=== PATIENT | female | born 1965 | race Caucasian/White ===

== ENCOUNTER 2016-09-19 12:33 | Inpatient (IN) | payer MEDICARE, MEDICAID ==
[~2016-09-19] VITALS: Ht 162.6 cm; Wt 86.6 kg
[~2016-09-19 12:33] MED LIST: BENZ1TAB10 PO; CYCL10 PO; DIVA500T2 PO; GABA400C PO; HALO10 PO; INSU100V12 SQ; LANS30 PO; LEVO125 PO; LITH300C3 PO; METO-323 PO; OLAN10TA6 PO; PREG50 PO; PROP10 PO; RIVA20TA PO; ROPI2 PO; TRAM50TA4 PO; TRIH5TAB2 PO
[2016-09-19] MEDS ORDERED: MAG HYDROX/AL HYDROX/SIMETH ES 30 ML SUSPENSION UDCUP PO PRN (13:45)
[2016-09-19] MEDS ORDERED: HydrOXYzine PAMOATE 50 MG CAPSULE PO PRN (13:45)
[2016-09-19] MEDS ORDERED: GuaiFENesin/D-METHORPHAN [SUGAR-FREE] 200-20MG/10 ML SYRUP UDCUP PO PRN (13:45)
[2016-09-19] MEDS ORDERED: PROMETHAZINE HCL 25 MG TABLET PO PRN (13:45)
[2016-09-19] MEDS ORDERED: LOPERAMIDE HCL 2 MG CAPSULE PO PRN (13:45)
[2016-09-19] MEDS ORDERED: MAGNESIUM HYDROXIDE SUSPENSION 30 ML UDCUP PO PRN (13:45)
[2016-09-19] MEDS: ACAMPROSATE CALCIUM 333 MG DR TABLET PO SCH ×2 (16:48→17:00)
[2016-09-19] MEDS: BusPIRone HCL 10 MG TABLET PO SCH ×2 (16:49→17:00)
[2016-09-19] MEDS: THIAMINE HCL 100 MG TABLET PO SCH (16:49)
[2016-09-19] MEDS: VALPROIC ACID 250 MG CAPSULE PO SCH ×2 (16:49→17:00)
[2016-09-19 16:50] VITALS: BP 147/92
[2016-09-19] MEDS ORDERED: INFLUENZA VIRUS VACCINE QVS 2016-17 (3YR+)/PF 60 MCG/0.5 ML SYRINGE IM ONE (17:30)
[2016-09-19] MEDS: LORazepam 1 MG TABLET PO PRN (19:42)
[2016-09-19] MEDS ORDERED: IPRATROPIUM BROMIDE 0.5 MG/2.5 ML NEB SOLUTION NEB PRN (20:00)
[2016-09-19] MEDS ORDERED: ALBUTEROL SULFATE 2.5 MG/0.5 ML NEB SOLUTION NEB PRN (20:00)
[2016-09-19] MEDS ORDERED: ZOLPIDEM TARTRATE 10 MG TABLET PO SCH (21:00)
[2016-09-19] MEDS: PHENYTOIN SODIUM 100 MG ER CAPSULE PO SCH (21:12)
[2016-09-19] MEDS: OLANZapine 10 MG TABLET PO SCH (21:13)
[2016-09-19] MEDS: FAMOTIDINE 20 MG TABLET PO SCH (21:13)
[2016-09-19 21:39] LABS: APPEARANCE,URINE CLOUDY (CLEAR); GLUCOSE, URINE (UA) NEGATIVE (NEGATIVE); KETONES,URINE 15 mg/dL (NEGATIVE); LEUKOCYTE ESTERASE ,URINE MODERATE (NEGATIVE); OCCULT BLOOD,URINE NEGATIVE (NEGATIVE); PROTEIN,URINE POS 1+ (NEGATIVE)
[2016-09-19 21:42] LABS: ADD UA MICROSCOPIC YES
[2016-09-19 22:05] LABS: SQUAMOUS EPITHELIAL CELL,UR Moderate /LPF (None Seen)
[2016-09-19 22:06] LABS: RBC,URINE 0-2 /HPF (0-2); WBC,URINE 26-50 /HPF (0-5)
[2016-09-19] MEDS: ZOLPIDEM TARTRATE 10 MG TABLET PO PRN (22:34)
[2016-09-20] MEDS: LORazepam 1 MG TABLET PO PRN ×5 (04:43→17:47)
[2016-09-20 04:53] VITALS: BP 159/95
[2016-09-20] MEDS: ACETAMINOPHEN 325 MG TABLET PO PRN ×2 (04:54→09:08)
[2016-09-20] MEDS ORDERED: LEVOTHYROXINE SODIUM 125 MCG TABLET PO SCH (07:00)
[2016-09-20] MEDS: VALPROIC ACID 250 MG CAPSULE PO SCH ×3 (09:08→16:28)
[2016-09-20] MEDS: HALOPERIDOL 5 MG TABLET PO PRN ×2 (09:09→14:18)
[2016-09-20] MEDS: BusPIRone HCL 10 MG TABLET PO SCH ×3 (09:09→16:28)
[2016-09-20] MEDS: SERTRALINE HCL 100 MG TABLET PO SCH (09:09)
[2016-09-20] MEDS: ACAMPROSATE CALCIUM 333 MG DR TABLET PO SCH ×3 (09:09→16:28)
[2016-09-20] MEDS: MULTIVITAMINS WITH MINERALS, THERAPEUTIC TABLET PO SCH (09:09)
[2016-09-20] MEDS: DULoxetine HCL 30 MG CAPSULE PO SCH (09:09)
[2016-09-20] MEDS: THIAMINE HCL 100 MG TABLET PO SCH ×2 (09:10→16:28)
[2016-09-20] MEDS: FOLIC ACID 1 MG TABLET PO SCH (09:10)
[2016-09-20] MEDS: METOPROLOL TARTRATE 25 MG TABLET PO SCH (09:11)
[2016-09-20] MEDS: SULFAMETHOX/TRIMETH DS 800-160 MG/TABLET PO SCH ×2 (10:32→16:28)
[2016-09-20] MEDS: ESTROGENS,CONJUGATED 0.3 MG TABLET PO SCH (11:47)
[2016-09-20] MEDS: NICOTINE 21 MG/24 HOUR PATCH TD SCH (11:47)
[2016-09-20] MEDS: IBUPROFEN 600 MG TABLET PO PRN (14:19)
[2016-09-20 16:57] VITALS: BP 153/87
[2016-09-20] MEDS: OLANZapine 10 MG TABLET PO SCH (21:17)
[2016-09-20] MEDS: FAMOTIDINE 20 MG TABLET PO SCH (21:17)
[2016-09-20] MEDS: PHENYTOIN SODIUM 100 MG ER CAPSULE PO SCH (21:17)
[2016-09-20] MEDS: ZOLPIDEM TARTRATE 10 MG TABLET PO PRN (21:18)
[2016-09-21 01:30] VITALS: BP 148/90
[2016-09-21] MEDS: LORazepam 1 MG TABLET PO PRN ×6 (01:31→17:51)
[2016-09-21] MEDS: IBUPROFEN 600 MG TABLET PO PRN ×2 (01:32→12:26)
[2016-09-21] MEDS: LEVOTHYROXINE SODIUM 50 MCG TABLET PO SCH (06:26)
[2016-09-21 08:21] VITALS: BP 153/80
[2016-09-21] MEDS: SULFAMETHOX/TRIMETH DS 800-160 MG/TABLET PO SCH ×2 (08:25→16:26)
[2016-09-21] MEDS: BusPIRone HCL 10 MG TABLET PO SCH ×3 (08:25→16:26)
[2016-09-21] MEDS: VALPROIC ACID 250 MG CAPSULE PO SCH ×3 (08:26→16:26)
[2016-09-21] MEDS: FOLIC ACID 1 MG TABLET PO SCH (08:26)
[2016-09-21] MEDS: MULTIVITAMINS WITH MINERALS, THERAPEUTIC TABLET PO SCH (08:26)
[2016-09-21] MEDS: METOPROLOL TARTRATE 25 MG TABLET PO SCH (08:26)
[2016-09-21] MEDS: DULoxetine HCL 30 MG CAPSULE PO SCH (08:26)
[2016-09-21] MEDS: ESTROGENS,CONJUGATED 0.3 MG TABLET PO SCH (08:27)
[2016-09-21] MEDS: ACAMPROSATE CALCIUM 333 MG DR TABLET PO SCH ×3 (08:27→16:26)
[2016-09-21] MEDS: SERTRALINE HCL 100 MG TABLET PO SCH (08:28)
[2016-09-21] MEDS: THIAMINE HCL 100 MG TABLET PO SCH ×2 (08:28→16:26)
[2016-09-21] MEDS: NICOTINE 21 MG/24 HOUR PATCH TD SCH (11:23)
[2016-09-21 17:07] VITALS: BP 130/74
[2016-09-21] MEDS: OLANZapine 10 MG TABLET PO SCH (20:16)
[2016-09-21] MEDS: PHENYTOIN SODIUM 100 MG ER CAPSULE PO SCH (20:16)
[2016-09-21] MEDS: FAMOTIDINE 20 MG TABLET PO SCH (20:16)
[2016-09-21] MEDS: ZOLPIDEM TARTRATE 10 MG TABLET PO PRN (21:56)
[2016-09-22 05:30] VITALS: BP 135/86
[2016-09-22] MEDS: LORazepam 1 MG TABLET PO PRN ×6 (05:30→23:52)
[2016-09-22] MEDS: IBUPROFEN 600 MG TABLET PO PRN ×3 (05:31→17:45)
[2016-09-22 06:16] VITALS: BP 135/86
[2016-09-22] MEDS: LEVOTHYROXINE SODIUM 50 MCG TABLET PO SCH (06:20)
[2016-09-22 08:15] VITALS: BP 133/89
[2016-09-22] MEDS: BusPIRone HCL 10 MG TABLET PO SCH ×3 (08:15→16:10)
[2016-09-22] MEDS: SULFAMETHOX/TRIMETH DS 800-160 MG/TABLET PO SCH ×2 (08:15→16:10)
[2016-09-22] MEDS: DULoxetine HCL 30 MG CAPSULE PO SCH (08:16)
[2016-09-22] MEDS: VALPROIC ACID 250 MG CAPSULE PO SCH ×3 (08:16→16:09)
[2016-09-22] MEDS: ACAMPROSATE CALCIUM 333 MG DR TABLET PO SCH ×3 (08:16→16:09)
[2016-09-22] MEDS: THIAMINE HCL 100 MG TABLET PO SCH ×2 (08:17→16:10)
[2016-09-22] MEDS: ESTROGENS,CONJUGATED 0.3 MG TABLET PO SCH (08:17)
[2016-09-22] MEDS: METOPROLOL TARTRATE 25 MG TABLET PO SCH (08:17)
[2016-09-22] MEDS: SERTRALINE HCL 100 MG TABLET PO SCH (08:17)
[2016-09-22] MEDS: FOLIC ACID 1 MG TABLET PO SCH (08:17)
[2016-09-22] MEDS: MULTIVITAMINS WITH MINERALS, THERAPEUTIC TABLET PO SCH (08:18)
[2016-09-22] MEDS: NICOTINE 21 MG/24 HOUR PATCH TD SCH (08:22)
[2016-09-22 10:29] VITALS: BP 146/94
[2016-09-22 17:40] VITALS: BP 155/98
[2016-09-22] MEDS: FAMOTIDINE 20 MG TABLET PO SCH (21:52)
[2016-09-22] MEDS: OLANZapine 10 MG TABLET PO SCH (21:52)
[2016-09-22] MEDS: ZOLPIDEM TARTRATE 10 MG TABLET PO PRN (21:52)
[2016-09-22] MEDS: PHENYTOIN SODIUM 100 MG ER CAPSULE PO SCH (21:52)
[2016-09-23 00:30] VITALS: BP 137/89
[2016-09-23] MEDS: LORazepam 1 MG TABLET PO PRN ×4 (05:47→16:05)
[2016-09-23] MEDS: IBUPROFEN 600 MG TABLET PO PRN ×2 (05:47→10:15)
[2016-09-23] MEDS: LEVOTHYROXINE SODIUM 50 MCG TABLET PO SCH (06:19)
[2016-09-23] MEDS: DULoxetine HCL 30 MG CAPSULE PO SCH (08:10)
[2016-09-23] MEDS: MULTIVITAMINS WITH MINERALS, THERAPEUTIC TABLET PO SCH (08:10)
[2016-09-23] MEDS: THIAMINE HCL 100 MG TABLET PO SCH ×2 (08:11→16:05)
[2016-09-23] MEDS: METOPROLOL TARTRATE 25 MG TABLET PO SCH (08:11)
[2016-09-23] MEDS: FOLIC ACID 1 MG TABLET PO SCH (08:11)
[2016-09-23] MEDS: BusPIRone HCL 10 MG TABLET PO SCH ×3 (08:11→16:06)
[2016-09-23] MEDS: ESTROGENS,CONJUGATED 0.3 MG TABLET PO SCH (08:11)
[2016-09-23] MEDS: SULFAMETHOX/TRIMETH DS 800-160 MG/TABLET PO SCH ×2 (08:12→16:05)
[2016-09-23] MEDS: VALPROIC ACID 250 MG CAPSULE PO SCH ×3 (08:12→16:06)
[2016-09-23] MEDS: SERTRALINE HCL 100 MG TABLET PO SCH (08:12)
[2016-09-23] MEDS: ACAMPROSATE CALCIUM 333 MG DR TABLET PO SCH ×3 (08:12→16:05)
[2016-09-23] MEDS: NICOTINE 21 MG/24 HOUR PATCH TD SCH (08:16)
[2016-09-23 09:48] VITALS: BP 156/88
[2016-09-23 10:14] VITALS: BP 155/84
[2016-09-23 21:04] VITALS: BP 124/69
[2016-09-23] MEDS: FAMOTIDINE 20 MG TABLET PO SCH (21:13)
[2016-09-23] MEDS: OLANZapine 10 MG TABLET PO SCH (21:14)
[2016-09-23] MEDS: PHENYTOIN SODIUM 100 MG ER CAPSULE PO SCH (21:14)
[2016-09-23] MEDS: ZOLPIDEM TARTRATE 10 MG TABLET PO PRN (21:41)
[2016-09-24] MEDS: IBUPROFEN 600 MG TABLET PO PRN ×2 (04:54→08:56)
[2016-09-24] MEDS: LORazepam 1 MG TABLET PO PRN ×4 (04:54→16:20)
[2016-09-24 04:55] VITALS: BP 147/98
[2016-09-24] MEDS: LEVOTHYROXINE SODIUM 50 MCG TABLET PO SCH (06:28)
[2016-09-24 08:50] VITALS: BP 146/69
[2016-09-24] MEDS: VALPROIC ACID 250 MG CAPSULE PO SCH ×3 (08:50→16:16)
[2016-09-24] MEDS: ESTROGENS,CONJUGATED 0.3 MG TABLET PO SCH (08:50)
[2016-09-24] MEDS: FOLIC ACID 1 MG TABLET PO SCH (08:50)
[2016-09-24] MEDS: SULFAMETHOX/TRIMETH DS 800-160 MG/TABLET PO SCH ×2 (08:50→16:16)
[2016-09-24] MEDS: DULoxetine HCL 30 MG CAPSULE PO SCH (08:50)
[2016-09-24] MEDS: METOPROLOL TARTRATE 25 MG TABLET PO SCH (08:50)
[2016-09-24] MEDS: THIAMINE HCL 100 MG TABLET PO SCH ×2 (08:51→16:17)
[2016-09-24] MEDS: MULTIVITAMINS WITH MINERALS, THERAPEUTIC TABLET PO SCH (08:51)
[2016-09-24] MEDS: TRIHEXYPHENIDYL HCL 5 MG TABLET PO SCH ×2 (08:51→16:17)
[2016-09-24] MEDS: BusPIRone HCL 10 MG TABLET PO SCH ×3 (08:51→16:16)
[2016-09-24] MEDS: SERTRALINE HCL 100 MG TABLET PO SCH (08:51)
[2016-09-24] MEDS: ACAMPROSATE CALCIUM 333 MG DR TABLET PO SCH ×3 (08:51→16:16)
[2016-09-24] MEDS: NICOTINE 21 MG/24 HOUR PATCH TD SCH (08:56)
[2016-09-24 09:35] LABS: BASOPHILS % (AUTO) 0.4 % (0.0-2.0); EOSINOPHILS % (AUTO) 3.1 % (1.0-6.0); HEMATOCRIT 38.8 % (36-46); LYMPHOCYTES # (AUTO) 1.8 K/uL (1.0-4.8); LYMPHOCYTES % (AUTO) 21.4 % (22.0-44.0); MEAN CORPUSCULAR HEMOGLOBIN 30.6 pg (26.0-34.0); MEAN CORPUSCULAR HGB CONC 33.5 G/dL (31.0-37.0); MEAN CORPUSCULAR VOLUME 91 fL (80-100); MONOCYTES # (AUTO) 0.5 K/uL (0.1-1.0); MONOCYTES % (AUTO) 5.8 % (2.0-9.0); NEUTROPHILS # (AUTO) 5.7 K/uL (1.8-7.7); NEUTROPHILS % (AUTO) 69.3 % (40.0-70.0); PLATELET COUNT (AUTO) 300 K/uL (150-450); RED BLOOD CELL COUNT(AUTO) 4.25 MIL/uL (4.00-5.20); RED CELL DISTRIBUTION WIDTH 13.4 % (11.5-14.5); WHITE BLOOD COUNT (AUTO) 8.2 K/uL (4.5-11.0)
[2016-09-24 09:40] LABS: AMYLASE 65 U/L (25-115); VALPROIC ACID 17 mcg/mL (50-100)
[2016-09-24 10:53] VITALS: BP 146/93
[2016-09-24] MEDS: OxyCODONE HCL/ACETAMINOPHEN 5-325 MG TABLET PO PRN ×2 (10:57→16:58)
[2016-09-24 16:32] VITALS: BP 148/98
[2016-09-24 16:55] VITALS: BP 141/90
[2016-09-24] MEDS: PHENYTOIN SODIUM 100 MG ER CAPSULE PO SCH (20:23)
[2016-09-24] MEDS: FAMOTIDINE 20 MG TABLET PO SCH (20:23)
[2016-09-24] MEDS: OLANZapine 10 MG TABLET PO SCH (20:23)
[2016-09-24] MEDS: ZOLPIDEM TARTRATE 10 MG TABLET PO PRN (22:08)
[2016-09-25 03:35] VITALS: BP 140/92
[2016-09-25] MEDS: LORazepam 1 MG TABLET PO PRN ×3 (03:37→10:56)
[2016-09-25] MEDS: OxyCODONE HCL/ACETAMINOPHEN 5-325 MG TABLET PO PRN ×2 (03:37→10:03)
[2016-09-25] MEDS: LEVOTHYROXINE SODIUM 50 MCG TABLET PO SCH (06:16)
[2016-09-25] MEDS: NICOTINE 21 MG/24 HOUR PATCH TD SCH (08:51)
[2016-09-25] MEDS: DULoxetine HCL 30 MG CAPSULE PO SCH (08:52)
[2016-09-25] MEDS: ACAMPROSATE CALCIUM 333 MG DR TABLET PO SCH ×2 (08:52→13:33)
[2016-09-25] MEDS: VALPROIC ACID 250 MG CAPSULE PO SCH ×2 (08:52→13:32)
[2016-09-25] MEDS: THIAMINE HCL 100 MG TABLET PO SCH (08:52)
[2016-09-25] MEDS: TRIHEXYPHENIDYL HCL 5 MG TABLET PO SCH (08:52)
[2016-09-25] MEDS: MULTIVITAMINS WITH MINERALS, THERAPEUTIC TABLET PO SCH (08:52)
[2016-09-25] MEDS: FOLIC ACID 1 MG TABLET PO SCH (08:53)
[2016-09-25] MEDS: ESTROGENS,CONJUGATED 0.3 MG TABLET PO SCH (08:53)
[2016-09-25] MEDS: SERTRALINE HCL 100 MG TABLET PO SCH (08:53)
[2016-09-25] MEDS: METOPROLOL TARTRATE 25 MG TABLET PO SCH (08:53)
[2016-09-25] MEDS: BusPIRone HCL 10 MG TABLET PO SCH ×2 (08:53→13:32)
[2016-09-25 09:00] VITALS: BP 142/77
[2016-09-25] MEDS: IBUPROFEN 600 MG TABLET PO PRN (09:00)
[2016-09-25] MEDS: HALOPERIDOL 5 MG TABLET PO PRN (10:56)
[2016-09-25] MEDS ORDERED: VALP250 PO (12:57)
[2016-09-25] MEDS ORDERED: ACAM333T7 PO (12:57)
[2016-09-25] MEDS ORDERED: PHENY100 PO (12:57)
[2016-09-25] MEDS ORDERED: SERT100T12 PO (12:57)
[2016-09-25] MEDS ORDERED: TRIH5TAB2 PO (12:57)
[2016-09-25] MEDS ORDERED: DULO30CA2 PO (12:57)
[2016-09-25] MEDS ORDERED: BUSP10TA23 PO (12:57)
[2016-09-25] MEDS ORDERED: OLAN10TA20 PO (12:57)
[2016-09-25] MEDS ORDERED: PREM3 PO (13:10)
[2016-09-25] MEDS ORDERED: FAMO20 PO (13:11)
[2016-09-25] MEDS ORDERED: LEVO50 PO (13:11)
== END 2016-09-25 15:00 | disposition home or self-care (01) | DRG 885 ==
LOC: 3EI 15:48 → MERGE 15:48 → 3EI 09-20 17:51 → 3EX 09-20 17:51 → 3EI 09-23 18:16
PROVIDERS: ADMIT Psychiatry & Neurology Psychiatry; ATTEND Psychiatry & Neurology Psychiatry
DX: F25.0 Schizoaffective disorder, bipolar type (principal); R45.851 Suicidal ideations; J44.9 Chronic obstructive pulmonary disease, unspecified; E03.9 Hypothyroidism, unspecified; G89.4 Chronic pain syndrome; E78.00 Pure hypercholesterolemia, unspecified; E66.9 Obesity, unspecified; M54.9 Dorsalgia, unspecified; E11.9 Type 2 diabetes mellitus without complications; I10 Essential (primary) hypertension; K21.9 Gastro-esophageal reflux disease without esophagitis; M19.90 Unspecified osteoarthritis, unspecified site; G40.909 Epilepsy, unspecified, not intractable, without status epilepticus; N95.9 Unspecified menopausal and perimenopausal disorder; Z93.3 Colostomy status; F17.200 Nicotine dependence, unspecified, uncomplicated; Z71.6 Tobacco abuse counseling; Z28.21 Immunization not carried out because of patient refusal; Z76.5 Malingerer [conscious simulation]; Z88.8 Allergy status to other drugs, medicaments and biological substances; Z79.899 Other long term (current) drug therapy; Z91.19 Patient's noncompliance with other medical treatment and regimen; Z98.890 Other specified postprocedural states; Z86.718 Personal history of other venous thrombosis and embolism; Z85.038 Personal history of other malignant neoplasm of large intestine
CPT/HCPCS: 80307; 87086; 87147; 93005

== ENCOUNTER 2016-10-14 10:12 | Inpatient (IN) | payer MEDICARE, MEDICAID ==
[~2016-10-14] VITALS: Ht 162.6 cm; Wt 83.3 kg
[~2016-10-14 10:12] MED LIST changes: +ACAM333T7 PO; -BENZ1TAB10 PO; +BUSP10TA23 PO; -CYCL10 PO; -DIVA500T2 PO; +DULO30CA2 PO; +FAMO20 PO; -GABA400C PO; -HALO10 PO; -INSU100V12 SQ; -LANS30 PO; -LEVO125 PO; +LEVO50 PO; -LITH300C3 PO; +OLAN10TA20 PO; +PHENY100 PO; -PREG50 PO; +PREM3 PO; -PROP10 PO; -RIVA20TA PO; -ROPI2 PO; +SERT100T12 PO; -TRAM50TA4 PO; +VALP250 PO
[2016-10-14 12:07] VITALS: BP 133/97
[2016-10-14] MEDS: BusPIRone HCL 10 MG TABLET PO SCH (17:00)
[2016-10-14] MEDS: TRIHEXYPHENIDYL HCL 5 MG TABLET PO SCH (17:00)
[2016-10-14] MEDS ORDERED: INFLUENZA VIRUS VACCINE QVS 2016-17 (3YR+)/PF 60 MCG/0.5 ML SYRINGE IM ONE (17:00)
[2016-10-14] MEDS: ACAMPROSATE CALCIUM 333 MG DR TABLET PO SCH (17:00)
[2016-10-14 18:15] VITALS: BP 135/84
[2016-10-14] MEDS: DIVALPROEX SODIUM 500 MG DR TABLET PO SCH (18:28)
[2016-10-14] MEDS: LORazepam 2 MG TABLET PO PRN (19:09)
[2016-10-14] MEDS: HALOPERIDOL 5 MG TABLET PO PRN (19:09)
[2016-10-14] MEDS ORDERED: DEXTROSE 50%-WATER 25 GM/50 ML SYRINGE IVP PRN (20:45)
[2016-10-14] MEDS ORDERED: OLANZapine 10 MG TABLET PO SCH (21:00)
[2016-10-14] MEDS: FAMOTIDINE 20 MG TABLET PO SCH (22:11)
[2016-10-14] MEDS: PHENYTOIN SODIUM 100 MG ER CAPSULE PO SCH (22:11)
[2016-10-14] MEDS: CEPHALEXIN MONOHYDRATE 500 MG CAPSULE PO SCH (22:11)
[2016-10-15 05:55] VITALS: BP 135/90
[2016-10-15] MEDS: HALOPERIDOL 5 MG TABLET PO PRN (06:02)
[2016-10-15] MEDS: LORazepam 2 MG TABLET PO PRN (06:02)
[2016-10-15] MEDS: LEVOTHYROXINE SODIUM 50 MCG TABLET PO SCH (07:00)
[2016-10-15 08:00] VITALS: BP 123/78
[2016-10-15] MEDS: BusPIRone HCL 10 MG TABLET PO SCH ×2 (08:16→12:05)
[2016-10-15] MEDS: ESTROGENS,CONJUGATED 0.3 MG TABLET PO SCH (08:16)
[2016-10-15] MEDS: METOPROLOL SUCCINATE 25 MG ER TABLET PO SCH (08:16)
[2016-10-15] MEDS: ACAMPROSATE CALCIUM 333 MG DR TABLET PO SCH ×3 (08:16→16:43)
[2016-10-15] MEDS: CEPHALEXIN MONOHYDRATE 500 MG CAPSULE PO SCH ×4 (08:16→22:00)
[2016-10-15] MEDS: DULoxetine HCL 60 MG CAPSULE PO SCH (08:16)
[2016-10-15] MEDS: TRIHEXYPHENIDYL HCL 5 MG TABLET PO SCH (08:17)
[2016-10-15] MEDS: DIVALPROEX SODIUM 500 MG DR TABLET PO SCH ×3 (08:17→16:43)
[2016-10-15] MEDS: NICOTINE 21 MG/24 HOUR PATCH TD SCH (08:17)
[2016-10-15] MEDS ORDERED: OxyCODONE HCL/ACETAMINOPHEN 5-325 MG TABLET PO PRN (08:45)
[2016-10-15] MEDS ORDERED: MAGNESIUM HYDROXIDE SUSPENSION 30 ML UDCUP PO PRN (10:30)
[2016-10-15] MEDS ORDERED: LOPERAMIDE HCL 2 MG CAPSULE PO PRN (10:30)
[2016-10-15] MEDS ORDERED: PROMETHAZINE HCL 25 MG TABLET PO PRN (10:30)
[2016-10-15] MEDS ORDERED: MAG HYDROX/AL HYDROX/SIMETH ES 30 ML SUSPENSION UDCUP PO PRN (10:30)
[2016-10-15] MEDS: INSULIN ASPART 100 UNITS/ML SQ PRN ×3 (11:00→21:51)
[2016-10-15 11:01] LABS: GLUCOSE COMMENT 1 Received Meds; GLUCOSE,POINT OF CARE 249 MG/DL (70-110)
[2016-10-15] MEDS ORDERED: HALOPERIDOL LACTATE 5 MG/ML VIAL IM ONE (16:00)
[2016-10-15] MEDS ORDERED: GABAPENTIN 400 MG CAPSULE PO PRN (16:00)
[2016-10-15] MEDS ORDERED: DiphenhydrAMINE HCL 50 MG/ML VIAL IM ONE (16:00)
[2016-10-15] MEDS: THIAMINE HCL 100 MG TABLET PO SCH (16:43)
[2016-10-15] MEDS: HALOPERIDOL 5 MG TABLET PO SCH (17:00)
[2016-10-15 17:11] VITALS: BP 134/96
[2016-10-15] MEDS: AMANTADINE HCL 100 MG CAPSULE PO SCH ×2 (17:13→21:57)
[2016-10-15 20:27] LABS: GLUCOSE,POINT OF CARE 184 MG/DL (70-110)
[2016-10-15 20:32] LABS: GLUCOSE,POINT OF CARE 235 MG/DL (70-110)
[2016-10-15] MEDS ORDERED: HALOPERIDOL 10 MG TABLET PO SCH (21:00)
[2016-10-15] MEDS: ZOLPIDEM TARTRATE 10 MG TABLET PO PRN (21:56)
[2016-10-15] MEDS: PHENYTOIN SODIUM 100 MG ER CAPSULE PO SCH (21:56)
[2016-10-15] MEDS: FAMOTIDINE 20 MG TABLET PO SCH (22:00)
[2016-10-16] MEDS: HALOPERIDOL 5 MG TABLET PO PRN ×2 (02:49→06:49)
[2016-10-16] MEDS: HydrOXYzine PAMOATE 50 MG CAPSULE PO PRN ×2 (02:49→09:40)
[2016-10-16 04:40] VITALS: BP 129/83
[2016-10-16] MEDS: ACETAMINOPHEN 325 MG TABLET PO PRN (04:58)
[2016-10-16 05:02] LABS: GLUCOSE,POINT OF CARE 206 MG/DL (70-110)
[2016-10-16] MEDS: LEVOTHYROXINE SODIUM 50 MCG TABLET PO SCH (06:33)
[2016-10-16] MEDS: INSULIN ASPART 100 UNITS/ML SQ PRN ×4 (06:33→21:38)
[2016-10-16 06:52] LABS: BASOPHILS % (AUTO) 0.3 % (0.0-2.0); EOSINOPHILS % (AUTO) 1.8 % (1.0-6.0); HEMATOCRIT 40.7 % (36-46); HEMOGLOBIN 13.4 g/dL (12.0-16.0); LYMPHOCYTES # (AUTO) 1.9 K/uL (1.0-4.8); LYMPHOCYTES % (AUTO) 22.5 % (22.0-44.0); MEAN CORPUSCULAR HEMOGLOBIN 30.6 pg (26.0-34.0); MEAN CORPUSCULAR HGB CONC 32.9 G/dL (31.0-37.0); MEAN CORPUSCULAR VOLUME 93 fL (80-100); MONOCYTES # (AUTO) 0.5 K/uL (0.1-1.0); MONOCYTES % (AUTO) 6.1 % (2.0-9.0); NEUTROPHILS # (AUTO) 5.8 K/uL (1.8-7.7); NEUTROPHILS % (AUTO) 69.3 % (40.0-70.0); PLATELET COUNT (AUTO) 279 K/uL (150-450); RED BLOOD CELL COUNT(AUTO) 4.38 MIL/uL (4.00-5.20); RED CELL DISTRIBUTION WIDTH 14.5 % (11.5-14.5); WHITE BLOOD COUNT (AUTO) 8.4 K/uL (4.5-11.0)
[2016-10-16 07:13] LABS: ALANINE AMINOTRANSFERASE 36 U/L (12-78); ALBUMIN 3.6 g/dL (3.4-5.0); ANION GAP 13 mmol/L (8-16); ASPARTATE AMINOTRANSFERASE 18 U/L (15-37); BILIRUBIN,TOTAL 0.3 mg/dL (0.1-1.0); CALCIUM, TOTAL 9.3 mg/dL (8.8-10.5); CARBON DIOXIDE 24 mmol/L (22-29); CHLORIDE 97 mmol/L (98-107); GLOMERULAR FILTR. RATE CALC > 60 mL/min (>60); POTASSIUM 3.8 mmol/L (3.5-5.1); SODIUM SERUM 134 mmol/L (136-145); TOTAL PROTEIN, SERUM 7.7 g/dL (6.4-8.2); UREA NITROGEN, BLOOD 17 mg/dL (7-18); VALPROIC ACID 25 mcg/mL (50-100)
[2016-10-16 08:00] VITALS: BP 147/92
[2016-10-16] MEDS: THIAMINE HCL 100 MG TABLET PO SCH ×2 (08:11→16:14)
[2016-10-16] MEDS: DIVALPROEX SODIUM 500 MG DR TABLET PO SCH ×3 (08:11→16:13)
[2016-10-16] MEDS: MULTIVITAMINS WITH MINERALS, THERAPEUTIC TABLET PO SCH (08:11)
[2016-10-16] MEDS: DULoxetine HCL 60 MG CAPSULE PO SCH (08:12)
[2016-10-16] MEDS: METOPROLOL SUCCINATE 25 MG ER TABLET PO SCH (08:12)
[2016-10-16] MEDS: CEPHALEXIN MONOHYDRATE 500 MG CAPSULE PO SCH ×4 (08:12→21:28)
[2016-10-16] MEDS: ACAMPROSATE CALCIUM 333 MG DR TABLET PO SCH ×3 (08:12→16:13)
[2016-10-16] MEDS: ESTROGENS,CONJUGATED 0.3 MG TABLET PO SCH (08:12)
[2016-10-16] MEDS: FOLIC ACID 1 MG TABLET PO SCH (08:12)
[2016-10-16] MEDS: NICOTINE 21 MG/24 HOUR PATCH TD SCH (08:13)
[2016-10-16] MEDS: HALOPERIDOL 5 MG TABLET PO SCH (09:00)
[2016-10-16 10:10] VITALS: BP 150/97
[2016-10-16 11:21] LABS: GLUCOSE,POINT OF CARE 210 MG/DL (70-110)
[2016-10-16] MEDS: AMANTADINE HCL 100 MG CAPSULE PO SCH ×2 (12:25→16:13)
[2016-10-16] MEDS ORDERED: LORazepam 2 MG/ML VIAL IM ONE (12:30)
[2016-10-16] MEDS ORDERED: DiphenhydrAMINE HCL 50 MG/ML VIAL IM ONE (12:30)
[2016-10-16] MEDS ORDERED: FluPHENAZine HCL 2.5 MG/ML INJ IM ONE (12:30)
[2016-10-16 16:21] LABS: GLUCOSE COMMENT 1 Received Meds; GLUCOSE,POINT OF CARE 227 MG/DL (70-110)
[2016-10-16 17:00] VITALS: BP 143/85
[2016-10-16] MEDS: LORazepam 2 MG TABLET PO PRN (17:17)
[2016-10-16] MEDS ORDERED: OLANZapine 5 MG RAPDIS TABLET PO SCH (21:00)
[2016-10-16] MEDS: PHENYTOIN SODIUM 100 MG ER CAPSULE PO SCH (21:28)
[2016-10-16] MEDS: FAMOTIDINE 20 MG TABLET PO SCH (21:28)
[2016-10-16 21:42] LABS: GLUCOSE COMMENT 1 Received Meds; GLUCOSE,POINT OF CARE 171 MG/DL (70-110)
[2016-10-17] MEDS: LORazepam 2 MG TABLET PO PRN ×3 (02:41→18:26)
[2016-10-17] MEDS: ZOLPIDEM TARTRATE 10 MG TABLET PO PRN ×2 (02:42→21:44)
[2016-10-17 05:31] LABS: GLUCOSE,POINT OF CARE 151 MG/DL (70-110)
[2016-10-17 06:02] VITALS: BP 130/86
[2016-10-17] MEDS: LEVOTHYROXINE SODIUM 50 MCG TABLET PO SCH (06:36)
[2016-10-17] MEDS: CEPHALEXIN MONOHYDRATE 500 MG CAPSULE PO SCH ×4 (08:00→21:32)
[2016-10-17] MEDS: MULTIVITAMINS WITH MINERALS, THERAPEUTIC TABLET PO SCH (08:00)
[2016-10-17] MEDS: AMANTADINE HCL 100 MG CAPSULE PO SCH ×3 (08:00→16:16)
[2016-10-17] MEDS: ACAMPROSATE CALCIUM 333 MG DR TABLET PO SCH ×3 (08:00→16:15)
[2016-10-17] MEDS: NICOTINE 21 MG/24 HOUR PATCH TD SCH (08:00)
[2016-10-17] MEDS: ESTROGENS,CONJUGATED 0.3 MG TABLET PO SCH (08:00)
[2016-10-17] MEDS: DIVALPROEX SODIUM 500 MG DR TABLET PO SCH ×3 (08:00→16:16)
[2016-10-17] MEDS: METOPROLOL SUCCINATE 25 MG ER TABLET PO SCH (08:00)
[2016-10-17] MEDS: DULoxetine HCL 60 MG CAPSULE PO SCH (08:01)
[2016-10-17] MEDS: THIAMINE HCL 100 MG TABLET PO SCH ×2 (08:01→16:16)
[2016-10-17] MEDS: FOLIC ACID 1 MG TABLET PO SCH (08:02)
[2016-10-17] MEDS: IBUPROFEN 600 MG TABLET PO PRN (10:49)
[2016-10-17 10:50] VITALS: BP 150/79
[2016-10-17 11:12] LABS: GLUCOSE,POINT OF CARE 200 MG/DL (70-110)
[2016-10-17] MEDS: INSULIN ASPART 100 UNITS/ML SQ PRN ×3 (11:12→21:36)
[2016-10-17] MEDS: GuaiFENesin/D-METHORPHAN [SUGAR-FREE] 200-20MG/10 ML SYRUP UDCUP PO PRN (11:27)
[2016-10-17] MEDS: GABAPENTIN 300 MG CAPSULE PO SCH (16:16)
[2016-10-17] MEDS: OLANZapine 5 MG RAPDIS TABLET PO SCH ×2 (16:16→21:32)
[2016-10-17] MEDS: GuaiFENesin/D-METHORPHAN/PHENYLEPH 5 ML LIQUID ORAL.SYG PO PRN ×2 (16:17→21:44)
[2016-10-17 17:11] LABS: GLUCOSE,POINT OF CARE 243 MG/DL (70-110)
[2016-10-17 18:26] VITALS: BP 144/74
[2016-10-17 21:31] LABS: GLUCOSE COMMENT 1 Received Meds; GLUCOSE,POINT OF CARE 176 MG/DL (70-110)
[2016-10-17] MEDS: FAMOTIDINE 20 MG TABLET PO SCH (21:32)
[2016-10-17] MEDS: PHENYTOIN SODIUM 100 MG ER CAPSULE PO SCH (21:32)
[2016-10-18 03:30] VITALS: BP 137/86
[2016-10-18] MEDS: ACETAMINOPHEN 325 MG TABLET PO PRN (03:38)
[2016-10-18] MEDS: LORazepam 2 MG TABLET PO PRN ×3 (03:38→17:01)
[2016-10-18] MEDS: GuaiFENesin/D-METHORPHAN/PHENYLEPH 5 ML LIQUID ORAL.SYG PO PRN ×3 (03:41→12:56)
[2016-10-18] MEDS: OLANZapine 5 MG RAPDIS TABLET PO PRN ×2 (04:24→22:19)
[2016-10-18 05:27] LABS: GLUCOSE,POINT OF CARE 179 MG/DL (70-110)
[2016-10-18] MEDS: LEVOTHYROXINE SODIUM 50 MCG TABLET PO SCH (06:20)
[2016-10-18] MEDS: INSULIN ASPART 100 UNITS/ML SQ PRN ×3 (06:41→16:52)
[2016-10-18] MEDS: CEPHALEXIN MONOHYDRATE 500 MG CAPSULE PO SCH ×4 (08:47→21:27)
[2016-10-18 08:48] VITALS: BP 140/90
[2016-10-18] MEDS: ESTROGENS,CONJUGATED 0.3 MG TABLET PO SCH (08:48)
[2016-10-18] MEDS: DULoxetine HCL 60 MG CAPSULE PO SCH (08:48)
[2016-10-18] MEDS: IBUPROFEN 600 MG TABLET PO PRN (08:48)
[2016-10-18] MEDS: OLANZapine 5 MG RAPDIS TABLET PO SCH ×3 (08:48→16:10)
[2016-10-18] MEDS: ACAMPROSATE CALCIUM 333 MG DR TABLET PO SCH ×3 (08:49→16:10)
[2016-10-18] MEDS: THIAMINE HCL 100 MG TABLET PO SCH ×2 (08:49→16:10)
[2016-10-18] MEDS: METOPROLOL SUCCINATE 25 MG ER TABLET PO SCH (08:49)
[2016-10-18] MEDS: MULTIVITAMINS WITH MINERALS, THERAPEUTIC TABLET PO SCH (08:49)
[2016-10-18] MEDS: DIVALPROEX SODIUM 500 MG DR TABLET PO SCH ×3 (08:49→16:10)
[2016-10-18] MEDS: GABAPENTIN 300 MG CAPSULE PO SCH ×3 (08:49→16:10)
[2016-10-18] MEDS: AMANTADINE HCL 100 MG CAPSULE PO SCH ×3 (08:49→16:10)
[2016-10-18] MEDS: FOLIC ACID 1 MG TABLET PO SCH (08:50)
[2016-10-18] MEDS: NICOTINE 21 MG/24 HOUR PATCH TD SCH (08:51)
[2016-10-18 11:02] LABS: GLUCOSE,POINT OF CARE 143 MG/DL (70-110)
[2016-10-18] MEDS: BENZOCAINE/MENTHOL LOZENGE [8 LOZENGES/PACKET] MM PRN ×2 (12:56→22:21)
[2016-10-18] MEDS: GuaiFENesin/D-METHORPHAN [SUGAR-FREE] 200-20MG/10 ML SYRUP UDCUP PO PRN ×2 (13:02→22:01)
[2016-10-18 16:37] LABS: GLUCOSE COMMENT 1 Received Meds; GLUCOSE,POINT OF CARE 184 MG/DL (70-110)
[2016-10-18 17:00] VITALS: BP 136/85
[2016-10-18] MEDS: FAMOTIDINE 20 MG TABLET PO SCH (21:27)
[2016-10-18] MEDS: PHENYTOIN SODIUM 100 MG ER CAPSULE PO SCH (21:27)
[2016-10-18] MEDS: ZOLPIDEM TARTRATE 10 MG TABLET PO PRN (21:43)
[2016-10-19] MEDS: LORazepam 2 MG TABLET PO PRN ×4 (01:24→22:26)
[2016-10-19] MEDS: BENZOCAINE/MENTHOL LOZENGE [8 LOZENGES/PACKET] MM PRN ×5 (01:24→23:08)
[2016-10-19] MEDS: GuaiFENesin/D-METHORPHAN/PHENYLEPH 5 ML LIQUID ORAL.SYG PO PRN ×4 (01:30→23:08)
[2016-10-19 01:41] VITALS: BP 128/89
[2016-10-19] MEDS: OLANZapine 5 MG RAPDIS TABLET PO PRN ×3 (02:43→23:08)
[2016-10-19 05:11] LABS: GLUCOSE,POINT OF CARE 252 MG/DL (70-110)
[2016-10-19] MEDS: LEVOTHYROXINE SODIUM 50 MCG TABLET PO SCH (06:24)
[2016-10-19] MEDS: INSULIN ASPART 100 UNITS/ML SQ PRN ×3 (06:39→21:20)
[2016-10-19] MEDS: IBUPROFEN 600 MG TABLET PO PRN (07:25)
[2016-10-19 08:00] VITALS: BP 148/90
[2016-10-19] MEDS: NICOTINE 21 MG/24 HOUR PATCH TD SCH (08:31)
[2016-10-19] MEDS: ESTROGENS,CONJUGATED 0.3 MG TABLET PO SCH (08:31)
[2016-10-19] MEDS: AMANTADINE HCL 100 MG CAPSULE PO SCH ×3 (08:32→18:59)
[2016-10-19] MEDS: GABAPENTIN 300 MG CAPSULE PO SCH ×3 (08:32→18:59)
[2016-10-19] MEDS: METOPROLOL SUCCINATE 25 MG ER TABLET PO SCH (08:32)
[2016-10-19] MEDS: FOLIC ACID 1 MG TABLET PO SCH (08:32)
[2016-10-19] MEDS: THIAMINE HCL 100 MG TABLET PO SCH ×2 (08:32→18:59)
[2016-10-19] MEDS: CEPHALEXIN MONOHYDRATE 500 MG CAPSULE PO SCH ×4 (08:32→21:07)
[2016-10-19] MEDS: ACAMPROSATE CALCIUM 333 MG DR TABLET PO SCH ×3 (08:32→19:00)
[2016-10-19] MEDS: MULTIVITAMINS WITH MINERALS, THERAPEUTIC TABLET PO SCH (08:32)
[2016-10-19] MEDS: DULoxetine HCL 60 MG CAPSULE PO SCH (08:32)
[2016-10-19] MEDS: DIVALPROEX SODIUM 500 MG DR TABLET PO SCH ×3 (08:33→17:50)
[2016-10-19] MEDS: OLANZapine 5 MG RAPDIS TABLET PO SCH ×3 (09:03→17:49)
[2016-10-19] MEDS: IPRATROPIUM BROMIDE 0.5 MG/2.5 ML NEB SOLUTION NEB PRN (09:14)
[2016-10-19] MEDS: ALBUTEROL SULFATE 2.5 MG/0.5 ML NEB SOLUTION NEB PRN (09:14)
[2016-10-19 11:01] LABS: GLUCOSE COMMENT 1 Received Meds; GLUCOSE,POINT OF CARE 172 MG/DL (70-110)
[2016-10-19 17:30] VITALS: BP 133/84
[2016-10-19] MEDS: GuaiFENesin/D-METHORPHAN [SUGAR-FREE] 200-20MG/10 ML SYRUP UDCUP PO PRN (19:01)
[2016-10-19] MEDS: PHENYTOIN SODIUM 100 MG ER CAPSULE PO SCH (21:07)
[2016-10-19] MEDS: FAMOTIDINE 20 MG TABLET PO SCH (21:10)
[2016-10-19] MEDS: ZOLPIDEM TARTRATE 10 MG TABLET PO PRN (21:10)
[2016-10-19 21:12] LABS: GLUCOSE,POINT OF CARE 205 MG/DL (70-110)
[2016-10-20] MEDS: IPRATROPIUM BROMIDE 0.5 MG/2.5 ML NEB SOLUTION NEB PRN (00:09)
[2016-10-20] MEDS: ALBUTEROL SULFATE 2.5 MG/0.5 ML NEB SOLUTION NEB PRN (00:10)
[2016-10-20 05:12] LABS: GLUCOSE,POINT OF CARE 159 MG/DL (70-110)
[2016-10-20] MEDS: LORazepam 2 MG TABLET PO PRN ×2 (05:22→17:55)
[2016-10-20] MEDS: GuaiFENesin/D-METHORPHAN [SUGAR-FREE] 200-20MG/10 ML SYRUP UDCUP PO PRN (05:22)
[2016-10-20] MEDS: OLANZapine 5 MG RAPDIS TABLET PO PRN (05:22)
[2016-10-20] MEDS: LEVOTHYROXINE SODIUM 50 MCG TABLET PO SCH (06:27)
[2016-10-20] MEDS: INSULIN ASPART 100 UNITS/ML SQ PRN ×4 (06:41→21:09)
[2016-10-20 08:00] VITALS: BP 136/82
[2016-10-20] MEDS: OLANZapine 5 MG RAPDIS TABLET PO SCH ×3 (08:22→16:06)
[2016-10-20] MEDS: DIVALPROEX SODIUM 500 MG DR TABLET PO SCH ×3 (08:22→16:05)
[2016-10-20] MEDS: MULTIVITAMINS WITH MINERALS, THERAPEUTIC TABLET PO SCH (08:23)
[2016-10-20] MEDS: DULoxetine HCL 60 MG CAPSULE PO SCH (08:23)
[2016-10-20] MEDS: CEPHALEXIN MONOHYDRATE 500 MG CAPSULE PO SCH ×4 (08:23→21:01)
[2016-10-20] MEDS: METOPROLOL SUCCINATE 25 MG ER TABLET PO SCH (08:23)
[2016-10-20] MEDS: FOLIC ACID 1 MG TABLET PO SCH (08:23)
[2016-10-20] MEDS: THIAMINE HCL 100 MG TABLET PO SCH ×2 (08:23→16:05)
[2016-10-20] MEDS: GABAPENTIN 300 MG CAPSULE PO SCH ×3 (08:23→16:05)
[2016-10-20] MEDS: NICOTINE 21 MG/24 HOUR PATCH TD SCH (08:24)
[2016-10-20] MEDS: ESTROGENS,CONJUGATED 0.3 MG TABLET PO SCH (08:24)
[2016-10-20] MEDS: AMANTADINE HCL 100 MG CAPSULE PO SCH ×3 (08:24→16:05)
[2016-10-20] MEDS: ACAMPROSATE CALCIUM 333 MG DR TABLET PO SCH ×3 (08:25→16:05)
[2016-10-20] MEDS: BENZOCAINE/MENTHOL LOZENGE [8 LOZENGES/PACKET] MM PRN ×2 (08:27→17:54)
[2016-10-20 11:01] LABS: GLUCOSE COMMENT 1 Received Meds; GLUCOSE,POINT OF CARE 212 MG/DL (70-110)
[2016-10-20] MEDS: GuaiFENesin/D-METHORPHAN/PHENYLEPH 5 ML LIQUID ORAL.SYG PO PRN (12:20)
[2016-10-20 16:01] LABS: GLUCOSE,POINT OF CARE 237 MG/DL (70-110)
[2016-10-20 20:46] VITALS: BP 137/76
[2016-10-20] MEDS: FAMOTIDINE 20 MG TABLET PO SCH (21:01)
[2016-10-20] MEDS: PHENYTOIN SODIUM 100 MG ER CAPSULE PO SCH (21:01)
[2016-10-20 21:12] LABS: GLUCOSE,POINT OF CARE 200 MG/DL (70-110)
[2016-10-21] MEDS: BENZOCAINE/MENTHOL LOZENGE [8 LOZENGES/PACKET] MM PRN ×2 (02:32→08:19)
[2016-10-21] MEDS: GuaiFENesin/D-METHORPHAN/PHENYLEPH 5 ML LIQUID ORAL.SYG PO PRN (02:33)
[2016-10-21] MEDS: LORazepam 2 MG TABLET PO PRN ×4 (02:34→17:58)
[2016-10-21 02:35] VITALS: BP 142/99
[2016-10-21] MEDS: OLANZapine 5 MG RAPDIS TABLET PO PRN (02:35)
[2016-10-21 05:06] LABS: GLUCOSE,POINT OF CARE 154 MG/DL (70-110)
[2016-10-21] MEDS: LEVOTHYROXINE SODIUM 50 MCG TABLET PO SCH (06:25)
[2016-10-21] MEDS: INSULIN ASPART 100 UNITS/ML SQ PRN ×3 (06:43→22:32)
[2016-10-21] MEDS: DIVALPROEX SODIUM 500 MG DR TABLET PO SCH ×3 (08:09→17:16)
[2016-10-21] MEDS: MULTIVITAMINS WITH MINERALS, THERAPEUTIC TABLET PO SCH (08:09)
[2016-10-21] MEDS: NICOTINE 21 MG/24 HOUR PATCH TD SCH (08:09)
[2016-10-21] MEDS: OLANZapine 5 MG RAPDIS TABLET PO SCH ×3 (08:09→17:16)
[2016-10-21] MEDS: GABAPENTIN 300 MG CAPSULE PO SCH ×3 (08:09→17:16)
[2016-10-21] MEDS: ACAMPROSATE CALCIUM 333 MG DR TABLET PO SCH ×3 (08:10→17:16)
[2016-10-21] MEDS: THIAMINE HCL 100 MG TABLET PO SCH ×2 (08:10→17:17)
[2016-10-21] MEDS: ESTROGENS,CONJUGATED 0.3 MG TABLET PO SCH (08:11)
[2016-10-21] MEDS: FOLIC ACID 1 MG TABLET PO SCH (08:11)
[2016-10-21] MEDS: DULoxetine HCL 60 MG CAPSULE PO SCH (08:11)
[2016-10-21] MEDS: METOPROLOL SUCCINATE 25 MG ER TABLET PO SCH (08:12)
[2016-10-21] MEDS: AMANTADINE HCL 100 MG CAPSULE PO SCH ×3 (08:13→17:15)
[2016-10-21] MEDS: IBUPROFEN 600 MG TABLET PO PRN (08:19)
[2016-10-21 08:25] VITALS: BP 118/77
[2016-10-21] MEDS: CEPHALEXIN MONOHYDRATE 500 MG CAPSULE PO SCH ×3 (08:31→17:23)
[2016-10-21] MEDS: IPRATROPIUM BROMIDE 0.5 MG/2.5 ML NEB SOLUTION NEB PRN (09:37)
[2016-10-21] MEDS: ALBUTEROL SULFATE 2.5 MG/0.5 ML NEB SOLUTION NEB PRN (09:37)
[2016-10-21 11:41] LABS: GLUCOSE,POINT OF CARE 131 MG/DL (70-110)
[2016-10-21 16:23] VITALS: BP 136/90
[2016-10-21] MEDS ORDERED: DULO60CA44 PO (16:44)
[2016-10-21] MEDS ORDERED: GABA-531 PO (16:44)
[2016-10-21] MEDS ORDERED: DIVA500T2 PO (16:44)
[2016-10-21] MEDS ORDERED: AMAN100C12 PO (16:44)
[2016-10-21] MEDS ORDERED: OLAN5Z PO (16:44)
[2016-10-21] MEDS ORDERED: ACAM333T7 PO (16:44)
[2016-10-21] MEDS ORDERED: PHEN100C23 PO (16:47)
[2016-10-21 17:37] LABS: GLUCOSE,POINT OF CARE 197 MG/DL (70-110)
[2016-10-21] MEDS ORDERED: PHENYTOIN SODIUM 100 MG ER CAPSULE PO SCH (21:00)
[2016-10-21] MEDS: FAMOTIDINE 20 MG TABLET PO SCH (22:27)
[2016-10-21 22:32] LABS: GLUCOSE,POINT OF CARE 190 MG/DL (70-110)
[2016-10-21] MEDS: ZOLPIDEM TARTRATE 10 MG TABLET PO PRN (22:59)
[2016-10-22 03:34] VITALS: BP 144/95
[2016-10-22] MEDS: BENZOCAINE/MENTHOL LOZENGE [8 LOZENGES/PACKET] MM PRN ×2 (03:35→09:41)
[2016-10-22] MEDS: IBUPROFEN 600 MG TABLET PO PRN (03:36)
[2016-10-22] MEDS: LORazepam 2 MG TABLET PO PRN ×2 (03:36→09:39)
[2016-10-22] MEDS: OLANZapine 5 MG RAPDIS TABLET PO PRN (03:36)
[2016-10-22 05:17] LABS: GLUCOSE,POINT OF CARE 142 MG/DL (70-110)
[2016-10-22] MEDS: LEVOTHYROXINE SODIUM 50 MCG TABLET PO SCH (06:18)
[2016-10-22] MEDS: INSULIN ASPART 100 UNITS/ML SQ PRN ×2 (06:46→11:39)
[2016-10-22] MEDS ORDERED: DULO60CA44 PO (08:19)
[2016-10-22] MEDS: METOPROLOL SUCCINATE 25 MG ER TABLET PO SCH (08:20)
[2016-10-22] MEDS: THIAMINE HCL 100 MG TABLET PO SCH (08:20)
[2016-10-22] MEDS: OLANZapine 5 MG RAPDIS TABLET PO SCH ×2 (08:20→11:57)
[2016-10-22] MEDS: GABAPENTIN 300 MG CAPSULE PO SCH ×2 (08:21→11:56)
[2016-10-22] MEDS: DULoxetine HCL 60 MG CAPSULE PO SCH (08:21)
[2016-10-22] MEDS: AMANTADINE HCL 100 MG CAPSULE PO SCH ×2 (08:21→11:57)
[2016-10-22] MEDS: DIVALPROEX SODIUM 500 MG DR TABLET PO SCH ×2 (08:21→11:56)
[2016-10-22] MEDS: FOLIC ACID 1 MG TABLET PO SCH (08:21)
[2016-10-22] MEDS: MULTIVITAMINS WITH MINERALS, THERAPEUTIC TABLET PO SCH (08:21)
[2016-10-22] MEDS: ACAMPROSATE CALCIUM 333 MG DR TABLET PO SCH ×2 (08:21→11:56)
[2016-10-22] MEDS: ESTROGENS,CONJUGATED 0.3 MG TABLET PO SCH (08:21)
[2016-10-22] MEDS ORDERED: DIVA250T25 PO (08:26)
[2016-10-22] MEDS ORDERED: AMAN100C12 PO (08:26)
[2016-10-22] MEDS ORDERED: GABA-531 PO (08:26)
[2016-10-22] MEDS ORDERED: OLAN7.5T2 PO (08:26)
[2016-10-22] MEDS ORDERED: PHENY100 PO (08:26)
[2016-10-22] MEDS: NICOTINE 21 MG/24 HOUR PATCH TD SCH (08:28)
[2016-10-22] MEDS ORDERED: NYSTATIN 30 GM CREAM TP SCH (09:00)
[2016-10-22 11:27] LABS: GLUCOSE,POINT OF CARE 116 MG/DL (70-110)
== END 2016-10-22 12:00 | disposition home or self-care (01) | DRG 885 ==
LOC: B3A 12:53 → MERGE 12:53 → 3EX 12:54
PROVIDERS: ADMIT Psychiatry & Neurology Psychiatry; ATTEND Psychiatry & Neurology Psychiatry
DX: F25.0 Schizoaffective disorder, bipolar type (principal); R45.851 Suicidal ideations; B37.89 Other sites of candidiasis; G89.4 Chronic pain syndrome; I10 Essential (primary) hypertension; E03.9 Hypothyroidism, unspecified; J44.9 Chronic obstructive pulmonary disease, unspecified; M79.7 Fibromyalgia; D64.9 Anemia, unspecified; M25.50 Pain in unspecified joint; E66.9 Obesity, unspecified; E78.00 Pure hypercholesterolemia, unspecified; K21.9 Gastro-esophageal reflux disease without esophagitis; F11.10 Opioid abuse, uncomplicated; G25.71 Drug induced akathisia; T43.4X5A Adverse effect of butyrophenone and thiothixene neuroleptics, initial encounter; F41.9 Anxiety disorder, unspecified; G40.909 Epilepsy, unspecified, not intractable, without status epilepticus; Z96.653 Presence of artificial knee joint, bilateral; F17.200 Nicotine dependence, unspecified, uncomplicated; L08.9 Local infection of the skin and subcutaneous tissue, unspecified; E11.65 Type 2 diabetes mellitus with hyperglycemia; M19.90 Unspecified osteoarthritis, unspecified site; E78.5 Hyperlipidemia, unspecified; Z90.49 Acquired absence of other specified parts of digestive tract; Z98.890 Other specified postprocedural states; Z85.038 Personal history of other malignant neoplasm of large intestine; Z86.718 Personal history of other venous thrombosis and embolism; Z93.3 Colostomy status; Z88.6 Allergy status to analgesic agent; Z79.899 Other long term (current) drug therapy; Z56.0 Unemployment, unspecified; Z68.31 Body mass index [BMI] 31.0-31.9, adult; Z91.19 Patient's noncompliance with other medical treatment and regimen; Z91.14 Patient's other noncompliance with medication regimen; Y92.89 Other specified places as the place of occurrence of the external cause
CPT/HCPCS: 71020; 82962; 94640; J1200; J1630; J2060; J3490

== ENCOUNTER 2016-11-28 11:29 | Inpatient (IN) | payer MEDICARE, MEDICAID ==
[~2016-11-28] VITALS: Ht 160 cm; Wt 81.6 kg
[~2016-11-28 11:29] MED LIST changes: +AMAN100C12 PO; -BUSP10TA23 PO; +DIVA250T25 PO; +DIVA500T2 PO; -DULO30CA2 PO; +DULO60CA44 PO; +GABA-531 PO; -OLAN10TA20 PO; -OLAN10TA6 PO; +OLAN5Z PO; +OLAN7.5T2 PO; +PHEN100C23 PO; -SERT100T12 PO; -TRIH5TAB2 PO; -VALP250 PO
[2016-11-28 11:52] LABS: BASOPHILS % (AUTO) 0.5 % (0.0-2.0); EOSINOPHILS % (AUTO) 2.9 % (1.0-6.0); GLUCOSE,POINT OF CARE 230 MG/DL (70-110); HEMATOCRIT 33.1 % (36-46); HEMOGLOBIN 11.1 g/dL (12.0-16.0); LYMPHOCYTES # (AUTO) 2.4 K/uL (1.0-4.8); LYMPHOCYTES % (AUTO) 28.7 % (22.0-44.0); MEAN CORPUSCULAR HEMOGLOBIN 31.5 pg (26.0-34.0); MEAN CORPUSCULAR HGB CONC 33.4 G/dL (31.0-37.0); MEAN CORPUSCULAR VOLUME 94 fL (80-100); MONOCYTES # (AUTO) 0.7 K/uL (0.1-1.0); MONOCYTES % (AUTO) 7.9 % (2.0-9.0); NEUTROPHILS # (AUTO) 4.9 K/uL (1.8-7.7); PLATELET COUNT (AUTO) 246 K/uL (150-450); RED CELL DISTRIBUTION WIDTH 14.3 % (11.5-14.5); WHITE BLOOD COUNT (AUTO) 8.2 K/uL (4.5-11.0)
[2016-11-28 12:01] LABS: ANION GAP 11 mmol/L (8-16); CALCIUM, TOTAL 9.3 mg/dL (8.8-10.5); CARBON DIOXIDE 21 mmol/L (22-29); CHLORIDE 102 mmol/L (98-107); CREATININE 1.24 mg/dL (0.60-1.30); GLOMERULAR FILTR. RATE CALC 46 mL/min (>60); POTASSIUM 4.1 mmol/L (3.5-5.1); SODIUM SERUM 134 mmol/L (136-145); UREA NITROGEN, BLOOD 27 mg/dL (7-18)
[2016-11-28 12:06] LABS: ALANINE AMINOTRANSFERASE 34 U/L (12-78); ALBUMIN 3.7 g/dL (3.4-5.0); ASPARTATE AMINOTRANSFERASE 24 U/L (15-37); BILIRUBIN,TOTAL 0.2 mg/dL (0.1-1.0); TOTAL PROTEIN, SERUM 7.8 g/dL (6.4-8.2)
[2016-11-28] MEDS ORDERED: LORazepam 2 MG/ML VIAL IM ONE (13:15)
[2016-11-28] MEDS ORDERED: HALOPERIDOL LACTATE 5 MG/ML VIAL IM ONE (13:15)
[2016-11-28 13:39] LABS: VALPROIC ACID 29 mcg/mL (50-100)
[2016-11-28] MEDS ORDERED: HALOPERIDOL 5 MG TABLET PO PRN (13:45)
[2016-11-28] MEDS ORDERED: ZOLPIDEM TARTRATE 10 MG TABLET PO PRN (13:45)
[2016-11-28] MEDS ORDERED: LORazepam 2 MG TABLET PO PRN (13:45)
[2016-11-28 15:15] VITALS: BP 117/81
[2016-11-28 16:24] VITALS: BP 113/79
[2016-11-28] MEDS ORDERED: OLANZapine 5 MG RAPDIS TABLET PO PRN (16:30)
[2016-11-28] MEDS ORDERED: LOPERAMIDE HCL 2 MG CAPSULE PO PRN (16:30)
[2016-11-28] MEDS ORDERED: GuaiFENesin/D-METHORPHAN [SUGAR-FREE] 200-20MG/10 ML SYRUP UDCUP PO PRN (16:30)
[2016-11-28] MEDS ORDERED: HydrOXYzine PAMOATE 50 MG CAPSULE PO PRN (16:30)
[2016-11-28] MEDS ORDERED: PROMETHAZINE HCL 25 MG TABLET PO PRN (16:30)
[2016-11-28] MEDS ORDERED: MAGNESIUM HYDROXIDE SUSPENSION 30 ML UDCUP PO PRN (16:30)
[2016-11-28] MEDS ORDERED: GABAPENTIN 300 MG CAPSULE PO PRN (16:30)
[2016-11-28] MEDS ORDERED: MAG HYDROX/AL HYDROX/SIMETH ES 30 ML SUSPENSION UDCUP PO PRN (16:30)
[2016-11-28] MEDS ORDERED: DEXTROSE 50%-WATER 25 GM/50 ML SYRINGE IVP PRN (18:15)
[2016-11-28] MEDS: GABAPENTIN 300 MG CAPSULE PO SCH (18:46)
[2016-11-28] MEDS: DIVALPROEX SODIUM 500 MG ER TABLET PO SCH (18:46)
[2016-11-28] MEDS: THIAMINE HCL 100 MG TABLET PO SCH (18:46)
[2016-11-28] MEDS: ACAMPROSATE CALCIUM 333 MG DR TABLET PO SCH (18:46)
[2016-11-28] MEDS: AMANTADINE HCL 100 MG CAPSULE PO SCH (18:46)
[2016-11-28] MEDS: OLANZapine 10 MG RAPDIS TABLET PO SCH (18:46)
[2016-11-28] MEDS: PHENYTOIN SODIUM 100 MG ER CAPSULE PO SCH (21:20)
[2016-11-28] MEDS: INSULIN ASPART 100 UNITS/ML SQ PRN (21:20)
[2016-11-28] MEDS: FAMOTIDINE 20 MG TABLET PO SCH (21:20)
[2016-11-28] MEDS: ZOLPIDEM TARTRATE 10 MG TABLET PO PRN (21:26)
[2016-11-29 05:42] LABS: GLUCOSE,POINT OF CARE 324 MG/DL (70-110)
[2016-11-29 06:33] LABS: BASOPHILS % (AUTO) 0.5 % (0.0-2.0); EOSINOPHILS % (AUTO) 6.2 % (1.0-6.0); HEMATOCRIT 35.9 % (36-46); HEMOGLOBIN 11.8 g/dL (12.0-16.0); LYMPHOCYTES # (AUTO) 1.8 K/uL (1.0-4.8); LYMPHOCYTES % (AUTO) 27.4 % (22.0-44.0); MEAN CORPUSCULAR HEMOGLOBIN 31.3 pg (26.0-34.0); MEAN CORPUSCULAR HGB CONC 32.8 G/dL (31.0-37.0); MEAN CORPUSCULAR VOLUME 95 fL (80-100); MONOCYTES # (AUTO) 0.5 K/uL (0.1-1.0); MONOCYTES % (AUTO) 8.3 % (2.0-9.0); NEUTROPHILS # (AUTO) 3.7 K/uL (1.8-7.7); NEUTROPHILS % (AUTO) 57.6 % (40.0-70.0); PLATELET COUNT (AUTO) 236 K/uL (150-450); RED BLOOD CELL COUNT(AUTO) 3.76 MIL/uL (4.00-5.20); RED CELL DISTRIBUTION WIDTH 14.1 % (11.5-14.5); WHITE BLOOD COUNT (AUTO) 6.4 K/uL (4.5-11.0)
[2016-11-29 06:40] VITALS: BP 132/93
[2016-11-29] MEDS: LEVOTHYROXINE SODIUM 50 MCG TABLET PO SCH (07:01)
[2016-11-29] MEDS: INSULIN ASPART 100 UNITS/ML SQ PRN ×4 (07:03→20:42)
[2016-11-29 07:13] LABS: ALBUMIN 3.9 g/dL (3.4-5.0); BILIRUBIN,TOTAL 0.2 mg/dL (0.1-1.0); CALCIUM, TOTAL 9.6 mg/dL (8.8-10.5); CREATININE 1.23 mg/dL (0.60-1.30); POTASSIUM 4.2 mmol/L (3.5-5.1); TOTAL PROTEIN, SERUM 7.7 g/dL (6.4-8.2)
[2016-11-29 07:38] LABS: HEMOGLOBIN A1C 8.8 % (4.5-6.2)
[2016-11-29] MEDS: OLANZapine 10 MG RAPDIS TABLET PO SCH ×3 (08:55→16:29)
[2016-11-29] MEDS: MULTIVITAMINS WITH MINERALS, THERAPEUTIC TABLET PO SCH (08:55)
[2016-11-29] MEDS: DIVALPROEX SODIUM 500 MG ER TABLET PO SCH ×3 (08:56→16:29)
[2016-11-29] MEDS: ACAMPROSATE CALCIUM 333 MG DR TABLET PO SCH ×3 (08:56→16:29)
[2016-11-29] MEDS: GABAPENTIN 300 MG CAPSULE PO SCH ×3 (08:56→16:29)
[2016-11-29] MEDS: AMANTADINE HCL 100 MG CAPSULE PO SCH ×3 (08:57→16:29)
[2016-11-29] MEDS: FOLIC ACID 1 MG TABLET PO SCH (08:57)
[2016-11-29] MEDS: PHENYTOIN SODIUM 100 MG ER CAPSULE PO SCH ×2 (08:58→20:19)
[2016-11-29] MEDS: THIAMINE HCL 100 MG TABLET PO SCH ×2 (08:59→16:29)
[2016-11-29] MEDS: FAMOTIDINE 20 MG TABLET PO SCH ×2 (08:59→20:20)
[2016-11-29] MEDS: ESTROGENS,CONJUGATED 0.3 MG TABLET PO SCH (09:00)
[2016-11-29] MEDS: METOPROLOL SUCCINATE 25 MG ER TABLET PO SCH (09:01)
[2016-11-29] MEDS: HYDROCODONE/ACETAMINOPHEN 10-325 MG TABLET PO PRN ×2 (09:54→16:40)
[2016-11-29 09:59] VITALS: BP 151/95
[2016-11-29 11:01] VITALS: BP 128/72
[2016-11-29 12:30] LABS: APPEARANCE,URINE CLEAR (CLEAR); GLUCOSE, URINE (UA) NEGATIVE (NEGATIVE); KETONES,URINE NEGATIVE (NEGATIVE); LEUKOCYTE ESTERASE ,URINE TRACE (NEGATIVE); OCCULT BLOOD,URINE NEGATIVE (NEGATIVE); PH,URINE 6.5 (5.0-8.0); PROTEIN,URINE NEGATIVE (NEGATIVE)
[2016-11-29 12:42] LABS: ADD UA MICROSCOPIC YES
[2016-11-29 12:43] LABS: RBC,URINE None Seen /HPF (0-2); SQUAMOUS EPITHELIAL CELL,UR Few /LPF (None Seen)
[2016-11-29 16:37] VITALS: BP 131/94
[2016-11-29] MEDS: ZOLPIDEM TARTRATE 10 MG TABLET PO PRN (20:20)
[2016-11-30 00:15] VITALS: BP 125/60
[2016-11-30] MEDS: HYDROCODONE/ACETAMINOPHEN 10-325 MG TABLET PO PRN ×3 (00:20→16:18)
[2016-11-30] MEDS: ACETAMINOPHEN 325 MG TABLET PO PRN (03:51)
[2016-11-30 05:37] LABS: GLUCOSE,POINT OF CARE 294 MG/DL (70-110)
[2016-11-30] MEDS: LEVOTHYROXINE SODIUM 50 MCG TABLET PO SCH (06:03)
[2016-11-30] MEDS: INSULIN ASPART 100 UNITS/ML SQ PRN ×4 (06:41→20:34)
[2016-11-30] MEDS: OLANZapine 10 MG RAPDIS TABLET PO SCH ×3 (08:00→16:14)
[2016-11-30] MEDS: ACAMPROSATE CALCIUM 333 MG DR TABLET PO SCH ×3 (08:00→16:14)
[2016-11-30] MEDS: DIVALPROEX SODIUM 500 MG ER TABLET PO SCH ×3 (08:00→16:14)
[2016-11-30] MEDS: THIAMINE HCL 100 MG TABLET PO SCH ×2 (08:00→16:14)
[2016-11-30] MEDS: AMANTADINE HCL 100 MG CAPSULE PO SCH ×3 (08:00→16:14)
[2016-11-30] MEDS: ESTROGENS,CONJUGATED 0.3 MG TABLET PO SCH (08:01)
[2016-11-30] MEDS: FOLIC ACID 1 MG TABLET PO SCH (08:01)
[2016-11-30] MEDS: GABAPENTIN 300 MG CAPSULE PO SCH ×3 (08:01→16:14)
[2016-11-30] MEDS: MULTIVITAMINS WITH MINERALS, THERAPEUTIC TABLET PO SCH (08:01)
[2016-11-30] MEDS: METOPROLOL SUCCINATE 25 MG ER TABLET PO SCH (08:01)
[2016-11-30 08:03] VITALS: BP 135/89
[2016-11-30 16:15] VITALS: BP 117/73
[2016-11-30] MEDS: FAMOTIDINE 20 MG TABLET PO SCH (20:03)
[2016-11-30] MEDS: PHENYTOIN SODIUM 100 MG ER CAPSULE PO SCH (20:03)
[2016-11-30] MEDS: ZOLPIDEM TARTRATE 10 MG TABLET PO PRN (20:33)
[2016-12-01 03:57] VITALS: BP 123/79
[2016-12-01] MEDS: ACETAMINOPHEN 325 MG TABLET PO PRN (03:59)
[2016-12-01 05:37] LABS: GLUCOSE,POINT OF CARE 202 MG/DL (70-110)
[2016-12-01] MEDS: HYDROCODONE/ACETAMINOPHEN 10-325 MG TABLET PO PRN ×2 (06:01→12:21)
[2016-12-01] MEDS: LEVOTHYROXINE SODIUM 50 MCG TABLET PO SCH (06:01)
[2016-12-01 08:00] VITALS: BP 152/89
[2016-12-01] MEDS: OLANZapine 10 MG RAPDIS TABLET PO SCH ×2 (08:26→12:15)
[2016-12-01] MEDS: MULTIVITAMINS WITH MINERALS, THERAPEUTIC TABLET PO SCH (08:26)
[2016-12-01] MEDS: ESTROGENS,CONJUGATED 0.3 MG TABLET PO SCH (08:27)
[2016-12-01] MEDS: DIVALPROEX SODIUM 500 MG ER TABLET PO SCH ×2 (08:27→12:15)
[2016-12-01] MEDS: GABAPENTIN 300 MG CAPSULE PO SCH ×2 (08:27→12:16)
[2016-12-01] MEDS: FOLIC ACID 1 MG TABLET PO SCH (08:27)
[2016-12-01] MEDS: THIAMINE HCL 100 MG TABLET PO SCH (08:27)
[2016-12-01] MEDS: AMANTADINE HCL 100 MG CAPSULE PO SCH ×2 (08:27→12:14)
[2016-12-01] MEDS: ACAMPROSATE CALCIUM 333 MG DR TABLET PO SCH ×2 (08:27→12:13)
[2016-12-01] MEDS: METOPROLOL SUCCINATE 25 MG ER TABLET PO SCH (08:27)
[2016-12-01] MEDS: INSULIN ASPART 100 UNITS/ML SQ PRN (11:17)
[2016-12-01 12:21] VITALS: BP 133/70
[2016-12-01] MEDS ORDERED: ACAM333T7 PO (13:48)
[2016-12-01] MEDS ORDERED: AMANL PO (13:48)
[2016-12-01] MEDS ORDERED: DIVA500T52 PO (13:49)
[2016-12-01] MEDS ORDERED: GABA-531 PO (13:50)
[2016-12-01] MEDS ORDERED: FAMO20 PO (13:50)
[2016-12-01] MEDS ORDERED: PREM3 PO (13:50)
[2016-12-01] MEDS ORDERED: LEVO50 PO (13:51)
[2016-12-01] MEDS ORDERED: METO-323 PO (13:51)
[2016-12-01] MEDS ORDERED: OLAN10TA6 PO (13:52)
[2016-12-01] MEDS ORDERED: PHEN100C23 PO (13:53)
== END 2016-12-01 15:20 | disposition home or self-care (01) | DRG 885 ==
LOC: EDBD 11:34 → EMS 11:34 → 3EX 13:57
PROVIDERS: ADMIT Psychiatry & Neurology Psychiatry; ATTEND Psychiatry & Neurology Psychiatry
DX: F25.0 Schizoaffective disorder, bipolar type (principal); R45.851 Suicidal ideations; J44.9 Chronic obstructive pulmonary disease, unspecified; K21.9 Gastro-esophageal reflux disease without esophagitis; I10 Essential (primary) hypertension; E78.5 Hyperlipidemia, unspecified; E11.65 Type 2 diabetes mellitus with hyperglycemia; E66.9 Obesity, unspecified; G40.909 Epilepsy, unspecified, not intractable, without status epilepticus; M19.90 Unspecified osteoarthritis, unspecified site; S42.001A Fracture of unspecified part of right clavicle, initial encounter for closed fracture; G89.4 Chronic pain syndrome; Z96.653 Presence of artificial knee joint, bilateral; E78.00 Pure hypercholesterolemia, unspecified; F30.9 Manic episode, unspecified; M79.7 Fibromyalgia; F10.20 Alcohol dependence, uncomplicated; Y90.0 Blood alcohol level of less than 20 mg/100 ml; F17.200 Nicotine dependence, unspecified, uncomplicated; K31.9 Disease of stomach and duodenum, unspecified; E03.9 Hypothyroidism, unspecified; Z68.31 Body mass index [BMI] 31.0-31.9, adult; X58.XXXA Exposure to other specified factors, initial encounter; Y93.89 Activity, other specified; Y92.89 Other specified places as the place of occurrence of the external cause; Y99.8 Other external cause status; Z91.5 Personal history of self-harm; Z85.038 Personal history of other malignant neoplasm of large intestine; Z86.718 Personal history of other venous thrombosis and embolism; Z71.6 Tobacco abuse counseling; Z93.3 Colostomy status; Z88.6 Allergy status to analgesic agent; Z90.49 Acquired absence of other specified parts of digestive tract; Z95.9 Presence of cardiac and vascular implant and graft, unspecified
CPT/HCPCS: 80307; 82962; 83036; 87081; 96372; 99285; G0480; J1630; J2060

== ENCOUNTER 2016-12-14 20:45 | Inpatient (IN) | payer OTHER ==
[~2016-12-14] VITALS: Ht 162.6 cm; Wt 82.7 kg
[~2016-12-14 20:45] MED LIST changes: +AMANL PO; +DIVA500T52 PO; +OLAN10TA6 PO
[2016-12-14 21:43] LABS: BASOPHILS % (AUTO) 0.5 % (0.0-2.0); HEMATOCRIT 26.8 % (36-46); HEMOGLOBIN 8.8 g/dL (12.0-16.0); LYMPHOCYTES # (AUTO) 2.1 K/uL (1.0-4.8); MEAN CORPUSCULAR HEMOGLOBIN 31.5 pg (26.0-34.0); MEAN CORPUSCULAR HGB CONC 32.8 G/dL (31.0-37.0); MEAN CORPUSCULAR VOLUME 96 fL (80-100); MONOCYTES # (AUTO) 0.5 K/uL (0.1-1.0); MONOCYTES % (AUTO) 8.9 % (2.0-9.0); NEUTROPHILS # (AUTO) 2.7 K/uL (1.8-7.7); NEUTROPHILS % (AUTO) 49.6 % (40.0-70.0); PLATELET COUNT (AUTO) 277 K/uL (150-450); RED BLOOD CELL COUNT(AUTO) 2.79 MIL/uL (4.00-5.20); RED CELL DISTRIBUTION WIDTH 13.4 % (11.5-14.5); WHITE BLOOD COUNT (AUTO) 5.4 K/uL (4.5-11.0)
[2016-12-14 21:48] LABS: CALCIUM, TOTAL 9.6 mg/dL (8.8-10.5); CREATININE 1.16 mg/dL (0.60-1.30); POTASSIUM 3.5 mmol/L (3.5-5.1)
[2016-12-14 21:54] LABS: ALBUMIN 2.8 g/dL (3.4-5.0); BILIRUBIN,TOTAL 0.1 mg/dL (0.1-1.0); TOTAL PROTEIN, SERUM 6.6 g/dL (6.4-8.2)
[2016-12-14] MEDS ORDERED: PHENYTOIN SODIUM 1,000 MG in SODIUM CHLORIDE 0.9% 150 ML IV ONE (22:15)
[2016-12-14] MEDS ORDERED: ZOLPIDEM TARTRATE 5 MG TABLET PO PRN (23:30)
[2016-12-14] MEDS ORDERED: BISACODYL 10 MG RECTAL RECTAL SUPPOSITORY PR PRN (23:30)
[2016-12-14] MEDS ORDERED: SODIUM CHLORIDE 0.45% 1,000 ML IV ONE (23:30)
[2016-12-15 01:36] VITALS: BP 128/71
[2016-12-15] MEDS: OxyCODONE HCL 10 MG ER TABLET PO SCH ×2 (01:39→10:05)
[2016-12-15] MEDS ORDERED: LANSOPRAZOLE 30 MG CAPSULE PO SCH (06:30)
[2016-12-15 07:27] VITALS: BP 105/67
[2016-12-15 08:04] LABS: ALANINE AMINOTRANSFERASE 41 U/L (12-78); ALBUMIN 2.7 g/dL (3.4-5.0); ANION GAP 10 mmol/L (8-16); ASPARTATE AMINOTRANSFERASE 16 U/L (15-37); BILIRUBIN,TOTAL 0.1 mg/dL (0.1-1.0); CALCIUM, TOTAL 9.2 mg/dL (8.8-10.5); CARBON DIOXIDE 26 mmol/L (22-29); CHLORIDE 103 mmol/L (98-107); CREATININE 0.93 mg/dL (0.60-1.30); GLOMERULAR FILTR. RATE CALC > 60 mL/min (>60); POTASSIUM 3.7 mmol/L (3.5-5.1); SODIUM SERUM 139 mmol/L (136-145); TOTAL PROTEIN, SERUM 6.5 g/dL (6.4-8.2); UREA NITROGEN, BLOOD 20 mg/dL (7-18)
[2016-12-15] MEDS: ALPRAZolam 1 MG TABLET PO PRN ×2 (08:36→13:49)
[2016-12-15 11:08] VITALS: BP 113/68
[2016-12-15 15:04] VITALS: BP 131/76
[2016-12-15] MEDS ORDERED: LevETIRAcetam 500 MG TABLET PO ONE (15:15)
[2016-12-15] MEDS ORDERED: PHENYTOIN SODIUM 100 MG ER CAPSULE PO ONE (15:15)
[2016-12-15] MEDS ORDERED: PERCT10 PO (15:20)
[2016-12-15] MEDS ORDERED: ALPR1TAB7 PO (15:20)
[2016-12-15] MEDS ORDERED: LEVE500T53 PO (15:20)
== END 2016-12-15 15:50 | disposition home or self-care (01) | DRG 100 ==
LOC: EMS 20:49 → 5S 23:49
PROVIDERS: ADMIT Internal Medicine; ATTEND Internal Medicine
DX: G40.909 Epilepsy, unspecified, not intractable, without status epilepticus (principal); G93.40 Encephalopathy, unspecified; E44.0 Moderate protein-calorie malnutrition; E03.9 Hypothyroidism, unspecified; K21.9 Gastro-esophageal reflux disease without esophagitis; E11.65 Type 2 diabetes mellitus with hyperglycemia; F25.9 Schizoaffective disorder, unspecified; G89.4 Chronic pain syndrome; F32.9 Major depressive disorder, single episode, unspecified; I10 Essential (primary) hypertension; Z91.19 Patient's noncompliance with other medical treatment and regimen; D64.9 Anemia, unspecified; Z79.890 Hormone replacement therapy; Z88.5 Allergy status to narcotic agent; Z79.899 Other long term (current) drug therapy
CPT/HCPCS: 70450; 93005; 96361; 96365; 99291; J1165; J7050

== ENCOUNTER 2016-12-30 18:26 | Emergency (ER) | payer OTHER ==
[~2016-12-30] VITALS: Ht 162.6 cm; Wt 65.9 kg
[~2016-12-30 18:26] MED LIST changes: +ALPR1TAB7 PO; -AMANL PO; -DIVA500T2 PO; -DIVA500T52 PO; +LEVE500T53 PO; -OLAN10TA6 PO; -OLAN7.5T2 PO; +PERCT10 PO; -PHENY100 PO
[2016-12-30 18:56] VITALS: BP 119/76
[2016-12-30 19:02] LABS: GLUCOSE,POINT OF CARE 195 MG/DL (70-110)
[2016-12-30 19:21] LABS: BASOPHILS % (AUTO) 0.4 % (0.0-2.0); EOSINOPHILS % (AUTO) 0 % (1.0-6.0); HEMATOCRIT 33.3 % (36-46); HEMOGLOBIN 10.7 g/dL (12.0-16.0); LYMPHOCYTES # (AUTO) 1.5 K/uL (1.0-4.8); LYMPHOCYTES % (AUTO) 21.4 % (22.0-44.0); MEAN CORPUSCULAR HEMOGLOBIN 30.8 pg (26.0-34.0); MEAN CORPUSCULAR HGB CONC 32.2 G/dL (31.0-37.0); MEAN CORPUSCULAR VOLUME 96 fL (80-100); MONOCYTES # (AUTO) 0.7 K/uL (0.1-1.0); MONOCYTES % (AUTO) 10.1 % (2.0-9.0); NEUTROPHILS # (AUTO) 4.8 K/uL (1.8-7.7); NEUTROPHILS % (AUTO) 68.1 % (40.0-70.0); PLATELET COUNT (AUTO) 292 K/uL (150-450); RED BLOOD CELL COUNT(AUTO) 3.48 MIL/uL (4.00-5.20); RED CELL DISTRIBUTION WIDTH 13.4 % (11.5-14.5); WHITE BLOOD COUNT (AUTO) 7.1 K/uL (4.5-11.0)
[2016-12-30 19:32] LABS: ANION GAP 13 mmol/L (8-16); CALCIUM, TOTAL 10.2 mg/dL (8.8-10.5); CARBON DIOXIDE 23 mmol/L (22-29); CHLORIDE 99 mmol/L (98-107); CREATININE 1.46 mg/dL (0.60-1.30); GLOMERULAR FILTR. RATE CALC 38 mL/min (>60); POTASSIUM 4.2 mmol/L (3.5-5.1); SODIUM SERUM 135 mmol/L (136-145); UREA NITROGEN, BLOOD 31 mg/dL (7-18)
[2016-12-30 19:38] LABS: ALANINE AMINOTRANSFERASE 46 U/L (12-78); ALBUMIN 3.8 g/dL (3.4-5.0); ASPARTATE AMINOTRANSFERASE 44 U/L (15-37); BILIRUBIN,TOTAL 0.4 mg/dL (0.1-1.0); TOTAL PROTEIN, SERUM 8.4 g/dL (6.4-8.2)
[2016-12-30] MEDS ORDERED: LORazepam 1 MG TABLET PO ONE (21:00)
[2016-12-30 21:14] LABS: VALPROIC ACID < 3 mcg/mL (50-100)
[2016-12-30] MEDS ORDERED: BENZTROPINE MESYLATE 1 MG/ML 2 ML AMP IM ONE (22:15)
[2016-12-30] MEDS ORDERED: PHENYTOIN 50 MG CHEWABLE TABLET PO ONE (22:15)
[2016-12-30] MEDS ORDERED: PHENYTOIN 100 MG/4 ML SUSPENSION UDCUP PO ONE (22:30)
== END 2016-12-30 22:53 | disposition home or self-care (01) ==
LOC: EMS 18:35
DX: F25.9 Schizoaffective disorder, unspecified (principal); G24.9 Dystonia, unspecified; F31.9 Bipolar disorder, unspecified; E11.9 Type 2 diabetes mellitus without complications; Z88.6 Allergy status to analgesic agent
CPT/HCPCS: 36415; 80053; 80164; 80185; 82962; 85025; 96372; 99285; G0480; J0515

== ENCOUNTER 2017-01-02 18:52 | Inpatient (IN) | payer MEDICARE, MEDICAID ==
[~2017-01-02] VITALS: Ht 162.6 cm; Wt 84.4 kg
[2017-01-02] MEDS ORDERED: OLAN10TA3 PO (19:00)
[2017-01-02] MEDS ORDERED: VALP250C3 PO (19:00)
[2017-01-02 20:15] LABS: BASOPHILS # (AUTO) 0.05 K/uL (0.00-0.20); BASOPHILS % (AUTO) 0.6 % (0.0-2.0); EOSINOPHILS % (AUTO) 0.04 % (1.0-6.0); HEMATOCRIT 35.5 % (36-46); LYMPHOCYTES % (AUTO) 26.8 % (22.0-44.0); MEAN CORPUSCULAR HEMOGLOBIN 31.8 pg (26.0-34.0); MEAN CORPUSCULAR HGB CONC 33.8 G/dL (31.0-37.0); MEAN CORPUSCULAR VOLUME 94 fL (80-100); MONOCYTES # (AUTO) 0.9 K/uL (0.1-1.0); MONOCYTES % (AUTO) 11.8 % (2.0-9.0); NEUTROPHILS # (AUTO) 4.6 K/uL (1.8-7.7); NEUTROPHILS % (AUTO) 60.8 % (40.0-70.0); PLATELET COUNT (AUTO) 344 K/uL (150-450); RED BLOOD CELL COUNT(AUTO) 3.77 MIL/uL (4.00-5.20); RED CELL DISTRIBUTION WIDTH 13.8 % (11.5-14.5); WHITE BLOOD COUNT (AUTO) 7.5 K/uL (4.5-11.0)
[2017-01-02 20:29] LABS: INR 1.1 (0.9-1.1); PROTHROMBIN TIME 11.1 SEC (9.4-11.6)
[2017-01-02] MEDS ORDERED: OxyCODONE HCL/ACETAMINOPHEN 5-325 MG TABLET PO ONE (21:15)
[2017-01-02] MEDS ORDERED: LORazepam 1 MG TABLET PO ONE (21:15)
[2017-01-02 21:40] LABS: ANION GAP 15 mmol/L (8-16); CARBON DIOXIDE 22 mmol/L (22-29); CHLORIDE 95 mmol/L (98-107); GLOMERULAR FILTR. RATE CALC 59 mL/min (>60); POTASSIUM 3.3 mmol/L (3.5-5.1); SODIUM SERUM 132 mmol/L (136-145); UREA NITROGEN, BLOOD 22 mg/dL (7-18)
[2017-01-02 22:04] LABS: ALANINE AMINOTRANSFERASE 29 U/L (12-78); ALBUMIN 3.4 g/dL (3.4-5.0); ASPARTATE AMINOTRANSFERASE 18 U/L (15-37); BILIRUBIN,TOTAL 0.3 mg/dL (0.1-1.0); CREATINE KINASE MB 2.6 ng/mL (0-5); CREATINE KINASE, TOTAL 118 U/L (26-192); TOTAL PROTEIN, SERUM 7.8 g/dL (6.4-8.2); VALPROIC ACID 19 mcg/mL (50-100)
[2017-01-03 02:11] VITALS: BP 124/55
[2017-01-03 06:12] LABS: GLUCOSE,POINT OF CARE 231 MG/DL (70-110)
[2017-01-03 07:42] LABS: CHOL/HDL RATIO 3.1 (3.9-5.7)
[2017-01-03 09:25] VITALS: BP 115/56
[2017-01-03] MEDS ORDERED: MAGNESIUM HYDROXIDE SUSPENSION 30 ML UDCUP PO PRN (11:45)
[2017-01-03] MEDS ORDERED: PROMETHAZINE HCL 25 MG TABLET PO PRN (11:45)
[2017-01-03] MEDS ORDERED: GuaiFENesin/D-METHORPHAN [SUGAR-FREE] 200-20MG/10 ML SYRUP UDCUP PO PRN (11:45)
[2017-01-03] MEDS ORDERED: LOPERAMIDE HCL 2 MG CAPSULE PO PRN (11:45)
[2017-01-03] MEDS ORDERED: MAG HYDROX/AL HYDROX/SIMETH ES 30 ML SUSPENSION UDCUP PO PRN (11:45)
[2017-01-03] MEDS ORDERED: HydrOXYzine PAMOATE 50 MG CAPSULE PO PRN (11:45)
[2017-01-03] MEDS: ACAMPROSATE CALCIUM 333 MG DR TABLET PO SCH ×2 (12:38→16:15)
[2017-01-03] MEDS: DIVALPROEX SODIUM 500 MG DR TABLET PO SCH ×2 (12:40→16:15)
[2017-01-03] MEDS: GABAPENTIN 300 MG CAPSULE PO SCH ×2 (12:40→16:15)
[2017-01-03] MEDS: OLANZapine 5 MG RAPDIS TABLET PO SCH ×2 (12:41→16:15)
[2017-01-03] MEDS: AMANTADINE HCL 100 MG CAPSULE PO SCH ×2 (12:41→16:16)
[2017-01-03] MEDS: THIAMINE HCL 100 MG TABLET PO SCH (16:16)
[2017-01-03] MEDS ORDERED: DIVA500T35 PO (17:00)
[2017-01-03] MEDS ORDERED: OxyCODONE HCL 10 MG ER TABLET PO PRN (17:00)
[2017-01-03] MEDS: OxyCODONE HCL 5 MG IR TABLET PO PRN (17:50)
[2017-01-03 17:51] VITALS: BP 118/69
[2017-01-03] MEDS ORDERED: DEXTROSE 50%-WATER 25 GM/50 ML SYRINGE IVP PRN (18:00)
[2017-01-03] MEDS ORDERED: PHENYTOIN SODIUM 100 MG ER CAPSULE PO SCH (21:00)
[2017-01-03] MEDS: PHENYTOIN SODIUM 100 MG ER CAPSULE PO SCH (21:21)
[2017-01-03] MEDS: INSULIN ASPART 100 UNITS/ML SQ PRN (21:29)
[2017-01-03 21:33] LABS: GLUCOSE COMMENT 1 Received Meds; GLUCOSE,POINT OF CARE 285 MG/DL (70-110)
[2017-01-04 05:42] LABS: GLUCOSE,POINT OF CARE 192 MG/DL (70-110)
[2017-01-04] MEDS: MetFORMIN HCL 500 MG TABLET PO SCH ×2 (06:36→17:39)
[2017-01-04] MEDS: LEVOTHYROXINE SODIUM 50 MCG TABLET PO SCH (06:36)
[2017-01-04] MEDS: INSULIN ASPART 100 UNITS/ML SQ PRN ×2 (07:01→11:19)
[2017-01-04] MEDS: ACAMPROSATE CALCIUM 333 MG DR TABLET PO SCH ×3 (08:27→15:58)
[2017-01-04] MEDS: LevETIRAcetam 500 MG TABLET PO SCH ×2 (08:28→15:57)
[2017-01-04] MEDS: MULTIVITAMINS WITH MINERALS, THERAPEUTIC TABLET PO SCH (08:28)
[2017-01-04] MEDS: DIVALPROEX SODIUM 500 MG DR TABLET PO SCH ×3 (08:28→15:58)
[2017-01-04] MEDS: GABAPENTIN 300 MG CAPSULE PO SCH ×3 (08:29→15:57)
[2017-01-04] MEDS: OLANZapine 5 MG RAPDIS TABLET PO SCH ×3 (08:29→16:00)
[2017-01-04] MEDS: AMANTADINE HCL 100 MG CAPSULE PO SCH ×3 (08:29→15:57)
[2017-01-04] MEDS: FOLIC ACID 1 MG TABLET PO SCH (08:30)
[2017-01-04] MEDS: DULoxetine HCL 20 MG CAPSULE PO SCH (08:30)
[2017-01-04] MEDS: THIAMINE HCL 100 MG TABLET PO SCH ×2 (08:31→15:57)
[2017-01-04] MEDS: LORazepam 2 MG TABLET PO PRN ×2 (08:33→16:00)
[2017-01-04] MEDS: OxyCODONE HCL 5 MG IR TABLET PO PRN (08:57)
[2017-01-04 11:07] LABS: GLUCOSE,POINT OF CARE 238 MG/DL (70-110)
[2017-01-04 17:00] VITALS: BP 111/74
[2017-01-04] MEDS: PHENYTOIN SODIUM 100 MG ER CAPSULE PO SCH (21:00)
[2017-01-05] MEDS: MetFORMIN HCL 500 MG TABLET PO SCH ×2 (07:05→16:48)
[2017-01-05] MEDS: LEVOTHYROXINE SODIUM 50 MCG TABLET PO SCH (07:05)
[2017-01-05] MEDS: OxyCODONE HCL 5 MG IR TABLET PO PRN ×2 (07:20→17:16)
[2017-01-05] MEDS: DIVALPROEX SODIUM 500 MG DR TABLET PO SCH ×3 (07:57→16:38)
[2017-01-05] MEDS: AMANTADINE HCL 100 MG CAPSULE PO SCH ×3 (07:57→16:38)
[2017-01-05] MEDS: OLANZapine 5 MG RAPDIS TABLET PO SCH ×3 (07:57→16:38)
[2017-01-05] MEDS: LevETIRAcetam 500 MG TABLET PO SCH ×2 (07:57→16:38)
[2017-01-05] MEDS: GABAPENTIN 300 MG CAPSULE PO SCH ×3 (07:57→16:38)
[2017-01-05] MEDS: THIAMINE HCL 100 MG TABLET PO SCH ×2 (07:57→16:38)
[2017-01-05] MEDS: ACAMPROSATE CALCIUM 333 MG DR TABLET PO SCH ×3 (07:58→16:38)
[2017-01-05] MEDS: DULoxetine HCL 20 MG CAPSULE PO SCH (07:58)
[2017-01-05] MEDS: FOLIC ACID 1 MG TABLET PO SCH (07:58)
[2017-01-05] MEDS: MULTIVITAMINS WITH MINERALS, THERAPEUTIC TABLET PO SCH (07:58)
[2017-01-05] MEDS: LORazepam 2 MG TABLET PO PRN ×2 (08:03→12:20)
[2017-01-05 08:20] VITALS: BP 168/73
[2017-01-05 17:08] LABS: GLUCOSE COMMENT 1 Received Meds; GLUCOSE,POINT OF CARE 199 MG/DL (70-110)
[2017-01-05] MEDS: INSULIN ASPART 100 UNITS/ML SQ PRN (17:11)
[2017-01-05 17:16] VITALS: BP 108/64
[2017-01-05] MEDS: PHENYTOIN SODIUM 100 MG ER CAPSULE PO SCH (21:44)
[2017-01-05 22:57] LABS: GLUCOSE,POINT OF CARE 173 MG/DL (70-110)
[2017-01-06] MEDS: OxyCODONE HCL 5 MG IR TABLET PO PRN ×2 (04:05→13:18)
[2017-01-06 04:07] VITALS: BP 108/75
[2017-01-06] MEDS: LEVOTHYROXINE SODIUM 50 MCG TABLET PO SCH (06:45)
[2017-01-06] MEDS: MetFORMIN HCL 500 MG TABLET PO SCH ×2 (06:45→18:37)
[2017-01-06] MEDS: LORazepam 2 MG TABLET PO PRN ×2 (07:55→16:12)
[2017-01-06 08:10] VITALS: BP 114/71
[2017-01-06] MEDS: AMANTADINE HCL 100 MG CAPSULE PO SCH ×3 (10:04→16:12)
[2017-01-06] MEDS: ACAMPROSATE CALCIUM 333 MG DR TABLET PO SCH ×3 (10:04→16:12)
[2017-01-06] MEDS: DIVALPROEX SODIUM 500 MG DR TABLET PO SCH ×3 (10:04→16:13)
[2017-01-06] MEDS: DULoxetine HCL 20 MG CAPSULE PO SCH (10:04)
[2017-01-06] MEDS: MULTIVITAMINS WITH MINERALS, THERAPEUTIC TABLET PO SCH (10:04)
[2017-01-06] MEDS: THIAMINE HCL 100 MG TABLET PO SCH ×2 (10:05→16:12)
[2017-01-06] MEDS: OLANZapine 5 MG RAPDIS TABLET PO SCH ×3 (10:05→16:12)
[2017-01-06] MEDS: FOLIC ACID 1 MG TABLET PO SCH (10:05)
[2017-01-06] MEDS: GABAPENTIN 300 MG CAPSULE PO SCH ×3 (10:05→16:12)
[2017-01-06] MEDS: LevETIRAcetam 500 MG TABLET PO SCH ×2 (10:06→16:12)
[2017-01-06] MEDS: INSULIN ASPART 100 UNITS/ML SQ PRN ×2 (11:16→17:18)
[2017-01-06 11:22] LABS: GLUCOSE,POINT OF CARE 181 MG/DL (70-110)
[2017-01-06 13:18] VITALS: BP 129/74
[2017-01-06 16:22] LABS: GLUCOSE COMMENT 1 Received Meds; GLUCOSE,POINT OF CARE 227 MG/DL (70-110)
[2017-01-06 16:40] VITALS: BP 111/80
[2017-01-06] MEDS: PHENYTOIN SODIUM 100 MG ER CAPSULE PO SCH (22:02)
[2017-01-06] MEDS: ZOLPIDEM TARTRATE 10 MG TABLET PO PRN (22:34)
[2017-01-07] MEDS: LORazepam 2 MG TABLET PO PRN ×3 (02:27→14:15)
[2017-01-07 06:58] VITALS: BP 127/81
[2017-01-07] MEDS: OxyCODONE HCL 5 MG IR TABLET PO PRN ×2 (07:00→16:20)
[2017-01-07] MEDS: LEVOTHYROXINE SODIUM 50 MCG TABLET PO SCH (07:00)
[2017-01-07] MEDS: MetFORMIN HCL 500 MG TABLET PO SCH ×2 (07:00→16:43)
[2017-01-07 08:00] VITALS: BP 131/81
[2017-01-07 10:07] VITALS: BP 122/77
[2017-01-07] MEDS: ACAMPROSATE CALCIUM 333 MG DR TABLET PO SCH ×3 (10:09→16:43)
[2017-01-07] MEDS: DULoxetine HCL 20 MG CAPSULE PO SCH (10:09)
[2017-01-07] MEDS: AMANTADINE HCL 100 MG CAPSULE PO SCH ×3 (10:09→16:43)
[2017-01-07] MEDS: GABAPENTIN 300 MG CAPSULE PO SCH ×3 (10:09→16:43)
[2017-01-07] MEDS: MULTIVITAMINS WITH MINERALS, THERAPEUTIC TABLET PO SCH (10:09)
[2017-01-07] MEDS: THIAMINE HCL 100 MG TABLET PO SCH ×2 (10:09→16:43)
[2017-01-07] MEDS: FOLIC ACID 1 MG TABLET PO SCH (10:10)
[2017-01-07] MEDS: DIVALPROEX SODIUM 500 MG DR TABLET PO SCH ×3 (10:10→16:43)
[2017-01-07] MEDS: LevETIRAcetam 500 MG TABLET PO SCH ×2 (10:10→16:43)
[2017-01-07] MEDS: OLANZapine 5 MG RAPDIS TABLET PO SCH ×3 (10:10→16:43)
[2017-01-07] MEDS: ACETAMINOPHEN 325 MG TABLET PO PRN (10:52)
[2017-01-07 11:23] LABS: GLUCOSE,POINT OF CARE 170 MG/DL (70-110)
[2017-01-07] MEDS: INSULIN ASPART 100 UNITS/ML SQ PRN ×2 (11:44→17:16)
[2017-01-07 16:20] VITALS: BP 109/65
[2017-01-07 17:02] LABS: GLUCOSE COMMENT 1 Received Meds; GLUCOSE,POINT OF CARE 157 MG/DL (70-110)
[2017-01-07] MEDS: PHENYTOIN SODIUM 100 MG ER CAPSULE PO SCH (20:37)
[2017-01-08 06:45] VITALS: BP 112/68
[2017-01-08] MEDS: OxyCODONE HCL 5 MG IR TABLET PO PRN ×3 (06:49→23:41)
[2017-01-08] MEDS: LEVOTHYROXINE SODIUM 50 MCG TABLET PO SCH (06:49)
[2017-01-08] MEDS: MetFORMIN HCL 500 MG TABLET PO SCH ×2 (06:50→16:32)
[2017-01-08 08:00] VITALS: BP 131/81
[2017-01-08] MEDS: GABAPENTIN 300 MG CAPSULE PO SCH ×3 (08:16→16:27)
[2017-01-08] MEDS: DIVALPROEX SODIUM 500 MG DR TABLET PO SCH ×3 (08:16→16:27)
[2017-01-08] MEDS: LevETIRAcetam 500 MG TABLET PO SCH ×2 (08:16→16:28)
[2017-01-08] MEDS: MULTIVITAMINS WITH MINERALS, THERAPEUTIC TABLET PO SCH (08:16)
[2017-01-08] MEDS: AMANTADINE HCL 100 MG CAPSULE PO SCH ×3 (08:17→16:33)
[2017-01-08] MEDS: THIAMINE HCL 100 MG TABLET PO SCH ×2 (08:17→16:28)
[2017-01-08] MEDS: DULoxetine HCL 20 MG CAPSULE PO SCH (08:17)
[2017-01-08] MEDS: OLANZapine 5 MG RAPDIS TABLET PO SCH ×3 (08:17→16:27)
[2017-01-08] MEDS: FOLIC ACID 1 MG TABLET PO SCH (08:17)
[2017-01-08] MEDS: ACAMPROSATE CALCIUM 333 MG DR TABLET PO SCH ×3 (08:17→16:29)
[2017-01-08] MEDS: ACETAMINOPHEN 325 MG TABLET PO PRN (08:26)
[2017-01-08 11:17] LABS: GLUCOSE,POINT OF CARE 147 MG/DL (70-110)
[2017-01-08] MEDS: INSULIN ASPART 100 UNITS/ML SQ PRN ×3 (11:38→20:32)
[2017-01-08] MEDS ORDERED: HALOPERIDOL LACTATE 5 MG/ML VIAL IM ONE (13:00)
[2017-01-08] MEDS ORDERED: LORazepam 2 MG/ML VIAL IM ONE (13:00)
[2017-01-08] MEDS ORDERED: DiphenhydrAMINE HCL 50 MG/ML VIAL IM ONE (13:00)
[2017-01-08] MEDS ORDERED: DiphenhydrAMINE HCL 50 MG/ML VIAL ONE (13:03)
[2017-01-08] MEDS ORDERED: LORazepam 2 MG/ML VIAL ONE (13:03)
[2017-01-08] MEDS ORDERED: HALOPERIDOL LACTATE 5 MG/ML VIAL ONE (13:03)
[2017-01-08 14:45] VITALS: BP 120/81
[2017-01-08 16:52] LABS: GLUCOSE COMMENT 1 Received Meds; GLUCOSE,POINT OF CARE 169 MG/DL (70-110)
[2017-01-08] MEDS: LORazepam 2 MG TABLET PO PRN (17:00)
[2017-01-08 17:25] VITALS: BP 103/67
[2017-01-08] MEDS: PHENYTOIN SODIUM 100 MG ER CAPSULE PO SCH (20:07)
[2017-01-08 20:32] LABS: GLUCOSE,POINT OF CARE 156 MG/DL (70-110)
[2017-01-08] MEDS: ZOLPIDEM TARTRATE 10 MG TABLET PO PRN (20:34)
[2017-01-08 23:42] VITALS: BP 113/62
[2017-01-09 05:32] LABS: GLUCOSE,POINT OF CARE 115 MG/DL (70-110)
[2017-01-09] MEDS: MetFORMIN HCL 500 MG TABLET PO SCH ×2 (07:03→17:00)
[2017-01-09] MEDS: LEVOTHYROXINE SODIUM 50 MCG TABLET PO SCH (07:03)
[2017-01-09 08:02] VITALS: BP 120/73
[2017-01-09] MEDS: OxyCODONE HCL 5 MG IR TABLET PO PRN ×2 (08:02→16:58)
[2017-01-09] MEDS: FOLIC ACID 1 MG TABLET PO SCH (10:32)
[2017-01-09] MEDS: DULoxetine HCL 20 MG CAPSULE PO SCH (10:32)
[2017-01-09] MEDS: DIVALPROEX SODIUM 500 MG DR TABLET PO SCH ×3 (10:32→16:56)
[2017-01-09] MEDS: ACAMPROSATE CALCIUM 333 MG DR TABLET PO SCH ×3 (10:33→16:56)
[2017-01-09] MEDS: AMANTADINE HCL 100 MG CAPSULE PO SCH ×3 (10:33→17:36)
[2017-01-09] MEDS: THIAMINE HCL 100 MG TABLET PO SCH ×2 (10:33→16:56)
[2017-01-09] MEDS: MULTIVITAMINS WITH MINERALS, THERAPEUTIC TABLET PO SCH (10:33)
[2017-01-09] MEDS: OLANZapine 5 MG RAPDIS TABLET PO SCH ×3 (10:34→16:56)
[2017-01-09] MEDS: LevETIRAcetam 500 MG TABLET PO SCH ×2 (10:35→16:56)
[2017-01-09] MEDS: GABAPENTIN 300 MG CAPSULE PO SCH ×3 (10:35→16:56)
[2017-01-09 17:12] VITALS: BP 105/63
[2017-01-09 17:17] LABS: GLUCOSE,POINT OF CARE 123 MG/DL (70-110)
[2017-01-09] MEDS ORDERED: LORazepam 2 MG/ML VIAL IM ONE (19:45)
[2017-01-09] MEDS ORDERED: HALOPERIDOL LACTATE 5 MG/ML VIAL IM ONE (19:45)
[2017-01-09] MEDS ORDERED: DiphenhydrAMINE HCL 50 MG/ML VIAL IM ONE (19:45)
[2017-01-09] MEDS: PHENYTOIN SODIUM 100 MG ER CAPSULE PO SCH (21:00)
[2017-01-09] MEDS: OLANZapine 10 MG RAPDIS TABLET PO SCH (21:16)
[2017-01-09 21:52] LABS: GLUCOSE COMMENT 1 Received Meds; GLUCOSE,POINT OF CARE 213 MG/DL (70-110)
[2017-01-09] MEDS: INSULIN ASPART 100 UNITS/ML SQ PRN (22:09)
[2017-01-10] MEDS: LEVOTHYROXINE SODIUM 50 MCG TABLET PO SCH (06:47)
[2017-01-10] MEDS: MetFORMIN HCL 500 MG TABLET PO SCH ×2 (06:48→16:04)
[2017-01-10] MEDS: LevETIRAcetam 500 MG TABLET PO SCH ×2 (08:57→16:03)
[2017-01-10] MEDS: DIVALPROEX SODIUM 500 MG DR TABLET PO SCH ×3 (08:57→16:04)
[2017-01-10] MEDS: FOLIC ACID 1 MG TABLET PO SCH (08:57)
[2017-01-10] MEDS: OLANZapine 10 MG RAPDIS TABLET PO SCH ×2 (08:57→21:00)
[2017-01-10] MEDS: THIAMINE HCL 100 MG TABLET PO SCH ×2 (08:57→16:03)
[2017-01-10] MEDS: MULTIVITAMINS WITH MINERALS, THERAPEUTIC TABLET PO SCH (08:57)
[2017-01-10] MEDS: AMANTADINE HCL 100 MG CAPSULE PO SCH ×3 (08:57→16:03)
[2017-01-10] MEDS: GABAPENTIN 300 MG CAPSULE PO SCH ×3 (08:57→16:03)
[2017-01-10] MEDS: TRIHEXYPHENIDYL HCL 5 MG TABLET PO SCH ×3 (08:57→16:04)
[2017-01-10 08:59] VITALS: BP 123/68
[2017-01-10] MEDS ORDERED: DULoxetine HCL 60 MG CAPSULE PO SCH (09:00)
[2017-01-10] MEDS: OxyCODONE HCL 5 MG IR TABLET PO PRN ×2 (09:03→17:44)
[2017-01-10] MEDS: INSULIN ASPART 100 UNITS/ML SQ PRN ×2 (11:44→17:18)
[2017-01-10 11:46] LABS: GLUCOSE,POINT OF CARE 158 MG/DL (70-110)
[2017-01-10] MEDS: ACETAMINOPHEN 325 MG TABLET PO PRN (16:04)
[2017-01-10 16:37] VITALS: BP 106/52
[2017-01-10 16:56] LABS: GLUCOSE COMMENT 1 Received Meds; GLUCOSE,POINT OF CARE 218 MG/DL (70-110)
[2017-01-10 17:42] VITALS: BP 127/73
[2017-01-10] MEDS ORDERED: HALOPERIDOL LACTATE 5 MG/ML VIAL ONE (18:26)
[2017-01-10] MEDS ORDERED: HALOPERIDOL LACTATE 5 MG/ML VIAL IM ONE ×3 (18:30→18:45)
[2017-01-10] MEDS: PHENYTOIN SODIUM 100 MG ER CAPSULE PO SCH (21:00)
[2017-01-11] VITALS (9 sets, daily range): BP systolic 110–143; BP diastolic 67–81
[2017-01-11] MEDS: OLANZapine 5 MG RAPDIS TABLET PO PRN ×3 (00:07→14:30)
[2017-01-11] MEDS: ACETAMINOPHEN 325 MG TABLET PO PRN ×2 (00:08→09:25)
[2017-01-11] MEDS: OxyCODONE HCL 5 MG IR TABLET PO PRN ×3 (03:09→19:47)
[2017-01-11 05:52] LABS: GLUCOSE,POINT OF CARE 130 MG/DL (70-110)
[2017-01-11] MEDS: MetFORMIN HCL 500 MG TABLET PO SCH ×2 (07:00→16:33)
[2017-01-11] MEDS: LEVOTHYROXINE SODIUM 50 MCG TABLET PO SCH (07:00)
[2017-01-11] MEDS: INSULIN ASPART 100 UNITS/ML SQ PRN ×2 (07:00→20:10)
[2017-01-11] MEDS ORDERED: DULoxetine HCL 60 MG CAPSULE PO SCH (09:00)
[2017-01-11] MEDS ORDERED: GABAPENTIN 400 MG CAPSULE PO SCH (09:00)
[2017-01-11] MEDS: MULTIVITAMINS WITH MINERALS, THERAPEUTIC TABLET PO SCH (09:07)
[2017-01-11] MEDS: DIVALPROEX SODIUM 500 MG DR TABLET PO SCH ×3 (09:07→16:33)
[2017-01-11] MEDS: DULoxetine HCL 60 MG CAPSULE PO SCH ×2 (09:08→16:34)
[2017-01-11] MEDS: FOLIC ACID 1 MG TABLET PO SCH (09:08)
[2017-01-11] MEDS: OLANZapine 10 MG RAPDIS TABLET PO SCH ×2 (09:08→20:11)
[2017-01-11] MEDS: LevETIRAcetam 500 MG TABLET PO SCH ×2 (09:08→16:34)
[2017-01-11] MEDS: GABAPENTIN 400 MG CAPSULE PO SCH ×3 (09:08→16:34)
[2017-01-11] MEDS: THIAMINE HCL 100 MG TABLET PO SCH ×2 (09:08→16:35)
[2017-01-11] MEDS: TRIHEXYPHENIDYL HCL 5 MG TABLET PO SCH ×3 (09:09→16:33)
[2017-01-11 11:37] LABS: GLUCOSE,POINT OF CARE 129 MG/DL (70-110)
[2017-01-11 16:37] LABS: GLUCOSE,POINT OF CARE 138 MG/DL (70-110)
[2017-01-11] MEDS: PHENYTOIN SODIUM 100 MG ER CAPSULE PO SCH (20:11)
[2017-01-11 20:17] LABS: GLUCOSE COMMENT 1 Received Meds; GLUCOSE,POINT OF CARE 244 MG/DL (70-110)
[2017-01-12] VITALS (7 sets, daily range): BP systolic 110–129; BP diastolic 70–82
[2017-01-12] MEDS: OxyCODONE HCL 5 MG IR TABLET PO PRN ×3 (04:29→22:34)
[2017-01-12 06:47] LABS: GLUCOSE,POINT OF CARE 135 MG/DL (70-110)
[2017-01-12] MEDS: LEVOTHYROXINE SODIUM 50 MCG TABLET PO SCH (07:03)
[2017-01-12] MEDS: MetFORMIN HCL 500 MG TABLET PO SCH ×2 (07:03→17:38)
[2017-01-12] MEDS: LevETIRAcetam 500 MG TABLET PO SCH ×2 (08:36→16:09)
[2017-01-12] MEDS: DULoxetine HCL 60 MG CAPSULE PO SCH ×2 (08:36→16:09)
[2017-01-12] MEDS: OLANZapine 10 MG RAPDIS TABLET PO SCH ×2 (08:36→21:15)
[2017-01-12] MEDS: MULTIVITAMINS WITH MINERALS, THERAPEUTIC TABLET PO SCH (08:36)
[2017-01-12] MEDS: FOLIC ACID 1 MG TABLET PO SCH (08:36)
[2017-01-12] MEDS: THIAMINE HCL 100 MG TABLET PO SCH ×2 (08:37→16:09)
[2017-01-12] MEDS: GABAPENTIN 400 MG CAPSULE PO SCH ×3 (08:37→16:09)
[2017-01-12] MEDS: TRIHEXYPHENIDYL HCL 5 MG TABLET PO SCH ×3 (08:37→17:00)
[2017-01-12] MEDS: DIVALPROEX SODIUM 500 MG DR TABLET PO SCH ×3 (08:37→16:09)
[2017-01-12] MEDS: ACETAMINOPHEN 325 MG TABLET PO PRN (10:05)
[2017-01-12 11:37] LABS: GLUCOSE COMMENT 1 Received Meds; GLUCOSE,POINT OF CARE 151 MG/DL (70-110)
[2017-01-12] MEDS: INSULIN ASPART 100 UNITS/ML SQ PRN ×3 (11:43→21:18)
[2017-01-12] MEDS: OLANZapine 5 MG RAPDIS TABLET PO PRN (13:55)
[2017-01-12 16:57] LABS: GLUCOSE,POINT OF CARE 217 MG/DL (70-110)
[2017-01-12 21:16] LABS: GLUCOSE COMMENT 1 Received Meds; GLUCOSE,POINT OF CARE 148 MG/DL (70-110)
[2017-01-12] MEDS: PHENYTOIN SODIUM 100 MG ER CAPSULE PO SCH (21:16)
[2017-01-13] VITALS (11 sets, daily range): BP systolic 101–139; BP diastolic 65–84
[2017-01-13 06:12] LABS: GLUCOSE,POINT OF CARE 124 MG/DL (70-110)
[2017-01-13] MEDS: OxyCODONE HCL 5 MG IR TABLET PO PRN ×2 (06:42→14:47)
[2017-01-13] MEDS: MetFORMIN HCL 500 MG TABLET PO SCH ×2 (06:42→16:35)
[2017-01-13] MEDS: LEVOTHYROXINE SODIUM 50 MCG TABLET PO SCH (06:43)
[2017-01-13] MEDS: MULTIVITAMINS WITH MINERALS, THERAPEUTIC TABLET PO SCH (08:10)
[2017-01-13] MEDS: LevETIRAcetam 500 MG TABLET PO SCH ×2 (08:11→16:12)
[2017-01-13] MEDS: FOLIC ACID 1 MG TABLET PO SCH (08:11)
[2017-01-13] MEDS: DULoxetine HCL 60 MG CAPSULE PO SCH ×2 (08:11→16:12)
[2017-01-13] MEDS: GABAPENTIN 400 MG CAPSULE PO SCH ×3 (08:11→16:11)
[2017-01-13] MEDS: THIAMINE HCL 100 MG TABLET PO SCH (08:12)
[2017-01-13] MEDS: OLANZapine 10 MG RAPDIS TABLET PO SCH ×2 (08:12→20:52)
[2017-01-13] MEDS: DIVALPROEX SODIUM 500 MG DR TABLET PO SCH ×3 (08:12→16:12)
[2017-01-13] MEDS: TRIHEXYPHENIDYL HCL 5 MG TABLET PO SCH ×3 (08:18→16:11)
[2017-01-13] MEDS: ACETAMINOPHEN 325 MG TABLET PO PRN ×2 (08:56→18:47)
[2017-01-13] MEDS: OLANZapine 5 MG RAPDIS TABLET PO PRN ×2 (09:32→16:16)
[2017-01-13 11:32] LABS: GLUCOSE,POINT OF CARE 128 MG/DL (70-110)
[2017-01-13 17:22] LABS: GLUCOSE COMMENT 1 Received Meds; GLUCOSE,POINT OF CARE 225 MG/DL (70-110)
[2017-01-13] MEDS: INSULIN ASPART 100 UNITS/ML SQ PRN ×2 (17:23→21:00)
[2017-01-13] MEDS: PHENYTOIN SODIUM 100 MG ER CAPSULE PO SCH (20:51)
[2017-01-13] MEDS: OxyCODONE HCL 10 MG IR TABLET PO PRN (20:56)
[2017-01-13 21:02] LABS: GLUCOSE COMMENT 1 Received Meds; GLUCOSE,POINT OF CARE 176 MG/DL (70-110)
[2017-01-14 06:52] LABS: GLUCOSE,POINT OF CARE 126 MG/DL (70-110)
[2017-01-14] MEDS: MetFORMIN HCL 500 MG TABLET PO SCH ×2 (07:01→16:53)
[2017-01-14] MEDS: LEVOTHYROXINE SODIUM 50 MCG TABLET PO SCH (07:01)
[2017-01-14] MEDS: INSULIN ASPART 100 UNITS/ML SQ PRN (07:01)
[2017-01-14] MEDS: LevETIRAcetam 500 MG TABLET PO SCH ×2 (07:57→16:53)
[2017-01-14] MEDS: GABAPENTIN 400 MG CAPSULE PO SCH ×3 (07:57→16:54)
[2017-01-14] MEDS: MULTIVITAMINS WITH MINERALS, THERAPEUTIC TABLET PO SCH (07:57)
[2017-01-14 07:58] VITALS: BP 136/74
[2017-01-14] MEDS: OxyCODONE HCL 10 MG IR TABLET PO PRN ×2 (07:58→14:03)
[2017-01-14] MEDS: DULoxetine HCL 60 MG CAPSULE PO SCH ×2 (07:58→16:53)
[2017-01-14] MEDS: DIVALPROEX SODIUM 500 MG DR TABLET PO SCH ×3 (07:58→16:53)
[2017-01-14] MEDS: TRIHEXYPHENIDYL HCL 5 MG TABLET PO SCH ×3 (07:58→16:53)
[2017-01-14] MEDS: OLANZapine 10 MG RAPDIS TABLET PO SCH ×2 (08:00→21:36)
[2017-01-14] MEDS: OLANZapine 5 MG RAPDIS TABLET PO PRN ×3 (08:46→18:10)
[2017-01-14 08:58] VITALS: BP 136/74
[2017-01-14] MEDS: ACETAMINOPHEN 325 MG TABLET PO PRN (12:46)
[2017-01-14 16:00] VITALS: BP 109/68
[2017-01-14] MEDS: PHENYTOIN SODIUM 100 MG ER CAPSULE PO SCH (21:36)
[2017-01-15 01:10] VITALS: BP 114/74
[2017-01-15] MEDS: OxyCODONE HCL 10 MG IR TABLET PO PRN ×3 (01:12→16:20)
[2017-01-15] MEDS: OLANZapine 5 MG RAPDIS TABLET PO PRN ×3 (01:13→13:27)
[2017-01-15 06:42] LABS: GLUCOSE COMMENT 1 Received Meds; GLUCOSE,POINT OF CARE 132 MG/DL (70-110)
[2017-01-15] MEDS: LEVOTHYROXINE SODIUM 50 MCG TABLET PO SCH (06:52)
[2017-01-15] MEDS: INSULIN ASPART 100 UNITS/ML SQ PRN ×4 (06:52→18:05)
[2017-01-15] MEDS: MetFORMIN HCL 500 MG TABLET PO SCH ×2 (06:52→16:21)
[2017-01-15] MEDS: TRIHEXYPHENIDYL HCL 5 MG TABLET PO SCH ×3 (08:58→16:20)
[2017-01-15] MEDS: DIVALPROEX SODIUM 500 MG DR TABLET PO SCH ×3 (08:59→16:21)
[2017-01-15] MEDS: GABAPENTIN 300 MG CAPSULE PO SCH ×3 (08:59→16:21)
[2017-01-15] MEDS: MULTIVITAMINS WITH MINERALS, THERAPEUTIC TABLET PO SCH (08:59)
[2017-01-15] MEDS: DULoxetine HCL 60 MG CAPSULE PO SCH ×2 (08:59→16:21)
[2017-01-15] MEDS: LevETIRAcetam 500 MG TABLET PO SCH ×2 (08:59→16:21)
[2017-01-15] MEDS: OLANZapine 10 MG RAPDIS TABLET PO SCH ×2 (08:59→20:59)
[2017-01-15] MEDS: ACETAMINOPHEN 325 MG TABLET PO PRN (13:26)
[2017-01-15] MEDS ORDERED: DiphenhydrAMINE HCL 50 MG/ML VIAL IM ONE (13:35)
[2017-01-15] MEDS ORDERED: HALOPERIDOL LACTATE 5 MG/ML VIAL IM ONE (13:35)
[2017-01-15] MEDS ORDERED: LORazepam 2 MG/ML VIAL IM ONE (13:35)
[2017-01-15] MEDS ORDERED: LORazepam 2 MG/ML VIAL ONE (13:39)
[2017-01-15] MEDS ORDERED: HALOPERIDOL LACTATE 5 MG/ML VIAL ONE (13:40)
[2017-01-15] MEDS ORDERED: DiphenhydrAMINE HCL 50 MG/ML VIAL ONE (13:40)
[2017-01-15 16:18] VITALS: BP 115/65
[2017-01-15 16:27] LABS: GLUCOSE,POINT OF CARE 230 MG/DL (70-110)
[2017-01-15 16:31] LABS: GLUCOSE COMMENT 1 FASTING; GLUCOSE,POINT OF CARE 237 MG/DL (70-110)
[2017-01-15] MEDS: PHENYTOIN SODIUM 100 MG ER CAPSULE PO SCH (20:59)
[2017-01-16 03:12] VITALS: BP 122/68
[2017-01-16] MEDS: OxyCODONE HCL 10 MG IR TABLET PO PRN ×4 (03:12→23:50)
[2017-01-16] MEDS: OLANZapine 5 MG RAPDIS TABLET PO PRN ×3 (03:12→14:55)
[2017-01-16] MEDS: ACETAMINOPHEN 325 MG TABLET PO PRN (04:18)
[2017-01-16 06:12] LABS: GLUCOSE,POINT OF CARE 180 MG/DL (70-110)
[2017-01-16] MEDS: MetFORMIN HCL 500 MG TABLET PO SCH ×2 (06:48→16:53)
[2017-01-16] MEDS: LEVOTHYROXINE SODIUM 50 MCG TABLET PO SCH (06:49)
[2017-01-16] MEDS: TRIHEXYPHENIDYL HCL 5 MG TABLET PO SCH ×3 (09:57→16:13)
[2017-01-16] MEDS: GABAPENTIN 300 MG CAPSULE PO SCH ×3 (09:57→16:13)
[2017-01-16] MEDS: DULoxetine HCL 60 MG CAPSULE PO SCH ×2 (09:57→16:13)
[2017-01-16 09:58] VITALS: BP 115/61
[2017-01-16] MEDS: LevETIRAcetam 500 MG TABLET PO SCH ×2 (09:58→16:13)
[2017-01-16] MEDS: OLANZapine 10 MG RAPDIS TABLET PO SCH ×2 (09:58→20:22)
[2017-01-16] MEDS: DIVALPROEX SODIUM 500 MG DR TABLET PO SCH ×3 (09:58→16:13)
[2017-01-16] MEDS: MULTIVITAMINS WITH MINERALS, THERAPEUTIC TABLET PO SCH (09:58)
[2017-01-16 11:52] LABS: GLUCOSE,POINT OF CARE 231 MG/DL (70-110)
[2017-01-16] MEDS: INSULIN ASPART 100 UNITS/ML SQ PRN ×3 (11:55→21:12)
[2017-01-16 16:02] VITALS: BP 125/73
[2017-01-16 16:08] VITALS: BP 123/84
[2017-01-16 17:06] LABS: GLUCOSE COMMENT 1 Received Meds; GLUCOSE,POINT OF CARE 162 MG/DL (70-110)
[2017-01-16 17:10] VITALS: BP 119/70
[2017-01-16] MEDS: HALOPERIDOL 5 MG TABLET PO PRN ×2 (19:26→23:50)
[2017-01-16] MEDS: PHENYTOIN SODIUM 100 MG ER CAPSULE PO SCH (20:23)
[2017-01-16 20:57] LABS: GLUCOSE COMMENT 1 Received Meds; GLUCOSE,POINT OF CARE 193 MG/DL (70-110)
[2017-01-16 23:50] VITALS: BP 125/71
[2017-01-17] VITALS (11 sets, daily range): BP systolic 110–135; BP diastolic 69–90
[2017-01-17 05:57] LABS: GLUCOSE,POINT OF CARE 113 MG/DL (70-110)
[2017-01-17] MEDS: LEVOTHYROXINE SODIUM 50 MCG TABLET PO SCH (06:45)
[2017-01-17] MEDS: MetFORMIN HCL 500 MG TABLET PO SCH ×2 (06:45→17:06)
[2017-01-17] MEDS: LevETIRAcetam 500 MG TABLET PO SCH ×2 (08:26→16:09)
[2017-01-17] MEDS: DULoxetine HCL 60 MG CAPSULE PO SCH ×2 (08:26→16:09)
[2017-01-17] MEDS: OLANZapine 10 MG RAPDIS TABLET PO SCH ×2 (08:27→20:36)
[2017-01-17] MEDS: TRIHEXYPHENIDYL HCL 5 MG TABLET PO SCH ×3 (08:27→16:09)
[2017-01-17] MEDS: GABAPENTIN 300 MG CAPSULE PO SCH ×3 (08:27→16:09)
[2017-01-17] MEDS: MULTIVITAMINS WITH MINERALS, THERAPEUTIC TABLET PO SCH (08:27)
[2017-01-17] MEDS: DIVALPROEX SODIUM 500 MG ER TABLET PO SCH ×2 (08:27→16:09)
[2017-01-17] MEDS: OxyCODONE HCL 10 MG IR TABLET PO PRN ×3 (08:27→20:36)
[2017-01-17] MEDS: HALOPERIDOL 5 MG TABLET PO PRN ×3 (08:28→17:08)
[2017-01-17 09:04] LABS: BASOPHILS % (AUTO) 0.3 % (0.0-2.0); EOSINOPHILS % (AUTO) 0.4 % (1.0-6.0); HEMATOCRIT 39.1 % (36-46); HEMOGLOBIN 12.4 g/dL (12.0-16.0); LYMPHOCYTES # (AUTO) 1.7 K/uL (1.0-4.8); LYMPHOCYTES % (AUTO) 26.1 % (22.0-44.0); MEAN CORPUSCULAR HGB CONC 31.8 G/dL (31.0-37.0); MEAN CORPUSCULAR VOLUME 94 fL (80-100); MONOCYTES # (AUTO) 0.4 K/uL (0.1-1.0); MONOCYTES % (AUTO) 6.5 % (2.0-9.0); NEUTROPHILS # (AUTO) 4.4 K/uL (1.8-7.7); NEUTROPHILS % (AUTO) 66.7 % (40.0-70.0); PLATELET COUNT (AUTO) 226 K/uL (150-450); RED BLOOD CELL COUNT(AUTO) 4.14 MIL/uL (4.00-5.20); RED CELL DISTRIBUTION WIDTH 13.3 % (11.5-14.5); WHITE BLOOD COUNT (AUTO) 6.6 K/uL (4.5-11.0)
[2017-01-17 09:28] LABS: ALBUMIN 3.2 g/dL (3.4-5.0); BILIRUBIN,TOTAL 0.1 mg/dL (0.1-1.0); CALCIUM, TOTAL 9.2 mg/dL (8.8-10.5); CREATININE 1.01 mg/dL (0.60-1.30); POTASSIUM 4.6 mmol/L (3.5-5.1)
[2017-01-17 11:37] LABS: GLUCOSE,POINT OF CARE 246 MG/DL (70-110)
[2017-01-17] MEDS: INSULIN ASPART 100 UNITS/ML SQ PRN ×3 (11:52→21:21)
[2017-01-17] MEDS: ACETAMINOPHEN 325 MG TABLET PO PRN (12:41)
[2017-01-17 16:12] LABS: GLUCOSE COMMENT 1 Received Meds; GLUCOSE,POINT OF CARE 235 MG/DL (70-110)
[2017-01-17] MEDS ORDERED: PHENYTOIN SODIUM 100 MG ER CAPSULE PO ONE (17:45)
[2017-01-17] MEDS: PHENYTOIN SODIUM 100 MG ER CAPSULE PO SCH (20:36)
[2017-01-17 20:37] LABS: GLUCOSE COMMENT 1 Received Meds; GLUCOSE,POINT OF CARE 210 MG/DL (70-110)
[2017-01-18] VITALS (7 sets, daily range): BP systolic 110–121; BP diastolic 53–77
[2017-01-18] MEDS: OxyCODONE HCL 10 MG IR TABLET PO PRN ×3 (04:49→20:08)
[2017-01-18] MEDS: HALOPERIDOL 5 MG TABLET PO PRN ×3 (04:50→16:08)
[2017-01-18 06:22] LABS: GLUCOSE,POINT OF CARE 104 MG/DL (70-110)
[2017-01-18] MEDS: MetFORMIN HCL 500 MG TABLET PO SCH ×2 (06:40→16:09)
[2017-01-18] MEDS: LEVOTHYROXINE SODIUM 50 MCG TABLET PO SCH (06:40)
[2017-01-18] MEDS: GABAPENTIN 300 MG CAPSULE PO SCH ×3 (08:17→16:08)
[2017-01-18] MEDS: LevETIRAcetam 500 MG TABLET PO SCH ×2 (08:17→16:08)
[2017-01-18] MEDS: OLANZapine 10 MG RAPDIS TABLET PO SCH ×2 (08:17→20:31)
[2017-01-18] MEDS: DIVALPROEX SODIUM 500 MG ER TABLET PO SCH ×2 (08:17→16:08)
[2017-01-18] MEDS: MULTIVITAMINS WITH MINERALS, THERAPEUTIC TABLET PO SCH (08:17)
[2017-01-18] MEDS: DULoxetine HCL 60 MG CAPSULE PO SCH ×2 (08:18→16:09)
[2017-01-18] MEDS: TRIHEXYPHENIDYL HCL 5 MG TABLET PO SCH ×3 (08:18→16:08)
[2017-01-18] MEDS: ACETAMINOPHEN 325 MG TABLET PO PRN (09:23)
[2017-01-18 11:57] LABS: GLUCOSE COMMENT 1 Received Meds; GLUCOSE,POINT OF CARE 222 MG/DL (70-110)
[2017-01-18] MEDS: INSULIN ASPART 100 UNITS/ML SQ PRN ×3 (12:01→21:44)
[2017-01-18 16:32] LABS: GLUCOSE COMMENT 1 Received Meds; GLUCOSE,POINT OF CARE 216 MG/DL (70-110)
[2017-01-18] MEDS ORDERED: HALOPERIDOL LACTATE 5 MG/ML VIAL IM ONE (18:15)
[2017-01-18] MEDS ORDERED: DiphenhydrAMINE HCL 50 MG/ML VIAL IM ONE (18:15)
[2017-01-18 20:17] LABS: GLUCOSE COMMENT 1 Received Meds; GLUCOSE,POINT OF CARE 197 MG/DL (70-110)
[2017-01-18] MEDS: PHENYTOIN SODIUM 100 MG ER CAPSULE PO SCH (20:31)
[2017-01-19 04:49] VITALS: BP 123/93
[2017-01-19] MEDS: HALOPERIDOL 5 MG TABLET PO PRN ×4 (04:49→17:31)
[2017-01-19] MEDS: OxyCODONE HCL 10 MG IR TABLET PO PRN ×3 (04:49→17:30)
[2017-01-19 05:52] LABS: GLUCOSE,POINT OF CARE 139 MG/DL (70-110)
[2017-01-19] MEDS: MetFORMIN HCL 500 MG TABLET PO SCH ×2 (06:43→16:19)
[2017-01-19] MEDS: LEVOTHYROXINE SODIUM 50 MCG TABLET PO SCH (06:43)
[2017-01-19] MEDS: MULTIVITAMINS WITH MINERALS, THERAPEUTIC TABLET PO SCH (08:16)
[2017-01-19] MEDS: DIVALPROEX SODIUM 500 MG ER TABLET PO SCH ×2 (08:16→16:14)
[2017-01-19] MEDS: OLANZapine 10 MG RAPDIS TABLET PO SCH ×2 (08:16→20:52)
[2017-01-19] MEDS: LevETIRAcetam 500 MG TABLET PO SCH ×2 (08:16→16:19)
[2017-01-19] MEDS: GABAPENTIN 300 MG CAPSULE PO SCH ×3 (08:16→16:19)
[2017-01-19] MEDS: DULoxetine HCL 60 MG CAPSULE PO SCH ×2 (08:17→16:19)
[2017-01-19] MEDS: TRIHEXYPHENIDYL HCL 5 MG TABLET PO SCH ×3 (08:17→16:19)
[2017-01-19 11:07] VITALS: BP 110/77
[2017-01-19 11:07] LABS: GLUCOSE,POINT OF CARE 190 MG/DL (70-110)
[2017-01-19] MEDS: INSULIN ASPART 100 UNITS/ML SQ PRN ×2 (11:56→21:09)
[2017-01-19 17:24] VITALS: BP 114/66
[2017-01-19] MEDS: PHENYTOIN SODIUM 100 MG ER CAPSULE PO SCH (20:53)
[2017-01-19 21:12] LABS: GLUCOSE,POINT OF CARE 189 MG/DL (70-110)
[2017-01-20 05:33] VITALS: BP 123/78
[2017-01-20] MEDS: HALOPERIDOL 5 MG TABLET PO PRN ×3 (05:37→18:24)
[2017-01-20] MEDS: OxyCODONE HCL 10 MG IR TABLET PO PRN ×3 (05:37→17:56)
[2017-01-20 05:47] LABS: GLUCOSE,POINT OF CARE 136 MG/DL (70-110)
[2017-01-20] MEDS: MetFORMIN HCL 500 MG TABLET PO SCH ×2 (07:01→16:05)
[2017-01-20] MEDS: LEVOTHYROXINE SODIUM 50 MCG TABLET PO SCH (07:01)
[2017-01-20] MEDS: INSULIN ASPART 100 UNITS/ML SQ PRN ×4 (07:02→21:05)
[2017-01-20] MEDS: OLANZapine 10 MG RAPDIS TABLET PO SCH ×2 (07:55→20:05)
[2017-01-20] MEDS: DIVALPROEX SODIUM 500 MG ER TABLET PO SCH ×2 (07:56→16:04)
[2017-01-20] MEDS: LevETIRAcetam 500 MG TABLET PO SCH ×2 (07:57→16:05)
[2017-01-20] MEDS: MULTIVITAMINS WITH MINERALS, THERAPEUTIC TABLET PO SCH (07:57)
[2017-01-20] MEDS: TRIHEXYPHENIDYL HCL 5 MG TABLET PO SCH ×3 (07:57→16:04)
[2017-01-20] MEDS: GABAPENTIN 300 MG CAPSULE PO SCH ×3 (07:57→16:04)
[2017-01-20] MEDS: DULoxetine HCL 60 MG CAPSULE PO SCH ×2 (07:58→16:04)
[2017-01-20] MEDS: ACETAMINOPHEN 325 MG TABLET PO PRN ×2 (07:59→20:07)
[2017-01-20 09:00] VITALS: BP 115/64
[2017-01-20] MEDS ORDERED: DiphenhydrAMINE HCL 50 MG/ML VIAL IM ONE (10:30)
[2017-01-20] MEDS ORDERED: HALOPERIDOL LACTATE 5 MG/ML VIAL IM ONE (10:30)
[2017-01-20 11:49] VITALS: BP 109/67
[2017-01-20 11:52] LABS: GLUCOSE COMMENT 1 Received Meds; GLUCOSE,POINT OF CARE 211 MG/DL (70-110)
[2017-01-20 12:49] VITALS: BP 105/62
[2017-01-20 16:12] LABS: GLUCOSE,POINT OF CARE 186 MG/DL (70-110)
[2017-01-20 16:17] VITALS: BP 112/62
[2017-01-20 17:53] VITALS: BP 115/78
[2017-01-20] MEDS: PHENYTOIN SODIUM 100 MG ER CAPSULE PO SCH (20:05)
[2017-01-20 20:22] LABS: GLUCOSE COMMENT 1 Received Meds; GLUCOSE,POINT OF CARE 165 MG/DL (70-110)
[2017-01-21 03:30] VITALS: BP 116/59
[2017-01-21] MEDS: OxyCODONE HCL 10 MG IR TABLET PO PRN ×3 (03:33→16:24)
[2017-01-21 05:53] LABS: GLUCOSE,POINT OF CARE 145 MG/DL (70-110)
[2017-01-21] MEDS: MetFORMIN HCL 500 MG TABLET PO SCH ×2 (06:41→16:23)
[2017-01-21] MEDS: LEVOTHYROXINE SODIUM 50 MCG TABLET PO SCH (06:41)
[2017-01-21] MEDS: INSULIN ASPART 100 UNITS/ML SQ PRN ×2 (07:06→12:10)
[2017-01-21] MEDS: DULoxetine HCL 60 MG CAPSULE PO SCH ×2 (08:02→16:23)
[2017-01-21] MEDS: TRIHEXYPHENIDYL HCL 5 MG TABLET PO SCH ×3 (08:03→16:22)
[2017-01-21] MEDS: HALOPERIDOL 5 MG TABLET PO PRN ×2 (08:07→12:15)
[2017-01-21] MEDS: GABAPENTIN 300 MG CAPSULE PO SCH ×3 (08:07→16:23)
[2017-01-21] MEDS: DIVALPROEX SODIUM 500 MG ER TABLET PO SCH ×2 (08:07→16:23)
[2017-01-21] MEDS: OLANZapine 10 MG RAPDIS TABLET PO SCH (08:07)
[2017-01-21] MEDS: LevETIRAcetam 500 MG TABLET PO SCH ×2 (08:07→16:22)
[2017-01-21] MEDS: MULTIVITAMINS WITH MINERALS, THERAPEUTIC TABLET PO SCH (08:07)
[2017-01-21 08:09] VITALS: BP 133/90
[2017-01-21] MEDS: ACETAMINOPHEN 325 MG TABLET PO PRN (08:09)
[2017-01-21 11:53] LABS: GLUCOSE,POINT OF CARE 196 MG/DL (70-110)
[2017-01-21 16:25] VITALS: BP 114/78
[2017-01-21 17:28] LABS: GLUCOSE COMMENT 1 FASTING; GLUCOSE,POINT OF CARE 124 MG/DL (70-110)
[2017-01-21] MEDS: OLANZapine 5 MG RAPDIS TABLET PO SCH (20:21)
[2017-01-21] MEDS: PHENYTOIN SODIUM 100 MG ER CAPSULE PO SCH (20:22)
[2017-01-21 22:07] LABS: GLUCOSE COMMENT 1 FASTING; GLUCOSE,POINT OF CARE 174 MG/DL (70-110)
[2017-01-22] VITALS (7 sets, daily range): BP systolic 117–135; BP diastolic 74–81
[2017-01-22] MEDS: OxyCODONE HCL 10 MG IR TABLET PO PRN ×4 (02:56→21:21)
[2017-01-22 05:53] LABS: GLUCOSE,POINT OF CARE 133 MG/DL (70-110)
[2017-01-22] MEDS: LEVOTHYROXINE SODIUM 50 MCG TABLET PO SCH (06:59)
[2017-01-22] MEDS: MetFORMIN HCL 500 MG TABLET PO SCH ×2 (06:59→17:16)
[2017-01-22] MEDS: INSULIN ASPART 100 UNITS/ML SQ PRN ×4 (07:00→21:25)
[2017-01-22] MEDS: DULoxetine HCL 60 MG CAPSULE PO SCH ×2 (08:02→16:20)
[2017-01-22] MEDS: TRIHEXYPHENIDYL HCL 5 MG TABLET PO SCH ×3 (08:02→16:21)
[2017-01-22] MEDS: GABAPENTIN 300 MG CAPSULE PO SCH ×3 (08:03→16:21)
[2017-01-22] MEDS: LevETIRAcetam 500 MG TABLET PO SCH ×2 (08:04→16:20)
[2017-01-22] MEDS: HALOPERIDOL 5 MG TABLET PO PRN ×3 (08:04→16:19)
[2017-01-22] MEDS: OLANZapine 5 MG RAPDIS TABLET PO SCH ×2 (08:04→20:25)
[2017-01-22] MEDS: MULTIVITAMINS WITH MINERALS, THERAPEUTIC TABLET PO SCH (08:05)
[2017-01-22] MEDS: DIVALPROEX SODIUM 500 MG ER TABLET PO SCH ×2 (08:05→16:20)
[2017-01-22 11:28] LABS: GLUCOSE,POINT OF CARE 144 MG/DL (70-110)
[2017-01-22 16:27] LABS: GLUCOSE,POINT OF CARE 186 MG/DL (70-110)
[2017-01-22 18:42] LABS: ALANINE AMINOTRANSFERASE 39 U/L (12-78); ALBUMIN 3.1 g/dL (3.4-5.0); ASPARTATE AMINOTRANSFERASE 21 U/L (15-37); BILIRUBIN,TOTAL 0.1 mg/dL (0.1-1.0); TOTAL PROTEIN, SERUM 6.9 g/dL (6.4-8.2)
[2017-01-22 18:43] LABS: BILIRUBIN,DIRECT < 0.05 mg/dL (0.00-0.20)
[2017-01-22] MEDS: PHENYTOIN SODIUM 100 MG ER CAPSULE PO SCH (20:25)
[2017-01-22 20:27] LABS: GLUCOSE COMMENT 1 Received Meds; GLUCOSE,POINT OF CARE 162 MG/DL (70-110)
[2017-01-23 05:18] LABS: GLUCOSE,POINT OF CARE 127 MG/DL (70-110)
[2017-01-23] MEDS: INSULIN ASPART 100 UNITS/ML SQ PRN ×4 (07:08→21:12)
[2017-01-23] MEDS: LEVOTHYROXINE SODIUM 50 MCG TABLET PO SCH (07:08)
[2017-01-23] MEDS: MetFORMIN HCL 500 MG TABLET PO SCH ×2 (07:08→16:31)
[2017-01-23 07:28] VITALS: BP 135/76
[2017-01-23] MEDS: OxyCODONE HCL 10 MG IR TABLET PO PRN ×2 (07:28→14:08)
[2017-01-23] MEDS: DULoxetine HCL 60 MG CAPSULE PO SCH ×2 (08:45→16:30)
[2017-01-23] MEDS: TRIHEXYPHENIDYL HCL 5 MG TABLET PO SCH ×3 (08:45→16:28)
[2017-01-23] MEDS: DIVALPROEX SODIUM 500 MG ER TABLET PO SCH ×2 (08:46→16:28)
[2017-01-23] MEDS: GABAPENTIN 300 MG CAPSULE PO SCH ×3 (08:46→16:32)
[2017-01-23] MEDS: MULTIVITAMINS WITH MINERALS, THERAPEUTIC TABLET PO SCH (08:46)
[2017-01-23] MEDS: LevETIRAcetam 500 MG TABLET PO SCH ×2 (08:46→16:31)
[2017-01-23] MEDS: OLANZapine 5 MG RAPDIS TABLET PO SCH ×2 (08:47→20:42)
[2017-01-23] MEDS: HALOPERIDOL 5 MG TABLET PO PRN ×2 (08:50→16:31)
[2017-01-23 14:08] VITALS: BP 115/68
[2017-01-23 16:52] LABS: GLUCOSE,POINT OF CARE 156 MG/DL (70-110)
[2017-01-23 17:18] VITALS: BP 102/62
[2017-01-23] MEDS: PHENYTOIN SODIUM 100 MG ER CAPSULE PO SCH (20:42)
[2017-01-23 21:15] VITALS: BP 112/80
[2017-01-23] MEDS: OxyCODONE HCL 5 MG IR TABLET PO PRN (21:17)
[2017-01-23 23:27] LABS: GLUCOSE,POINT OF CARE 152 MG/DL (70-110)
[2017-01-24 05:40] VITALS: BP 134/68
[2017-01-24 05:47] LABS: GLUCOSE,POINT OF CARE 120 MG/DL (70-110)
[2017-01-24] MEDS: OxyCODONE HCL 5 MG IR TABLET PO PRN ×3 (05:49→17:54)
[2017-01-24] MEDS: LEVOTHYROXINE SODIUM 50 MCG TABLET PO SCH (07:04)
[2017-01-24] MEDS: MetFORMIN HCL 500 MG TABLET PO SCH ×2 (07:04→17:27)
[2017-01-24] MEDS: INSULIN ASPART 100 UNITS/ML SQ PRN ×4 (07:05→20:22)
[2017-01-24 08:05] VITALS: BP 130/70
[2017-01-24] MEDS: TRIHEXYPHENIDYL HCL 5 MG TABLET PO SCH ×3 (08:10→15:55)
[2017-01-24] MEDS: OLANZapine 5 MG RAPDIS TABLET PO SCH ×2 (08:11→20:18)
[2017-01-24] MEDS: LevETIRAcetam 500 MG TABLET PO SCH ×2 (08:11→15:56)
[2017-01-24] MEDS: DULoxetine HCL 60 MG CAPSULE PO SCH ×2 (08:11→15:55)
[2017-01-24] MEDS: GABAPENTIN 300 MG CAPSULE PO SCH ×3 (08:11→15:57)
[2017-01-24] MEDS: DIVALPROEX SODIUM 500 MG ER TABLET PO SCH ×2 (08:16→15:56)
[2017-01-24] MEDS: HALOPERIDOL 5 MG TABLET PO PRN ×3 (08:16→20:18)
[2017-01-24] MEDS: MULTIVITAMINS WITH MINERALS, THERAPEUTIC TABLET PO SCH (08:16)
[2017-01-24 10:42] LABS: GLUCOSE,POINT OF CARE 206 MG/DL (70-110)
[2017-01-24 15:56] LABS: GLUCOSE COMMENT 1 Received Meds; GLUCOSE,POINT OF CARE 221 MG/DL (70-110)
[2017-01-24 17:49] VITALS: BP 125/79
[2017-01-24] MEDS: PHENYTOIN SODIUM 100 MG ER CAPSULE PO SCH (20:18)
[2017-01-24 20:22] LABS: GLUCOSE COMMENT 1 Received Meds; GLUCOSE,POINT OF CARE 155 MG/DL (70-110)
[2017-01-25 05:50] VITALS: BP 128/78
[2017-01-25 05:57] LABS: GLUCOSE,POINT OF CARE 118 MG/DL (70-110)
[2017-01-25] MEDS: OxyCODONE HCL 5 MG IR TABLET PO PRN ×3 (05:59→18:51)
[2017-01-25] MEDS: MetFORMIN HCL 500 MG TABLET PO SCH ×2 (07:05→17:23)
[2017-01-25] MEDS: LEVOTHYROXINE SODIUM 50 MCG TABLET PO SCH (07:05)
[2017-01-25] MEDS: INSULIN ASPART 100 UNITS/ML SQ PRN ×4 (07:06→21:13)
[2017-01-25] MEDS: TRIHEXYPHENIDYL HCL 5 MG TABLET PO SCH ×3 (08:30→16:19)
[2017-01-25] MEDS: DULoxetine HCL 60 MG CAPSULE PO SCH ×2 (08:30→16:24)
[2017-01-25] MEDS: MULTIVITAMINS WITH MINERALS, THERAPEUTIC TABLET PO SCH (08:31)
[2017-01-25] MEDS: LevETIRAcetam 500 MG TABLET PO SCH ×2 (08:31→16:18)
[2017-01-25] MEDS: DIVALPROEX SODIUM 500 MG ER TABLET PO SCH ×2 (08:31→16:20)
[2017-01-25] MEDS: GABAPENTIN 300 MG CAPSULE PO SCH ×3 (08:31→16:20)
[2017-01-25 08:32] VITALS: BP 110/62
[2017-01-25] MEDS: OLANZapine 5 MG RAPDIS TABLET PO SCH ×2 (08:32→20:15)
[2017-01-25] MEDS: HALOPERIDOL 5 MG TABLET PO PRN ×3 (08:36→20:36)
[2017-01-25 11:32] LABS: GLUCOSE,POINT OF CARE 149 MG/DL (70-110)
[2017-01-25 11:56] VITALS: BP 121/73
[2017-01-25 16:00] VITALS: BP 107/62
[2017-01-25 17:17] LABS: GLUCOSE,POINT OF CARE 166 MG/DL (70-110)
[2017-01-25 18:51] VITALS: BP 154/70
[2017-01-25] MEDS: PHENYTOIN SODIUM 100 MG ER CAPSULE PO SCH (20:17)
[2017-01-25 21:12] LABS: GLUCOSE COMMENT 1 Repeated; GLUCOSE,POINT OF CARE 186 MG/DL (70-110)
[2017-01-26 03:29] VITALS: BP 139/70
[2017-01-26] MEDS: OxyCODONE HCL 5 MG IR TABLET PO PRN ×3 (03:29→16:24)
[2017-01-26 06:06] LABS: GLUCOSE,POINT OF CARE 109 MG/DL (70-110)
[2017-01-26] MEDS: MetFORMIN HCL 500 MG TABLET PO SCH ×2 (06:44→17:16)
[2017-01-26] MEDS: LEVOTHYROXINE SODIUM 50 MCG TABLET PO SCH (06:44)
[2017-01-26 08:00] VITALS: BP 110/67
[2017-01-26] MEDS: TRIHEXYPHENIDYL HCL 5 MG TABLET PO SCH ×3 (08:37→16:21)
[2017-01-26] MEDS: DULoxetine HCL 60 MG CAPSULE PO SCH ×2 (08:37→16:21)
[2017-01-26] MEDS: LevETIRAcetam 500 MG TABLET PO SCH ×2 (08:37→16:23)
[2017-01-26] MEDS: DIVALPROEX SODIUM 500 MG ER TABLET PO SCH ×2 (08:37→16:22)
[2017-01-26] MEDS: MULTIVITAMINS WITH MINERALS, THERAPEUTIC TABLET PO SCH (08:38)
[2017-01-26] MEDS: GABAPENTIN 300 MG CAPSULE PO SCH ×3 (08:38→16:23)
[2017-01-26] MEDS: OLANZapine 5 MG RAPDIS TABLET PO SCH ×2 (08:38→20:26)
[2017-01-26] MEDS: HALOPERIDOL 5 MG TABLET PO PRN ×3 (08:39→21:11)
[2017-01-26 10:07] VITALS: BP 114/80
[2017-01-26] MEDS: INSULIN ASPART 100 UNITS/ML SQ PRN ×3 (11:41→20:27)
[2017-01-26 11:42] LABS: GLUCOSE,POINT OF CARE 162 MG/DL (70-110)
[2017-01-26 16:07] LABS: GLUCOSE COMMENT 1 Received Meds; GLUCOSE,POINT OF CARE 204 MG/DL (70-110)
[2017-01-26 16:17] VITALS: BP 120/71
[2017-01-26] MEDS: PHENYTOIN SODIUM 100 MG ER CAPSULE PO SCH (20:26)
[2017-01-26 20:27] LABS: GLUCOSE COMMENT 1 Received Meds; GLUCOSE,POINT OF CARE 155 MG/DL (70-110)
[2017-01-27] VITALS (8 sets, daily range): BP systolic 99–144; BP diastolic 60–92
[2017-01-27] MEDS: OxyCODONE HCL 5 MG IR TABLET PO PRN ×2 (05:19→11:44)
[2017-01-27 05:27] LABS: GLUCOSE COMMENT 1 Received Meds; GLUCOSE,POINT OF CARE 141 MG/DL (70-110)
[2017-01-27] MEDS: HALOPERIDOL 5 MG TABLET PO PRN ×4 (05:34→20:17)
[2017-01-27] MEDS: LEVOTHYROXINE SODIUM 50 MCG TABLET PO SCH (06:37)
[2017-01-27] MEDS: MetFORMIN HCL 500 MG TABLET PO SCH ×2 (07:00→17:07)
[2017-01-27] MEDS: INSULIN ASPART 100 UNITS/ML SQ PRN ×4 (07:02→21:11)
[2017-01-27] MEDS: DIVALPROEX SODIUM 500 MG ER TABLET PO SCH ×2 (08:57→16:08)
[2017-01-27] MEDS: LevETIRAcetam 500 MG TABLET PO SCH ×2 (08:57→16:09)
[2017-01-27] MEDS: MULTIVITAMINS WITH MINERALS, THERAPEUTIC TABLET PO SCH (08:57)
[2017-01-27] MEDS: GABAPENTIN 300 MG CAPSULE PO SCH ×3 (08:57→16:09)
[2017-01-27] MEDS: DULoxetine HCL 60 MG CAPSULE PO SCH ×2 (08:58→16:09)
[2017-01-27] MEDS: OLANZapine 5 MG RAPDIS TABLET PO SCH ×2 (08:58→21:13)
[2017-01-27] MEDS: TRIHEXYPHENIDYL HCL 5 MG TABLET PO SCH ×3 (09:00→16:10)
[2017-01-27 11:42] LABS: GLUCOSE COMMENT 1 Received Meds; GLUCOSE,POINT OF CARE 142 MG/DL (70-110)
[2017-01-27] MEDS ORDERED: DULO60CA44 PO (13:38)
[2017-01-27] MEDS ORDERED: GABA-531 PO (13:41)
[2017-01-27] MEDS ORDERED: DIVA500T52 PO (13:45)
[2017-01-27] MEDS ORDERED: OLAN7.5T2 PO (13:48)
[2017-01-27] MEDS ORDERED: METF500T4 PO (14:29)
[2017-01-27] MEDS ORDERED: PHENY100 PO (14:29)
[2017-01-27] MEDS ORDERED: MULT-248 PO (14:29)
[2017-01-27] MEDS ORDERED: TRIH5TAB2 PO (14:30)
[2017-01-27] MEDS ORDERED: [UNRECOGNIZED DRUG - CODE] (14:38)
[2017-01-27 16:12] LABS: GLUCOSE,POINT OF CARE 230 MG/DL (70-110)
[2017-01-27] MEDS: OxyCODONE HCL 10 MG IR TABLET PO PRN (18:14)
[2017-01-27 20:22] LABS: GLUCOSE COMMENT 1 Received Meds; GLUCOSE,POINT OF CARE 145 MG/DL (70-110)
[2017-01-27] MEDS: PHENYTOIN SODIUM 100 MG ER CAPSULE PO SCH (21:13)
[2017-01-28 02:30] VITALS: BP 100/69
[2017-01-28] MEDS: OxyCODONE HCL 10 MG IR TABLET PO PRN ×3 (02:35→16:54)
[2017-01-28 06:27] LABS: GLUCOSE,POINT OF CARE 140 MG/DL (70-110)
[2017-01-28] MEDS: LEVOTHYROXINE SODIUM 50 MCG TABLET PO SCH (06:36)
[2017-01-28] MEDS: INSULIN ASPART 100 UNITS/ML SQ PRN ×4 (06:36→21:38)
[2017-01-28] MEDS: MetFORMIN HCL 500 MG TABLET PO SCH ×2 (07:01→16:27)
[2017-01-28] MEDS: MULTIVITAMINS WITH MINERALS, THERAPEUTIC TABLET PO SCH (09:25)
[2017-01-28] MEDS: DULoxetine HCL 60 MG CAPSULE PO SCH ×2 (09:25→16:27)
[2017-01-28] MEDS: OLANZapine 5 MG RAPDIS TABLET PO SCH ×2 (09:25→20:14)
[2017-01-28] MEDS: GABAPENTIN 300 MG CAPSULE PO SCH ×3 (09:25→16:27)
[2017-01-28] MEDS: DIVALPROEX SODIUM 500 MG ER TABLET PO SCH ×2 (09:26→16:25)
[2017-01-28] MEDS: TRIHEXYPHENIDYL HCL 5 MG TABLET PO SCH ×3 (09:27→16:25)
[2017-01-28] MEDS: LevETIRAcetam 500 MG TABLET PO SCH ×2 (09:27→16:26)
[2017-01-28] MEDS: HALOPERIDOL 5 MG TABLET PO PRN ×3 (09:28→18:13)
[2017-01-28 09:30] VITALS: BP 126/79
[2017-01-28 10:30] VITALS: BP 125/82
[2017-01-28 11:33] LABS: GLUCOSE COMMENT 1 Received Meds; GLUCOSE,POINT OF CARE 167 MG/DL (70-110)
[2017-01-28 16:22] VITALS: BP 140/69
[2017-01-28 16:27] LABS: GLUCOSE,POINT OF CARE 197 MG/DL (70-110)
[2017-01-28] MEDS: DICLOFENAC SODIUM 1% 100 GM GEL [2GM] TP SCH (16:27)
[2017-01-28 16:55] VITALS: BP 112/62
[2017-01-28] MEDS: PHENYTOIN SODIUM 100 MG ER CAPSULE PO SCH (20:14)
[2017-01-28 20:22] LABS: GLUCOSE COMMENT 1 Received Meds; GLUCOSE,POINT OF CARE 207 MG/DL (70-110)
[2017-01-29 00:37] VITALS: BP 125/81
[2017-01-29] MEDS: HALOPERIDOL 5 MG TABLET PO PRN ×3 (00:38→12:47)
[2017-01-29] MEDS: OxyCODONE HCL 10 MG IR TABLET PO PRN ×3 (00:38→14:15)
[2017-01-29 06:32] LABS: GLUCOSE COMMENT 1 Received Meds; GLUCOSE,POINT OF CARE 121 MG/DL (70-110)
[2017-01-29] MEDS: MetFORMIN HCL 500 MG TABLET PO SCH (06:56)
[2017-01-29] MEDS: LEVOTHYROXINE SODIUM 50 MCG TABLET PO SCH (06:56)
[2017-01-29] MEDS: INSULIN ASPART 100 UNITS/ML SQ PRN ×2 (06:57→11:30)
[2017-01-29 08:09] VITALS: BP 114/68
[2017-01-29] MEDS: OLANZapine 5 MG RAPDIS TABLET PO SCH (08:09)
[2017-01-29] MEDS: LevETIRAcetam 500 MG TABLET PO SCH ×2 (08:09→16:01)
[2017-01-29] MEDS: MULTIVITAMINS WITH MINERALS, THERAPEUTIC TABLET PO SCH (08:09)
[2017-01-29] MEDS: DIVALPROEX SODIUM 500 MG ER TABLET PO SCH ×2 (08:09→16:01)
[2017-01-29] MEDS: GABAPENTIN 300 MG CAPSULE PO SCH ×3 (08:10→16:01)
[2017-01-29] MEDS: TRIHEXYPHENIDYL HCL 5 MG TABLET PO SCH ×3 (08:10→16:00)
[2017-01-29] MEDS: DULoxetine HCL 60 MG CAPSULE PO SCH ×2 (08:11→16:00)
[2017-01-29] MEDS: DICLOFENAC SODIUM 1% 100 GM GEL [2GM] TP SCH ×2 (08:11→16:02)
[2017-01-29 08:32] VITALS: BP 114/68
[2017-01-29 10:47] LABS: GLUCOSE,POINT OF CARE 168 MG/DL (70-110)
== END 2017-01-29 17:15 | disposition home or self-care (01) | DRG 885 ==
LOC: EMS 18:55 → 3EX 22:30 → 3EI 01-09 16:40 → 3EC 01-10 18:30
PROVIDERS: ADMIT Psychiatry & Neurology Psychiatry; ATTEND Psychiatry & Neurology Psychiatry
DX: F25.0 Schizoaffective disorder, bipolar type (principal); E87.1 Hypo-osmolality and hyponatremia; R45.851 Suicidal ideations; F17.210 Nicotine dependence, cigarettes, uncomplicated; J44.9 Chronic obstructive pulmonary disease, unspecified; E11.65 Type 2 diabetes mellitus with hyperglycemia; G40.909 Epilepsy, unspecified, not intractable, without status epilepticus; E87.6 Hypokalemia; M19.90 Unspecified osteoarthritis, unspecified site; G89.4 Chronic pain syndrome; E78.00 Pure hypercholesterolemia, unspecified; M25.511 Pain in right shoulder; M54.5 Low back pain; Z62.819 Personal history of unspecified abuse in childhood; G24.01 Drug induced subacute dyskinesia; Z96.653 Presence of artificial knee joint, bilateral; M79.7 Fibromyalgia; F31.9 Bipolar disorder, unspecified; F29 Unspecified psychosis not due to a substance or known physiological condition; E78.5 Hyperlipidemia, unspecified; G47.00 Insomnia, unspecified; E03.9 Hypothyroidism, unspecified; N95.9 Unspecified menopausal and perimenopausal disorder; T43.505A Adverse effect of unspecified antipsychotics and neuroleptics, initial encounter; Y92.89 Other specified places as the place of occurrence of the external cause; Y93.89 Activity, other specified; Y99.8 Other external cause status; Z85.038 Personal history of other malignant neoplasm of large intestine; Z93.3 Colostomy status; Z90.49 Acquired absence of other specified parts of digestive tract; Z86.718 Personal history of other venous thrombosis and embolism; Z88.5 Allergy status to narcotic agent; Z59.0 Homelessness; Z91.5 Personal history of self-harm; Z91.14 Patient's other noncompliance with medication regimen; Z79.899 Other long term (current) drug therapy; Z81.8 Family history of other mental and behavioral disorders
CPT/HCPCS: 82962; 87081; 93005; 99285; G0482; J1200; J1630; J2060

== ENCOUNTER 2017-03-08 12:21 | Inpatient (IN) | payer MEDICARE, MEDICAID ==
[~2017-03-08] VITALS: Ht 162.6 cm; Wt 84.4 kg
[~2017-03-08 12:21] MED LIST changes: -ACAM333T7 PO; -ALPR1TAB7 PO; -AMAN100C12 PO; -DIVA250T25 PO; +DIVA500T52 PO; -FAMO20 PO; +METF500T4 PO; -METO-323 PO; +MULT-248 PO; -OLAN5Z PO; +OLAN7.5T2 PO; -PERCT10 PO; -PHEN100C23 PO; +PHENY100 PO; -PREM3 PO; +TRIH5TAB2 PO; +[UNRECOGNIZED DRUG - CODE]
[2017-03-08 13:49] LABS: BASOPHILS # (AUTO) 0.03 K/uL (0.00-0.20); BASOPHILS % (AUTO) 0.4 % (0.0-2.0); EOSINOPHILS % (AUTO) 0 % (1.0-6.0); HEMATOCRIT 30.4 % (36-46); HEMOGLOBIN 10.3 g/dL (12.0-16.0); LYMPHOCYTES # (AUTO) 1.9 K/uL (1.0-4.8); LYMPHOCYTES % (AUTO) 27.7 % (22.0-44.0); MEAN CORPUSCULAR HEMOGLOBIN 31.1 pg (26.0-34.0); MEAN CORPUSCULAR HGB CONC 33.8 G/dL (31.0-37.0); MEAN CORPUSCULAR VOLUME 92 fL (80-100); MONOCYTES # (AUTO) 0.3 K/uL (0.1-1.0); MONOCYTES % (AUTO) 4.9 % (2.0-9.0); NEUTROPHILS # (AUTO) 4.6 K/uL (1.8-7.7); PLATELET COUNT (AUTO) 342 K/uL (150-450); RED CELL DISTRIBUTION WIDTH 17.3 % (11.5-14.5); WHITE BLOOD COUNT (AUTO) 6.9 K/uL (4.5-11.0)
[2017-03-08 13:55] LABS: ANION GAP 13 mmol/L (8-16); CALCIUM, TOTAL 9.4 mg/dL (8.8-10.5); CARBON DIOXIDE 23 mmol/L (22-29); CHLORIDE 96 mmol/L (98-107); CREATININE 1.27 mg/dL (0.60-1.30); GLOMERULAR FILTR. RATE CALC 45 mL/min (>60); POTASSIUM 3.7 mmol/L (3.5-5.1); SODIUM SERUM 132 mmol/L (136-145); UREA NITROGEN, BLOOD 29 mg/dL (7-18)
[2017-03-08 14:02] LABS: ALANINE AMINOTRANSFERASE 43 U/L (12-78); ALBUMIN 3.2 g/dL (3.4-5.0); ASPARTATE AMINOTRANSFERASE 33 U/L (15-37); BILIRUBIN,TOTAL 2.2 mg/dL (0.1-1.0); CREATINE KINASE, TOTAL 35 U/L (26-192); VALPROIC ACID 73 mcg/mL (50-100)
[2017-03-08 14:05] LABS: TROPONIN I < 0.02 ng/mL (0.00-0.05)
[2017-03-08 14:22] LABS: RBC MORPHOLOGY COMMENT ABNORMAL RBC MORPH
[2017-03-08 14:23] LABS: AMMONIA 16 umol/L (11-32)
[2017-03-08] MEDS ORDERED: SODIUM CHLORIDE 0.9% 1,000 ML IV ONE (15:00)
[2017-03-08] MEDS ORDERED: LORazepam 2 MG TABLET PO ONE (18:00)
[2017-03-08] MEDS: DIVALPROEX SODIUM 500 MG ER TABLET PO SCH (21:00)
[2017-03-08] MEDS: OLANZapine 7.5 MG TABLET PO SCH (21:00)
[2017-03-08] MEDS: LevETIRAcetam 500 MG TABLET PO SCH (21:00)
[2017-03-08] MEDS: GABAPENTIN 300 MG CAPSULE PO SCH (21:00)
[2017-03-08] MEDS: PHENYTOIN SODIUM 100 MG ER CAPSULE PO SCH (21:00)
[2017-03-08] MEDS: DULoxetine HCL 60 MG CAPSULE PO SCH (21:00)
[2017-03-08] MEDS: TRIHEXYPHENIDYL HCL 5 MG TABLET PO SCH (21:00)
[2017-03-08 22:24] VITALS: BP 107/60
[2017-03-08 22:50] LABS: APPEARANCE,URINE CLEAR (CLEAR); GLUCOSE, URINE (UA) NEGATIVE (NEGATIVE); KETONES,URINE TRACE mg/dL (NEGATIVE); LEUKOCYTE ESTERASE ,URINE NEGATIVE (NEGATIVE); OCCULT BLOOD,URINE NEGATIVE (NEGATIVE); PH,URINE 5.5 (5.0-8.0); PROTEIN,URINE POS 1+ (NEGATIVE)
[2017-03-08 22:51] LABS: ADD UA MICROSCOPIC NO
[2017-03-09] MEDS ORDERED: DEXTROSE 50%-WATER 25 GM/50 ML SYRINGE IVP PRN (06:45)
[2017-03-09] MEDS ORDERED: LEVOTHYROXINE SODIUM 50 MCG TABLET PO SCH (07:00)
[2017-03-09] MEDS: MetFORMIN HCL 500 MG TABLET PO SCH ×2 (07:18→17:19)
[2017-03-09] MEDS ORDERED: ALBUTEROL SULFATE HFA 90 MCG/PUFF 8 GM INHALER IH PRN (07:30)
[2017-03-09] MEDS ORDERED: BENZOCAINE/MENTHOL LOZENGE [8 LOZENGES/PACKET] MM PRN (07:30)
[2017-03-09] MEDS ORDERED: BACITRACIN 28.4 GM OINTMENT TP PRN (07:30)
[2017-03-09] MEDS ORDERED: MAG HYDROX/AL HYDROX/SIMETH ES 30 ML SUSPENSION UDCUP PO PRN (07:30)
[2017-03-09] MEDS ORDERED: LOPERAMIDE HCL 2 MG CAPSULE PO PRN (07:30)
[2017-03-09] MEDS ORDERED: IBUPROFEN 600 MG TABLET PO PRN (07:30)
[2017-03-09] MEDS ORDERED: ACETAMINOPHEN 325 MG TABLET PO PRN (07:30)
[2017-03-09] MEDS ORDERED: DICLOFENAC SODIUM 1% 100 GM GEL [2GM] TP PRN (07:30)
[2017-03-09] MEDS ORDERED: ONDANSETRON HCL 4 MG TABLET PO PRN (07:30)
[2017-03-09] MEDS ORDERED: MAGNESIUM HYDROXIDE SUSPENSION 30 ML UDCUP PO PRN (07:30)
[2017-03-09] MEDS ORDERED: CloNIDine HCL 0.1 MG TABLET PO PRN (07:30)
[2017-03-09] MEDS ORDERED: PETROLATUM,WHITE 71 GM JELLY TP PRN (07:30)
[2017-03-09] MEDS: GABAPENTIN 300 MG CAPSULE PO SCH ×3 (09:00→17:16)
[2017-03-09] MEDS: LevETIRAcetam 500 MG TABLET PO SCH ×2 (09:00→17:15)
[2017-03-09] MEDS: TRIHEXYPHENIDYL HCL 5 MG TABLET PO SCH ×3 (09:00→17:15)
[2017-03-09] MEDS ORDERED: MULTIVITAMINS WITH MINERALS, THERAPEUTIC TABLET PO SCH (09:00)
[2017-03-09] MEDS: DIVALPROEX SODIUM 500 MG ER TABLET PO SCH ×2 (09:00→17:16)
[2017-03-09] MEDS: OLANZapine 7.5 MG TABLET PO SCH ×2 (09:00→20:10)
[2017-03-09] MEDS: DULoxetine HCL 60 MG CAPSULE PO SCH ×2 (09:00→17:15)
[2017-03-09 11:10] VITALS: BP 138/94
[2017-03-09] MEDS: OxyCODONE HCL 5 MG IR TABLET PO PRN ×2 (11:20→17:18)
[2017-03-09 17:10] VITALS: BP 153/81
[2017-03-09] MEDS: INSULIN ASPART 100 UNITS/ML SQ PRN ×2 (17:23→17:41)
[2017-03-09 17:27] LABS: GLUCOSE,POINT OF CARE 192 MG/DL (70-110)
[2017-03-09 18:10] VITALS: BP 141/84
[2017-03-09 18:50] VITALS: BP 153/81
[2017-03-09 19:15] VITALS: BP 147/90
[2017-03-09] MEDS: PHENYTOIN SODIUM 100 MG ER CAPSULE PO SCH (20:11)
[2017-03-09 20:15] VITALS: BP 148/98
== END 2017-03-09 22:15 | disposition short-term general hospital (02) | DRG 885 ==
LOC: EMS 12:24 → 3EX 21:21
PROVIDERS: ADMIT Psychiatry & Neurology Psychiatry; ATTEND Psychiatry & Neurology Psychiatry
DX: F25.0 Schizoaffective disorder, bipolar type (principal); R45.851 Suicidal ideations; E87.1 Hypo-osmolality and hyponatremia; F17.210 Nicotine dependence, cigarettes, uncomplicated; G24.01 Drug induced subacute dyskinesia; G40.909 Epilepsy, unspecified, not intractable, without status epilepticus; E03.9 Hypothyroidism, unspecified; M19.90 Unspecified osteoarthritis, unspecified site; Z96.653 Presence of artificial knee joint, bilateral; N19 Unspecified kidney failure; J44.9 Chronic obstructive pulmonary disease, unspecified; E78.5 Hyperlipidemia, unspecified; E11.65 Type 2 diabetes mellitus with hyperglycemia; G47.00 Insomnia, unspecified; G89.29 Other chronic pain; M54.9 Dorsalgia, unspecified; M25.519 Pain in unspecified shoulder; Z90.49 Acquired absence of other specified parts of digestive tract; Z93.3 Colostomy status; Z88.5 Allergy status to narcotic agent; Z79.899 Other long term (current) drug therapy; Z91.5 Personal history of self-harm; Z85.038 Personal history of other malignant neoplasm of large intestine; Z59.0 Homelessness; Z81.8 Family history of other mental and behavioral disorders; Z78.0 Asymptomatic menopausal state
CPT/HCPCS: 70450; 82962; 93005; 99285; G0480; J7030

== ENCOUNTER 2017-05-19 13:55 | Inpatient (IN) | payer MEDICARE, MEDICAID ==
[~2017-05-19] VITALS: Ht 160 cm; Wt 79.7 kg
[~2017-05-19 13:55] MED LIST changes: +DIVA500T35 PO; -DIVA500T52 PO; -MULT-248 PO; +OLAN10TA22 PO; -OLAN7.5T2 PO; -PHENY100 PO; +VITAD1000 PO
[2017-05-19 14:47] LABS: GLUCOSE,POINT OF CARE 274 MG/DL (70-110)
[2017-05-19 16:00] LABS: BASOPHILS % (AUTO) 0.2 % (0.0-2.0); EOSINOPHILS % (AUTO) 0 % (1.0-6.0); HEMATOCRIT 36.3 % (36-46); HEMOGLOBIN 12.4 g/dL (12.0-16.0); LYMPHOCYTES # (AUTO) 2.3 K/uL (1.0-4.8); LYMPHOCYTES % (AUTO) 30.6 % (22.0-44.0); MEAN CORPUSCULAR HEMOGLOBIN 32.4 pg (26.0-34.0); MEAN CORPUSCULAR HGB CONC 34.2 G/dL (31.0-37.0); MEAN CORPUSCULAR VOLUME 95 fL (80-100); MONOCYTES # (AUTO) 0.5 K/uL (0.1-1.0); NEUTROPHILS # (AUTO) 4.7 K/uL (1.8-7.7); NEUTROPHILS % (AUTO) 62.2 % (40.0-70.0); PLATELET COUNT (AUTO) 232 K/uL (150-450); RED BLOOD CELL COUNT(AUTO) 3.83 MIL/uL (4.00-5.20); RED CELL DISTRIBUTION WIDTH 13.1 % (11.5-14.5); WHITE BLOOD COUNT (AUTO) 7.6 K/uL (4.5-11.0)
[2017-05-19 16:13] LABS: ANION GAP 15 mmol/L (8-16); CALCIUM, TOTAL 8.8 mg/dL (8.8-10.5); CARBON DIOXIDE 22 mmol/L (22-29); CHLORIDE 98 mmol/L (98-107); CREATININE 0.88 mg/dL (0.60-1.30); GLOMERULAR FILTR. RATE CALC > 60 mL/min (>60); POTASSIUM 3.3 mmol/L (3.5-5.1); SODIUM SERUM 135 mmol/L (136-145); UREA NITROGEN, BLOOD 7 mg/dL (7-18)
[2017-05-19 16:19] LABS: ALANINE AMINOTRANSFERASE 14 U/L (12-78); ALBUMIN 3.1 g/dL (3.4-5.0); ASPARTATE AMINOTRANSFERASE 11 U/L (15-37); BILIRUBIN,TOTAL 0.1 mg/dL (0.1-1.0); TOTAL PROTEIN, SERUM 7.3 g/dL (6.4-8.2)
[2017-05-19] MEDS ORDERED: GuaiFENesin/D-METHORPHAN [SUGAR-FREE] 200-20MG/10 ML SYRUP UDCUP PO PRN (17:45)
[2017-05-19] MEDS ORDERED: ACETAMINOPHEN 325 MG TABLET PO PRN (17:45)
[2017-05-19] MEDS ORDERED: MAG HYDROX/AL HYDROX/SIMETH ES 30 ML SUSPENSION UDCUP PO PRN (17:45)
[2017-05-19] MEDS ORDERED: LOPERAMIDE HCL 2 MG CAPSULE PO PRN (17:45)
[2017-05-19] MEDS ORDERED: HydrOXYzine PAMOATE 50 MG CAPSULE PO PRN (17:45)
[2017-05-19] MEDS ORDERED: PROMETHAZINE HCL 25 MG TABLET PO PRN (17:45)
[2017-05-19] MEDS ORDERED: MAGNESIUM HYDROXIDE SUSPENSION 30 ML UDCUP PO PRN (17:45)
[2017-05-19] MEDS: TRIHEXYPHENIDYL HCL 2 MG TABLET PO SCH (18:50)
[2017-05-19] MEDS: THIAMINE HCL 100 MG TABLET PO SCH (18:50)
[2017-05-19] MEDS: LevETIRAcetam 500 MG TABLET PO SCH (18:50)
[2017-05-19] MEDS: DIVALPROEX SODIUM 500 MG ER TABLET PO SCH (18:54)
[2017-05-19] MEDS: GABAPENTIN 300 MG CAPSULE PO SCH (18:54)
[2017-05-19 19:37] LABS: GLUCOSE,POINT OF CARE 163 MG/DL (70-110)
[2017-05-19] MEDS: LORazepam 2 MG TABLET PO PRN (19:48)
[2017-05-19] MEDS: OLANZapine 5 MG RAPDIS TABLET PO SCH (20:08)
[2017-05-19] MEDS ORDERED: SULFACETAMIDE SODIUM 10% 15 ML OPHTHALMIC SOLUTION OS ONE (20:30)
[2017-05-20 01:58] VITALS: BP 113/78
[2017-05-20] MEDS ORDERED: -PHARMACY VACCINE NOTE- MISC ONE ×2 (03:00)
[2017-05-20] MEDS: MULTIVITAMINS WITH MINERALS, THERAPEUTIC TABLET PO SCH (08:16)
[2017-05-20] MEDS: DIVALPROEX SODIUM 500 MG ER TABLET PO SCH ×2 (08:16→16:42)
[2017-05-20] MEDS: GABAPENTIN 300 MG CAPSULE PO SCH ×3 (08:16→16:42)
[2017-05-20] MEDS: DULoxetine HCL 20 MG CAPSULE PO SCH (08:17)
[2017-05-20] MEDS: LORazepam 2 MG TABLET PO PRN ×3 (08:17→17:50)
[2017-05-20] MEDS: NALTREXONE HCL 50 MG TABLET PO SCH (08:17)
[2017-05-20] MEDS: FOLIC ACID 1 MG TABLET PO SCH (08:17)
[2017-05-20] MEDS: THIAMINE HCL 100 MG TABLET PO SCH ×2 (08:17→16:42)
[2017-05-20] MEDS: TRIHEXYPHENIDYL HCL 2 MG TABLET PO SCH ×3 (08:18→16:42)
[2017-05-20] MEDS: LevETIRAcetam 500 MG TABLET PO SCH ×2 (08:18→16:42)
[2017-05-20] MEDS: OLANZapine 5 MG RAPDIS TABLET PO PRN ×3 (08:19→17:51)
[2017-05-20 08:56] VITALS: BP 148/99
[2017-05-20] MEDS ORDERED: POTASSIUM CHLORIDE 20 MEQ ER TABLET PO ONE (09:45)
[2017-05-20] MEDS ORDERED: DEXTROSE 50%-WATER 25 GM/50 ML SYRINGE IVP PRN (09:45)
[2017-05-20 12:18] LABS: GLUCOSE,POINT OF CARE 310 MG/DL (70-110)
[2017-05-20] MEDS: INSULIN ASPART 100 UNITS/ML SQ PRN ×3 (12:21→20:51)
[2017-05-20] MEDS: IBUPROFEN 600 MG TABLET PO PRN (13:30)
[2017-05-20] MEDS: MetFORMIN HCL 500 MG TABLET PO SCH (16:42)
[2017-05-20 17:02] LABS: GLUCOSE,POINT OF CARE 184 MG/DL (70-110)
[2017-05-20 17:19] VITALS: BP 112/66
[2017-05-20] MEDS ORDERED: LORazepam 2 MG TABLET PO PRN (19:30)
[2017-05-20] MEDS: OLANZapine 5 MG RAPDIS TABLET PO SCH (20:28)
[2017-05-20] MEDS: ZOLPIDEM TARTRATE 10 MG TABLET PO PRN (20:28)
[2017-05-20 20:41] LABS: GLUCOSE,POINT OF CARE 201 MG/DL (70-110)
[2017-05-21 06:17] LABS: GLUCOSE COMMENT 1 Received Meds; GLUCOSE,POINT OF CARE 163 MG/DL (70-110)
[2017-05-21] MEDS: LEVOTHYROXINE SODIUM 50 MCG TABLET PO SCH (06:49)
[2017-05-21] MEDS: INSULIN ASPART 100 UNITS/ML SQ PRN ×3 (07:16→21:01)
[2017-05-21] MEDS: MetFORMIN HCL 500 MG TABLET PO SCH ×2 (07:19→17:33)
[2017-05-21 08:30] VITALS: BP 146/94
[2017-05-21] MEDS: GABAPENTIN 300 MG CAPSULE PO SCH ×3 (08:51→17:02)
[2017-05-21] MEDS: TRIHEXYPHENIDYL HCL 2 MG TABLET PO SCH ×3 (08:52→16:02)
[2017-05-21] MEDS: NALTREXONE HCL 50 MG TABLET PO SCH (08:52)
[2017-05-21] MEDS: LevETIRAcetam 500 MG TABLET PO SCH ×2 (08:52→16:02)
[2017-05-21] MEDS: THIAMINE HCL 100 MG TABLET PO SCH ×2 (08:52→16:03)
[2017-05-21] MEDS: DIVALPROEX SODIUM 500 MG ER TABLET PO SCH ×2 (08:52→17:02)
[2017-05-21] MEDS: FOLIC ACID 1 MG TABLET PO SCH (08:52)
[2017-05-21] MEDS: DULoxetine HCL 20 MG CAPSULE PO SCH (08:52)
[2017-05-21] MEDS: MULTIVITAMINS WITH MINERALS, THERAPEUTIC TABLET PO SCH (08:52)
[2017-05-21] MEDS: CHOLECALCIFEROL (VIT D3) 1,000 UNITS TABLET PO SCH (08:52)
[2017-05-21] MEDS: OLANZapine 5 MG RAPDIS TABLET PO PRN ×2 (09:11→16:02)
[2017-05-21] MEDS ORDERED: DiphenhydrAMINE HCL 50 MG/ML VIAL IM ONE (12:00)
[2017-05-21] MEDS ORDERED: HALOPERIDOL LACTATE 5 MG/ML VIAL IM ONE (12:00)
[2017-05-21] MEDS ORDERED: LORazepam 2 MG/ML VIAL IM ONE (12:00)
[2017-05-21 12:41] VITALS: BP 130/89
[2017-05-21] MEDS: IBUPROFEN 600 MG TABLET PO PRN (12:41)
[2017-05-21] MEDS: LORazepam 1 MG TABLET PO PRN (16:01)
[2017-05-21 16:12] LABS: GLUCOSE COMMENT 1 Received Meds; GLUCOSE,POINT OF CARE 239 MG/DL (70-110)
[2017-05-21 20:57] LABS: GLUCOSE COMMENT 1 Received Meds; GLUCOSE,POINT OF CARE 188 MG/DL (70-110)
[2017-05-21] MEDS ORDERED: OLANZapine 5 MG RAPDIS TABLET PO SCH (21:00)
[2017-05-21 21:09] VITALS: BP 107/68
[2017-05-22 01:30] VITALS: BP 137/74
[2017-05-22] MEDS: LORazepam 1 MG TABLET PO PRN ×3 (01:35→15:41)
[2017-05-22] MEDS: OLANZapine 5 MG RAPDIS TABLET PO PRN ×4 (01:35→20:42)
[2017-05-22 06:08] LABS: GLUCOSE,POINT OF CARE 166 MG/DL (70-110)
[2017-05-22] MEDS: LEVOTHYROXINE SODIUM 50 MCG TABLET PO SCH (06:54)
[2017-05-22] MEDS: INSULIN ASPART 100 UNITS/ML SQ PRN ×3 (07:03→16:58)
[2017-05-22] MEDS: MetFORMIN HCL 500 MG TABLET PO SCH ×2 (07:11→17:21)
[2017-05-22] MEDS: DIVALPROEX SODIUM 500 MG ER TABLET PO SCH ×2 (08:42→16:07)
[2017-05-22] MEDS: THIAMINE HCL 100 MG TABLET PO SCH ×2 (08:42→16:08)
[2017-05-22] MEDS: GABAPENTIN 300 MG CAPSULE PO SCH ×3 (08:42→16:07)
[2017-05-22] MEDS: LevETIRAcetam 500 MG TABLET PO SCH ×2 (08:42→16:08)
[2017-05-22] MEDS: MULTIVITAMINS WITH MINERALS, THERAPEUTIC TABLET PO SCH (08:42)
[2017-05-22] MEDS: TRIHEXYPHENIDYL HCL 2 MG TABLET PO SCH ×3 (08:43→16:09)
[2017-05-22] MEDS: CHOLECALCIFEROL (VIT D3) 1,000 UNITS TABLET PO SCH (08:43)
[2017-05-22] MEDS: DULoxetine HCL 20 MG CAPSULE PO SCH (08:43)
[2017-05-22] MEDS: NALTREXONE HCL 50 MG TABLET PO SCH (08:43)
[2017-05-22] MEDS: FOLIC ACID 1 MG TABLET PO SCH (08:43)
[2017-05-22 09:08] VITALS: BP 149/96
[2017-05-22] MEDS: IBUPROFEN 800 MG TABLET PO PRN (09:08)
[2017-05-22 10:08] VITALS: BP 135/87
[2017-05-22 11:22] LABS: GLUCOSE,POINT OF CARE 172 MG/DL (70-110)
[2017-05-22 15:52] LABS: GLUCOSE COMMENT 1 Received Meds; GLUCOSE,POINT OF CARE 222 MG/DL (70-110)
[2017-05-22] MEDS ORDERED: LORazepam 1 MG TABLET PO ONE (16:45)
[2017-05-22] MEDS: OLANZapine 5 MG RAPDIS TABLET PO SCH (17:13)
[2017-05-22] MEDS: PROPRANOLOL HCL 10 MG TABLET PO SCH (17:20)
[2017-05-22 17:21] VITALS: BP 131/84
[2017-05-22] MEDS: ZOLPIDEM TARTRATE 10 MG TABLET PO PRN (22:05)
[2017-05-23 06:00] VITALS: BP 137/98
[2017-05-23] MEDS: OLANZapine 5 MG RAPDIS TABLET PO PRN ×2 (06:03→14:22)
[2017-05-23] MEDS: LEVOTHYROXINE SODIUM 50 MCG TABLET PO SCH (06:03)
[2017-05-23] MEDS: LORazepam 2 MG TABLET PO PRN ×2 (06:04→14:22)
[2017-05-23] MEDS: MetFORMIN HCL 500 MG TABLET PO SCH ×3 (06:59→16:50)
[2017-05-23 09:15] VITALS: BP 137/82
[2017-05-23] MEDS: GABAPENTIN 300 MG CAPSULE PO SCH ×3 (09:41→16:50)
[2017-05-23] MEDS: IBUPROFEN 800 MG TABLET PO PRN (09:41)
[2017-05-23] MEDS: CHOLECALCIFEROL (VIT D3) 1,000 UNITS TABLET PO SCH (09:41)
[2017-05-23] MEDS: MULTIVITAMINS WITH MINERALS, THERAPEUTIC TABLET PO SCH (09:41)
[2017-05-23] MEDS: OLANZapine 5 MG RAPDIS TABLET PO SCH ×3 (09:41→16:50)
[2017-05-23] MEDS: DIVALPROEX SODIUM 500 MG ER TABLET PO SCH ×2 (09:42→16:49)
[2017-05-23] MEDS: HYPROMELLOSE 0.5% 15 ML OPHTHALMIC SOLUTION OU PRN (09:42)
[2017-05-23] MEDS: LevETIRAcetam 500 MG TABLET PO SCH ×2 (09:42→16:50)
[2017-05-23] MEDS: PROPRANOLOL HCL 10 MG TABLET PO SCH ×3 (09:43→16:50)
[2017-05-23] MEDS: FOLIC ACID 1 MG TABLET PO SCH (09:43)
[2017-05-23] MEDS: THIAMINE HCL 100 MG TABLET PO SCH ×2 (09:43→16:49)
[2017-05-23] MEDS: NALTREXONE HCL 50 MG TABLET PO SCH (09:43)
[2017-05-23] MEDS: TRIHEXYPHENIDYL HCL 2 MG TABLET PO SCH ×3 (09:43→16:49)
[2017-05-23] MEDS: DULoxetine HCL 20 MG CAPSULE PO SCH (09:43)
[2017-05-23 09:56] LABS: GLUCOSE COMMENT 1 Received Meds; GLUCOSE,POINT OF CARE 240 MG/DL (70-110)
[2017-05-23] MEDS: INSULIN ASPART 100 UNITS/ML SQ PRN ×2 (12:30→18:13)
[2017-05-23 12:32] LABS: GLUCOSE,POINT OF CARE 216 MG/DL (70-110)
[2017-05-23 17:11] VITALS: BP 104/72
[2017-05-23 18:07] LABS: GLUCOSE,POINT OF CARE 277 MG/DL (70-110)
[2017-05-24 00:30] VITALS: BP 131/62
[2017-05-24] MEDS: ZOLPIDEM TARTRATE 10 MG TABLET PO PRN (00:47)
[2017-05-24] MEDS: LORazepam 2 MG TABLET PO PRN ×3 (00:47→17:51)
[2017-05-24 06:23] LABS: GLUCOSE COMMENT 1 Received Meds; GLUCOSE,POINT OF CARE 149 MG/DL (70-110)
[2017-05-24] MEDS: LEVOTHYROXINE SODIUM 50 MCG TABLET PO SCH (06:51)
[2017-05-24] MEDS: MetFORMIN HCL 500 MG TABLET PO SCH ×2 (06:51→16:12)
[2017-05-24] MEDS: INSULIN ASPART 100 UNITS/ML SQ PRN ×2 (06:52→11:52)
[2017-05-24] MEDS: LevETIRAcetam 500 MG TABLET PO SCH ×2 (08:00→16:12)
[2017-05-24] MEDS: THIAMINE HCL 100 MG TABLET PO SCH ×2 (08:00→16:19)
[2017-05-24] MEDS: CHOLECALCIFEROL (VIT D3) 1,000 UNITS TABLET PO SCH (08:00)
[2017-05-24] MEDS: DIVALPROEX SODIUM 500 MG ER TABLET PO SCH ×2 (08:00→16:12)
[2017-05-24] MEDS: GABAPENTIN 300 MG CAPSULE PO SCH ×3 (08:00→16:12)
[2017-05-24] MEDS: DULoxetine HCL 20 MG CAPSULE PO SCH (08:01)
[2017-05-24] MEDS: NALTREXONE HCL 50 MG TABLET PO SCH (08:01)
[2017-05-24] MEDS: PROPRANOLOL HCL 10 MG TABLET PO SCH ×3 (08:01→16:13)
[2017-05-24] MEDS: FOLIC ACID 1 MG TABLET PO SCH (08:01)
[2017-05-24] MEDS: TRIHEXYPHENIDYL HCL 2 MG TABLET PO SCH ×3 (08:01→16:13)
[2017-05-24] MEDS: MULTIVITAMINS WITH MINERALS, THERAPEUTIC TABLET PO SCH (08:01)
[2017-05-24] MEDS: OLANZapine 5 MG RAPDIS TABLET PO SCH ×2 (08:02→16:13)
[2017-05-24 08:12] VITALS: BP 136/74
[2017-05-24 11:22] LABS: GLUCOSE COMMENT 1 Received Meds; GLUCOSE,POINT OF CARE 241 MG/DL (70-110)
[2017-05-24] MEDS: OLANZapine 5 MG RAPDIS TABLET PO PRN (12:01)
[2017-05-24 12:25] VITALS: BP 132/76
[2017-05-24] MEDS: IBUPROFEN 800 MG TABLET PO PRN (12:25)
[2017-05-24 17:00] VITALS: BP 111/77
[2017-05-24] MEDS: OLANZapine 10 MG RAPDIS TABLET PO SCH (21:04)
[2017-05-25 05:47] LABS: GLUCOSE COMMENT 1 Received Meds; GLUCOSE,POINT OF CARE 157 MG/DL (70-110)
[2017-05-25 06:37] VITALS: BP 125/80
[2017-05-25] MEDS: IBUPROFEN 800 MG TABLET PO PRN (06:41)
[2017-05-25] MEDS: LORazepam 2 MG TABLET PO PRN ×2 (06:42→14:48)
[2017-05-25] MEDS: LEVOTHYROXINE SODIUM 50 MCG TABLET PO SCH (06:42)
[2017-05-25] MEDS: MetFORMIN HCL 500 MG TABLET PO SCH ×2 (06:42→16:41)
[2017-05-25] MEDS: INSULIN ASPART 100 UNITS/ML SQ PRN (06:58)
[2017-05-25 08:02] VITALS: BP 141/99
[2017-05-25] MEDS: DULoxetine HCL 20 MG CAPSULE PO SCH (09:13)
[2017-05-25] MEDS: TRIHEXYPHENIDYL HCL 2 MG TABLET PO SCH ×3 (09:13→16:42)
[2017-05-25] MEDS: LevETIRAcetam 500 MG TABLET PO SCH ×2 (09:14→16:42)
[2017-05-25] MEDS: GABAPENTIN 300 MG CAPSULE PO SCH ×3 (09:14→16:42)
[2017-05-25] MEDS: DIVALPROEX SODIUM 500 MG ER TABLET PO SCH ×2 (09:14→16:41)
[2017-05-25] MEDS: FOLIC ACID 1 MG TABLET PO SCH (09:14)
[2017-05-25] MEDS: PROPRANOLOL HCL 10 MG TABLET PO SCH ×3 (09:14→16:42)
[2017-05-25] MEDS: NALTREXONE HCL 50 MG TABLET PO SCH (09:15)
[2017-05-25] MEDS: CHOLECALCIFEROL (VIT D3) 1,000 UNITS TABLET PO SCH (09:15)
[2017-05-25] MEDS: OLANZapine 5 MG RAPDIS TABLET PO SCH ×2 (09:15→16:42)
[2017-05-25] MEDS: MULTIVITAMINS WITH MINERALS, THERAPEUTIC TABLET PO SCH (09:15)
[2017-05-25] MEDS: THIAMINE HCL 100 MG TABLET PO SCH ×2 (09:16→16:41)
[2017-05-25 11:22] LABS: GLUCOSE,POINT OF CARE 126 MG/DL (70-110)
[2017-05-25] MEDS: OLANZapine 5 MG RAPDIS TABLET PO PRN (13:05)
[2017-05-25] MEDS: HYPROMELLOSE 0.5% 15 ML OPHTHALMIC SOLUTION OU PRN (16:41)
[2017-05-25 16:48] VITALS: BP 122/76
[2017-05-25] MEDS: OLANZapine 10 MG RAPDIS TABLET PO SCH (20:09)
[2017-05-25] MEDS: ZOLPIDEM TARTRATE 10 MG TABLET PO PRN (20:30)
[2017-05-26 06:12] VITALS: BP 162/100
[2017-05-26] MEDS: IBUPROFEN 800 MG TABLET PO PRN (06:12)
[2017-05-26] MEDS: LORazepam 2 MG TABLET PO PRN ×2 (06:12→14:03)
[2017-05-26] MEDS: HYPROMELLOSE 0.5% 15 ML OPHTHALMIC SOLUTION OU PRN (06:17)
[2017-05-26 06:23] LABS: GLUCOSE COMMENT 1 Received Meds; GLUCOSE,POINT OF CARE 158 MG/DL (70-110)
[2017-05-26 06:50] LABS: BASOPHILS # (AUTO) 0.02 K/uL (0.00-0.20); BASOPHILS % (AUTO) 0.4 % (0.0-2.0); EOSINOPHILS # (AUTO) 0.01 K/uL (0.00-0.70); EOSINOPHILS % (AUTO) 0.17 % (1.0-6.0); HEMATOCRIT 35.2 % (36-46); HEMOGLOBIN 11.9 g/dL (12.0-16.0); LYMPHOCYTES % (AUTO) 40.7 % (22.0-44.0); MEAN CORPUSCULAR HEMOGLOBIN 31.7 pg (26.0-34.0); MEAN CORPUSCULAR HGB CONC 33.8 G/dL (31.0-37.0); MEAN CORPUSCULAR VOLUME 94 fL (80-100); MONOCYTES # (AUTO) 0.5 K/uL (0.1-1.0); MONOCYTES % (AUTO) 10.3 % (2.0-9.0); NEUTROPHILS # (AUTO) 2.4 K/uL (1.8-7.7); NEUTROPHILS % (AUTO) 48.4 % (40.0-70.0); PLATELET COUNT (AUTO) 222 K/uL (150-450); RED BLOOD CELL COUNT(AUTO) 3.76 MIL/uL (4.00-5.20)
[2017-05-26] MEDS: LEVOTHYROXINE SODIUM 50 MCG TABLET PO SCH (06:54)
[2017-05-26] MEDS: MetFORMIN HCL 500 MG TABLET PO SCH ×2 (06:54→17:33)
[2017-05-26 07:36] LABS: ALANINE AMINOTRANSFERASE 22 U/L (12-78); ALBUMIN 3.1 g/dL (3.4-5.0); ANION GAP 11 mmol/L (8-16); ASPARTATE AMINOTRANSFERASE 19 U/L (15-37); BILIRUBIN,TOTAL 0.2 mg/dL (0.1-1.0); CALCIUM, TOTAL 9.3 mg/dL (8.8-10.5); CARBON DIOXIDE 24 mmol/L (22-29); CHLORIDE 102 mmol/L (98-107); CHOL/HDL RATIO 3.6 (3.9-5.7); CREATININE 0.76 mg/dL (0.60-1.30); GLOMERULAR FILTR. RATE CALC > 60 mL/min (>60); POTASSIUM 4.4 mmol/L (3.5-5.1); SODIUM SERUM 137 mmol/L (136-145); THYROID STIMULATING HORMONE 4.53 uIU/mL (0.36-3.74); TOTAL PROTEIN, SERUM 7.5 g/dL (6.4-8.2); UREA NITROGEN, BLOOD 20 mg/dL (7-18); VALPROIC ACID 19 mcg/mL (50-100)
[2017-05-26 08:45] VITALS: BP 115/72
[2017-05-26] MEDS: LevETIRAcetam 500 MG TABLET PO SCH ×2 (09:12→17:01)
[2017-05-26] MEDS: DULoxetine HCL 20 MG CAPSULE PO SCH (09:12)
[2017-05-26] MEDS: GABAPENTIN 300 MG CAPSULE PO SCH ×3 (09:12→17:01)
[2017-05-26] MEDS: FOLIC ACID 1 MG TABLET PO SCH (09:12)
[2017-05-26] MEDS: TRIHEXYPHENIDYL HCL 2 MG TABLET PO SCH ×3 (09:12→12:26)
[2017-05-26] MEDS: NALTREXONE HCL 50 MG TABLET PO SCH (09:13)
[2017-05-26] MEDS: THIAMINE HCL 100 MG TABLET PO SCH ×2 (09:13→17:01)
[2017-05-26] MEDS: DIVALPROEX SODIUM 500 MG ER TABLET PO SCH (09:13)
[2017-05-26] MEDS: PROPRANOLOL HCL 10 MG TABLET PO SCH ×3 (09:13→17:01)
[2017-05-26] MEDS: MULTIVITAMINS WITH MINERALS, THERAPEUTIC TABLET PO SCH (09:15)
[2017-05-26] MEDS: CHOLECALCIFEROL (VIT D3) 1,000 UNITS TABLET PO SCH (09:15)
[2017-05-26] MEDS: OLANZapine 5 MG RAPDIS TABLET PO SCH (09:16)
[2017-05-26] MEDS: INSULIN ASPART 100 UNITS/ML SQ PRN ×2 (11:36→17:45)
[2017-05-26 11:42] LABS: GLUCOSE,POINT OF CARE 206 MG/DL (70-110)
[2017-05-26] MEDS: OLANZapine 5 MG RAPDIS TABLET PO PRN ×2 (12:29→17:01)
[2017-05-26] MEDS ORDERED: NALT50TA PO (16:41)
[2017-05-26] MEDS ORDERED: TRIH2TAB3 PO (16:41)
[2017-05-26] MEDS ORDERED: GABA-531 PO (16:41)
[2017-05-26] MEDS ORDERED: OLAN10TA22 PO (16:41)
[2017-05-26] MEDS ORDERED: DULO20CA30 PO (16:41)
[2017-05-26] MEDS ORDERED: LEVE500T53 PO (16:41)
[2017-05-26] MEDS ORDERED: DIVA500T52 PO (16:41)
[2017-05-26] MEDS ORDERED: PROP10TA72 PO (16:41)
[2017-05-26 17:00] VITALS: BP 114/79
[2017-05-26] MEDS: FERROUS SULFATE 325 MG EC TABLET PO SCH (17:33)
[2017-05-26 17:53] LABS: GLUCOSE,POINT OF CARE 175 MG/DL (70-110)
[2017-05-26] MEDS: ZOLPIDEM TARTRATE 10 MG TABLET PO PRN (20:32)
[2017-05-26] MEDS ORDERED: OLANZapine 10 MG RAPDIS TABLET PO SCH (21:00)
[2017-05-26] MEDS ORDERED: DIVALPROEX SODIUM 500 MG ER TABLET PO SCH (21:00)
[2017-05-27 05:32] LABS: GLUCOSE COMMENT 1 Received Meds; GLUCOSE,POINT OF CARE 129 MG/DL (70-110)
[2017-05-27 06:25] VITALS: BP 164/75
[2017-05-27] MEDS: IBUPROFEN 800 MG TABLET PO PRN (06:26)
[2017-05-27] MEDS: LORazepam 2 MG TABLET PO PRN (06:26)
[2017-05-27] MEDS: LEVOTHYROXINE SODIUM 50 MCG TABLET PO SCH (06:54)
[2017-05-27] MEDS: FERROUS SULFATE 325 MG EC TABLET PO SCH (06:54)
[2017-05-27] MEDS: LevETIRAcetam 500 MG TABLET PO SCH (07:36)
[2017-05-27] MEDS: GABAPENTIN 300 MG CAPSULE PO SCH (07:37)
[2017-05-27] MEDS: DULoxetine HCL 20 MG CAPSULE PO SCH (07:37)
[2017-05-27] MEDS: TRIHEXYPHENIDYL HCL 2 MG TABLET PO SCH (07:37)
[2017-05-27] MEDS: PROPRANOLOL HCL 10 MG TABLET PO SCH (07:37)
[2017-05-27] MEDS: THIAMINE HCL 100 MG TABLET PO SCH (07:37)
[2017-05-27] MEDS: CHOLECALCIFEROL (VIT D3) 1,000 UNITS TABLET PO SCH (07:38)
[2017-05-27] MEDS: NALTREXONE HCL 50 MG TABLET PO SCH (07:38)
[2017-05-27] MEDS: FOLIC ACID 1 MG TABLET PO SCH (07:38)
[2017-05-27] MEDS ORDERED: FERR-89 PO (07:39)
[2017-05-27] MEDS: OLANZapine 5 MG RAPDIS TABLET PO PRN (07:46)
[2017-05-27 08:30] VITALS: BP 128/88
== END 2017-05-27 14:05 | disposition home or self-care (01) | DRG 885 ==
LOC: EMS 13:56 → 3EX 17:51 → AHU 17:51
PROVIDERS: ADMIT Psychiatry & Neurology Psychiatry; ATTEND Psychiatry & Neurology Psychiatry
DX: F25.9 Schizoaffective disorder, unspecified (principal); E11.65 Type 2 diabetes mellitus with hyperglycemia; R45.851 Suicidal ideations; E87.1 Hypo-osmolality and hyponatremia; W19.XXXA Unspecified fall, initial encounter; E03.9 Hypothyroidism, unspecified; E87.6 Hypokalemia; F17.200 Nicotine dependence, unspecified, uncomplicated; Z71.6 Tobacco abuse counseling; F31.9 Bipolar disorder, unspecified; F41.9 Anxiety disorder, unspecified; G40.909 Epilepsy, unspecified, not intractable, without status epilepticus; G47.00 Insomnia, unspecified; J44.9 Chronic obstructive pulmonary disease, unspecified; K21.9 Gastro-esophageal reflux disease without esophagitis; M19.90 Unspecified osteoarthritis, unspecified site; Z85.038 Personal history of other malignant neoplasm of large intestine; Z90.49 Acquired absence of other specified parts of digestive tract; Z91.14 Patient's other noncompliance with medication regimen; Z93.3 Colostomy status; Z96.653 Presence of artificial knee joint, bilateral
CPT/HCPCS: 82962; 83036; 84132; 84295; 84439; 84443; 86592; 93005; 99285; 99406; G0480; J1200; J1630; J2060

== ENCOUNTER 2017-07-29 12:33 | Inpatient (IN) | payer MEDICARE, MEDICAID ==
[~2017-07-29] VITALS: Ht 162.6 cm; Wt 86.0 kg
[~2017-07-29 12:33] MED LIST changes: +DIVA500T52 PO; +DULO20CA30 PO; -DULO60CA44 PO; +FERR-89 PO; +NALT50TA PO; +PROP10TA72 PO; +TRIH2TAB3 PO; -TRIH5TAB2 PO; -[UNRECOGNIZED DRUG - CODE]
[2017-07-29 13:17] LABS: GLUCOSE,POINT OF CARE 189 MG/DL (70-110)
[2017-07-29 14:11] LABS: BASOPHILS % (AUTO) 0.3 % (0.0-2.0); EOSINOPHILS % (AUTO) 0.1 % (1.0-6.0); HEMATOCRIT 34.3 % (36-46); HEMOGLOBIN 11.8 g/dL (12.0-16.0); LYMPHOCYTES # (AUTO) 1.2 K/uL (1.0-4.8); LYMPHOCYTES % (AUTO) 18.5 % (22.0-44.0); MEAN CORPUSCULAR HEMOGLOBIN 32.2 pg (26.0-34.0); MEAN CORPUSCULAR HGB CONC 34.3 G/dL (31.0-37.0); MEAN CORPUSCULAR VOLUME 94 fL (80-100); MONOCYTES # (AUTO) 0.5 K/uL (0.1-1.0); MONOCYTES % (AUTO) 8.3 % (2.0-9.0); NEUTROPHILS # (AUTO) 4.7 K/uL (1.8-7.7); NEUTROPHILS % (AUTO) 72.8 % (40.0-70.0); PLATELET COUNT (AUTO) 305 K/uL (150-450); RED BLOOD CELL COUNT(AUTO) 3.66 MIL/uL (4.00-5.20); RED CELL DISTRIBUTION WIDTH 13.4 % (11.5-14.5); WHITE BLOOD COUNT (AUTO) 6.4 K/uL (4.5-11.0)
[2017-07-29 14:21] LABS: ANION GAP 9 mmol/L (8-16); CALCIUM, TOTAL 9.6 mg/dL (8.8-10.5); CARBON DIOXIDE 28 mmol/L (22-29); CHLORIDE 97 mmol/L (98-107); CREATININE 0.74 mg/dL (0.60-1.30); GLOMERULAR FILTR. RATE CALC > 60 mL/min (>60); POTASSIUM 3.7 mmol/L (3.5-5.1); SODIUM SERUM 134 mmol/L (136-145); UREA NITROGEN, BLOOD 7 mg/dL (7-18)
[2017-07-29 14:27] LABS: ALANINE AMINOTRANSFERASE 19 U/L (12-78); ALBUMIN 3.5 g/dL (3.4-5.0); ASPARTATE AMINOTRANSFERASE 19 U/L (15-37); BILIRUBIN,TOTAL 0.3 mg/dL (0.1-1.0)
[2017-07-29] MEDS ORDERED: GuaiFENesin/D-METHORPHAN [SUGAR-FREE] 200-20MG/10 ML SYRUP UDCUP PO PRN (15:15)
[2017-07-29] MEDS ORDERED: HydrOXYzine PAMOATE 50 MG CAPSULE PO PRN (15:15)
[2017-07-29] MEDS ORDERED: ACETAMINOPHEN 325 MG TABLET PO PRN (15:15)
[2017-07-29] MEDS ORDERED: MAG HYDROX/AL HYDROX/SIMETH ES 30 ML SUSPENSION UDCUP PO PRN (15:15)
[2017-07-29] MEDS ORDERED: CYANOCOBALAMIN 1,000 MCG/ML VIAL IM ONE (15:15)
[2017-07-29] MEDS ORDERED: LORazepam 1 MG TABLET PO ONE (15:15)
[2017-07-29] MEDS ORDERED: LOPERAMIDE HCL 2 MG CAPSULE PO PRN (15:15)
[2017-07-29] MEDS ORDERED: MAGNESIUM HYDROXIDE SUSPENSION 30 ML UDCUP PO PRN (15:15)
[2017-07-29] MEDS ORDERED: PROMETHAZINE HCL 25 MG TABLET PO PRN (15:15)
[2017-07-29 17:06] VITALS: BP 136/88
[2017-07-29] MEDS: GABAPENTIN 300 MG CAPSULE PO SCH (17:34)
[2017-07-29] MEDS: LevETIRAcetam 500 MG TABLET PO SCH (17:35)
[2017-07-29] MEDS: ACAMPROSATE CALCIUM 333 MG DR TABLET PO SCH (17:35)
[2017-07-29] MEDS: PROPRANOLOL HCL 10 MG TABLET PO SCH (17:35)
[2017-07-29] MEDS: THIAMINE HCL 100 MG TABLET PO SCH (17:36)
[2017-07-29] MEDS ORDERED: DEXTROSE 50%-WATER 25 GM/50 ML SYRINGE IVP PRN (18:00)
[2017-07-29] MEDS: INSULIN ASPART 100 UNITS/ML SQ PRN ×2 (18:10→21:00)
[2017-07-29 18:37] LABS: GLUCOSE COMMENT 1 Received Meds; GLUCOSE,POINT OF CARE 209 MG/DL (70-110)
[2017-07-29] MEDS: DIVALPROEX SODIUM 500 MG ER TABLET PO SCH (20:52)
[2017-07-29] MEDS: OLANZapine 5 MG RAPDIS TABLET PO SCH (20:53)
[2017-07-29 21:07] LABS: GLUCOSE COMMENT 1 Received Meds; GLUCOSE,POINT OF CARE 168 MG/DL (70-110)
[2017-07-30 05:37] LABS: GLUCOSE COMMENT 1 Received Meds; GLUCOSE,POINT OF CARE 154 MG/DL (70-110)
[2017-07-30 06:46] VITALS: BP 140/63
[2017-07-30] MEDS: INSULIN ASPART 100 UNITS/ML SQ PRN ×3 (07:00→21:02)
[2017-07-30] MEDS: MetFORMIN HCL 500 MG TABLET PO SCH ×2 (07:06→16:24)
[2017-07-30] MEDS: LEVOTHYROXINE SODIUM 50 MCG TABLET PO SCH (07:06)
[2017-07-30] MEDS: MULTIVITAMINS WITH MINERALS, THERAPEUTIC TABLET PO SCH (08:12)
[2017-07-30] MEDS: PROPRANOLOL HCL 10 MG TABLET PO SCH ×3 (08:12→16:13)
[2017-07-30] MEDS: ACAMPROSATE CALCIUM 333 MG DR TABLET PO SCH ×3 (08:13→16:13)
[2017-07-30] MEDS: THIAMINE HCL 100 MG TABLET PO SCH ×2 (08:13→16:13)
[2017-07-30] MEDS: FOLIC ACID 1 MG TABLET PO SCH (08:13)
[2017-07-30] MEDS: GABAPENTIN 300 MG CAPSULE PO SCH ×3 (08:13→16:16)
[2017-07-30] MEDS: NICOTINE 21 MG/24 HOUR PATCH TD SCH (08:14)
[2017-07-30] MEDS: LevETIRAcetam 500 MG TABLET PO SCH ×2 (08:14→16:13)
[2017-07-30 11:48] LABS: GLUCOSE,POINT OF CARE 138 MG/DL (70-110)
[2017-07-30] MEDS: LORazepam 2 MG TABLET PO PRN ×2 (12:20→16:42)
[2017-07-30] MEDS: GENTAMICIN SULFATE 0.3% OPHTHALMIC SOLUTION 5 ML OD SCH ×2 (16:14→20:52)
[2017-07-30 16:19] VITALS: BP 145/78
[2017-07-30] MEDS: IBUPROFEN 800 MG TABLET PO PRN (16:19)
[2017-07-30 17:42] LABS: GLUCOSE,POINT OF CARE 166 MG/DL (70-110)
[2017-07-30] MEDS: DIVALPROEX SODIUM 500 MG ER TABLET PO SCH (20:49)
[2017-07-30] MEDS: OLANZapine 5 MG RAPDIS TABLET PO SCH (20:49)
[2017-07-30 21:32] LABS: GLUCOSE COMMENT 1 Received Meds; GLUCOSE,POINT OF CARE 156 MG/DL (70-110)
[2017-07-30] MEDS: ZOLPIDEM TARTRATE 10 MG TABLET PO PRN (23:02)
[2017-07-31 05:57] LABS: GLUCOSE,POINT OF CARE 154 MG/DL (70-110)
[2017-07-31] MEDS: MetFORMIN HCL 500 MG TABLET PO SCH ×2 (07:11→17:22)
[2017-07-31] MEDS: LEVOTHYROXINE SODIUM 50 MCG TABLET PO SCH (07:11)
[2017-07-31] MEDS: INSULIN ASPART 100 UNITS/ML SQ PRN ×3 (07:17→17:10)
[2017-07-31 08:19] VITALS: BP 139/85
[2017-07-31] MEDS: GENTAMICIN SULFATE 0.3% OPHTHALMIC SOLUTION 5 ML OD SCH ×4 (08:46→20:25)
[2017-07-31] MEDS: THIAMINE HCL 100 MG TABLET PO SCH ×2 (08:46→16:38)
[2017-07-31] MEDS: OMEPRAZOLE 20 MG CAPSULE PO SCH (08:46)
[2017-07-31] MEDS: GABAPENTIN 300 MG CAPSULE PO SCH ×3 (08:47→16:38)
[2017-07-31] MEDS: LevETIRAcetam 500 MG TABLET PO SCH ×2 (08:47→16:38)
[2017-07-31] MEDS: FOLIC ACID 1 MG TABLET PO SCH (08:47)
[2017-07-31] MEDS: MULTIVITAMINS WITH MINERALS, THERAPEUTIC TABLET PO SCH (08:47)
[2017-07-31] MEDS: ACAMPROSATE CALCIUM 333 MG DR TABLET PO SCH ×3 (08:47→16:38)
[2017-07-31] MEDS: PROPRANOLOL HCL 10 MG TABLET PO SCH ×3 (08:48→16:38)
[2017-07-31] MEDS: LORazepam 2 MG TABLET PO PRN ×4 (09:00→22:18)
[2017-07-31] MEDS: NICOTINE 21 MG/24 HOUR PATCH TD SCH (09:01)
[2017-07-31 11:45] VITALS: BP 132/77
[2017-07-31] MEDS: IBUPROFEN 800 MG TABLET PO PRN (11:49)
[2017-07-31 13:00] VITALS: BP 125/63
[2017-07-31 14:32] LABS: GLUCOSE,POINT OF CARE 143 MG/DL (70-110)
[2017-07-31] MEDS: AZITHROMYCIN 250 MG TABLET PO SCH (14:35)
[2017-07-31 16:42] LABS: GLUCOSE COMMENT 1 Received Meds; GLUCOSE,POINT OF CARE 204 MG/DL (70-110)
[2017-07-31] MEDS: GuaiFENesin/D-METHORPHAN [SUGAR-FREE] 200-20MG/10 ML SYRUP UDCUP PO PRN (16:47)
[2017-07-31 19:35] VITALS: BP 135/73
[2017-07-31] MEDS: OLANZapine 10 MG RAPDIS TABLET PO SCH (20:24)
[2017-07-31] MEDS: DIVALPROEX SODIUM 500 MG ER TABLET PO SCH (20:24)
[2017-07-31 20:27] LABS: GLUCOSE,POINT OF CARE 136 MG/DL (70-110)
[2017-07-31] MEDS: ZOLPIDEM TARTRATE 10 MG TABLET PO PRN (21:07)
[2017-08-01 02:13] VITALS: BP 145/94
[2017-08-01] MEDS: IBUPROFEN 800 MG TABLET PO PRN ×3 (02:23→21:42)
[2017-08-01] MEDS: LEVOTHYROXINE SODIUM 50 MCG TABLET PO SCH (06:58)
[2017-08-01] MEDS: MetFORMIN HCL 500 MG TABLET PO SCH ×2 (06:58→17:27)
[2017-08-01 08:36] VITALS: BP 129/69
[2017-08-01] MEDS: OMEPRAZOLE 20 MG CAPSULE PO SCH (10:21)
[2017-08-01] MEDS: LevETIRAcetam 500 MG TABLET PO SCH ×2 (10:21→17:27)
[2017-08-01] MEDS: LORazepam 2 MG TABLET PO PRN ×2 (10:21→14:32)
[2017-08-01] MEDS: MULTIVITAMINS WITH MINERALS, THERAPEUTIC TABLET PO SCH (10:21)
[2017-08-01] MEDS: OLANZapine 5 MG RAPDIS TABLET PO PRN ×2 (10:21→14:32)
[2017-08-01] MEDS: NICOTINE 21 MG/24 HOUR PATCH TD SCH (10:21)
[2017-08-01] MEDS: ACAMPROSATE CALCIUM 333 MG DR TABLET PO SCH ×3 (10:22→17:27)
[2017-08-01] MEDS: AZITHROMYCIN 250 MG TABLET PO SCH (10:22)
[2017-08-01] MEDS: THIAMINE HCL 100 MG TABLET PO SCH ×2 (10:22→17:27)
[2017-08-01] MEDS: PROPRANOLOL HCL 10 MG TABLET PO SCH ×3 (10:22→17:27)
[2017-08-01] MEDS: FOLIC ACID 1 MG TABLET PO SCH (10:22)
[2017-08-01] MEDS: GENTAMICIN SULFATE 0.3% OPHTHALMIC SOLUTION 5 ML OD SCH ×4 (10:22→20:30)
[2017-08-01] MEDS: GuaiFENesin/D-METHORPHAN [SUGAR-FREE] 200-20MG/10 ML SYRUP UDCUP PO PRN ×2 (10:34→18:15)
[2017-08-01] MEDS: GABAPENTIN 400 MG CAPSULE PO SCH ×2 (14:03→17:27)
[2017-08-01 16:59] VITALS: BP 129/90
[2017-08-01] MEDS: INSULIN ASPART 100 UNITS/ML SQ PRN (17:13)
[2017-08-01] MEDS: DIVALPROEX SODIUM 500 MG ER TABLET PO SCH (20:29)
[2017-08-01] MEDS: OLANZapine 10 MG RAPDIS TABLET PO SCH (20:29)
[2017-08-01] MEDS: ZOLPIDEM TARTRATE 10 MG TABLET PO PRN (21:17)
[2017-08-01 22:22] LABS: GLUCOSE,POINT OF CARE 224 MG/DL (70-110)
[2017-08-02 02:45] VITALS: BP 118/70
[2017-08-02] MEDS: IBUPROFEN 800 MG TABLET PO PRN ×2 (02:51→08:16)
[2017-08-02] MEDS: LORazepam 2 MG TABLET PO PRN ×4 (02:51→18:49)
[2017-08-02] MEDS: GuaiFENesin/D-METHORPHAN [SUGAR-FREE] 200-20MG/10 ML SYRUP UDCUP PO PRN ×3 (03:47→18:34)
[2017-08-02 05:33] LABS: GLUCOSE,POINT OF CARE 231 MG/DL (70-110)
[2017-08-02] MEDS: MetFORMIN HCL 500 MG TABLET PO SCH ×2 (06:53→17:21)
[2017-08-02] MEDS: LEVOTHYROXINE SODIUM 50 MCG TABLET PO SCH (06:53)
[2017-08-02] MEDS: LevETIRAcetam 500 MG TABLET PO SCH ×2 (08:08→17:21)
[2017-08-02] MEDS: GABAPENTIN 400 MG CAPSULE PO SCH ×3 (08:09→17:21)
[2017-08-02] MEDS: THIAMINE HCL 100 MG TABLET PO SCH ×2 (08:09→17:21)
[2017-08-02] MEDS: FOLIC ACID 1 MG TABLET PO SCH (08:09)
[2017-08-02 08:10] VITALS: BP 145/89
[2017-08-02] MEDS: AZITHROMYCIN 250 MG TABLET PO SCH (08:10)
[2017-08-02] MEDS: FLUoxetine HCL 20 MG CAPSULE PO SCH (08:11)
[2017-08-02] MEDS: ACAMPROSATE CALCIUM 333 MG DR TABLET PO SCH ×3 (08:11→17:21)
[2017-08-02] MEDS: OMEPRAZOLE 20 MG CAPSULE PO SCH (08:11)
[2017-08-02] MEDS: PROPRANOLOL HCL 10 MG TABLET PO SCH ×3 (08:12→17:21)
[2017-08-02] MEDS: GENTAMICIN SULFATE 0.3% OPHTHALMIC SOLUTION 5 ML OD SCH ×4 (08:13→20:38)
[2017-08-02] MEDS: MULTIVITAMINS WITH MINERALS, THERAPEUTIC TABLET PO SCH (08:14)
[2017-08-02] MEDS: NICOTINE 21 MG/24 HOUR PATCH TD SCH (08:18)
[2017-08-02 09:10] VITALS: BP 138/78
[2017-08-02 11:58] LABS: GLUCOSE COMMENT 1 Received Meds; GLUCOSE,POINT OF CARE 205 MG/DL (70-110)
[2017-08-02] MEDS: INSULIN ASPART 100 UNITS/ML SQ PRN (12:15)
[2017-08-02 16:52] VITALS: BP 126/68
[2017-08-02] MEDS ORDERED: ALBUTEROL SULFATE 2.5 MG/0.5 ML NEB SOLUTION NEB PRN (19:15)
[2017-08-02] MEDS ORDERED: IPRATROPIUM BROMIDE 0.5 MG/2.5 ML NEB SOLUTION NEB PRN (19:15)
[2017-08-02] MEDS: OLANZapine 10 MG RAPDIS TABLET PO SCH (20:38)
[2017-08-02] MEDS: DIVALPROEX SODIUM 500 MG ER TABLET PO SCH (20:38)
[2017-08-03 03:58] VITALS: BP 116/68
[2017-08-03] MEDS: IBUPROFEN 800 MG TABLET PO PRN ×2 (04:04→11:19)
[2017-08-03] MEDS: LORazepam 2 MG TABLET PO PRN ×3 (04:05→18:23)
[2017-08-03] MEDS: LEVOTHYROXINE SODIUM 50 MCG TABLET PO SCH (07:07)
[2017-08-03] MEDS: MetFORMIN HCL 500 MG TABLET PO SCH ×2 (07:07→16:21)
[2017-08-03] MEDS: MULTIVITAMINS WITH MINERALS, THERAPEUTIC TABLET PO SCH (08:51)
[2017-08-03] MEDS: OMEPRAZOLE 20 MG CAPSULE PO SCH (08:51)
[2017-08-03] MEDS: LevETIRAcetam 500 MG TABLET PO SCH ×2 (08:51→16:21)
[2017-08-03] MEDS: GABAPENTIN 400 MG CAPSULE PO SCH ×3 (08:51→16:21)
[2017-08-03] MEDS: FOLIC ACID 1 MG TABLET PO SCH (08:52)
[2017-08-03] MEDS: ACAMPROSATE CALCIUM 333 MG DR TABLET PO SCH ×3 (08:52→16:21)
[2017-08-03] MEDS: PROPRANOLOL HCL 10 MG TABLET PO SCH ×3 (08:53→16:22)
[2017-08-03] MEDS: GENTAMICIN SULFATE 0.3% OPHTHALMIC SOLUTION 5 ML OD SCH ×4 (08:53→20:07)
[2017-08-03] MEDS: FLUoxetine HCL 20 MG CAPSULE PO SCH (08:54)
[2017-08-03] MEDS: NICOTINE 21 MG/24 HOUR PATCH TD SCH ×2 (08:55→09:00)
[2017-08-03] MEDS: THIAMINE HCL 100 MG TABLET PO SCH ×2 (08:55→16:21)
[2017-08-03] MEDS: AZITHROMYCIN 250 MG TABLET PO SCH (08:56)
[2017-08-03 09:23] VITALS: BP 137/76
[2017-08-03 11:19] VITALS: BP 132/74
[2017-08-03 11:22] LABS: GLUCOSE,POINT OF CARE 134 MG/DL (70-110)
[2017-08-03] MEDS: INSULIN ASPART 100 UNITS/ML SQ PRN (11:22)
[2017-08-03 12:20] VITALS: BP 128/69
[2017-08-03] MEDS: GuaiFENesin/D-METHORPHAN [SUGAR-FREE] 200-20MG/10 ML SYRUP UDCUP PO PRN (12:40)
[2017-08-03 16:23] VITALS: BP 144/82
[2017-08-03] MEDS: DIVALPROEX SODIUM 500 MG ER TABLET PO SCH (20:07)
[2017-08-03] MEDS: OLANZapine 10 MG RAPDIS TABLET PO SCH (20:07)
[2017-08-03] MEDS: ZOLPIDEM TARTRATE 10 MG TABLET PO PRN (20:30)
[2017-08-04] MEDS: LORazepam 2 MG TABLET PO PRN ×3 (06:52→19:44)
[2017-08-04] MEDS: LEVOTHYROXINE SODIUM 50 MCG TABLET PO SCH (06:52)
[2017-08-04] MEDS: MetFORMIN HCL 500 MG TABLET PO SCH ×2 (06:52→17:20)
[2017-08-04 07:02] LABS: GLUCOSE COMMENT 1 Received Meds; GLUCOSE,POINT OF CARE 123 MG/DL (70-110)
[2017-08-04] MEDS: OMEPRAZOLE 20 MG CAPSULE PO SCH (08:41)
[2017-08-04] MEDS: MULTIVITAMINS WITH MINERALS, THERAPEUTIC TABLET PO SCH (08:41)
[2017-08-04] MEDS: AZITHROMYCIN 250 MG TABLET PO SCH (08:41)
[2017-08-04] MEDS: FOLIC ACID 1 MG TABLET PO SCH (08:41)
[2017-08-04] MEDS: PROPRANOLOL HCL 10 MG TABLET PO SCH ×3 (08:42→16:50)
[2017-08-04] MEDS: ACAMPROSATE CALCIUM 333 MG DR TABLET PO SCH ×3 (08:42→16:50)
[2017-08-04] MEDS: GABAPENTIN 400 MG CAPSULE PO SCH ×3 (08:42→16:50)
[2017-08-04] MEDS: THIAMINE HCL 100 MG TABLET PO SCH ×2 (08:42→16:50)
[2017-08-04] MEDS: FLUoxetine HCL 20 MG CAPSULE PO SCH (08:43)
[2017-08-04] MEDS: LevETIRAcetam 500 MG TABLET PO SCH ×2 (08:44→16:51)
[2017-08-04] MEDS: NICOTINE 21 MG/24 HOUR PATCH TD SCH (08:44)
[2017-08-04] MEDS: GENTAMICIN SULFATE 0.3% OPHTHALMIC SOLUTION 5 ML OD SCH ×2 (08:45→12:32)
[2017-08-04 09:47] VITALS: BP 140/95
[2017-08-04 11:32] LABS: GLUCOSE,POINT OF CARE 138 MG/DL (70-110)
[2017-08-04] MEDS: GuaiFENesin/D-METHORPHAN [SUGAR-FREE] 200-20MG/10 ML SYRUP UDCUP PO PRN (12:41)
[2017-08-04 16:48] LABS: GLUCOSE COMMENT 1 Received Meds; GLUCOSE,POINT OF CARE 199 MG/DL (70-110)
[2017-08-04 17:14] VITALS: BP 130/66
[2017-08-04] MEDS ORDERED: ACAM333T7 PO (17:32)
[2017-08-04] MEDS ORDERED: DIVA500T52 PO (17:32)
[2017-08-04] MEDS ORDERED: OLAN10TA22 PO (17:32)
[2017-08-04] MEDS ORDERED: GABA-533 PO (17:32)
[2017-08-04] MEDS ORDERED: LEVE500T53 PO (17:32)
[2017-08-04] MEDS ORDERED: PROP10TA72 PO (17:32)
[2017-08-04] MEDS ORDERED: FLUO-191 PO (17:32)
[2017-08-04] MEDS: INSULIN ASPART 100 UNITS/ML SQ PRN ×3 (17:49→20:37)
[2017-08-04] MEDS: OLANZapine 10 MG RAPDIS TABLET PO SCH (20:23)
[2017-08-04 20:27] LABS: GLUCOSE COMMENT 1 Received Meds; GLUCOSE,POINT OF CARE 155 MG/DL (70-110)
[2017-08-04] MEDS: ZOLPIDEM TARTRATE 10 MG TABLET PO PRN (20:34)
[2017-08-04] MEDS ORDERED: DIVALPROEX SODIUM 500 MG ER TABLET PO SCH (21:00)
[2017-08-05 05:48] LABS: GLUCOSE,POINT OF CARE 138 MG/DL (70-110)
[2017-08-05] MEDS: LORazepam 2 MG TABLET PO PRN ×3 (05:53→13:53)
[2017-08-05 06:05] VITALS: BP 132/70
[2017-08-05] MEDS: MetFORMIN HCL 500 MG TABLET PO SCH ×2 (06:34→17:25)
[2017-08-05] MEDS: LEVOTHYROXINE SODIUM 50 MCG TABLET PO SCH (06:34)
[2017-08-05 08:30] VITALS: BP 150/100
[2017-08-05] MEDS ORDERED: OMEP20 PO (08:42)
[2017-08-05] MEDS ORDERED: DIVA500T52 PO (09:37)
[2017-08-05] MEDS: OMEPRAZOLE 20 MG CAPSULE PO SCH (09:40)
[2017-08-05] MEDS: MULTIVITAMINS WITH MINERALS, THERAPEUTIC TABLET PO SCH (09:40)
[2017-08-05] MEDS: ACAMPROSATE CALCIUM 333 MG DR TABLET PO SCH ×3 (09:40→17:26)
[2017-08-05] MEDS: GABAPENTIN 400 MG CAPSULE PO SCH ×3 (09:40→17:25)
[2017-08-05] MEDS: FOLIC ACID 1 MG TABLET PO SCH (09:40)
[2017-08-05] MEDS: PROPRANOLOL HCL 10 MG TABLET PO SCH ×3 (09:40→17:26)
[2017-08-05] MEDS: LevETIRAcetam 500 MG TABLET PO SCH ×2 (09:40→17:25)
[2017-08-05] MEDS: FLUoxetine HCL 20 MG CAPSULE PO SCH (09:41)
[2017-08-05] MEDS: THIAMINE HCL 100 MG TABLET PO SCH ×2 (09:41→17:26)
[2017-08-05] MEDS: AZITHROMYCIN 250 MG TABLET PO SCH (09:42)
[2017-08-05] MEDS: NICOTINE 21 MG/24 HOUR PATCH TD SCH (09:42)
[2017-08-05] MEDS: IBUPROFEN 800 MG TABLET PO PRN (09:45)
[2017-08-05 11:38] LABS: GLUCOSE,POINT OF CARE 209 MG/DL (70-110)
[2017-08-05] MEDS: OLANZapine 5 MG RAPDIS TABLET PO PRN (12:39)
[2017-08-05 17:27] VITALS: BP 136/63
[2017-08-05 17:28] LABS: GLUCOSE,POINT OF CARE 124 MG/DL (70-110)
== END 2017-08-05 17:30 | disposition home or self-care (01) | DRG 885 ==
LOC: EMS 12:35 → 3EX 16:13
PROVIDERS: ADMIT Psychiatry & Neurology Psychiatry; ATTEND Psychiatry & Neurology Psychiatry
DX: F25.9 Schizoaffective disorder, unspecified (principal); Z93.3 Colostomy status; E11.65 Type 2 diabetes mellitus with hyperglycemia; R45.851 Suicidal ideations; D64.9 Anemia, unspecified; E03.9 Hypothyroidism, unspecified; F17.200 Nicotine dependence, unspecified, uncomplicated; G40.909 Epilepsy, unspecified, not intractable, without status epilepticus; I10 Essential (primary) hypertension; J44.9 Chronic obstructive pulmonary disease, unspecified; K21.9 Gastro-esophageal reflux disease without esophagitis; M19.90 Unspecified osteoarthritis, unspecified site; M79.7 Fibromyalgia; R45.850 Homicidal ideations; H10.89 Other conjunctivitis; Z96.653 Presence of artificial knee joint, bilateral; G89.29 Other chronic pain; M54.9 Dorsalgia, unspecified; M25.519 Pain in unspecified shoulder; Z85.038 Personal history of other malignant neoplasm of large intestine; Z79.84 Long term (current) use of oral hypoglycemic drugs; Z88.5 Allergy status to narcotic agent; Z90.49 Acquired absence of other specified parts of digestive tract
CPT/HCPCS: 71020; 82962; 94640; 99285; G0480; J3420

== ENCOUNTER 2017-08-18 19:51 | Inpatient (IN) | payer MEDICARE, MEDICAID ==
[~2017-08-18] VITALS: Ht 162.6 cm; Wt 84.6 kg
[~2017-08-18 19:51] MED LIST changes: +ACAM333T7 PO; -DIVA500T35 PO; -DULO20CA30 PO; -FERR-89 PO; +FLUO-191 PO; -GABA-531 PO; +GABA-533 PO; -NALT50TA PO; +OMEP20 PO; -TRIH2TAB3 PO; -VITAD1000 PO
[2017-08-18 21:54] LABS: BASOPHILS % (AUTO) 0.5 % (0.0-2.0); EOSINOPHILS % (AUTO) 0 % (1.0-6.0); HEMATOCRIT 34.2 % (36-46); HEMOGLOBIN 11.6 g/dL (12.0-16.0); LYMPHOCYTES # (AUTO) 2.1 K/uL (1.0-4.8); LYMPHOCYTES % (AUTO) 35.5 % (22.0-44.0); MEAN CORPUSCULAR HEMOGLOBIN 31.6 pg (26.0-34.0); MEAN CORPUSCULAR HGB CONC 33.8 G/dL (31.0-37.0); MEAN CORPUSCULAR VOLUME 94 fL (80-100); MONOCYTES # (AUTO) 0.8 K/uL (0.1-1.0); MONOCYTES % (AUTO) 12.7 % (2.0-9.0); NEUTROPHILS # (AUTO) 3.1 K/uL (1.8-7.7); NEUTROPHILS % (AUTO) 51.3 % (40.0-70.0); PLATELET COUNT (AUTO) 273 K/uL (150-450); RED BLOOD CELL COUNT(AUTO) 3.66 MIL/uL (4.00-5.20); RED CELL DISTRIBUTION WIDTH 13.8 % (11.5-14.5)
[2017-08-18] MEDS ORDERED: LORazepam 2 MG TABLET PO ONE (22:00)
[2017-08-18] MEDS ORDERED: OLANZapine 5 MG TABLET PO PRN (22:00)
[2017-08-18] MEDS ORDERED: HALOPERIDOL 5 MG TABLET PO PRN (22:00)
[2017-08-18] MEDS ORDERED: DIVALPROEX SODIUM 500 MG ER TABLET PO ONE (22:00)
[2017-08-18] MEDS ORDERED: LevETIRAcetam 500 MG TABLET PO ONE (22:00)
[2017-08-18] MEDS ORDERED: IBUPROFEN 800 MG TABLET PO ONE (22:00)
[2017-08-18 22:07] LABS: GLUCOSE,POINT OF CARE 169 MG/DL (70-110)
[2017-08-18 22:09] LABS: ANION GAP 7 mmol/L (8-16); CALCIUM, TOTAL 9.6 mg/dL (8.8-10.5); CARBON DIOXIDE 29 mmol/L (22-29); CHLORIDE 101 mmol/L (98-107); CREATININE 0.98 mg/dL (0.60-1.30); GLOMERULAR FILTR. RATE CALC 60 mL/min (>60); GLUCOSE,RANDOM 175 mg/dL (70-110); POTASSIUM 3.7 mmol/L (3.5-5.1); SODIUM SERUM 137 mmol/L (136-145); UREA NITROGEN, BLOOD 20 mg/dL (7-18)
[2017-08-18 22:16] LABS: ALANINE AMINOTRANSFERASE 18 U/L (12-78); ALBUMIN 3.1 g/dL (3.4-5.0); ALKALINE PHOSPHATASE 66 U/L (46-116); ASPARTATE AMINOTRANSFERASE 10 U/L (15-37); BILIRUBIN,TOTAL 0.2 mg/dL (0.1-1.0); TOTAL PROTEIN, SERUM 7.7 g/dL (6.4-8.2); VALPROIC ACID 83 mcg/mL (50-100)
[2017-08-19 01:43] VITALS: BP 118/70
[2017-08-19 06:03] LABS: GLUCOMETER DEV NAME(LOC) 3EI B; GLUCOSE,POINT OF CARE 133 MG/DL (70-110)
[2017-08-19] MEDS ORDERED: DEXTROSE 50%-WATER 25 GM/50 ML SYRINGE IVP PRN (06:30)
[2017-08-19] MEDS: LEVOTHYROXINE SODIUM 50 MCG TABLET PO SCH (07:12)
[2017-08-19] MEDS: MetFORMIN HCL 500 MG TABLET PO SCH ×2 (07:12→17:16)
[2017-08-19 08:30] VITALS: BP 130/68
[2017-08-19] MEDS ORDERED: FOLIC ACID 1 MG TABLET PO SCH (09:00)
[2017-08-19] MEDS ORDERED: THIAMINE HCL 100 MG TABLET PO SCH (09:00)
[2017-08-19] MEDS: MULTIVITAMINS WITH MINERALS, THERAPEUTIC TABLET PO SCH (11:01)
[2017-08-19] MEDS: GABAPENTIN 400 MG CAPSULE PO SCH ×3 (11:01→16:16)
[2017-08-19] MEDS: LevETIRAcetam 500 MG TABLET PO SCH ×2 (11:02→16:16)
[2017-08-19] MEDS: PROPRANOLOL HCL 10 MG TABLET PO SCH ×3 (11:02→16:17)
[2017-08-19] MEDS: OMEPRAZOLE 20 MG CAPSULE PO SCH (11:04)
[2017-08-19] MEDS: LORazepam 2 MG TABLET PO PRN ×2 (11:04→16:16)
[2017-08-19 11:12] LABS: GLUCOMETER DEV NAME(LOC) 3EI B; GLUCOSE,POINT OF CARE 240 MG/DL (70-110)
[2017-08-19] MEDS ORDERED: GuaiFENesin/D-METHORPHAN [SUGAR-FREE] 200-20MG/10 ML SYRUP UDCUP PO PRN (11:15)
[2017-08-19] MEDS: IBUPROFEN 600 MG TABLET PO PRN (11:46)
[2017-08-19] MEDS: INSULIN ASPART 100 UNITS/ML SQ PRN (11:54)
[2017-08-19] MEDS ORDERED: HydrOXYzine PAMOATE 50 MG CAPSULE PO PRN (12:15)
[2017-08-19] MEDS ORDERED: MAGNESIUM HYDROXIDE SUSPENSION 30 ML UDCUP PO PRN ×2 (12:15→22:00)
[2017-08-19] MEDS ORDERED: MAG HYDROX/AL HYDROX/SIMETH ES 30 ML SUSPENSION UDCUP PO PRN ×2 (12:15→22:00)
[2017-08-19] MEDS ORDERED: PROMETHAZINE HCL 25 MG TABLET PO PRN (12:15)
[2017-08-19] MEDS ORDERED: GABAPENTIN 400 MG CAPSULE PO SCH (13:00)
[2017-08-19] MEDS: ACAMPROSATE CALCIUM 333 MG DR TABLET PO SCH ×2 (13:09→16:17)
[2017-08-19] MEDS: THIAMINE HCL 100 MG TABLET PO SCH (16:18)
[2017-08-19 16:28] LABS: GLUCOMETER DEV NAME(LOC) 3EI B; GLUCOSE,POINT OF CARE 114 MG/DL (70-110)
[2017-08-19] MEDS: FERROUS SULFATE 325 MG EC TABLET PO SCH (17:16)
[2017-08-19] MEDS: OLANZapine 10 MG RAPDIS TABLET PO SCH (21:57)
[2017-08-19] MEDS: DIVALPROEX SODIUM 500 MG ER TABLET PO SCH (21:58)
[2017-08-19] MEDS ORDERED: LOPERAMIDE HCL 2 MG CAPSULE PO PRN (22:00)
[2017-08-19] MEDS ORDERED: ACETAMINOPHEN 325 MG TABLET PO PRN (22:00)
[2017-08-19] MEDS ORDERED: CloNIDine HCL 0.1 MG TABLET PO PRN (22:00)
[2017-08-19] MEDS ORDERED: ALBUTEROL SULFATE HFA 90 MCG/PUFF 8 GM INHALER IH PRN (22:00)
[2017-08-19] MEDS ORDERED: PETROLATUM,WHITE 71 GM JELLY TP PRN (22:00)
[2017-08-19] MEDS ORDERED: ONDANSETRON HCL 4 MG TABLET PO PRN (22:00)
[2017-08-19] MEDS ORDERED: BENZOCAINE/MENTHOL LOZENGE [8 LOZENGES/PACKET] MM PRN (22:15)
[2017-08-20 02:12] VITALS: BP 127/70
[2017-08-20] MEDS: ZOLPIDEM TARTRATE 10 MG TABLET PO PRN ×2 (02:12→20:07)
[2017-08-20] MEDS: GuaiFENesin/D-METHORPHAN [SUGAR-FREE] 200-20MG/10 ML SYRUP UDCUP PO PRN ×2 (02:31→09:32)
[2017-08-20 06:03] LABS: GLUCOMETER DEV NAME(LOC) 3EI B; GLUCOSE,POINT OF CARE 224 MG/DL (70-110)
[2017-08-20] MEDS: LEVOTHYROXINE SODIUM 50 MCG TABLET PO SCH (07:07)
[2017-08-20] MEDS: FERROUS SULFATE 325 MG EC TABLET PO SCH ×3 (07:07→16:09)
[2017-08-20] MEDS: MetFORMIN HCL 500 MG TABLET PO SCH ×2 (07:07→16:09)
[2017-08-20] MEDS: INSULIN ASPART 100 UNITS/ML SQ PRN ×3 (07:17→22:13)
[2017-08-20] MEDS: DOCUSATE SODIUM 100 MG CAPSULE PO SCH (08:18)
[2017-08-20] MEDS: ACAMPROSATE CALCIUM 333 MG DR TABLET PO SCH ×3 (08:18→16:10)
[2017-08-20] MEDS: GABAPENTIN 400 MG CAPSULE PO SCH ×3 (08:19→16:10)
[2017-08-20] MEDS: LevETIRAcetam 500 MG TABLET PO SCH ×2 (08:19→16:10)
[2017-08-20] MEDS: PROPRANOLOL HCL 10 MG TABLET PO SCH ×3 (08:19→16:10)
[2017-08-20] MEDS: FOLIC ACID 1 MG TABLET PO SCH (08:19)
[2017-08-20] MEDS: LORazepam 2 MG TABLET PO PRN ×3 (08:20→17:25)
[2017-08-20] MEDS: OMEPRAZOLE 20 MG CAPSULE PO SCH (08:20)
[2017-08-20] MEDS: IBUPROFEN 600 MG TABLET PO PRN (08:20)
[2017-08-20] MEDS: THIAMINE HCL 100 MG TABLET PO SCH ×2 (08:20→16:09)
[2017-08-20] MEDS: MULTIVITAMINS WITH MINERALS, THERAPEUTIC TABLET PO SCH (08:20)
[2017-08-20 08:30] VITALS: BP 140/96
[2017-08-20] MEDS ORDERED: OMEPRAZOLE 20 MG CAPSULE PO SCH (09:00)
[2017-08-20] MEDS ORDERED: MULTIVITAMINS WITH MINERALS, THERAPEUTIC TABLET PO SCH (09:00)
[2017-08-20 11:12] LABS: GLUCOMETER DEV NAME(LOC) 3EI B; GLUCOSE,POINT OF CARE 130 MG/DL (70-110)
[2017-08-20 17:03] LABS: GLUCOMETER DEV NAME(LOC) 3EI B; GLUCOSE,POINT OF CARE 189 MG/DL (70-110)
[2017-08-20 17:24] VITALS: BP 139/86
[2017-08-20] MEDS: DIVALPROEX SODIUM 500 MG ER TABLET PO SCH (20:06)
[2017-08-20] MEDS: OLANZapine 10 MG RAPDIS TABLET PO SCH (20:07)
[2017-08-20 21:13] LABS: GLUCOMETER DEV NAME(LOC) 3EI B; GLUCOSE,POINT OF CARE 196 MG/DL (70-110)
[2017-08-21 04:04] VITALS: BP 134/83
[2017-08-21] MEDS: LEVOTHYROXINE SODIUM 50 MCG TABLET PO SCH (06:57)
[2017-08-21] MEDS: FERROUS SULFATE 325 MG EC TABLET PO SCH ×3 (06:57→16:33)
[2017-08-21] MEDS: MetFORMIN HCL 500 MG TABLET PO SCH ×2 (06:57→16:35)
[2017-08-21 09:00] VITALS: BP 121/96
[2017-08-21] MEDS: DOCUSATE SODIUM 100 MG CAPSULE PO SCH (09:00)
[2017-08-21] MEDS: IBUPROFEN 600 MG TABLET PO PRN (09:02)
[2017-08-21] MEDS: GuaiFENesin/D-METHORPHAN [SUGAR-FREE] 200-20MG/10 ML SYRUP UDCUP PO PRN (09:02)
[2017-08-21] MEDS: PROPRANOLOL HCL 10 MG TABLET PO SCH ×3 (09:02→16:36)
[2017-08-21] MEDS: LevETIRAcetam 500 MG TABLET PO SCH ×2 (09:02→16:35)
[2017-08-21] MEDS: LORazepam 2 MG TABLET PO PRN ×2 (09:02→13:20)
[2017-08-21] MEDS: THIAMINE HCL 100 MG TABLET PO SCH ×2 (09:03→16:36)
[2017-08-21] MEDS: FOLIC ACID 1 MG TABLET PO SCH (09:03)
[2017-08-21] MEDS: OMEPRAZOLE 20 MG CAPSULE PO SCH (09:03)
[2017-08-21] MEDS: MULTIVITAMINS WITH MINERALS, THERAPEUTIC TABLET PO SCH (09:03)
[2017-08-21] MEDS: ACAMPROSATE CALCIUM 333 MG DR TABLET PO SCH ×3 (09:03→16:36)
[2017-08-21] MEDS: GABAPENTIN 400 MG CAPSULE PO SCH ×3 (09:03→16:35)
[2017-08-21] MEDS: MUPIROCIN CALCIUM 2% 22 GM OINTMENT NASAL SCH ×2 (09:13→16:36)
[2017-08-21 09:49] LABS: RED BLOOD CELL COUNT(AUTO) 4.28 MIL/uL (4.00-5.20)
[2017-08-21 09:50] LABS: HEMATOCRIT 40.8 % (36-46); HEMOGLOBIN 13.2 g/dL (12.0-16.0); MEAN CORPUSCULAR HEMOGLOBIN 30.8 pg (26.0-34.0); MEAN CORPUSCULAR HGB CONC 32.4 G/dL (31.0-37.0); MEAN CORPUSCULAR VOLUME 95 fL (80-100); PLATELET COUNT (AUTO) 279 K/uL (150-450); RED CELL DISTRIBUTION WIDTH 13.4 % (11.5-14.5)
[2017-08-21 10:06] LABS: CALCIUM, TOTAL 9.7 mg/dL (8.8-10.5); CREATININE 1.09 mg/dL (0.60-1.30); MAGNESIUM 1.2 mg/dL (1.80-2.40); PHOSPHORUS 3.9 mg/dL (2.5-4.9); POTASSIUM 4.5 mmol/L (3.5-5.1)
[2017-08-21 11:38] LABS: GLUCOMETER DEV NAME(LOC) 3EI B; GLUCOSE,POINT OF CARE 209 MG/DL (70-110)
[2017-08-21] MEDS: INSULIN ASPART 100 UNITS/ML SQ PRN ×3 (12:04→21:08)
[2017-08-21 15:18] LABS: LYMPHOCYTES % (MANUAL) 27 % (22-44); MONOCYTES % (MANUAL) 10 % (2-9); SEGMENTED NEUTROPHILS % 63 % (40-70)
[2017-08-21 16:40] VITALS: BP 135/92
[2017-08-21 17:03] LABS: GLUCOMETER DEV NAME(LOC) 3EI B; GLUCOSE,POINT OF CARE 167 MG/DL (70-110)
[2017-08-21] MEDS ORDERED: DOCUSATE SODIUM 100 MG CAPSULE PO PRN (17:45)
[2017-08-21] MEDS: MAGNESIUM OXIDE 400 MG TABLET PO SCH (18:59)
[2017-08-21] MEDS: ZOLPIDEM TARTRATE 10 MG TABLET PO PRN (20:13)
[2017-08-21] MEDS: OLANZapine 10 MG RAPDIS TABLET PO SCH (20:13)
[2017-08-21] MEDS: DIVALPROEX SODIUM 500 MG ER TABLET PO SCH (20:13)
[2017-08-21 20:22] LABS: GLUCOMETER DEV NAME(LOC) 3EI B; GLUCOSE,POINT OF CARE 221 MG/DL (70-110)
[2017-08-22] MEDS: LEVOTHYROXINE SODIUM 50 MCG TABLET PO SCH (07:00)
[2017-08-22] MEDS: MetFORMIN HCL 500 MG TABLET PO SCH ×3 (07:00→21:22)
[2017-08-22] MEDS: FERROUS SULFATE 325 MG EC TABLET PO SCH ×3 (07:00→16:46)
[2017-08-22 08:00] VITALS: BP 130/83
[2017-08-22] MEDS: FOLIC ACID 1 MG TABLET PO SCH (08:03)
[2017-08-22] MEDS: OMEPRAZOLE 20 MG CAPSULE PO SCH (08:03)
[2017-08-22] MEDS: GABAPENTIN 400 MG CAPSULE PO SCH ×3 (08:03→16:47)
[2017-08-22] MEDS: LORazepam 2 MG TABLET PO PRN ×3 (08:03→16:41)
[2017-08-22] MEDS: IBUPROFEN 600 MG TABLET PO PRN ×2 (08:03→16:41)
[2017-08-22] MEDS: THIAMINE HCL 100 MG TABLET PO SCH ×2 (08:03→16:46)
[2017-08-22] MEDS: MAGNESIUM OXIDE 400 MG TABLET PO SCH ×2 (08:03→16:47)
[2017-08-22] MEDS: ACAMPROSATE CALCIUM 333 MG DR TABLET PO SCH ×3 (08:03→16:47)
[2017-08-22] MEDS: MULTIVITAMINS WITH MINERALS, THERAPEUTIC TABLET PO SCH (08:04)
[2017-08-22] MEDS: LevETIRAcetam 500 MG TABLET PO SCH (08:04)
[2017-08-22] MEDS: PROPRANOLOL HCL 10 MG TABLET PO SCH ×3 (08:04→16:48)
[2017-08-22] MEDS: MUPIROCIN CALCIUM 2% 22 GM OINTMENT NASAL SCH ×2 (08:05→16:58)
[2017-08-22] MEDS: GuaiFENesin/D-METHORPHAN [SUGAR-FREE] 200-20MG/10 ML SYRUP UDCUP PO PRN (08:07)
[2017-08-22 11:28] LABS: GLUCOMETER DEV NAME(LOC) 3EI B; GLUCOSE,POINT OF CARE 176 MG/DL (70-110)
[2017-08-22] MEDS: INSULIN ASPART 100 UNITS/ML SQ PRN ×2 (12:16→17:45)
[2017-08-22 16:40] VITALS: BP 130/77
[2017-08-22 17:28] LABS: GLUCOMETER DEV NAME(LOC) 3EI B; GLUCOSE,POINT OF CARE 195 MG/DL (70-110)
[2017-08-22] MEDS: LevETIRAcetam 250 MG TABLET PO SCH ×2 (18:11→21:22)
[2017-08-22] MEDS: DIVALPROEX SODIUM 500 MG ER TABLET PO SCH (21:21)
[2017-08-22] MEDS: OLANZapine 10 MG RAPDIS TABLET PO SCH (21:21)
[2017-08-23 06:03] LABS: GLUCOMETER DEV NAME(LOC) 3EI B; GLUCOSE,POINT OF CARE 122 MG/DL (70-110)
[2017-08-23] MEDS: LEVOTHYROXINE SODIUM 50 MCG TABLET PO SCH (06:58)
[2017-08-23] MEDS: FERROUS SULFATE 325 MG EC TABLET PO SCH ×3 (06:58→17:15)
[2017-08-23] MEDS: LORazepam 2 MG TABLET PO PRN ×2 (07:36→13:00)
[2017-08-23] MEDS: THIAMINE HCL 100 MG TABLET PO SCH ×2 (08:45→17:15)
[2017-08-23] MEDS: MetFORMIN HCL 500 MG TABLET PO SCH ×4 (08:45→20:19)
[2017-08-23] MEDS: OMEPRAZOLE 20 MG CAPSULE PO SCH (08:45)
[2017-08-23] MEDS: FOLIC ACID 1 MG TABLET PO SCH (08:45)
[2017-08-23] MEDS: GABAPENTIN 400 MG CAPSULE PO SCH ×3 (08:45→17:15)
[2017-08-23] MEDS: LevETIRAcetam 250 MG TABLET PO SCH ×4 (08:46→20:19)
[2017-08-23] MEDS: ACAMPROSATE CALCIUM 333 MG DR TABLET PO SCH ×3 (08:46→17:14)
[2017-08-23] MEDS: MULTIVITAMINS WITH MINERALS, THERAPEUTIC TABLET PO SCH (08:46)
[2017-08-23] MEDS: PROPRANOLOL HCL 10 MG TABLET PO SCH ×3 (08:46→17:14)
[2017-08-23] MEDS: MAGNESIUM OXIDE 400 MG TABLET PO SCH ×2 (08:46→17:15)
[2017-08-23] MEDS: MUPIROCIN CALCIUM 2% 22 GM OINTMENT NASAL SCH ×2 (08:47→17:14)
[2017-08-23 11:28] LABS: GLUCOMETER DEV NAME(LOC) 3EI B; GLUCOSE,POINT OF CARE 203 MG/DL (70-110)
[2017-08-23] MEDS: INSULIN ASPART 100 UNITS/ML SQ PRN ×3 (11:29→21:27)
[2017-08-23 13:02] VITALS: BP 130/73
[2017-08-23 16:32] LABS: GLUCOMETER DEV NAME(LOC) 3EI B; GLUCOSE,POINT OF CARE 162 MG/DL (70-110)
[2017-08-23 18:14] VITALS: BP 129/66
[2017-08-23] MEDS: DIVALPROEX SODIUM 500 MG ER TABLET PO SCH (20:19)
[2017-08-23] MEDS: OLANZapine 10 MG RAPDIS TABLET PO SCH (20:19)
[2017-08-23 20:23] LABS: GLUCOMETER DEV NAME(LOC) 3EI B; GLUCOSE,POINT OF CARE 222 MG/DL (70-110)
[2017-08-23] MEDS: ZOLPIDEM TARTRATE 10 MG TABLET PO PRN (21:18)
[2017-08-24] MEDS: FERROUS SULFATE 325 MG EC TABLET PO SCH ×3 (06:44→16:45)
[2017-08-24] MEDS: LEVOTHYROXINE SODIUM 50 MCG TABLET PO SCH (06:44)
[2017-08-24 07:50] VITALS: BP 112/85
[2017-08-24] MEDS: LORazepam 2 MG TABLET PO PRN ×4 (07:55→22:05)
[2017-08-24] MEDS: GABAPENTIN 400 MG CAPSULE PO SCH ×3 (07:55→16:39)
[2017-08-24] MEDS: PROPRANOLOL HCL 10 MG TABLET PO SCH ×3 (07:56→16:39)
[2017-08-24] MEDS: MULTIVITAMINS WITH MINERALS, THERAPEUTIC TABLET PO SCH (07:56)
[2017-08-24] MEDS: IBUPROFEN 600 MG TABLET PO PRN (07:56)
[2017-08-24] MEDS: MAGNESIUM OXIDE 400 MG TABLET PO SCH ×2 (07:57→16:39)
[2017-08-24] MEDS: LevETIRAcetam 250 MG TABLET PO SCH ×4 (07:57→20:06)
[2017-08-24] MEDS: THIAMINE HCL 100 MG TABLET PO SCH ×2 (07:57→16:39)
[2017-08-24] MEDS: OMEPRAZOLE 20 MG CAPSULE PO SCH (07:57)
[2017-08-24] MEDS: ACAMPROSATE CALCIUM 333 MG DR TABLET PO SCH ×3 (07:59→16:39)
[2017-08-24] MEDS: FOLIC ACID 1 MG TABLET PO SCH (08:00)
[2017-08-24] MEDS: MetFORMIN HCL 500 MG TABLET PO SCH ×4 (08:00→20:05)
[2017-08-24] MEDS: MUPIROCIN CALCIUM 2% 22 GM OINTMENT NASAL SCH ×2 (08:01→16:46)
[2017-08-24 08:50] VITALS: BP 118/81
[2017-08-24] MEDS: GuaiFENesin/D-METHORPHAN [SUGAR-FREE] 200-20MG/10 ML SYRUP UDCUP PO PRN ×2 (09:11→16:41)
[2017-08-24 11:27] LABS: GLUCOMETER DEV NAME(LOC) 3EI B; GLUCOSE,POINT OF CARE 252 MG/DL (70-110)
[2017-08-24] MEDS: INSULIN ASPART 100 UNITS/ML SQ PRN ×3 (11:29→21:32)
[2017-08-24 16:53] LABS: GLUCOMETER DEV NAME(LOC) 3EI B; GLUCOSE,POINT OF CARE 163 MG/DL (70-110)
[2017-08-24 18:59] VITALS: BP 130/96
[2017-08-24] MEDS: ZOLPIDEM TARTRATE 10 MG TABLET PO PRN (20:05)
[2017-08-24] MEDS: OLANZapine 10 MG RAPDIS TABLET PO SCH (20:06)
[2017-08-24] MEDS: DIVALPROEX SODIUM 500 MG ER TABLET PO SCH (20:07)
[2017-08-24 20:22] LABS: GLUCOMETER DEV NAME(LOC) 3EI B; GLUCOSE,POINT OF CARE 162 MG/DL (70-110)
[2017-08-25 06:43] LABS: GLUCOMETER DEV NAME(LOC) 3EI B; GLUCOSE,POINT OF CARE 154 MG/DL (70-110)
[2017-08-25] MEDS: FERROUS SULFATE 325 MG EC TABLET PO SCH ×3 (07:05→16:24)
[2017-08-25] MEDS: LORazepam 2 MG TABLET PO PRN ×2 (07:05→12:27)
[2017-08-25] MEDS: LEVOTHYROXINE SODIUM 50 MCG TABLET PO SCH (07:05)
[2017-08-25] MEDS: INSULIN ASPART 100 UNITS/ML SQ PRN ×2 (07:12→17:30)
[2017-08-25 08:02] VITALS: BP 163/66
[2017-08-25] MEDS: FOLIC ACID 1 MG TABLET PO SCH (08:29)
[2017-08-25] MEDS: GABAPENTIN 400 MG CAPSULE PO SCH ×3 (08:29→16:25)
[2017-08-25] MEDS: OMEPRAZOLE 20 MG CAPSULE PO SCH (08:29)
[2017-08-25] MEDS: MULTIVITAMINS WITH MINERALS, THERAPEUTIC TABLET PO SCH (08:29)
[2017-08-25] MEDS: MetFORMIN HCL 500 MG TABLET PO SCH ×4 (08:30→21:00)
[2017-08-25] MEDS: THIAMINE HCL 100 MG TABLET PO SCH ×2 (08:30→16:25)
[2017-08-25] MEDS: MAGNESIUM OXIDE 400 MG TABLET PO SCH ×2 (08:30→16:25)
[2017-08-25] MEDS: ACAMPROSATE CALCIUM 333 MG DR TABLET PO SCH ×3 (08:31→16:24)
[2017-08-25] MEDS: PROPRANOLOL HCL 10 MG TABLET PO SCH ×3 (08:31→16:24)
[2017-08-25] MEDS: MUPIROCIN CALCIUM 2% 22 GM OINTMENT NASAL SCH ×2 (08:31→16:25)
[2017-08-25] MEDS: LevETIRAcetam 250 MG TABLET PO SCH ×4 (08:31→21:00)
[2017-08-25 11:27] LABS: GLUCOMETER DEV NAME(LOC) 3EI B; GLUCOSE,POINT OF CARE 139 MG/DL (70-110)
[2017-08-25] MEDS: GuaiFENesin/D-METHORPHAN [SUGAR-FREE] 200-20MG/10 ML SYRUP UDCUP PO PRN (12:27)
[2017-08-25] MEDS: IBUPROFEN 600 MG TABLET PO PRN (16:31)
[2017-08-25 16:32] LABS: GLUCOMETER DEV NAME(LOC) 3EI B; GLUCOSE,POINT OF CARE 258 MG/DL (70-110)
[2017-08-25 16:36] VITALS: BP 125/96
[2017-08-25] MEDS: OLANZapine 10 MG RAPDIS TABLET PO SCH (21:00)
[2017-08-25] MEDS: DIVALPROEX SODIUM 500 MG ER TABLET PO SCH (21:00)
[2017-08-26 06:03] LABS: GLUCOMETER DEV NAME(LOC) 3EI B; GLUCOSE,POINT OF CARE 151 MG/DL (70-110)
[2017-08-26] MEDS: LORazepam 2 MG TABLET PO PRN ×3 (06:39→17:07)
[2017-08-26] MEDS: FERROUS SULFATE 325 MG EC TABLET PO SCH ×3 (07:02→16:13)
[2017-08-26] MEDS: LEVOTHYROXINE SODIUM 50 MCG TABLET PO SCH (07:02)
[2017-08-26] MEDS: INSULIN ASPART 100 UNITS/ML SQ PRN ×3 (07:15→18:45)
[2017-08-26 08:30] VITALS: BP 163/114
[2017-08-26] MEDS: GABAPENTIN 400 MG CAPSULE PO SCH ×3 (09:18→16:13)
[2017-08-26] MEDS: OMEPRAZOLE 20 MG CAPSULE PO SCH (09:18)
[2017-08-26] MEDS: FOLIC ACID 1 MG TABLET PO SCH (09:19)
[2017-08-26] MEDS: MULTIVITAMINS WITH MINERALS, THERAPEUTIC TABLET PO SCH (09:19)
[2017-08-26] MEDS: THIAMINE HCL 100 MG TABLET PO SCH ×2 (09:19→16:13)
[2017-08-26] MEDS: MAGNESIUM OXIDE 400 MG TABLET PO SCH ×2 (09:19→16:13)
[2017-08-26] MEDS: ACAMPROSATE CALCIUM 333 MG DR TABLET PO SCH ×3 (09:20→16:13)
[2017-08-26] MEDS: LevETIRAcetam 250 MG TABLET PO SCH ×4 (09:20→20:43)
[2017-08-26] MEDS: MUPIROCIN CALCIUM 2% 22 GM OINTMENT NASAL SCH ×2 (09:20→16:18)
[2017-08-26] MEDS: PROPRANOLOL HCL 10 MG TABLET PO SCH ×3 (09:21→16:17)
[2017-08-26] MEDS: MetFORMIN HCL 500 MG TABLET PO SCH ×4 (09:23→20:46)
[2017-08-26] MEDS: IBUPROFEN 600 MG TABLET PO PRN ×2 (09:24→20:50)
[2017-08-26] MEDS: GuaiFENesin/D-METHORPHAN [SUGAR-FREE] 200-20MG/10 ML SYRUP UDCUP PO PRN (09:26)
[2017-08-26 09:30] VITALS: BP 130/88
[2017-08-26 10:30] VITALS: BP 127/78
[2017-08-26 11:53] LABS: GLUCOMETER DEV NAME(LOC) 3EI B; GLUCOSE,POINT OF CARE 151 MG/DL (70-110)
[2017-08-26 16:21] VITALS: BP 111/83
[2017-08-26 16:32] LABS: GLUCOMETER DEV NAME(LOC) 3EI B; GLUCOSE,POINT OF CARE 254 MG/DL (70-110)
[2017-08-26 17:04] VITALS: BP 128/72
[2017-08-26] MEDS: DIVALPROEX SODIUM 500 MG ER TABLET PO SCH (20:43)
[2017-08-26] MEDS: OLANZapine 10 MG RAPDIS TABLET PO SCH (20:44)
[2017-08-26 20:51] LABS: GLUCOMETER DEV NAME(LOC) 3EI B; GLUCOSE,POINT OF CARE 119 MG/DL (70-110)
[2017-08-26] MEDS: BACITRACIN 28.4 GM OINTMENT TP PRN (21:01)
[2017-08-26] MEDS: ZOLPIDEM TARTRATE 10 MG TABLET PO PRN (21:33)
[2017-08-27 06:18] LABS: GLUCOMETER DEV NAME(LOC) 3EI B; GLUCOSE,POINT OF CARE 135 MG/DL (70-110)
[2017-08-27] MEDS: LEVOTHYROXINE SODIUM 50 MCG TABLET PO SCH (06:28)
[2017-08-27] MEDS: FERROUS SULFATE 325 MG EC TABLET PO SCH ×3 (06:28→16:42)
[2017-08-27] MEDS: GABAPENTIN 400 MG CAPSULE PO SCH ×3 (09:01→16:34)
[2017-08-27] MEDS: OMEPRAZOLE 20 MG CAPSULE PO SCH (09:01)
[2017-08-27] MEDS: FOLIC ACID 1 MG TABLET PO SCH (09:02)
[2017-08-27] MEDS: THIAMINE HCL 100 MG TABLET PO SCH ×2 (09:02→16:34)
[2017-08-27] MEDS: MAGNESIUM OXIDE 400 MG TABLET PO SCH ×2 (09:02→16:34)
[2017-08-27] MEDS: MetFORMIN HCL 500 MG TABLET PO SCH ×4 (09:03→20:08)
[2017-08-27] MEDS: MULTIVITAMINS WITH MINERALS, THERAPEUTIC TABLET PO SCH (09:03)
[2017-08-27] MEDS: LevETIRAcetam 250 MG TABLET PO SCH ×4 (09:04→20:08)
[2017-08-27] MEDS: MUPIROCIN CALCIUM 2% 22 GM OINTMENT NASAL SCH ×2 (09:04→16:41)
[2017-08-27] MEDS: ACAMPROSATE CALCIUM 333 MG DR TABLET PO SCH ×3 (09:04→16:33)
[2017-08-27] MEDS: PROPRANOLOL HCL 10 MG TABLET PO SCH ×3 (09:04→16:37)
[2017-08-27] MEDS: LORazepam 2 MG TABLET PO PRN ×2 (09:07→18:06)
[2017-08-27] MEDS: IBUPROFEN 600 MG TABLET PO PRN ×2 (09:07→17:21)
[2017-08-27 09:10] VITALS: BP 141/85
[2017-08-27 10:09] VITALS: BP 145/84
[2017-08-27] MEDS: INSULIN ASPART 100 UNITS/ML SQ PRN ×2 (12:54→17:23)
[2017-08-27 16:47] LABS: GLUCOMETER DEV NAME(LOC) 3EI B; GLUCOSE,POINT OF CARE 156 MG/DL (70-110)
[2017-08-27] MEDS: DIVALPROEX SODIUM 500 MG ER TABLET PO SCH (20:07)
[2017-08-27] MEDS: OLANZapine 10 MG RAPDIS TABLET PO SCH (20:08)
[2017-08-27 20:12] LABS: GLUCOMETER DEV NAME(LOC) 3EI B; GLUCOSE,POINT OF CARE 194 MG/DL (70-110)
[2017-08-27] MEDS: ZOLPIDEM TARTRATE 10 MG TABLET PO PRN (22:22)
[2017-08-28] MEDS: LEVOTHYROXINE SODIUM 50 MCG TABLET PO SCH (06:56)
[2017-08-28] MEDS: FERROUS SULFATE 325 MG EC TABLET PO SCH ×3 (07:00→17:20)
[2017-08-28] MEDS: MUPIROCIN CALCIUM 2% 22 GM OINTMENT NASAL SCH ×2 (08:56→16:16)
[2017-08-28] MEDS: THIAMINE HCL 100 MG TABLET PO SCH ×2 (08:57→16:17)
[2017-08-28] MEDS: OMEPRAZOLE 20 MG CAPSULE PO SCH (08:57)
[2017-08-28] MEDS: ACAMPROSATE CALCIUM 333 MG DR TABLET PO SCH ×3 (08:57→16:17)
[2017-08-28] MEDS: IBUPROFEN 600 MG TABLET PO PRN (08:57)
[2017-08-28] MEDS: MULTIVITAMINS WITH MINERALS, THERAPEUTIC TABLET PO SCH (08:58)
[2017-08-28] MEDS: GABAPENTIN 400 MG CAPSULE PO SCH ×3 (08:58→16:16)
[2017-08-28] MEDS: LevETIRAcetam 250 MG TABLET PO SCH ×4 (08:58→20:03)
[2017-08-28] MEDS: FOLIC ACID 1 MG TABLET PO SCH (08:58)
[2017-08-28] MEDS: MetFORMIN HCL 500 MG TABLET PO SCH ×4 (08:58→20:04)
[2017-08-28] MEDS: LORazepam 2 MG TABLET PO PRN ×2 (08:59→16:17)
[2017-08-28] MEDS: PROPRANOLOL HCL 10 MG TABLET PO SCH ×3 (08:59→16:17)
[2017-08-28] MEDS: MAGNESIUM OXIDE 400 MG TABLET PO SCH ×2 (08:59→16:17)
[2017-08-28 09:00] VITALS: BP 112/81
[2017-08-28 10:00] VITALS: BP 124/82
[2017-08-28 12:07] LABS: GLUCOMETER DEV NAME(LOC) 3EI B; GLUCOSE,POINT OF CARE 186 MG/DL (70-110)
[2017-08-28] MEDS: INSULIN ASPART 100 UNITS/ML SQ PRN ×3 (12:12→21:39)
[2017-08-28 16:38] LABS: GLUCOMETER DEV NAME(LOC) 3EI B; GLUCOSE,POINT OF CARE 222 MG/DL (70-110)
[2017-08-28 18:00] VITALS: BP 122/74
[2017-08-28] MEDS: OLANZapine 10 MG RAPDIS TABLET PO SCH (20:04)
[2017-08-28] MEDS: DIVALPROEX SODIUM 500 MG ER TABLET PO SCH (20:04)
[2017-08-28 20:17] LABS: GLUCOMETER DEV NAME(LOC) 3EI B; GLUCOSE,POINT OF CARE 147 MG/DL (70-110)
[2017-08-28] MEDS: ZOLPIDEM TARTRATE 10 MG TABLET PO PRN (21:38)
[2017-08-29] MEDS: LORazepam 2 MG TABLET PO PRN ×2 (05:49→16:32)
[2017-08-29] MEDS: IBUPROFEN 600 MG TABLET PO PRN ×2 (05:49→13:12)
[2017-08-29 05:52] LABS: GLUCOMETER DEV NAME(LOC) 3EI B; GLUCOSE,POINT OF CARE 166 MG/DL (70-110)
[2017-08-29 05:56] VITALS: BP 140/60
[2017-08-29] MEDS: INSULIN ASPART 100 UNITS/ML SQ PRN ×3 (06:49→17:37)
[2017-08-29] MEDS: LEVOTHYROXINE SODIUM 50 MCG TABLET PO SCH (06:49)
[2017-08-29] MEDS: FERROUS SULFATE 325 MG EC TABLET PO SCH ×3 (06:50→16:31)
[2017-08-29 08:00] VITALS: BP 126/70
[2017-08-29] MEDS: ACAMPROSATE CALCIUM 333 MG DR TABLET PO SCH ×3 (09:35→16:30)
[2017-08-29] MEDS: BACITRACIN 28.4 GM OINTMENT TP PRN (09:35)
[2017-08-29] MEDS: MUPIROCIN CALCIUM 2% 22 GM OINTMENT NASAL SCH ×2 (09:35→16:30)
[2017-08-29] MEDS: MULTIVITAMINS WITH MINERALS, THERAPEUTIC TABLET PO SCH (09:35)
[2017-08-29] MEDS: MAGNESIUM OXIDE 400 MG TABLET PO SCH ×2 (09:36→16:30)
[2017-08-29] MEDS: GABAPENTIN 400 MG CAPSULE PO SCH ×3 (09:36→16:30)
[2017-08-29] MEDS: OMEPRAZOLE 20 MG CAPSULE PO SCH (09:36)
[2017-08-29] MEDS: MetFORMIN HCL 500 MG TABLET PO SCH ×4 (09:36→21:00)
[2017-08-29] MEDS: LevETIRAcetam 250 MG TABLET PO SCH ×4 (09:36→21:35)
[2017-08-29] MEDS: FOLIC ACID 1 MG TABLET PO SCH (09:36)
[2017-08-29] MEDS: PROPRANOLOL HCL 10 MG TABLET PO SCH ×3 (09:36→16:30)
[2017-08-29] MEDS: THIAMINE HCL 100 MG TABLET PO SCH (09:36)
[2017-08-29] MEDS: GuaiFENesin/D-METHORPHAN [SUGAR-FREE] 200-20MG/10 ML SYRUP UDCUP PO PRN (09:40)
[2017-08-29 13:08] LABS: GLUCOMETER DEV NAME(LOC) 3EI B; GLUCOSE,POINT OF CARE 187 MG/DL (70-110)
[2017-08-29] MEDS: LOPERAMIDE HCL 2 MG CAPSULE PO PRN (13:12)
[2017-08-29 16:46] VITALS: BP 136/96
[2017-08-29] MEDS: DIVALPROEX SODIUM 500 MG ER TABLET PO SCH (21:00)
[2017-08-29] MEDS: OLANZapine 10 MG RAPDIS TABLET PO SCH (21:00)
[2017-08-29 22:43] LABS: GLUCOMETER DEV NAME(LOC) 3EI B; GLUCOSE,POINT OF CARE 177 MG/DL (70-110)
[2017-08-30 01:38] VITALS: BP 149/69
[2017-08-30 05:37] LABS: GLUCOMETER DEV NAME(LOC) 3EI B; GLUCOSE,POINT OF CARE 138 MG/DL (70-110)
[2017-08-30] MEDS: FERROUS SULFATE 325 MG EC TABLET PO SCH ×3 (06:42→17:02)
[2017-08-30] MEDS: LEVOTHYROXINE SODIUM 50 MCG TABLET PO SCH (06:42)
[2017-08-30] MEDS: MUPIROCIN CALCIUM 2% 22 GM OINTMENT NASAL SCH ×2 (08:01→16:56)
[2017-08-30] MEDS: OMEPRAZOLE 20 MG CAPSULE PO SCH (08:01)
[2017-08-30] MEDS: ACAMPROSATE CALCIUM 333 MG DR TABLET PO SCH ×3 (08:01→16:56)
[2017-08-30] MEDS: IBUPROFEN 600 MG TABLET PO PRN ×2 (08:02→16:54)
[2017-08-30] MEDS: LORazepam 2 MG TABLET PO PRN ×2 (08:02→16:54)
[2017-08-30] MEDS: MULTIVITAMINS WITH MINERALS, THERAPEUTIC TABLET PO SCH (08:02)
[2017-08-30] MEDS: GABAPENTIN 400 MG CAPSULE PO SCH ×3 (08:02→16:55)
[2017-08-30] MEDS: MetFORMIN HCL 500 MG TABLET PO SCH ×4 (08:02→20:17)
[2017-08-30] MEDS: MAGNESIUM OXIDE 400 MG TABLET PO SCH ×2 (08:03→16:54)
[2017-08-30] MEDS: PROPRANOLOL HCL 10 MG TABLET PO SCH ×3 (08:03→16:55)
[2017-08-30] MEDS: LevETIRAcetam 250 MG TABLET PO SCH ×4 (08:03→20:17)
[2017-08-30 08:07] VITALS: BP 131/99
[2017-08-30 08:46] VITALS: BP 131/82
[2017-08-30 09:07] VITALS: BP 166/87
[2017-08-30 11:27] LABS: GLUCOMETER DEV NAME(LOC) 3EI B; GLUCOSE,POINT OF CARE 211 MG/DL (70-110)
[2017-08-30] MEDS: INSULIN ASPART 100 UNITS/ML SQ PRN ×3 (11:33→22:01)
[2017-08-30] MEDS: LOPERAMIDE HCL 2 MG CAPSULE PO PRN (15:14)
[2017-08-30 16:51] VITALS: BP 135/99
[2017-08-30 17:08] LABS: GLUCOMETER DEV NAME(LOC) 3EI B; GLUCOSE,POINT OF CARE 142 MG/DL (70-110)
[2017-08-30] MEDS: OLANZapine 10 MG RAPDIS TABLET PO SCH (20:17)
[2017-08-30] MEDS: DIVALPROEX SODIUM 500 MG ER TABLET PO SCH (20:17)
[2017-08-30 20:28] LABS: GLUCOMETER DEV NAME(LOC) 3EI B; GLUCOSE,POINT OF CARE 186 MG/DL (70-110)
[2017-08-30] MEDS: ZOLPIDEM TARTRATE 10 MG TABLET PO PRN (21:01)
[2017-08-30] MEDS: NYSTATIN 30 GM CREAM TP SCH (21:24)
[2017-08-31 06:28] LABS: GLUCOMETER DEV NAME(LOC) 3EI B; GLUCOSE,POINT OF CARE 157 MG/DL (70-110)
[2017-08-31] MEDS: LEVOTHYROXINE SODIUM 50 MCG TABLET PO SCH (06:36)
[2017-08-31] MEDS: FERROUS SULFATE 325 MG EC TABLET PO SCH ×3 (06:36→17:17)
[2017-08-31] MEDS: INSULIN ASPART 100 UNITS/ML SQ PRN ×4 (06:52→21:11)
[2017-08-31] MEDS: LORazepam 2 MG TABLET PO PRN ×2 (07:10→14:08)
[2017-08-31] MEDS: OMEPRAZOLE 20 MG CAPSULE PO SCH (08:46)
[2017-08-31] MEDS: GABAPENTIN 400 MG CAPSULE PO SCH ×3 (08:46→17:20)
[2017-08-31] MEDS: MetFORMIN HCL 500 MG TABLET PO SCH ×4 (08:46→20:22)
[2017-08-31] MEDS: LevETIRAcetam 250 MG TABLET PO SCH ×4 (08:47→20:23)
[2017-08-31] MEDS: MAGNESIUM OXIDE 400 MG TABLET PO SCH ×2 (08:47→17:20)
[2017-08-31] MEDS: MULTIVITAMINS WITH MINERALS, THERAPEUTIC TABLET PO SCH (08:47)
[2017-08-31] MEDS: ACAMPROSATE CALCIUM 333 MG DR TABLET PO SCH ×3 (08:47→17:19)
[2017-08-31] MEDS: PROPRANOLOL HCL 10 MG TABLET PO SCH ×3 (08:48→17:20)
[2017-08-31] MEDS: IBUPROFEN 600 MG TABLET PO PRN (08:48)
[2017-08-31 08:49] VITALS: BP 132/99
[2017-08-31] MEDS: NYSTATIN 30 GM CREAM TP SCH ×2 (08:49→17:20)
[2017-08-31 09:30] VITALS: BP 132/99
[2017-08-31 09:49] VITALS: BP 121/79
[2017-08-31 10:49] VITALS: BP 121/79
[2017-08-31 11:28] LABS: GLUCOMETER DEV NAME(LOC) 3EI B; GLUCOSE,POINT OF CARE 185 MG/DL (70-110)
[2017-08-31] MEDS: LOPERAMIDE HCL 2 MG CAPSULE PO PRN (17:21)
[2017-08-31 17:29] LABS: GLUCOMETER DEV NAME(LOC) 3EI B; GLUCOSE,POINT OF CARE 169 MG/DL (70-110)
[2017-08-31] MEDS: DIVALPROEX SODIUM 500 MG ER TABLET PO SCH (20:22)
[2017-08-31] MEDS: ZOLPIDEM TARTRATE 10 MG TABLET PO PRN (20:23)
[2017-08-31] MEDS: OLANZapine 10 MG RAPDIS TABLET PO SCH (20:23)
[2017-08-31 20:33] LABS: GLUCOMETER DEV NAME(LOC) 3EI B; GLUCOSE,POINT OF CARE 162 MG/DL (70-110)
[2017-08-31 20:50] VITALS: BP 123/73
[2017-09-01] MEDS: LORazepam 2 MG TABLET PO PRN ×2 (06:17→13:04)
[2017-09-01 06:23] LABS: GLUCOMETER DEV NAME(LOC) 3EI B; GLUCOSE,POINT OF CARE 124 MG/DL (70-110)
[2017-09-01 06:26] VITALS: BP 123/70
[2017-09-01] MEDS: FERROUS SULFATE 325 MG EC TABLET PO SCH ×3 (06:46→16:57)
[2017-09-01] MEDS: LEVOTHYROXINE SODIUM 50 MCG TABLET PO SCH (06:51)
[2017-09-01] MEDS: ACAMPROSATE CALCIUM 333 MG DR TABLET PO SCH ×3 (09:45→16:54)
[2017-09-01 09:48] VITALS: BP 150/77
[2017-09-01] MEDS: IBUPROFEN 600 MG TABLET PO PRN (09:48)
[2017-09-01] MEDS: PROPRANOLOL HCL 10 MG TABLET PO SCH ×3 (09:49→16:54)
[2017-09-01] MEDS: MetFORMIN HCL 500 MG TABLET PO SCH ×4 (09:49→20:14)
[2017-09-01] MEDS: LevETIRAcetam 250 MG TABLET PO SCH ×4 (09:50→20:16)
[2017-09-01] MEDS: OMEPRAZOLE 20 MG CAPSULE PO SCH (09:50)
[2017-09-01] MEDS: MAGNESIUM OXIDE 400 MG TABLET PO SCH ×2 (09:50→16:56)
[2017-09-01] MEDS: GABAPENTIN 400 MG CAPSULE PO SCH ×3 (09:50→16:56)
[2017-09-01] MEDS: NYSTATIN 30 GM CREAM TP SCH ×2 (09:51→16:57)
[2017-09-01] MEDS: MULTIVITAMINS WITH MINERALS, THERAPEUTIC TABLET PO SCH (09:51)
[2017-09-01 11:33] LABS: GLUCOMETER DEV NAME(LOC) 3EI B; GLUCOSE,POINT OF CARE 151 MG/DL (70-110)
[2017-09-01] MEDS: INSULIN ASPART 100 UNITS/ML SQ PRN ×3 (11:51→20:22)
[2017-09-01 13:10] VITALS: BP 122/87
[2017-09-01 16:52] VITALS: BP 131/73
[2017-09-01 16:59] LABS: GLUCOMETER DEV NAME(LOC) 3EI B; GLUCOSE,POINT OF CARE 165 MG/DL (70-110)
[2017-09-01] MEDS: DIVALPROEX SODIUM 500 MG ER TABLET PO SCH (20:15)
[2017-09-01] MEDS: OLANZapine 10 MG RAPDIS TABLET PO SCH (20:15)
[2017-09-01] MEDS: LOPERAMIDE HCL 2 MG CAPSULE PO PRN (20:16)
[2017-09-01 20:28] LABS: GLUCOMETER DEV NAME(LOC) 3EI B; GLUCOSE,POINT OF CARE 193 MG/DL (70-110)
[2017-09-01] MEDS: ZOLPIDEM TARTRATE 10 MG TABLET PO PRN (20:53)
[2017-09-02] MEDS: LEVOTHYROXINE SODIUM 50 MCG TABLET PO SCH (07:00)
[2017-09-02] MEDS: FERROUS SULFATE 325 MG EC TABLET PO SCH ×3 (07:01→16:36)
[2017-09-02 09:00] VITALS: BP 128/104
[2017-09-02] MEDS: NYSTATIN 30 GM CREAM TP SCH ×2 (09:00→16:40)
[2017-09-02] MEDS: ACAMPROSATE CALCIUM 333 MG DR TABLET PO SCH ×3 (09:01→16:39)
[2017-09-02] MEDS: MetFORMIN HCL 500 MG TABLET PO SCH ×4 (09:03→20:08)
[2017-09-02] MEDS: MAGNESIUM OXIDE 400 MG TABLET PO SCH ×2 (09:03→16:39)
[2017-09-02] MEDS: LOPERAMIDE HCL 2 MG CAPSULE PO PRN (09:03)
[2017-09-02] MEDS: GABAPENTIN 400 MG CAPSULE PO SCH ×3 (09:03→16:39)
[2017-09-02] MEDS: LevETIRAcetam 250 MG TABLET PO SCH ×4 (09:03→20:09)
[2017-09-02] MEDS: OMEPRAZOLE 20 MG CAPSULE PO SCH (09:04)
[2017-09-02] MEDS: MULTIVITAMINS WITH MINERALS, THERAPEUTIC TABLET PO SCH (09:04)
[2017-09-02] MEDS: PROPRANOLOL HCL 10 MG TABLET PO SCH ×3 (09:48→16:40)
[2017-09-02 11:39] LABS: GLUCOMETER DEV NAME(LOC) 3EI B; GLUCOSE,POINT OF CARE 166 MG/DL (70-110)
[2017-09-02] MEDS: INSULIN ASPART 100 UNITS/ML SQ PRN ×3 (11:51→21:25)
[2017-09-02] MEDS: LORazepam 2 MG TABLET PO PRN ×2 (13:14→18:13)
[2017-09-02] MEDS: CYCLOBENZAPRINE HCL 10 MG TABLET PO SCH ×2 (13:29→16:39)
[2017-09-02 16:15] VITALS: BP 120/87
[2017-09-02 16:48] LABS: GLUCOMETER DEV NAME(LOC) 3EI B; GLUCOSE,POINT OF CARE 179 MG/DL (70-110)
[2017-09-02] MEDS: DIVALPROEX SODIUM 500 MG ER TABLET PO SCH (20:08)
[2017-09-02] MEDS: OLANZapine 10 MG RAPDIS TABLET PO SCH (20:09)
[2017-09-02] MEDS: ZOLPIDEM TARTRATE 10 MG TABLET PO PRN (20:09)
[2017-09-02 20:33] LABS: GLUCOMETER DEV NAME(LOC) 3EI B; GLUCOSE,POINT OF CARE 156 MG/DL (70-110)
[2017-09-03 05:39] LABS: GLUCOMETER DEV NAME(LOC) 3EI B; GLUCOSE,POINT OF CARE 157 MG/DL (70-110)
[2017-09-03] MEDS: LORazepam 2 MG TABLET PO PRN ×3 (06:29→18:10)
[2017-09-03] MEDS: FERROUS SULFATE 325 MG EC TABLET PO SCH ×3 (07:02→16:22)
[2017-09-03] MEDS: LEVOTHYROXINE SODIUM 50 MCG TABLET PO SCH (07:02)
[2017-09-03] MEDS: INSULIN ASPART 100 UNITS/ML SQ PRN ×4 (07:08→21:26)
[2017-09-03] MEDS: NYSTATIN 30 GM CREAM TP SCH ×2 (09:00→17:00)
[2017-09-03] MEDS: CYCLOBENZAPRINE HCL 10 MG TABLET PO SCH ×3 (09:02→16:23)
[2017-09-03] MEDS: ACAMPROSATE CALCIUM 333 MG DR TABLET PO SCH ×3 (09:02→16:22)
[2017-09-03] MEDS: LevETIRAcetam 250 MG TABLET PO SCH ×4 (09:03→20:40)
[2017-09-03] MEDS: MetFORMIN HCL 500 MG TABLET PO SCH ×4 (09:03→20:40)
[2017-09-03] MEDS: PROPRANOLOL HCL 10 MG TABLET PO SCH ×3 (09:03→17:00)
[2017-09-03] MEDS: OMEPRAZOLE 20 MG CAPSULE PO SCH (09:04)
[2017-09-03] MEDS: GABAPENTIN 400 MG CAPSULE PO SCH ×3 (09:04→16:22)
[2017-09-03] MEDS: MAGNESIUM OXIDE 400 MG TABLET PO SCH ×2 (09:04→16:22)
[2017-09-03] MEDS: MULTIVITAMINS WITH MINERALS, THERAPEUTIC TABLET PO SCH (09:04)
[2017-09-03 09:09] VITALS: BP 143/86
[2017-09-03] MEDS: IBUPROFEN 600 MG TABLET PO PRN (09:09)
[2017-09-03 11:28] LABS: GLUCOMETER DEV NAME(LOC) 3EI B; GLUCOSE,POINT OF CARE 173 MG/DL (70-110)
[2017-09-03 16:38] LABS: GLUCOMETER DEV NAME(LOC) 3EI B; GLUCOSE,POINT OF CARE 149 MG/DL (70-110)
[2017-09-03 17:39] VITALS: BP 107/73
[2017-09-03 20:07] LABS: GLUCOMETER DEV NAME(LOC) 3EI B; GLUCOSE,POINT OF CARE 170 MG/DL (70-110)
[2017-09-03] MEDS: DIVALPROEX SODIUM 500 MG ER TABLET PO SCH (20:40)
[2017-09-03] MEDS: OLANZapine 10 MG RAPDIS TABLET PO SCH (20:40)
[2017-09-03] MEDS: ZOLPIDEM TARTRATE 10 MG TABLET PO PRN (21:16)
[2017-09-04] MEDS ORDERED: DIVA500T52 PO ×2 (02:32→08:44)
[2017-09-04] MEDS ORDERED: LEVE250T55 PO ×2 (02:33→08:48)
[2017-09-04] MEDS ORDERED: METF500T4 PO ×2 (02:54→08:49)
[2017-09-04] MEDS: LORazepam 2 MG TABLET PO PRN (05:17)
[2017-09-04 05:53] LABS: GLUCOMETER DEV NAME(LOC) 3EI B; GLUCOSE,POINT OF CARE 146 MG/DL (70-110)
[2017-09-04] MEDS: LEVOTHYROXINE SODIUM 50 MCG TABLET PO SCH (06:50)
[2017-09-04] MEDS: FERROUS SULFATE 325 MG EC TABLET PO SCH (06:50)
[2017-09-04] MEDS: INSULIN ASPART 100 UNITS/ML SQ PRN (07:03)
[2017-09-04] MEDS: ACAMPROSATE CALCIUM 333 MG DR TABLET PO SCH (08:29)
[2017-09-04] MEDS: CYCLOBENZAPRINE HCL 10 MG TABLET PO SCH (08:29)
[2017-09-04 08:30] VITALS: BP 127/93
[2017-09-04] MEDS: MULTIVITAMINS WITH MINERALS, THERAPEUTIC TABLET PO SCH (08:30)
[2017-09-04] MEDS: LevETIRAcetam 250 MG TABLET PO SCH (08:30)
[2017-09-04] MEDS: MetFORMIN HCL 500 MG TABLET PO SCH (08:30)
[2017-09-04] MEDS: OMEPRAZOLE 20 MG CAPSULE PO SCH (08:30)
[2017-09-04] MEDS: PROPRANOLOL HCL 10 MG TABLET PO SCH (08:30)
[2017-09-04] MEDS: MAGNESIUM OXIDE 400 MG TABLET PO SCH (08:31)
[2017-09-04] MEDS: GABAPENTIN 400 MG CAPSULE PO SCH (08:31)
[2017-09-04] MEDS: NYSTATIN 30 GM CREAM TP SCH (08:31)
[2017-09-04] MEDS ORDERED: NYST30CR9 TP ×2 (08:33→08:49)
[2017-09-04] MEDS ORDERED: MAGOX PO ×2 (08:33→08:48)
[2017-09-04] MEDS ORDERED: FERR-89 PO ×2 (08:34→08:47)
[2017-09-04] MEDS ORDERED: CYCL10B PO (08:35)
[2017-09-04] MEDS ORDERED: ACAM333T7 PO (08:44)
[2017-09-04] MEDS ORDERED: OLAN10TA6 PO (08:45)
[2017-09-04] MEDS ORDERED: PROP10TA73 PO (08:45)
[2017-09-04] MEDS ORDERED: CYCL10 PO (08:47)
[2017-09-04] MEDS ORDERED: GABA-533 PO (08:47)
[2017-09-04] MEDS ORDERED: LEVO50TA11 PO (08:48)
[2017-09-04] MEDS ORDERED: MV-M1TAB2 PO (08:49)
[2017-09-04] MEDS ORDERED: OMEP20 PO (08:49)
[2017-09-04 11:49] LABS: GLUCOMETER DEV NAME(LOC) 3EI B; GLUCOSE,POINT OF CARE 112 MG/DL (70-110)
== END 2017-09-04 11:50 | disposition home or self-care (01) | DRG 885 ==
LOC: EMS 19:54 → 3EI 22:43
PROVIDERS: ADMIT Psychiatry & Neurology Psychiatry; ATTEND Psychiatry & Neurology Psychiatry
DX: F25.9 Schizoaffective disorder, unspecified (principal); Z93.3 Colostomy status; E11.65 Type 2 diabetes mellitus with hyperglycemia; R45.851 Suicidal ideations; E83.42 Hypomagnesemia; F22 Delusional disorders; D64.9 Anemia, unspecified; B37.9 Candidiasis, unspecified; S00.11XA Contusion of right eyelid and periocular area, initial encounter; G40.909 Epilepsy, unspecified, not intractable, without status epilepticus; J44.9 Chronic obstructive pulmonary disease, unspecified; M19.90 Unspecified osteoarthritis, unspecified site; K21.9 Gastro-esophageal reflux disease without esophagitis; I10 Essential (primary) hypertension; F17.200 Nicotine dependence, unspecified, uncomplicated; R21 Rash and other nonspecific skin eruption; F31.9 Bipolar disorder, unspecified; Z96.653 Presence of artificial knee joint, bilateral; E03.9 Hypothyroidism, unspecified; Z91.19 Patient's noncompliance with other medical treatment and regimen; E66.9 Obesity, unspecified; Z98.891 History of uterine scar from previous surgery; G89.29 Other chronic pain; G47.00 Insomnia, unspecified; Z71.6 Tobacco abuse counseling; S00.12XA Contusion of left eyelid and periocular area, initial encounter; X58.XXXA Exposure to other specified factors, initial encounter; Y93.89 Activity, other specified; Y92.89 Other specified places as the place of occurrence of the external cause; Y99.8 Other external cause status; Z22.322 Carrier or suspected carrier of Methicillin resistant Staphylococcus aureus; Z79.899 Other long term (current) drug therapy; Z95.9 Presence of cardiac and vascular implant and graft, unspecified; Z56.0 Unemployment, unspecified; Z59.0 Homelessness; Z88.5 Allergy status to narcotic agent; Z68.32 Body mass index [BMI] 32.0-32.9, adult
CPT/HCPCS: 71020; 82962; 83735; 84100; 85007; 87081; 99285; G0480; G0482

== ENCOUNTER 2017-09-11 10:21 | Inpatient (IN) | payer MEDICARE, MEDICAID ==
[~2017-09-11] VITALS: Ht 162.6 cm; Wt 86.1 kg
[~2017-09-11 10:21] MED LIST changes: +CYCL10 PO; +FERR-89 PO; -FLUO-191 PO; +LEVE250T55 PO; -LEVE500T53 PO; -LEVO50 PO; +LEVO50TA11 PO; +MAGOX PO; +MV-M1TAB2 PO; +NYST30CR9 TP; -OLAN10TA22 PO; +OLAN10TA6 PO; -PROP10TA72 PO; +PROP10TA73 PO
[2017-09-11] MEDS ORDERED: OLANZapine 5 MG RAPDIS TABLET PO PRN (10:30)
[2017-09-11] MEDS ORDERED: HydrOXYzine PAMOATE 50 MG CAPSULE PO PRN (11:45)
[2017-09-11] MEDS ORDERED: PROMETHAZINE HCL 25 MG TABLET PO PRN (11:45)
[2017-09-11] MEDS ORDERED: ACETAMINOPHEN 325 MG TABLET PO PRN (11:45)
[2017-09-11] MEDS ORDERED: MAGNESIUM HYDROXIDE SUSPENSION 30 ML UDCUP PO PRN (11:45)
[2017-09-11] MEDS ORDERED: MAG HYDROX/AL HYDROX/SIMETH ES 30 ML SUSPENSION UDCUP PO PRN (11:45)
[2017-09-11] MEDS: FERROUS SULFATE 325 MG EC TABLET PO SCH ×2 (12:00→16:22)
[2017-09-11 14:19] VITALS: BP 144/84
[2017-09-11 14:22] VITALS: BP 144/84
[2017-09-11] MEDS: ACAMPROSATE CALCIUM 333 MG DR TABLET PO SCH ×2 (14:25→16:19)
[2017-09-11] MEDS: CYCLOBENZAPRINE HCL 10 MG TABLET PO SCH ×2 (14:26→16:17)
[2017-09-11] MEDS: PROPRANOLOL HCL 10 MG TABLET PO SCH ×2 (14:27→16:18)
[2017-09-11] MEDS: LevETIRAcetam 250 MG TABLET PO SCH ×3 (14:27→20:26)
[2017-09-11] MEDS: GABAPENTIN 400 MG CAPSULE PO SCH ×2 (14:31→16:18)
[2017-09-11] MEDS: MetFORMIN HCL 500 MG TABLET PO SCH ×3 (14:31→20:25)
[2017-09-11] MEDS: LORazepam 2 MG TABLET PO PRN (14:32)
[2017-09-11] MEDS: LOPERAMIDE HCL 2 MG CAPSULE PO PRN (14:38)
[2017-09-11] MEDS: OMEPRAZOLE 10 MG CAPSULE PO SCH (16:19)
[2017-09-11] MEDS: MAGNESIUM OXIDE 400 MG TABLET PO SCH (16:19)
[2017-09-11] MEDS: THIAMINE HCL 100 MG TABLET PO SCH (16:22)
[2017-09-11 16:30] VITALS: BP 144/77
[2017-09-11] MEDS: DIVALPROEX SODIUM 500 MG ER TABLET PO SCH (20:25)
[2017-09-11] MEDS: OLANZapine 10 MG RAPDIS TABLET PO SCH (20:26)
[2017-09-11] MEDS: ZOLPIDEM TARTRATE 10 MG TABLET PO PRN (20:27)
[2017-09-12] MEDS: LORazepam 2 MG TABLET PO PRN ×4 (00:31→16:05)
[2017-09-12 01:33] VITALS: BP 145/98
[2017-09-12] MEDS: LEVOTHYROXINE SODIUM 50 MCG TABLET PO SCH (06:58)
[2017-09-12] MEDS: FERROUS SULFATE 325 MG EC TABLET PO SCH ×3 (06:58→16:55)
[2017-09-12] MEDS: MetFORMIN HCL 500 MG TABLET PO SCH ×5 (06:59→21:15)
[2017-09-12 08:00] VITALS: BP 140/92
[2017-09-12] MEDS: THIAMINE HCL 100 MG TABLET PO SCH ×2 (08:31→16:03)
[2017-09-12] MEDS: MULTIVITAMINS WITH MINERALS, THERAPEUTIC TABLET PO SCH ×2 (08:31→08:35)
[2017-09-12] MEDS: CYCLOBENZAPRINE HCL 10 MG TABLET PO SCH ×3 (08:31→16:55)
[2017-09-12] MEDS: OMEPRAZOLE 10 MG CAPSULE PO SCH ×2 (08:31→16:04)
[2017-09-12] MEDS: ACAMPROSATE CALCIUM 333 MG DR TABLET PO SCH ×3 (08:31→16:03)
[2017-09-12] MEDS: PROPRANOLOL HCL 10 MG TABLET PO SCH ×3 (08:32→16:04)
[2017-09-12] MEDS: FOLIC ACID 1 MG TABLET PO SCH (08:32)
[2017-09-12] MEDS: LevETIRAcetam 250 MG TABLET PO SCH ×5 (08:32→21:15)
[2017-09-12] MEDS: GABAPENTIN 400 MG CAPSULE PO SCH ×3 (08:32→16:05)
[2017-09-12] MEDS: MAGNESIUM OXIDE 400 MG TABLET PO SCH ×2 (08:32→16:03)
[2017-09-12 12:00] VITALS: BP 157/94
[2017-09-12 15:09] LABS: GLUCOMETER DEV NAME(LOC) 3EX 1; GLUCOSE,POINT OF CARE 236 MG/DL (70-110)
[2017-09-12] MEDS: OLANZapine 10 MG RAPDIS TABLET PO SCH ×2 (21:00→21:15)
[2017-09-12] MEDS: DIVALPROEX SODIUM 500 MG ER TABLET PO SCH ×2 (21:00→21:15)
[2017-09-12 22:09] VITALS: BP 135/85
[2017-09-13 02:05] VITALS: BP 146/95
[2017-09-13] MEDS: LEVOTHYROXINE SODIUM 50 MCG TABLET PO SCH (07:00)
[2017-09-13] MEDS: FERROUS SULFATE 325 MG EC TABLET PO SCH ×3 (07:29→17:07)
[2017-09-13] MEDS: MetFORMIN HCL 500 MG TABLET PO SCH ×4 (07:29→21:08)
[2017-09-13] MEDS: GABAPENTIN 400 MG CAPSULE PO SCH ×3 (07:58→17:00)
[2017-09-13] MEDS: MULTIVITAMINS WITH MINERALS, THERAPEUTIC TABLET PO SCH ×3 (07:58→09:36)
[2017-09-13] MEDS: ACAMPROSATE CALCIUM 333 MG DR TABLET PO SCH ×3 (07:59→17:09)
[2017-09-13] MEDS: LevETIRAcetam 250 MG TABLET PO SCH ×4 (07:59→21:07)
[2017-09-13] MEDS: OMEPRAZOLE 10 MG CAPSULE PO SCH ×2 (07:59→17:07)
[2017-09-13] MEDS: MAGNESIUM OXIDE 400 MG TABLET PO SCH ×2 (08:00→17:07)
[2017-09-13] MEDS: CYCLOBENZAPRINE HCL 10 MG TABLET PO SCH ×3 (08:01→17:08)
[2017-09-13] MEDS: THIAMINE HCL 100 MG TABLET PO SCH ×2 (08:01→17:09)
[2017-09-13] MEDS: FOLIC ACID 1 MG TABLET PO SCH (08:02)
[2017-09-13] MEDS: PROPRANOLOL HCL 10 MG TABLET PO SCH ×3 (08:03→17:08)
[2017-09-13] MEDS: LORazepam 2 MG TABLET PO PRN ×2 (08:04→12:14)
[2017-09-13 08:48] VITALS: BP 171/109
[2017-09-13] MEDS: GuaiFENesin/D-METHORPHAN [SUGAR-FREE] 200-20MG/10 ML SYRUP UDCUP PO PRN ×2 (09:49→18:25)
[2017-09-13] MEDS: IBUPROFEN 800 MG TABLET PO PRN (09:51)
[2017-09-13 09:59] VITALS: BP 171/109
[2017-09-13 10:59] VITALS: BP 146/89
[2017-09-13] MEDS ORDERED: DEXTROSE 50%-WATER 25 GM/50 ML SYRINGE IVP PRN (11:45)
[2017-09-13 11:52] LABS: GLUCOMETER DEV NAME(LOC) 3EX 1; GLUCOSE,POINT OF CARE 192 MG/DL (70-110)
[2017-09-13] MEDS: INSULIN ASPART 100 UNITS/ML SQ PRN ×3 (11:55→21:20)
[2017-09-13 17:23] LABS: GLUCOMETER DEV NAME(LOC) 3EX 1; GLUCOSE,POINT OF CARE 169 MG/DL (70-110)
[2017-09-13 17:44] VITALS: BP 136/88
[2017-09-13] MEDS: DIVALPROEX SODIUM 500 MG ER TABLET PO SCH (21:07)
[2017-09-13] MEDS: OLANZapine 10 MG RAPDIS TABLET PO SCH (21:08)
[2017-09-13 21:22] LABS: GLUCOMETER DEV NAME(LOC) 3EX 1; GLUCOSE,POINT OF CARE 307 MG/DL (70-110)
[2017-09-14] MEDS: LEVOTHYROXINE SODIUM 50 MCG TABLET PO SCH (07:00)
[2017-09-14] MEDS: MetFORMIN HCL 500 MG TABLET PO SCH ×4 (07:22→21:04)
[2017-09-14] MEDS: FERROUS SULFATE 325 MG EC TABLET PO SCH ×3 (07:23→17:51)
[2017-09-14] MEDS: GABAPENTIN 400 MG CAPSULE PO SCH ×3 (08:10→16:11)
[2017-09-14] MEDS: MULTIVITAMINS WITH MINERALS, THERAPEUTIC TABLET PO SCH (08:10)
[2017-09-14] MEDS: ACAMPROSATE CALCIUM 333 MG DR TABLET PO SCH ×3 (08:11→16:10)
[2017-09-14] MEDS: LevETIRAcetam 250 MG TABLET PO SCH ×4 (08:11→21:04)
[2017-09-14] MEDS: PROPRANOLOL HCL 10 MG TABLET PO SCH ×3 (08:11→16:11)
[2017-09-14] MEDS: FOLIC ACID 1 MG TABLET PO SCH (08:12)
[2017-09-14] MEDS: THIAMINE HCL 100 MG TABLET PO SCH ×2 (08:12→16:07)
[2017-09-14] MEDS: CYCLOBENZAPRINE HCL 10 MG TABLET PO SCH ×3 (08:12→16:08)
[2017-09-14] MEDS: MAGNESIUM OXIDE 400 MG TABLET PO SCH ×2 (08:12→16:08)
[2017-09-14] MEDS: OMEPRAZOLE 10 MG CAPSULE PO SCH ×2 (08:14→16:12)
[2017-09-14] MEDS: LORazepam 2 MG TABLET PO PRN ×2 (08:15→16:14)
[2017-09-14] MEDS: GuaiFENesin/D-METHORPHAN [SUGAR-FREE] 200-20MG/10 ML SYRUP UDCUP PO PRN ×2 (08:48→21:07)
[2017-09-14 09:38] VITALS: BP 112/86
[2017-09-14 11:49] LABS: GLUCOMETER DEV NAME(LOC) 3EX 1; GLUCOSE,POINT OF CARE 193 MG/DL (70-110)
[2017-09-14] MEDS: INSULIN ASPART 100 UNITS/ML SQ PRN ×3 (12:01→21:17)
[2017-09-14 16:47] LABS: GLUCOMETER DEV NAME(LOC) 3EX 1; GLUCOSE,POINT OF CARE 204 MG/DL (70-110)
[2017-09-14 17:00] VITALS: BP 150/96
[2017-09-14] MEDS: LOPERAMIDE HCL 2 MG CAPSULE PO PRN (18:32)
[2017-09-14] MEDS: OLANZapine 10 MG RAPDIS TABLET PO SCH (21:04)
[2017-09-14] MEDS: DIVALPROEX SODIUM 500 MG ER TABLET PO SCH (21:05)
[2017-09-14 21:23] LABS: GLUCOMETER DEV NAME(LOC) 3EX 1; GLUCOSE,POINT OF CARE 164 MG/DL (70-110)
[2017-09-15] MEDS: LEVOTHYROXINE SODIUM 50 MCG TABLET PO SCH (06:31)
[2017-09-15] MEDS: MetFORMIN HCL 500 MG TABLET PO SCH ×4 (07:06→20:11)
[2017-09-15] MEDS: FERROUS SULFATE 325 MG EC TABLET PO SCH ×3 (07:07→16:39)
[2017-09-15] MEDS: GABAPENTIN 400 MG CAPSULE PO SCH ×3 (08:10→16:38)
[2017-09-15] MEDS: MULTIVITAMINS WITH MINERALS, THERAPEUTIC TABLET PO SCH (08:10)
[2017-09-15] MEDS: OMEPRAZOLE 10 MG CAPSULE PO SCH ×2 (08:10→16:55)
[2017-09-15] MEDS: PROPRANOLOL HCL 10 MG TABLET PO SCH ×3 (08:11→16:39)
[2017-09-15] MEDS: ACAMPROSATE CALCIUM 333 MG DR TABLET PO SCH ×3 (08:11→16:39)
[2017-09-15] MEDS: LevETIRAcetam 250 MG TABLET PO SCH ×4 (08:11→20:11)
[2017-09-15] MEDS: THIAMINE HCL 100 MG TABLET PO SCH ×2 (08:12→16:41)
[2017-09-15] MEDS: FOLIC ACID 1 MG TABLET PO SCH (08:12)
[2017-09-15] MEDS: CYCLOBENZAPRINE HCL 10 MG TABLET PO SCH ×3 (08:12→16:40)
[2017-09-15] MEDS: MAGNESIUM OXIDE 400 MG TABLET PO SCH ×2 (08:13→16:39)
[2017-09-15] MEDS: LORazepam 2 MG TABLET PO PRN ×3 (08:15→16:37)
[2017-09-15] MEDS: LOPERAMIDE HCL 2 MG CAPSULE PO PRN (08:16)
[2017-09-15 08:31] VITALS: BP 134/96
[2017-09-15] MEDS: GuaiFENesin/D-METHORPHAN [SUGAR-FREE] 200-20MG/10 ML SYRUP UDCUP PO PRN (10:33)
[2017-09-15] MEDS: INSULIN ASPART 100 UNITS/ML SQ PRN ×3 (11:52→22:30)
[2017-09-15] MEDS: IBUPROFEN 800 MG TABLET PO PRN (16:38)
[2017-09-15 16:42] VITALS: BP 154/88
[2017-09-15 16:43] LABS: GLUCOMETER DEV NAME(LOC) 3EX 1; GLUCOSE,POINT OF CARE 208 MG/DL (70-110)
[2017-09-15] MEDS: ZOLPIDEM TARTRATE 10 MG TABLET PO PRN (20:10)
[2017-09-15] MEDS: OLANZapine 10 MG RAPDIS TABLET PO SCH (20:10)
[2017-09-15] MEDS: DIVALPROEX SODIUM 500 MG ER TABLET PO SCH (20:10)
[2017-09-15 20:28] LABS: GLUCOMETER DEV NAME(LOC) 3EX 1; GLUCOSE,POINT OF CARE 207 MG/DL (70-110)
[2017-09-16 05:01] VITALS: BP 124/59
[2017-09-16] MEDS: LORazepam 2 MG TABLET PO PRN ×4 (05:01→17:16)
[2017-09-16 05:47] LABS: GLUCOMETER DEV NAME(LOC) 3EI B; GLUCOSE,POINT OF CARE 193 MG/DL (70-110)
[2017-09-16] MEDS: FERROUS SULFATE 325 MG EC TABLET PO SCH ×3 (07:09→16:30)
[2017-09-16] MEDS: LEVOTHYROXINE SODIUM 50 MCG TABLET PO SCH (07:09)
[2017-09-16] MEDS: MetFORMIN HCL 500 MG TABLET PO SCH ×4 (07:09→20:01)
[2017-09-16] MEDS: INSULIN ASPART 100 UNITS/ML SQ PRN ×4 (07:20→20:40)
[2017-09-16] MEDS: ACAMPROSATE CALCIUM 333 MG DR TABLET PO SCH ×3 (08:47→16:14)
[2017-09-16] MEDS: FOLIC ACID 1 MG TABLET PO SCH (08:48)
[2017-09-16] MEDS: PROPRANOLOL HCL 10 MG TABLET PO SCH ×3 (08:48→16:13)
[2017-09-16] MEDS: CYCLOBENZAPRINE HCL 10 MG TABLET PO SCH ×3 (08:48→16:12)
[2017-09-16] MEDS: LevETIRAcetam 250 MG TABLET PO SCH ×4 (08:49→20:00)
[2017-09-16] MEDS: MAGNESIUM OXIDE 400 MG TABLET PO SCH ×2 (08:49→16:14)
[2017-09-16] MEDS: GABAPENTIN 400 MG CAPSULE PO SCH ×3 (08:50→16:14)
[2017-09-16] MEDS: OMEPRAZOLE 10 MG CAPSULE PO SCH ×2 (08:50→16:15)
[2017-09-16] MEDS: THIAMINE HCL 100 MG TABLET PO SCH ×2 (08:52→16:14)
[2017-09-16] MEDS: MULTIVITAMINS WITH MINERALS, THERAPEUTIC TABLET PO SCH (08:52)
[2017-09-16 09:14] VITALS: BP 145/100
[2017-09-16 11:28] LABS: GLUCOMETER DEV NAME(LOC) 3EX 1; GLUCOSE,POINT OF CARE 203 MG/DL (70-110)
[2017-09-16] MEDS ORDERED: TUBERCULIN, PURIFIED PROTEIN DERIVATIVE 5 TU/0.1 ML SYG ID ONE (13:15)
[2017-09-16] MEDS ORDERED: OLAN10TA22 PO (16:09)
[2017-09-16] MEDS ORDERED: GABA-533 PO (16:09)
[2017-09-16] MEDS ORDERED: ACAM333T7 PO (16:09)
[2017-09-16] MEDS ORDERED: DIVA500T52 PO (16:09)
[2017-09-16] MEDS ORDERED: PROP10TA72 PO (16:09)
[2017-09-16] MEDS ORDERED: LEVE250T55 PO (16:09)
[2017-09-16 17:13] LABS: GLUCOMETER DEV NAME(LOC) 3EX 1; GLUCOSE,POINT OF CARE 215 MG/DL (70-110)
[2017-09-16 19:35] VITALS: BP 152/86
[2017-09-16] MEDS: DIVALPROEX SODIUM 500 MG ER TABLET PO SCH (20:00)
[2017-09-16] MEDS: OLANZapine 10 MG RAPDIS TABLET PO SCH (20:01)
[2017-09-16] MEDS: GuaiFENesin/D-METHORPHAN [SUGAR-FREE] 200-20MG/10 ML SYRUP UDCUP PO PRN (20:02)
[2017-09-16] MEDS: ZOLPIDEM TARTRATE 10 MG TABLET PO PRN (20:02)
[2017-09-16 20:13] LABS: GLUCOMETER DEV NAME(LOC) 3EX 1; GLUCOSE,POINT OF CARE 213 MG/DL (70-110)
[2017-09-17 02:00] VITALS: BP 133/91
[2017-09-17] MEDS: IBUPROFEN 800 MG TABLET PO PRN (02:00)
[2017-09-17] MEDS: LEVOTHYROXINE SODIUM 50 MCG TABLET PO SCH (07:03)
[2017-09-17] MEDS: MetFORMIN HCL 500 MG TABLET PO SCH ×2 (07:03→12:15)
[2017-09-17] MEDS: FERROUS SULFATE 325 MG EC TABLET PO SCH ×2 (07:03→12:15)
[2017-09-17] MEDS: ACAMPROSATE CALCIUM 333 MG DR TABLET PO SCH ×2 (08:27→12:54)
[2017-09-17] MEDS: CYCLOBENZAPRINE HCL 10 MG TABLET PO SCH ×2 (08:28→12:54)
[2017-09-17] MEDS: THIAMINE HCL 100 MG TABLET PO SCH (08:28)
[2017-09-17] MEDS: FOLIC ACID 1 MG TABLET PO SCH (08:28)
[2017-09-17] MEDS: PROPRANOLOL HCL 10 MG TABLET PO SCH ×2 (08:29→12:54)
[2017-09-17] MEDS: MAGNESIUM OXIDE 400 MG TABLET PO SCH (08:29)
[2017-09-17] MEDS: GABAPENTIN 400 MG CAPSULE PO SCH ×2 (08:29→13:01)
[2017-09-17] MEDS: LevETIRAcetam 250 MG TABLET PO SCH ×2 (08:29→12:54)
[2017-09-17] MEDS: MULTIVITAMINS WITH MINERALS, THERAPEUTIC TABLET PO SCH (08:30)
[2017-09-17] MEDS: OMEPRAZOLE 10 MG CAPSULE PO SCH (08:31)
[2017-09-17 11:28] LABS: GLUCOMETER DEV NAME(LOC) 3EX 1; GLUCOSE,POINT OF CARE 163 MG/DL (70-110)
[2017-09-17] MEDS: INSULIN ASPART 100 UNITS/ML SQ PRN (11:31)
[2017-09-17] MEDS: LORazepam 2 MG TABLET PO PRN (12:17)
[2017-09-17 13:09] VITALS: BP 118/84
== END 2017-09-17 14:45 | disposition home or self-care (01) | DRG 885 ==
LOC: 3EX 10:48
PROVIDERS: ADMIT Psychiatry & Neurology Psychiatry; ATTEND Psychiatry & Neurology Psychiatry
DX: F25.9 Schizoaffective disorder, unspecified (principal); Z93.3 Colostomy status; E11.65 Type 2 diabetes mellitus with hyperglycemia; R45.851 Suicidal ideations; E03.9 Hypothyroidism, unspecified; E66.9 Obesity, unspecified; F17.200 Nicotine dependence, unspecified, uncomplicated; G40.909 Epilepsy, unspecified, not intractable, without status epilepticus; G89.4 Chronic pain syndrome; I10 Essential (primary) hypertension; J44.9 Chronic obstructive pulmonary disease, unspecified; K21.9 Gastro-esophageal reflux disease without esophagitis; M19.90 Unspecified osteoarthritis, unspecified site; M79.7 Fibromyalgia; R32 Unspecified urinary incontinence; Z79.01 Long term (current) use of anticoagulants; Z85.038 Personal history of other malignant neoplasm of large intestine; Z90.49 Acquired absence of other specified parts of digestive tract; Z91.14 Patient's other noncompliance with medication regimen; Z91.19 Patient's noncompliance with other medical treatment and regimen; Z96.653 Presence of artificial knee joint, bilateral; Z56.0 Unemployment, unspecified; Z68.32 Body mass index [BMI] 32.0-32.9, adult; Z88.6 Allergy status to analgesic agent; K59.00 Constipation, unspecified
CPT/HCPCS: 82962; 87081

== ENCOUNTER 2017-09-23 09:52 | Inpatient (IN) | payer MEDICARE, MEDICAID ==
[~2017-09-23] VITALS: Ht 162.6 cm; Wt 86.2 kg
[~2017-09-23 09:52] MED LIST changes: -MV-M1TAB2 PO; -NYST30CR9 TP; +OLAN10TA22 PO; -OLAN10TA6 PO; +PROP10TA72 PO; -PROP10TA73 PO
[2017-09-23 10:12] LABS: GLUCOSE,POINT OF CARE 238 MG/DL (70-110)
[2017-09-23 11:19] LABS: BASOPHILS % (AUTO) 0.2 % (0.0-2.0); EOSINOPHILS % (AUTO) 0.1 % (1.0-6.0); HEMOGLOBIN 14.4 g/dL (12.0-16.0); LYMPHOCYTES # (AUTO) 1.7 K/uL (1.0-4.8); LYMPHOCYTES % (AUTO) 17.8 % (22.0-44.0); MEAN CORPUSCULAR HEMOGLOBIN 30.8 pg (26.0-34.0); MEAN CORPUSCULAR HGB CONC 33.6 G/dL (31.0-37.0); MEAN CORPUSCULAR VOLUME 92 fL (80-100); MONOCYTES # (AUTO) 0.5 K/uL (0.1-1.0); MONOCYTES % (AUTO) 5.3 % (2.0-9.0); NEUTROPHILS # (AUTO) 7.4 K/uL (1.8-7.7); NEUTROPHILS % (AUTO) 76.6 % (40.0-70.0); PLATELET COUNT (AUTO) 314 K/uL (150-450); RED BLOOD CELL COUNT(AUTO) 4.69 MIL/uL (4.00-5.20); RED CELL DISTRIBUTION WIDTH 13.3 % (11.5-14.5)
[2017-09-23 11:33] LABS: ANION GAP 11 mmol/L (8-16); CALCIUM, TOTAL 10.2 mg/dL (8.8-10.5); CARBON DIOXIDE 24 mmol/L (22-29); CHLORIDE 94 mmol/L (98-107); CREATININE 0.74 mg/dL (0.60-1.30); GLOMERULAR FILTR. RATE CALC > 60 mL/min (>60); GLUCOSE,RANDOM 212 mg/dL (70-110); POTASSIUM 4.6 mmol/L (3.5-5.1); SODIUM SERUM 129 mmol/L (136-145); UREA NITROGEN, BLOOD 12 mg/dL (7-18)
[2017-09-23 11:41] LABS: ALANINE AMINOTRANSFERASE 28 U/L (12-78); ALBUMIN 3.7 g/dL (3.4-5.0); ALKALINE PHOSPHATASE 78 U/L (46-116); ASPARTATE AMINOTRANSFERASE 30 U/L (15-37); BILIRUBIN,TOTAL 0.4 mg/dL (0.1-1.0); TOTAL PROTEIN, SERUM 8.6 g/dL (6.4-8.2)
[2017-09-23] MEDS ORDERED: LORazepam 2 MG TABLET PO PRN (11:45)
[2017-09-23] MEDS ORDERED: ZOLPIDEM TARTRATE 10 MG TABLET PO PRN (11:45)
[2017-09-23] MEDS ORDERED: OMEP10 PO (11:55)
[2017-09-23] MEDS ORDERED: LORazepam 2 MG TABLET PO ONE (12:45)
[2017-09-23 13:15] VITALS: BP 140/88
[2017-09-23] MEDS ORDERED: PROMETHAZINE HCL 25 MG TABLET PO PRN (16:15)
[2017-09-23] MEDS ORDERED: GuaiFENesin/D-METHORPHAN [SUGAR-FREE] 200-20MG/10 ML SYRUP UDCUP PO PRN (16:15)
[2017-09-23] MEDS ORDERED: HydrOXYzine PAMOATE 50 MG CAPSULE PO PRN (16:15)
[2017-09-23] MEDS ORDERED: MAGNESIUM HYDROXIDE SUSPENSION 30 ML UDCUP PO PRN (16:15)
[2017-09-23] MEDS ORDERED: LOPERAMIDE HCL 2 MG CAPSULE PO PRN (16:15)
[2017-09-23] MEDS ORDERED: MAG HYDROX/AL HYDROX/SIMETH ES 30 ML SUSPENSION UDCUP PO PRN (16:15)
[2017-09-23] MEDS: GABAPENTIN 300 MG CAPSULE PO SCH ×2 (16:21→21:00)
[2017-09-23] MEDS: LevETIRAcetam 500 MG TABLET PO SCH (16:22)
[2017-09-23 16:33] VITALS: BP 114/78
[2017-09-23] MEDS: LORazepam 1 MG TABLET PO PRN (16:43)
[2017-09-23] MEDS: ACAMPROSATE CALCIUM 333 MG DR TABLET PO SCH (17:33)
[2017-09-23] MEDS: THIAMINE HCL 100 MG TABLET PO SCH (17:33)
[2017-09-23] MEDS: PROPRANOLOL HCL 10 MG TABLET PO SCH (17:33)
[2017-09-23] MEDS: OLANZapine 10 MG TABLET PO SCH (21:00)
[2017-09-23] MEDS: DIVALPROEX SODIUM 500 MG ER TABLET PO SCH (21:00)
[2017-09-24 07:11] LABS: CHOL/HDL RATIO 3.6 (3.9-5.7)
[2017-09-24] MEDS ORDERED: IBUPROFEN 600 MG TABLET PO PRN (07:15)
[2017-09-24] MEDS ORDERED: DEXTROSE 50%-WATER 25 GM/50 ML SYRINGE IVP PRN (07:15)
[2017-09-24] MEDS: LEVOTHYROXINE SODIUM 50 MCG TABLET PO SCH (08:13)
[2017-09-24] MEDS: MetFORMIN HCL 500 MG TABLET PO SCH ×2 (08:13→16:01)
[2017-09-24] MEDS: ACAMPROSATE CALCIUM 333 MG DR TABLET PO SCH ×2 (08:13→12:33)
[2017-09-24] MEDS: LevETIRAcetam 500 MG TABLET PO SCH ×2 (08:14→16:01)
[2017-09-24] MEDS: MULTIVITAMINS WITH MINERALS, THERAPEUTIC TABLET PO SCH (08:14)
[2017-09-24] MEDS: FOLIC ACID 1 MG TABLET PO SCH (08:14)
[2017-09-24] MEDS: LORazepam 1 MG TABLET PO PRN ×3 (08:14→16:48)
[2017-09-24] MEDS: PROPRANOLOL HCL 10 MG TABLET PO SCH ×3 (08:14→16:01)
[2017-09-24] MEDS: THIAMINE HCL 100 MG TABLET PO SCH ×2 (08:14→16:01)
[2017-09-24] MEDS: GABAPENTIN 300 MG CAPSULE PO SCH ×4 (08:14→22:03)
[2017-09-24] MEDS: ACETAMINOPHEN 325 MG TABLET PO PRN (08:15)
[2017-09-24 09:41] VITALS: BP 147/93
[2017-09-24] MEDS: OLANZapine 5 MG RAPDIS TABLET PO PRN (11:08)
[2017-09-24 11:28] LABS: GLUCOMETER DEV NAME(LOC) 3EX 1; GLUCOSE,POINT OF CARE 151 MG/DL (70-110)
[2017-09-24] MEDS: INSULIN ASPART 100 UNITS/ML SQ PRN ×2 (11:46→18:00)
[2017-09-24 16:52] LABS: GLUCOMETER DEV NAME(LOC) 3EX 1; GLUCOSE,POINT OF CARE 172 MG/DL (70-110)
[2017-09-24 16:53] VITALS: BP 138/93
[2017-09-24 21:57] LABS: GLUCOMETER DEV NAME(LOC) 3EX 1; GLUCOSE,POINT OF CARE 188 MG/DL (70-110)
[2017-09-24] MEDS: DIVALPROEX SODIUM 500 MG ER TABLET PO SCH (22:02)
[2017-09-24] MEDS: OLANZapine 10 MG TABLET PO SCH (22:03)
[2017-09-24] MEDS: LIDOCAINE HCL 5% TRANSDERMAL PATCH TD SCH (22:07)
[2017-09-25] MEDS: LEVOTHYROXINE SODIUM 50 MCG TABLET PO SCH (07:00)
[2017-09-25] MEDS: MetFORMIN HCL 500 MG TABLET PO SCH ×2 (07:02→16:32)
[2017-09-25] MEDS: PROPRANOLOL HCL 10 MG TABLET PO SCH ×3 (08:27→16:33)
[2017-09-25] MEDS: FOLIC ACID 1 MG TABLET PO SCH (08:27)
[2017-09-25] MEDS: GABAPENTIN 300 MG CAPSULE PO SCH ×2 (08:27→12:49)
[2017-09-25] MEDS: LevETIRAcetam 500 MG TABLET PO SCH ×2 (08:27→16:34)
[2017-09-25] MEDS: LORazepam 1 MG TABLET PO PRN ×3 (08:28→17:25)
[2017-09-25] MEDS: MULTIVITAMINS WITH MINERALS, THERAPEUTIC TABLET PO SCH (08:28)
[2017-09-25] MEDS: THIAMINE HCL 100 MG TABLET PO SCH ×2 (08:28→16:33)
[2017-09-25] MEDS: NALTREXONE HCL 50 MG TABLET PO SCH (08:28)
[2017-09-25] MEDS: -LIDODERM PATCH NOTE- MISC SCH (08:31)
[2017-09-25] MEDS ORDERED: DULoxetine HCL 20 MG CAPSULE PO SCH (09:00)
[2017-09-25 09:17] VITALS: BP 135/73
[2017-09-25] MEDS: OLANZapine 5 MG RAPDIS TABLET PO PRN (10:07)
[2017-09-25] MEDS: ACETAMINOPHEN 325 MG TABLET PO PRN (10:09)
[2017-09-25] MEDS ORDERED: HALOPERIDOL LACTATE 5 MG/ML VIAL IM ONE (10:45)
[2017-09-25] MEDS ORDERED: DiphenhydrAMINE HCL 50 MG/ML VIAL IM ONE (10:45)
[2017-09-25 11:23] LABS: GLUCOMETER DEV NAME(LOC) 3EX 1; GLUCOSE,POINT OF CARE 206 MG/DL (70-110)
[2017-09-25] MEDS ORDERED: KETOROLAC TROMETHAMINE 60 MG/2 ML VIAL IM ONE (11:45)
[2017-09-25] MEDS: INSULIN ASPART 100 UNITS/ML SQ PRN ×3 (13:24→21:48)
[2017-09-25 16:42] LABS: GLUCOMETER DEV NAME(LOC) 3EX 1; GLUCOSE,POINT OF CARE 197 MG/DL (70-110)
[2017-09-25 16:43] VITALS: BP 168/98
[2017-09-25] MEDS: PREGABALIN 25 MG CAPSULE PO SCH (17:25)
[2017-09-25] MEDS ORDERED: SODIUM CHLORIDE 1 GM TABLET PO ONE (19:00)
[2017-09-25] MEDS: OLANZapine 10 MG TABLET PO SCH (21:39)
[2017-09-25] MEDS: DIVALPROEX SODIUM 500 MG ER TABLET PO SCH (21:40)
[2017-09-25] MEDS: LIDOCAINE HCL 5% TRANSDERMAL PATCH TD SCH (21:44)
[2017-09-25 21:53] LABS: GLUCOMETER DEV NAME(LOC) 3EX 1; GLUCOSE,POINT OF CARE 203 MG/DL (70-110)
[2017-09-26 06:32] LABS: BASOPHILS % (AUTO) 0.6 % (0.0-2.0); EOSINOPHILS % (AUTO) 0 % (1.0-6.0); HEMATOCRIT 35.4 % (36-46); HEMOGLOBIN 12.2 g/dL (12.0-16.0); LYMPHOCYTES # (AUTO) 2.3 K/uL (1.0-4.8); LYMPHOCYTES % (AUTO) 43.9 % (22.0-44.0); MEAN CORPUSCULAR HEMOGLOBIN 30.6 pg (26.0-34.0); MEAN CORPUSCULAR HGB CONC 34.4 G/dL (31.0-37.0); MEAN CORPUSCULAR VOLUME 89 fL (80-100); MONOCYTES # (AUTO) 0.6 K/uL (0.1-1.0); NEUTROPHILS # (AUTO) 2.3 K/uL (1.8-7.7); NEUTROPHILS % (AUTO) 44.5 % (40.0-70.0); PLATELET COUNT (AUTO) 258 K/uL (150-450); RED BLOOD CELL COUNT(AUTO) 3.98 MIL/uL (4.00-5.20); RED CELL DISTRIBUTION WIDTH 13.3 % (11.5-14.5)
[2017-09-26] MEDS: MetFORMIN HCL 500 MG TABLET PO SCH ×2 (07:05→16:46)
[2017-09-26] MEDS: LEVOTHYROXINE SODIUM 50 MCG TABLET PO SCH (07:05)
[2017-09-26 07:10] LABS: ALANINE AMINOTRANSFERASE 20 U/L (12-78); ALKALINE PHOSPHATASE 60 U/L (46-116); ANION GAP 10 mmol/L (8-16); ASPARTATE AMINOTRANSFERASE 19 U/L (15-37); BILIRUBIN,TOTAL 0.2 mg/dL (0.1-1.0); CALCIUM, TOTAL 9.4 mg/dL (8.8-10.5); CARBON DIOXIDE 24 mmol/L (22-29); CHLORIDE 97 mmol/L (98-107); CHOLESTEROL 156 mg/dL (131-200); GLOMERULAR FILTR. RATE CALC > 60 mL/min (>60); GLUCOSE,RANDOM 121 mg/dL (70-110); HDL CHOLESTEROL 52 mg/dL (40-60); LDL CHOL (CALC.) 74 mg/dL (0-130); POTASSIUM 4.7 mmol/L (3.5-5.1); SODIUM SERUM 131 mmol/L (136-145); TOTAL PROTEIN, SERUM 7.3 g/dL (6.4-8.2); TRIGLYCERIDES 150 mg/dL (15-150); UREA NITROGEN, BLOOD 16 mg/dL (7-18)
[2017-09-26] MEDS: FOLIC ACID 1 MG TABLET PO SCH (08:01)
[2017-09-26] MEDS: DULoxetine HCL 30 MG CAPSULE PO SCH (08:01)
[2017-09-26] MEDS: LevETIRAcetam 500 MG TABLET PO SCH ×2 (08:01→16:15)
[2017-09-26] MEDS: MULTIVITAMINS WITH MINERALS, THERAPEUTIC TABLET PO SCH (08:01)
[2017-09-26] MEDS: THIAMINE HCL 100 MG TABLET PO SCH ×2 (08:01→16:14)
[2017-09-26] MEDS: PREGABALIN 25 MG CAPSULE PO SCH ×3 (08:01→16:13)
[2017-09-26] MEDS: NALTREXONE HCL 50 MG TABLET PO SCH (08:02)
[2017-09-26] MEDS: LORazepam 1 MG TABLET PO PRN ×3 (08:04→17:00)
[2017-09-26 08:25] VITALS: BP 150/90
[2017-09-26] MEDS: ACETAMINOPHEN 325 MG TABLET PO PRN (08:25)
[2017-09-26 09:15] VITALS: BP 167/76
[2017-09-26 09:25] VITALS: BP 138/70
[2017-09-26] MEDS: -LIDODERM PATCH NOTE- MISC SCH (09:28)
[2017-09-26] MEDS: PROPRANOLOL HCL 10 MG TABLET PO SCH ×3 (09:28→16:16)
[2017-09-26] MEDS: INSULIN ASPART 100 UNITS/ML SQ PRN ×3 (11:26→21:05)
[2017-09-26] MEDS ORDERED: KETOROLAC TROMETHAMINE 60 MG/2 ML VIAL IM ONE (11:45)
[2017-09-26 12:40] VITALS: BP 140/70
[2017-09-26 13:40] VITALS: BP 136/68
[2017-09-26 14:57] LABS: GLUCOMETER DEV NAME(LOC) 3EX 1; GLUCOSE,POINT OF CARE 204 MG/DL (70-110)
[2017-09-26 16:32] LABS: GLUCOMETER DEV NAME(LOC) 3EX 1; GLUCOSE,POINT OF CARE 175 MG/DL (70-110)
[2017-09-26 18:24] VITALS: BP 133/72
[2017-09-26] MEDS: OLANZapine 10 MG TABLET PO SCH (20:43)
[2017-09-26] MEDS: DIVALPROEX SODIUM 500 MG ER TABLET PO SCH (20:43)
[2017-09-26] MEDS: LIDOCAINE HCL 5% TRANSDERMAL PATCH TD SCH (20:47)
[2017-09-26 20:58] LABS: GLUCOMETER DEV NAME(LOC) 3EX 1; GLUCOSE,POINT OF CARE 165 MG/DL (70-110)
[2017-09-27] MEDS: MetFORMIN HCL 500 MG TABLET PO SCH ×2 (06:32→17:24)
[2017-09-27] MEDS: LEVOTHYROXINE SODIUM 50 MCG TABLET PO SCH (06:32)
[2017-09-27] MEDS: PREGABALIN 25 MG CAPSULE PO SCH ×3 (08:02→16:19)
[2017-09-27] MEDS: FOLIC ACID 1 MG TABLET PO SCH (08:02)
[2017-09-27] MEDS: NALTREXONE HCL 50 MG TABLET PO SCH (08:02)
[2017-09-27] MEDS: LevETIRAcetam 500 MG TABLET PO SCH ×2 (08:02→16:21)
[2017-09-27] MEDS: THIAMINE HCL 100 MG TABLET PO SCH ×2 (08:02→16:20)
[2017-09-27] MEDS: MULTIVITAMINS WITH MINERALS, THERAPEUTIC TABLET PO SCH (08:03)
[2017-09-27] MEDS: DULoxetine HCL 30 MG CAPSULE PO SCH (08:03)
[2017-09-27] MEDS: LORazepam 1 MG TABLET PO PRN ×3 (08:03→16:33)
[2017-09-27 08:05] VITALS: BP 146/100
[2017-09-27] MEDS: ACETAMINOPHEN 325 MG TABLET PO PRN (08:05)
[2017-09-27] MEDS: PROPRANOLOL HCL 10 MG TABLET PO SCH ×3 (08:07→16:18)
[2017-09-27] MEDS: -LIDODERM PATCH NOTE- MISC SCH (09:07)
[2017-09-27 10:58] LABS: GLUCOMETER DEV NAME(LOC) 3EX 1; GLUCOSE,POINT OF CARE 209 MG/DL (70-110)
[2017-09-27] MEDS: INSULIN ASPART 100 UNITS/ML SQ PRN ×3 (12:12→21:02)
[2017-09-27] MEDS ORDERED: KETOROLAC TROMETHAMINE 60 MG/2 ML VIAL IM ONE (12:30)
[2017-09-27 16:37] VITALS: BP 151/105
[2017-09-27 16:48] LABS: GLUCOMETER DEV NAME(LOC) 3EX 1; GLUCOSE,POINT OF CARE 144 MG/DL (70-110)
[2017-09-27] MEDS: DIVALPROEX SODIUM 500 MG ER TABLET PO SCH (20:45)
[2017-09-27] MEDS: OLANZapine 10 MG TABLET PO SCH (20:46)
[2017-09-27] MEDS: LIDOCAINE HCL 5% TRANSDERMAL PATCH TD SCH (20:46)
[2017-09-27 21:03] LABS: GLUCOMETER DEV NAME(LOC) 3EX 1; GLUCOSE,POINT OF CARE 170 MG/DL (70-110)
[2017-09-28] MEDS: MetFORMIN HCL 500 MG TABLET PO SCH ×2 (06:58→17:23)
[2017-09-28] MEDS: LEVOTHYROXINE SODIUM 50 MCG TABLET PO SCH (06:58)
[2017-09-28] MEDS: PREGABALIN 25 MG CAPSULE PO SCH ×3 (07:55→16:31)
[2017-09-28] MEDS: FOLIC ACID 1 MG TABLET PO SCH (07:55)
[2017-09-28] MEDS: DULoxetine HCL 30 MG CAPSULE PO SCH (07:55)
[2017-09-28] MEDS: MULTIVITAMINS WITH MINERALS, THERAPEUTIC TABLET PO SCH (07:55)
[2017-09-28] MEDS: NALTREXONE HCL 50 MG TABLET PO SCH (07:55)
[2017-09-28] MEDS: LevETIRAcetam 500 MG TABLET PO SCH ×2 (07:55→16:32)
[2017-09-28] MEDS: THIAMINE HCL 100 MG TABLET PO SCH ×2 (07:55→16:32)
[2017-09-28] MEDS: PROPRANOLOL HCL 10 MG TABLET PO SCH ×3 (07:56→16:31)
[2017-09-28] MEDS: LORazepam 1 MG TABLET PO PRN ×3 (07:57→17:26)
[2017-09-28] MEDS: -LIDODERM PATCH NOTE- MISC SCH (09:00)
[2017-09-28 09:10] VITALS: BP 162/109
[2017-09-28] MEDS: KETOROLAC TROMETHAMINE 60 MG/2 ML VIAL IM SCH (11:19)
[2017-09-28 11:22] LABS: GLUCOMETER DEV NAME(LOC) 3EX 1; GLUCOSE,POINT OF CARE 116 MG/DL (70-110)
[2017-09-28] MEDS: INSULIN ASPART 100 UNITS/ML SQ PRN ×3 (14:35→21:37)
[2017-09-28 16:38] LABS: GLUCOMETER DEV NAME(LOC) 3EX 1; GLUCOSE,POINT OF CARE 144 MG/DL (70-110)
[2017-09-28 16:51] VITALS: BP 159/103
[2017-09-28] MEDS: LIDOCAINE HCL 5% TRANSDERMAL PATCH TD SCH (20:16)
[2017-09-28 20:40] VITALS: BP 152/94
[2017-09-28] MEDS: DIVALPROEX SODIUM 500 MG ER TABLET PO SCH (20:45)
[2017-09-28] MEDS: OLANZapine 10 MG TABLET PO SCH (20:45)
[2017-09-28 20:53] LABS: GLUCOMETER DEV NAME(LOC) 3EX 1; GLUCOSE,POINT OF CARE 167 MG/DL (70-110)
[2017-09-28 21:47] VITALS: BP 149/96
[2017-09-29] MEDS: LEVOTHYROXINE SODIUM 50 MCG TABLET PO SCH (06:45)
[2017-09-29] MEDS: MetFORMIN HCL 500 MG TABLET PO SCH ×2 (06:45→16:31)
[2017-09-29 06:59] LABS: GLUCOMETER DEV NAME(LOC) 3EI B; GLUCOSE,POINT OF CARE 121 MG/DL (70-110)
[2017-09-29] MEDS: -LIDODERM PATCH NOTE- MISC SCH (08:07)
[2017-09-29] MEDS: DULoxetine HCL 30 MG CAPSULE PO SCH (08:07)
[2017-09-29] MEDS: FOLIC ACID 1 MG TABLET PO SCH (08:07)
[2017-09-29] MEDS: NALTREXONE HCL 50 MG TABLET PO SCH (08:08)
[2017-09-29] MEDS: THIAMINE HCL 100 MG TABLET PO SCH ×2 (08:08→16:30)
[2017-09-29] MEDS: PREGABALIN 25 MG CAPSULE PO SCH ×2 (08:08→12:43)
[2017-09-29] MEDS: MULTIVITAMINS WITH MINERALS, THERAPEUTIC TABLET PO SCH (08:08)
[2017-09-29] MEDS: LevETIRAcetam 500 MG TABLET PO SCH ×2 (08:08→16:28)
[2017-09-29] MEDS: ACETAMINOPHEN 325 MG TABLET PO PRN (08:09)
[2017-09-29] MEDS: LORazepam 1 MG TABLET PO PRN ×3 (08:09→17:14)
[2017-09-29] MEDS: PROPRANOLOL HCL 10 MG TABLET PO SCH ×3 (08:12→16:59)
[2017-09-29 09:35] VITALS: BP 159/90
[2017-09-29] MEDS: KETOROLAC TROMETHAMINE 60 MG/2 ML VIAL IM SCH (10:47)
[2017-09-29 11:43] LABS: GLUCOMETER DEV NAME(LOC) 3EX 1; GLUCOSE,POINT OF CARE 132 MG/DL (70-110)
[2017-09-29] MEDS ORDERED: FLUCONAZOLE 150 MG TABLET PO ONE (14:00)
[2017-09-29] MEDS: NYSTATIN 30 GM CREAM TP SCH (16:30)
[2017-09-29] MEDS: PREGABALIN 50 MG CAPSULE PO SCH (16:30)
[2017-09-29 16:33] VITALS: BP 152/92
[2017-09-29] MEDS: INSULIN ASPART 100 UNITS/ML SQ PRN ×2 (17:14→20:48)
[2017-09-29 17:18] LABS: GLUCOMETER DEV NAME(LOC) 3EX 1; GLUCOSE,POINT OF CARE 200 MG/DL (70-110)
[2017-09-29] MEDS: DIVALPROEX SODIUM 500 MG ER TABLET PO SCH (20:26)
[2017-09-29] MEDS: OLANZapine 10 MG TABLET PO SCH (20:26)
[2017-09-29] MEDS: ESZOPICLONE 3 MG TABLET PO PRN (20:26)
[2017-09-29] MEDS: LIDOCAINE HCL 5% TRANSDERMAL PATCH TD SCH (20:28)
[2017-09-29 20:38] LABS: GLUCOMETER DEV NAME(LOC) 3EX 1; GLUCOSE,POINT OF CARE 166 MG/DL (70-110)
[2017-09-30 06:14] LABS: GLUCOMETER DEV NAME(LOC) 3EI B; GLUCOSE,POINT OF CARE 120 MG/DL (70-110)
[2017-09-30] MEDS: LEVOTHYROXINE SODIUM 50 MCG TABLET PO SCH (07:09)
[2017-09-30] MEDS: MetFORMIN HCL 500 MG TABLET PO SCH ×2 (07:10→17:17)
[2017-09-30] MEDS: DULoxetine HCL 20 MG CAPSULE PO SCH (08:05)
[2017-09-30] MEDS: MULTIVITAMINS WITH MINERALS, THERAPEUTIC TABLET PO SCH (08:05)
[2017-09-30] MEDS: THIAMINE HCL 100 MG TABLET PO SCH ×2 (08:06→16:12)
[2017-09-30] MEDS: FOLIC ACID 1 MG TABLET PO SCH (08:06)
[2017-09-30] MEDS: PREGABALIN 50 MG CAPSULE PO SCH ×2 (08:06→12:35)
[2017-09-30] MEDS: PROPRANOLOL HCL 10 MG TABLET PO SCH ×4 (08:06→16:12)
[2017-09-30] MEDS: LevETIRAcetam 500 MG TABLET PO SCH ×2 (08:06→16:11)
[2017-09-30] MEDS: NALTREXONE HCL 50 MG TABLET PO SCH (08:06)
[2017-09-30 08:10] VITALS: BP 138/90
[2017-09-30] MEDS: ACETAMINOPHEN 325 MG TABLET PO PRN (08:10)
[2017-09-30] MEDS: LORazepam 1 MG TABLET PO PRN ×2 (08:10→16:13)
[2017-09-30 09:10] VITALS: BP 140/86
[2017-09-30] MEDS: -LIDODERM PATCH NOTE- MISC SCH (09:15)
[2017-09-30] MEDS: NYSTATIN 30 GM CREAM TP SCH ×2 (09:15→16:11)
[2017-09-30] MEDS: KETOROLAC TROMETHAMINE 60 MG/2 ML VIAL IM SCH (11:06)
[2017-09-30] MEDS: INSULIN ASPART 100 UNITS/ML SQ PRN ×3 (11:16→20:41)
[2017-09-30 11:23] LABS: GLUCOMETER DEV NAME(LOC) 3EX 1; GLUCOSE,POINT OF CARE 138 MG/DL (70-110)
[2017-09-30 16:54] LABS: GLUCOMETER DEV NAME(LOC) 3EX 1; GLUCOSE,POINT OF CARE 170 MG/DL (70-110)
[2017-09-30 17:03] VITALS: BP 156/102
[2017-09-30] MEDS: GABAPENTIN 300 MG CAPSULE PO SCH (17:03)
[2017-09-30] MEDS: DIVALPROEX SODIUM 500 MG ER TABLET PO SCH (20:34)
[2017-09-30] MEDS: OLANZapine 10 MG TABLET PO SCH (20:34)
[2017-09-30 20:37] LABS: GLUCOMETER DEV NAME(LOC) 3EX 1; GLUCOSE,POINT OF CARE 183 MG/DL (70-110)
[2017-09-30] MEDS: LIDOCAINE HCL 5% TRANSDERMAL PATCH TD SCH (20:44)
[2017-10-01 00:01] VITALS: BP 161/97
[2017-10-01] MEDS: ESZOPICLONE 3 MG TABLET PO PRN (00:02)
[2017-10-01] MEDS: MetFORMIN HCL 500 MG TABLET PO SCH ×2 (07:01→17:19)
[2017-10-01] MEDS: LORazepam 1 MG TABLET PO PRN ×3 (08:16→17:51)
[2017-10-01] MEDS: MULTIVITAMINS WITH MINERALS, THERAPEUTIC TABLET PO SCH (08:17)
[2017-10-01] MEDS: FOLIC ACID 1 MG TABLET PO SCH (08:17)
[2017-10-01] MEDS: NALTREXONE HCL 50 MG TABLET PO SCH (08:17)
[2017-10-01] MEDS: LevETIRAcetam 500 MG TABLET PO SCH ×2 (08:17→16:36)
[2017-10-01] MEDS: GABAPENTIN 300 MG CAPSULE PO SCH ×3 (08:17→16:36)
[2017-10-01] MEDS: DULoxetine HCL 20 MG CAPSULE PO SCH (08:18)
[2017-10-01] MEDS: THIAMINE HCL 100 MG TABLET PO SCH ×2 (08:18→16:36)
[2017-10-01] MEDS: NYSTATIN 30 GM CREAM TP SCH ×2 (08:19→16:36)
[2017-10-01] MEDS: -LIDODERM PATCH NOTE- MISC SCH (09:00)
[2017-10-01] MEDS: PROPRANOLOL HCL 10 MG TABLET PO SCH ×3 (09:00→16:33)
[2017-10-01 09:51] VITALS: BP 165/95
[2017-10-01 11:23] LABS: GLUCOMETER DEV NAME(LOC) 3EX 1; GLUCOSE,POINT OF CARE 116 MG/DL (70-110)
[2017-10-01] MEDS ORDERED: GABA-531 PO (11:48)
[2017-10-01] MEDS ORDERED: DIVA500T52 PO (11:48)
[2017-10-01] MEDS ORDERED: LEVE500T53 PO (11:48)
[2017-10-01] MEDS ORDERED: NALT50TA PO (11:48)
[2017-10-01] MEDS ORDERED: DULO20CA30 PO (11:48)
[2017-10-01] MEDS ORDERED: PROP10TA72 PO (11:48)
[2017-10-01] MEDS ORDERED: OLAN10TA20 PO (11:48)
[2017-10-01] MEDS: OXcarbazepine 300 MG TABLET PO SCH (16:36)
[2017-10-01 16:38] LABS: GLUCOMETER DEV NAME(LOC) 3EX 1; GLUCOSE,POINT OF CARE 202 MG/DL (70-110)
[2017-10-01 17:00] VITALS: BP 155/94
[2017-10-01] MEDS: INSULIN ASPART 100 UNITS/ML SQ PRN ×2 (17:16→21:24)
[2017-10-01] MEDS: OLANZapine 10 MG TABLET PO SCH (21:17)
[2017-10-01] MEDS: DIVALPROEX SODIUM 500 MG ER TABLET PO SCH (21:18)
[2017-10-01] MEDS: LIDOCAINE HCL 5% TRANSDERMAL PATCH TD SCH (21:19)
[2017-10-01 21:22] LABS: GLUCOMETER DEV NAME(LOC) 3EX 1; GLUCOSE,POINT OF CARE 180 MG/DL (70-110)
[2017-10-02 01:15] VITALS: BP 172/108
[2017-10-02] MEDS: LORazepam 1 MG TABLET PO PRN ×3 (01:23→12:22)
[2017-10-02] MEDS ORDERED: METF500T4 PO (01:30)
[2017-10-02] MEDS: ESZOPICLONE 3 MG TABLET PO PRN (01:38)
[2017-10-02 02:25] VITALS: BP 132/78
[2017-10-02] MEDS: LEVOTHYROXINE SODIUM 50 MCG TABLET PO SCH (07:02)
[2017-10-02] MEDS: MetFORMIN HCL 500 MG TABLET PO SCH (07:04)
[2017-10-02] MEDS: GABAPENTIN 300 MG CAPSULE PO SCH ×2 (08:33→12:01)
[2017-10-02] MEDS: NALTREXONE HCL 50 MG TABLET PO SCH (08:33)
[2017-10-02] MEDS: MULTIVITAMINS WITH MINERALS, THERAPEUTIC TABLET PO SCH (08:34)
[2017-10-02] MEDS: OXcarbazepine 300 MG TABLET PO SCH (08:34)
[2017-10-02] MEDS: DULoxetine HCL 20 MG CAPSULE PO SCH (08:34)
[2017-10-02] MEDS: LevETIRAcetam 500 MG TABLET PO SCH (08:34)
[2017-10-02] MEDS: FOLIC ACID 1 MG TABLET PO SCH (08:34)
[2017-10-02] MEDS: PROPRANOLOL HCL 10 MG TABLET PO SCH ×2 (08:34→12:02)
[2017-10-02] MEDS: THIAMINE HCL 100 MG TABLET PO SCH (08:34)
[2017-10-02] MEDS: NYSTATIN 30 GM CREAM TP SCH (08:36)
[2017-10-02] MEDS: -LIDODERM PATCH NOTE- MISC SCH (09:00)
[2017-10-02 09:45] VITALS: BP 155/105
[2017-10-02] MEDS: ACETAMINOPHEN 325 MG TABLET PO PRN (09:45)
[2017-10-02 10:45] VITALS: BP 152/98
[2017-10-02 11:07] LABS: GLUCOMETER DEV NAME(LOC) 3EI B; GLUCOSE,POINT OF CARE 135 MG/DL (70-110)
[2017-10-02 16:27] VITALS: BP 110/79
== END 2017-10-02 16:00 | disposition home or self-care (01) | DRG 885 ==
LOC: EMS 10:00 → 3EX 11:46
PROVIDERS: ADMIT Psychiatry & Neurology Psychiatry; ATTEND Psychiatry & Neurology Psychiatry
DX: F25.0 Schizoaffective disorder, bipolar type (principal); E11.65 Type 2 diabetes mellitus with hyperglycemia; R45.851 Suicidal ideations; E87.1 Hypo-osmolality and hyponatremia; G40.909 Epilepsy, unspecified, not intractable, without status epilepticus; B37.3 Candidiasis of vulva and vagina; E03.9 Hypothyroidism, unspecified; F17.200 Nicotine dependence, unspecified, uncomplicated; E66.9 Obesity, unspecified; G47.00 Insomnia, unspecified; G89.4 Chronic pain syndrome; I10 Essential (primary) hypertension; J44.9 Chronic obstructive pulmonary disease, unspecified; K21.9 Gastro-esophageal reflux disease without esophagitis; M79.7 Fibromyalgia; M54.5 Low back pain; Z96.653 Presence of artificial knee joint, bilateral; R32 Unspecified urinary incontinence; Z79.01 Long term (current) use of anticoagulants; Z85.038 Personal history of other malignant neoplasm of large intestine; Z90.49 Acquired absence of other specified parts of digestive tract; Z91.14 Patient's other noncompliance with medication regimen; Z91.19 Patient's noncompliance with other medical treatment and regimen; Z93.3 Colostomy status; Z88.5 Allergy status to narcotic agent
CPT/HCPCS: 82306; 82962; 87081; 97162; 97165; 99285; G0480; J1200; J1630; J1885

== ENCOUNTER 2017-10-15 13:11 | Emergency (ER) | payer MEDICARE, OTHER ==
[~2017-10-15] VITALS: Ht 172.7 cm; Wt 86.4 kg
[~2017-10-15 13:11] MED LIST changes: -ACAM333T7 PO; -CYCL10 PO; +DULO20CA30 PO; -FERR-89 PO; +GABA-531 PO; -GABA-533 PO; -LEVE250T55 PO; +LEVE500T53 PO; -MAGOX PO; +NALT50TA PO; +OLAN10TA20 PO; -OLAN10TA22 PO; -OMEP20 PO
[2017-10-15 13:47] LABS: GLUCOSE,POINT OF CARE 218 MG/DL (70-110)
[2017-10-15] MEDS ORDERED: KETOROLAC TROMETHAMINE 60 MG/2 ML VIAL IM ONE (15:30)
[2017-10-15 16:30] VITALS: BP 122/70
== END 2017-10-15 16:45 | disposition home or self-care (01) ==
LOC: EDUNIT# 13:11 → EMS 13:23
DX: M54.5 Low back pain (principal); B34.9 Viral infection, unspecified; E11.9 Type 2 diabetes mellitus without complications; F17.210 Nicotine dependence, cigarettes, uncomplicated; Z88.5 Allergy status to narcotic agent
CPT/HCPCS: 82962; 96372; 99283; J1885

== ENCOUNTER 2022-12-01 18:57 | Inpatient (IN) | payer MEDICARE, MEDICAID ==
[~2022-12-01] VITALS: Ht 160 cm; Wt 88.5 kg
[~2022-12-01 18:57] MED LIST changes: +AMLO-257 PO; +BENZ2TAB76 PO; +BUSP15 PO; +CHOL25TA4 PO; -DIVA500T52 PO; +DOCU-350 PO; -DULO20CA30 PO; +FERR325T27 PO; +FLUO-177 PO; +GABA-1201 PO; -GABA-531 PO; +LACO100 PO; +LEVE500T20 PO; -LEVE500T53 PO; +LEVO100 PO; -LEVO50TA11 PO; +METF-1211 PO; -METF500T4 PO; +MULT-1239 PO; -NALT50TA PO; +NYST30CR9 TP; -OLAN10TA20 PO; +OLAN7.5T22 PO; +PANT-31 PO; -PROP10TA72 PO; +PROP20TA18 PO
[2022-12-01] MEDS ORDERED: DIVA-85 PO (19:33)
[2022-12-01] MEDS ORDERED: BENZ1TAB84 PO (19:33)
[2022-12-01] MEDS ORDERED: BUSP10TA23 PO (19:33)
[2022-12-01] MEDS ORDERED: LACO50TA6 PO (19:33)
[2022-12-01] MEDS ORDERED: BUPR-317 PO (19:33)
[2022-12-01] MEDS ORDERED: OLAN10 PO (19:33)
[2022-12-01] MEDS ORDERED: LEVO150T11 PO (19:33)
[2022-12-01] MEDS ORDERED: INSU100I47 SQ (19:33)
[2022-12-01] MEDS ORDERED: METF-445 PO (19:33)
[2022-12-01] MEDS ORDERED: CLOZ100T11 PO (19:33)
[2022-12-01] MEDS ORDERED: QUET100T34 PO (19:33)
[2022-12-01] MEDS ORDERED: NIZO2SH TP (19:33)
[2022-12-01] MEDS ORDERED: CloZAPine 100 MG TABLET PO ONE (20:00)
[2022-12-01] MEDS ORDERED: LORazepam 2 MG TABLET PO ONE (20:00)
[2022-12-01] MEDS ORDERED: QUEtiapine FUMARATE 100 MG TABLET PO ONE (20:00)
[2022-12-01 20:29] LABS: CALCIUM, TOTAL 9.9 mg/dL (8.8-10.5); CREATININE 1.32 mg/dL (0.60-1.30); POTASSIUM 3.9 mmol/L (3.5-5.1)
[2022-12-01 20:35] LABS: ALBUMIN 3.4 g/dL (3.4-5.0); BILIRUBIN,TOTAL 0.3 mg/dL (0.1-1.0); TOTAL PROTEIN, SERUM 7.5 g/dL (6.4-8.2)
[2022-12-01] MEDS ORDERED: ACETAMINOPHEN 325 MG TABLET PO PRN (22:15)
[2022-12-02 00:45] LABS: COVID AG,FIA SOURCE NASOPHARYNGEAL
[2022-12-02] MEDS ORDERED: MAG HYDROX/AL HYDROX/SIMETH ES 30 ML SUSPENSION UDCUP PO PRN (06:45)
[2022-12-02] MEDS ORDERED: NICOTINE 14 MG/24 HOUR PATCH TD PRN (06:45)
[2022-12-02] MEDS ORDERED: MAGNESIUM HYDROXIDE SUSPENSION 30 ML UDCUP PO PRN (06:45)
[2022-12-02] MEDS ORDERED: PETROLATUM,WHITE 28 GM JELLY TP PRN (06:45)
[2022-12-02] MEDS ORDERED: DOCUSATE SODIUM 100 MG CAPSULE PO PRN (06:45)
[2022-12-02] MEDS ORDERED: DEXTROSE 50%-WATER 25 GM/50 ML SYRINGE IVP PRN (06:45)
[2022-12-02] MEDS ORDERED: ALBUTEROL SULFATE HFA 90 MCG/PUFF 8 GM INHALER IH PRN (06:45)
[2022-12-02] MEDS: FERROUS SULFATE 325 MG EC TABLET PO SCH (06:55)
[2022-12-02] MEDS: LORazepam 2 MG TABLET PO PRN ×2 (06:56→15:05)
[2022-12-02] MEDS: MetFORMIN HCL 500 MG TABLET PO SCH ×2 (07:06→17:14)
[2022-12-02] MEDS: LEVOTHYROXINE SODIUM 100 MCG TABLET PO SCH (07:15)
[2022-12-02] MEDS: INSULIN LISPRO 100 UNITS/ML SQ PRN ×2 (07:18→17:26)
[2022-12-02] MEDS ORDERED: FERROUS SULFATE 325 MG EC TABLET PO SCH (07:30)
[2022-12-02 07:31] LABS: GLUCOMETER DEV NAME(LOC) 3EX.2; GLUCOSE,POINT OF CARE 160 MG/DL (70-110)
[2022-12-02] MEDS: MULTIVITAMINS WITH MINERALS, THERAPEUTIC TABLET PO SCH (07:58)
[2022-12-02 07:59] VITALS: BP 144/93
[2022-12-02] MEDS: DOCUSATE SODIUM 250 MG CAPSULE PO SCH (07:59)
[2022-12-02] MEDS: AmLODIPine BESYLATE 5 MG TABLET PO SCH (07:59)
[2022-12-02] MEDS: CHOLECALCIFEROL (VIT D3) 1,000 UNITS [25 MCG] TABLET PO SCH (07:59)
[2022-12-02] MEDS: IBUPROFEN 400 MG TABLET PO PRN (07:59)
[2022-12-02] MEDS: LevETIRAcetam 500 MG TABLET PO SCH ×2 (07:59→17:14)
[2022-12-02] MEDS: PANTOPRAZOLE SODIUM 40 MG DR TABLET PO SCH (07:59)
[2022-12-02] MEDS: PROPRANOLOL HCL 20 MG TABLET PO SCH (08:00)
[2022-12-02 08:26] LABS: BASOPHILS % (AUTO) 0.4 % (0.0-2.0); EOSINOPHILS % (AUTO) 0 % (1.0-6.0); HEMATOCRIT 36.2 % (36-46); HEMOGLOBIN 12.3 g/dL (12.0-16.0); LYMPHOCYTES # (AUTO) 2.2 K/uL (1.0-4.8); LYMPHOCYTES % (AUTO) 26.8 % (22.0-44.0); MEAN CORPUSCULAR HEMOGLOBIN 31.3 pg (26.0-34.0); MEAN CORPUSCULAR VOLUME 92 fL (80-100); MONOCYTES # (AUTO) 0.6 K/uL (0.1-1.0); NEUTROPHILS # (AUTO) 5.5 K/uL (1.8-7.7); NEUTROPHILS % (AUTO) 65.8 % (40.0-70.0); PLATELET COUNT (AUTO) 234 K/uL (150-450); RED BLOOD CELL COUNT(AUTO) 3.93 MIL/uL (4.00-5.20); RED CELL DISTRIBUTION WIDTH 13.3 % (11.5-14.5)
[2022-12-02 08:28] VITALS: BP 144/93
[2022-12-02 08:59] VITALS: BP 136/84
[2022-12-02] MEDS ORDERED: CHOLECALCIFEROL (VIT D3) 1,000 UNITS [25 MCG] TABLET PO SCH (09:00)
[2022-12-02] MEDS: NYSTATIN 30 GM CREAM TP SCH ×2 (09:00→17:00)
[2022-12-02] MEDS ORDERED: AmLODIPine BESYLATE 5 MG TABLET PO SCH (09:00)
[2022-12-02] MEDS: LACOSAMIDE 50 MG TABLET PO SCH ×2 (09:54→17:14)
[2022-12-02] MEDS: QUEtiapine FUMARATE 100 MG TABLET PO PRN (11:25)
[2022-12-02] MEDS: DIVALPROEX SODIUM 250 MG ER TABLET PO SCH ×2 (12:16→20:50)
[2022-12-02] MEDS: BENZTROPINE MESYLATE 1 MG TABLET PO SCH ×2 (12:18→20:51)
[2022-12-02] MEDS: BuPROPion HCL XL 150 MG ER TABLET PO SCH (12:18)
[2022-12-02] MEDS: BusPIRone HCL 10 MG TABLET PO SCH ×3 (12:19→20:50)
[2022-12-02] MEDS: OLANZapine 10 MG TABLET PO SCH ×3 (12:19→20:50)
[2022-12-02 16:06] LABS: GLUCOMETER DEV NAME(LOC) 3EX.2; GLUCOSE,POINT OF CARE 161 MG/DL (70-110)
[2022-12-02] MEDS: MELATONIN 3 MG TABLET PO SCH (20:50)
[2022-12-02] MEDS: CloZAPine 100 MG TABLET PO SCH (20:50)
[2022-12-02 21:13] VITALS: BP 117/59
[2022-12-03] MEDS: LORazepam 2 MG TABLET PO PRN ×2 (05:24→21:08)
[2022-12-03 05:41] LABS: GLUCOMETER DEV NAME(LOC) 3E.C; GLUCOSE,POINT OF CARE 126 MG/DL (70-110)
[2022-12-03] MEDS: INSULIN LISPRO 100 UNITS/ML SQ PRN ×4 (06:47→21:07)
[2022-12-03] MEDS: LEVOTHYROXINE SODIUM 100 MCG TABLET PO SCH (06:49)
[2022-12-03] MEDS: FERROUS SULFATE 325 MG EC TABLET PO SCH (07:00)
[2022-12-03] MEDS: MetFORMIN HCL 500 MG TABLET PO SCH ×2 (07:00→16:51)
[2022-12-03] MEDS: OLANZapine 10 MG TABLET PO SCH ×3 (08:20→20:24)
[2022-12-03] MEDS: DOCUSATE SODIUM 250 MG CAPSULE PO SCH (08:20)
[2022-12-03] MEDS: PANTOPRAZOLE SODIUM 40 MG DR TABLET PO SCH (08:21)
[2022-12-03] MEDS: DIVALPROEX SODIUM 250 MG ER TABLET PO SCH ×2 (08:21→20:24)
[2022-12-03] MEDS: MULTIVITAMINS WITH MINERALS, THERAPEUTIC TABLET PO SCH (08:21)
[2022-12-03] MEDS: BENZTROPINE MESYLATE 1 MG TABLET PO SCH ×2 (08:22→20:23)
[2022-12-03] MEDS: AmLODIPine BESYLATE 5 MG TABLET PO SCH (08:22)
[2022-12-03] MEDS: BuPROPion HCL XL 150 MG ER TABLET PO SCH (08:22)
[2022-12-03] MEDS: LACOSAMIDE 50 MG TABLET PO SCH ×2 (08:22→16:51)
[2022-12-03] MEDS: LevETIRAcetam 500 MG TABLET PO SCH ×2 (08:22→16:51)
[2022-12-03] MEDS: CHOLECALCIFEROL (VIT D3) 1,000 UNITS [25 MCG] TABLET PO SCH (08:28)
[2022-12-03] MEDS: PROPRANOLOL HCL 20 MG TABLET PO SCH (08:28)
[2022-12-03] MEDS: BusPIRone HCL 10 MG TABLET PO SCH ×3 (08:29→20:23)
[2022-12-03] MEDS: NYSTATIN 30 GM CREAM TP SCH ×2 (08:30→16:53)
[2022-12-03 08:33] VITALS: BP 127/76
[2022-12-03 11:47] LABS: GLUCOMETER DEV NAME(LOC) 3E.C; GLUCOSE,POINT OF CARE 193 MG/DL (70-110)
[2022-12-03 12:21] VITALS: BP 123/81
[2022-12-03] MEDS: IBUPROFEN 400 MG TABLET PO PRN (12:21)
[2022-12-03 13:21] VITALS: BP 130/68
[2022-12-03 16:20] VITALS: BP 129/85
[2022-12-03 16:22] VITALS: BP 134/83
[2022-12-03 16:26] LABS: GLUCOMETER DEV NAME(LOC) 3E.C; GLUCOSE,POINT OF CARE 175 MG/DL (70-110)
[2022-12-03] MEDS: MELATONIN 3 MG TABLET PO SCH (20:23)
[2022-12-03] MEDS: CloZAPine 100 MG TABLET PO SCH (20:24)
[2022-12-03 20:26] LABS: GLUCOMETER DEV NAME(LOC) 3E.C; GLUCOSE,POINT OF CARE 157 MG/DL (70-110)
[2022-12-03 20:55] VITALS: BP 135/81
[2022-12-04 06:22] LABS: GLUCOMETER DEV NAME(LOC) 3E.C; GLUCOSE,POINT OF CARE 108 MG/DL (70-110)
[2022-12-04] MEDS: INSULIN LISPRO 100 UNITS/ML SQ PRN ×4 (06:44→20:56)
[2022-12-04] MEDS: MetFORMIN HCL 500 MG TABLET PO SCH ×2 (06:46→16:17)
[2022-12-04] MEDS: FERROUS SULFATE 325 MG EC TABLET PO SCH (06:46)
[2022-12-04] MEDS: LEVOTHYROXINE SODIUM 100 MCG TABLET PO SCH (06:46)
[2022-12-04] MEDS: LORazepam 2 MG TABLET PO PRN ×2 (08:18→13:19)
[2022-12-04] MEDS: CHOLECALCIFEROL (VIT D3) 1,000 UNITS [25 MCG] TABLET PO SCH (08:19)
[2022-12-04] MEDS: DIVALPROEX SODIUM 250 MG ER TABLET PO SCH ×2 (08:19→20:55)
[2022-12-04] MEDS: BuPROPion HCL XL 150 MG ER TABLET PO SCH (08:19)
[2022-12-04] MEDS: BENZTROPINE MESYLATE 1 MG TABLET PO SCH ×2 (08:19→20:54)
[2022-12-04] MEDS: AmLODIPine BESYLATE 5 MG TABLET PO SCH (08:19)
[2022-12-04] MEDS: MULTIVITAMINS WITH MINERALS, THERAPEUTIC TABLET PO SCH (08:19)
[2022-12-04] MEDS: OLANZapine 10 MG TABLET PO SCH ×3 (08:20→20:54)
[2022-12-04] MEDS: DOCUSATE SODIUM 250 MG CAPSULE PO SCH (08:20)
[2022-12-04] MEDS: LACOSAMIDE 50 MG TABLET PO SCH ×2 (08:20→16:16)
[2022-12-04] MEDS: LevETIRAcetam 500 MG TABLET PO SCH ×2 (08:20→16:16)
[2022-12-04] MEDS: PANTOPRAZOLE SODIUM 40 MG DR TABLET PO SCH (08:20)
[2022-12-04] MEDS: NYSTATIN 30 GM CREAM TP SCH ×2 (08:21→16:17)
[2022-12-04] MEDS: BusPIRone HCL 10 MG TABLET PO SCH ×3 (08:21→20:54)
[2022-12-04] MEDS: PROPRANOLOL HCL 20 MG TABLET PO SCH (08:21)
[2022-12-04 08:30] VITALS: BP 136/90
[2022-12-04 11:46] LABS: GLUCOMETER DEV NAME(LOC) 3E.C; GLUCOSE,POINT OF CARE 181 MG/DL (70-110)
[2022-12-04 16:20] VITALS: BP 139/98
[2022-12-04 16:26] LABS: GLUCOMETER DEV NAME(LOC) 3E.C; GLUCOSE,POINT OF CARE 204 MG/DL (70-110)
[2022-12-04 18:28] VITALS: BP 135/78
[2022-12-04] MEDS: ACETAMINOPHEN 325 MG TABLET PO PRN (18:28)
[2022-12-04 20:04] VITALS: BP 121/76
[2022-12-04] MEDS: MELATONIN 3 MG TABLET PO SCH (20:54)
[2022-12-04] MEDS: CloZAPine 100 MG TABLET PO SCH (20:55)
[2022-12-04 20:56] LABS: GLUCOMETER DEV NAME(LOC) 3E.C; GLUCOSE,POINT OF CARE 145 MG/DL (70-110)
[2022-12-04] MEDS: ZOLPIDEM TARTRATE 10 MG TABLET PO PRN (21:39)
[2022-12-05 01:21] VITALS: BP 119/72
[2022-12-05] MEDS: QUEtiapine FUMARATE 100 MG TABLET PO PRN (01:37)
[2022-12-05] MEDS: ACETAMINOPHEN 325 MG TABLET PO PRN (01:38)
[2022-12-05] MEDS: LORazepam 2 MG TABLET PO PRN ×3 (01:38→17:51)
[2022-12-05 05:46] LABS: GLUCOMETER DEV NAME(LOC) 3E.C; GLUCOSE,POINT OF CARE 124 MG/DL (70-110)
[2022-12-05] MEDS: LEVOTHYROXINE SODIUM 100 MCG TABLET PO SCH (06:31)
[2022-12-05] MEDS: FERROUS SULFATE 325 MG EC TABLET PO SCH (06:32)
[2022-12-05] MEDS: MetFORMIN HCL 500 MG TABLET PO SCH ×2 (06:33→16:24)
[2022-12-05] MEDS: LACOSAMIDE 50 MG TABLET PO SCH ×2 (08:19→16:24)
[2022-12-05] MEDS: LevETIRAcetam 500 MG TABLET PO SCH ×2 (08:19→16:24)
[2022-12-05] MEDS: DIVALPROEX SODIUM 250 MG ER TABLET PO SCH ×2 (08:19→20:56)
[2022-12-05] MEDS: DOCUSATE SODIUM 250 MG CAPSULE PO SCH ×2 (08:19→08:34)
[2022-12-05] MEDS: BENZTROPINE MESYLATE 1 MG TABLET PO SCH ×2 (08:19→20:57)
[2022-12-05] MEDS: PANTOPRAZOLE SODIUM 40 MG DR TABLET PO SCH (08:19)
[2022-12-05] MEDS: BusPIRone HCL 10 MG TABLET PO SCH ×3 (08:20→20:57)
[2022-12-05] MEDS: PROPRANOLOL HCL 20 MG TABLET PO SCH (08:21)
[2022-12-05] MEDS: AmLODIPine BESYLATE 5 MG TABLET PO SCH (08:21)
[2022-12-05] MEDS: BuPROPion HCL XL 150 MG ER TABLET PO SCH (08:21)
[2022-12-05] MEDS: CHOLECALCIFEROL (VIT D3) 1,000 UNITS [25 MCG] TABLET PO SCH (08:21)
[2022-12-05] MEDS: MULTIVITAMINS WITH MINERALS, THERAPEUTIC TABLET PO SCH (08:21)
[2022-12-05] MEDS: NYSTATIN 30 GM CREAM TP SCH ×2 (08:22→16:25)
[2022-12-05] MEDS: OLANZapine 10 MG TABLET PO SCH ×3 (08:22→20:57)
[2022-12-05] MEDS: LOPERAMIDE HCL 2 MG CAPSULE PO PRN (08:31)
[2022-12-05 08:36] VITALS: BP 130/76
[2022-12-05] MEDS: INSULIN LISPRO 100 UNITS/ML SQ PRN ×3 (11:40→21:09)
[2022-12-05 11:41] LABS: GLUCOMETER DEV NAME(LOC) 3E.C; GLUCOSE,POINT OF CARE 150 MG/DL (70-110)
[2022-12-05 16:23] VITALS: BP 121/75
[2022-12-05 16:25] LABS: GLUCOMETER DEV NAME(LOC) 3E.C; GLUCOSE,POINT OF CARE 223 MG/DL (70-110)
[2022-12-05 20:21] LABS: GLUCOMETER DEV NAME(LOC) 3E.C; GLUCOSE,POINT OF CARE 145 MG/DL (70-110)
[2022-12-05] MEDS: CloZAPine 100 MG TABLET PO SCH (20:56)
[2022-12-05] MEDS: MELATONIN 3 MG TABLET PO SCH (20:57)
[2022-12-05 20:59] VITALS: BP 156/92
[2022-12-05] MEDS: ZOLPIDEM TARTRATE 10 MG TABLET PO PRN (21:36)
[2022-12-06] MEDS: LORazepam 2 MG TABLET PO PRN ×3 (01:36→19:28)
[2022-12-06 06:21] LABS: GLUCOMETER DEV NAME(LOC) 3E.C; GLUCOSE,POINT OF CARE 143 MG/DL (70-110)
[2022-12-06] MEDS: LEVOTHYROXINE SODIUM 100 MCG TABLET PO SCH (06:35)
[2022-12-06] MEDS: FERROUS SULFATE 325 MG EC TABLET PO SCH (06:35)
[2022-12-06] MEDS: MetFORMIN HCL 500 MG TABLET PO SCH ×2 (06:35→17:22)
[2022-12-06] MEDS: INSULIN LISPRO 100 UNITS/ML SQ PRN ×4 (06:38→20:21)
[2022-12-06] MEDS: DOCUSATE SODIUM 250 MG CAPSULE PO SCH (09:38)
[2022-12-06] MEDS: BuPROPion HCL XL 150 MG ER TABLET PO SCH (09:38)
[2022-12-06] MEDS: BENZTROPINE MESYLATE 1 MG TABLET PO SCH ×2 (09:41→20:17)
[2022-12-06] MEDS: PROPRANOLOL HCL 20 MG TABLET PO SCH (09:41)
[2022-12-06] MEDS: BusPIRone HCL 10 MG TABLET PO SCH ×3 (09:41→20:16)
[2022-12-06] MEDS: DIVALPROEX SODIUM 250 MG ER TABLET PO SCH ×2 (09:41→20:15)
[2022-12-06] MEDS: CHOLECALCIFEROL (VIT D3) 1,000 UNITS [25 MCG] TABLET PO SCH (09:41)
[2022-12-06] MEDS: AmLODIPine BESYLATE 5 MG TABLET PO SCH (09:41)
[2022-12-06] MEDS: MULTIVITAMINS WITH MINERALS, THERAPEUTIC TABLET PO SCH (09:46)
[2022-12-06] MEDS: LACOSAMIDE 50 MG TABLET PO SCH ×2 (09:46→17:26)
[2022-12-06] MEDS: OLANZapine 10 MG TABLET PO SCH ×3 (09:46→20:17)
[2022-12-06] MEDS: PANTOPRAZOLE SODIUM 40 MG DR TABLET PO SCH (09:46)
[2022-12-06] MEDS: LevETIRAcetam 500 MG TABLET PO SCH ×2 (09:46→17:22)
[2022-12-06] MEDS: GuaiFENesin/D-METHORPHAN [SUGAR-FREE] 200-20MG/10 ML SYRUP UDCUP PO PRN (09:47)
[2022-12-06] MEDS: QUEtiapine FUMARATE 100 MG TABLET PO PRN (09:51)
[2022-12-06] MEDS: IBUPROFEN 400 MG TABLET PO PRN (09:51)
[2022-12-06] MEDS: NYSTATIN 30 GM CREAM TP SCH ×2 (09:54→17:23)
[2022-12-06 11:31] LABS: GLUCOMETER DEV NAME(LOC) 3E.C; GLUCOSE,POINT OF CARE 184 MG/DL (70-110)
[2022-12-06 16:52] LABS: GLUCOMETER DEV NAME(LOC) 3E.C; GLUCOSE,POINT OF CARE 191 MG/DL (70-110)
[2022-12-06 17:06] VITALS: BP 144/89
[2022-12-06 20:11] LABS: GLUCOMETER DEV NAME(LOC) 3E.C; GLUCOSE,POINT OF CARE 213 MG/DL (70-110)
[2022-12-06] MEDS: CloZAPine 100 MG TABLET PO SCH (20:16)
[2022-12-06] MEDS: MELATONIN 3 MG TABLET PO SCH (20:16)
[2022-12-06] MEDS: ZOLPIDEM TARTRATE 10 MG TABLET PO PRN (21:16)
[2022-12-06 21:19] VITALS: BP 162/92
[2022-12-07 05:36] LABS: GLUCOMETER DEV NAME(LOC) 3E.C; GLUCOSE,POINT OF CARE 171 MG/DL (70-110)
[2022-12-07] MEDS: IBUPROFEN 400 MG TABLET PO PRN (05:40)
[2022-12-07] MEDS: FERROUS SULFATE 325 MG EC TABLET PO SCH (06:42)
[2022-12-07] MEDS: MetFORMIN HCL 500 MG TABLET PO SCH ×2 (06:42→17:32)
[2022-12-07] MEDS: LEVOTHYROXINE SODIUM 100 MCG TABLET PO SCH (06:45)
[2022-12-07] MEDS: INSULIN LISPRO 100 UNITS/ML SQ PRN ×4 (06:46→21:35)
[2022-12-07 08:00] VITALS: BP 131/94
[2022-12-07] MEDS: LevETIRAcetam 500 MG TABLET PO SCH ×2 (08:34→17:01)
[2022-12-07] MEDS: MULTIVITAMINS WITH MINERALS, THERAPEUTIC TABLET PO SCH (08:34)
[2022-12-07] MEDS: DIVALPROEX SODIUM 250 MG ER TABLET PO SCH ×2 (08:34→21:13)
[2022-12-07] MEDS: DOCUSATE SODIUM 250 MG CAPSULE PO SCH (08:34)
[2022-12-07] MEDS: LACOSAMIDE 50 MG TABLET PO SCH ×2 (08:35→17:01)
[2022-12-07] MEDS: BENZTROPINE MESYLATE 1 MG TABLET PO SCH ×2 (08:35→21:12)
[2022-12-07] MEDS: PANTOPRAZOLE SODIUM 40 MG DR TABLET PO SCH (08:35)
[2022-12-07] MEDS: OLANZapine 10 MG TABLET PO SCH ×3 (08:35→21:11)
[2022-12-07] MEDS: AmLODIPine BESYLATE 5 MG TABLET PO SCH (08:35)
[2022-12-07] MEDS: BuPROPion HCL XL 150 MG ER TABLET PO SCH (08:35)
[2022-12-07] MEDS: CHOLECALCIFEROL (VIT D3) 1,000 UNITS [25 MCG] TABLET PO SCH (08:35)
[2022-12-07] MEDS: PROPRANOLOL HCL 20 MG TABLET PO SCH (08:36)
[2022-12-07] MEDS: BusPIRone HCL 10 MG TABLET PO SCH ×3 (08:36→21:12)
[2022-12-07] MEDS: LORazepam 2 MG TABLET PO PRN ×2 (08:36→19:30)
[2022-12-07] MEDS: NYSTATIN 30 GM CREAM TP SCH ×2 (08:37→17:00)
[2022-12-07 11:51] LABS: GLUCOMETER DEV NAME(LOC) 3E.C; GLUCOSE,POINT OF CARE 304 MG/DL (70-110)
[2022-12-07] MEDS: QUEtiapine FUMARATE 100 MG TABLET PO PRN (14:28)
[2022-12-07 17:16] VITALS: BP 135/92
[2022-12-07 17:16] LABS: GLUCOMETER DEV NAME(LOC) 3E.C; GLUCOSE,POINT OF CARE 192 MG/DL (70-110)
[2022-12-07 20:11] VITALS: BP 131/77
[2022-12-07 20:21] LABS: GLUCOMETER DEV NAME(LOC) 3E.C; GLUCOSE,POINT OF CARE 173 MG/DL (70-110)
[2022-12-07] MEDS: MELATONIN 3 MG TABLET PO SCH (21:11)
[2022-12-07] MEDS: CloZAPine 100 MG TABLET PO SCH (21:12)
[2022-12-07] MEDS: ZOLPIDEM TARTRATE 10 MG TABLET PO PRN (22:16)
[2022-12-08] MEDS: QUEtiapine FUMARATE 100 MG TABLET PO PRN ×3 (04:35→16:08)
[2022-12-08 06:11] LABS: GLUCOMETER DEV NAME(LOC) 3E.C; GLUCOSE,POINT OF CARE 126 MG/DL (70-110)
[2022-12-08] MEDS: MetFORMIN HCL 500 MG TABLET PO SCH ×2 (06:36→16:42)
[2022-12-08] MEDS: LEVOTHYROXINE SODIUM 100 MCG TABLET PO SCH (06:37)
[2022-12-08] MEDS: FERROUS SULFATE 325 MG EC TABLET PO SCH (06:37)
[2022-12-08] MEDS: LORazepam 2 MG TABLET PO PRN ×2 (09:13→16:08)
[2022-12-08] MEDS: BuPROPion HCL XL 150 MG ER TABLET PO SCH (09:13)
[2022-12-08] MEDS: OLANZapine 10 MG TABLET PO SCH ×3 (09:13→20:37)
[2022-12-08] MEDS: DIVALPROEX SODIUM 250 MG ER TABLET PO SCH ×2 (09:14→20:37)
[2022-12-08] MEDS: BENZTROPINE MESYLATE 1 MG TABLET PO SCH ×2 (09:14→20:37)
[2022-12-08] MEDS: AmLODIPine BESYLATE 5 MG TABLET PO SCH (09:14)
[2022-12-08] MEDS: BusPIRone HCL 10 MG TABLET PO SCH ×3 (09:14→20:37)
[2022-12-08] MEDS: PANTOPRAZOLE SODIUM 40 MG DR TABLET PO SCH (09:14)
[2022-12-08] MEDS: MULTIVITAMINS WITH MINERALS, THERAPEUTIC TABLET PO SCH (09:14)
[2022-12-08] MEDS: CHOLECALCIFEROL (VIT D3) 1,000 UNITS [25 MCG] TABLET PO SCH (09:14)
[2022-12-08] MEDS: DOCUSATE SODIUM 250 MG CAPSULE PO SCH (09:14)
[2022-12-08] MEDS: LevETIRAcetam 500 MG TABLET PO SCH ×2 (09:15→16:35)
[2022-12-08] MEDS: PROPRANOLOL HCL 20 MG TABLET PO SCH (09:15)
[2022-12-08 09:16] VITALS: BP 129/96
[2022-12-08] MEDS: LACOSAMIDE 50 MG TABLET PO SCH ×2 (09:16→16:35)
[2022-12-08] MEDS: GuaiFENesin/D-METHORPHAN [SUGAR-FREE] 200-20MG/10 ML SYRUP UDCUP PO PRN ×2 (09:26→16:08)
[2022-12-08 09:29] LABS: COVID AG,FIA SOURCE NASAL SWAB
[2022-12-08] MEDS: NYSTATIN 30 GM CREAM TP SCH ×2 (13:27→17:57)
[2022-12-08 16:16] LABS: GLUCOMETER DEV NAME(LOC) 3E.C; GLUCOSE,POINT OF CARE 280 MG/DL (70-110)
[2022-12-08 16:22] VITALS: BP 131/98
[2022-12-08] MEDS: INSULIN LISPRO 100 UNITS/ML SQ PRN ×2 (16:42→20:42)
[2022-12-08] MEDS: MELATONIN 3 MG TABLET PO SCH (20:37)
[2022-12-08] MEDS: CloZAPine 100 MG TABLET PO SCH (20:38)
[2022-12-08 21:19] VITALS: BP 105/101
[2022-12-08] MEDS: ZOLPIDEM TARTRATE 10 MG TABLET PO PRN (21:38)
[2022-12-08 22:25] VITALS: BP 152/79
[2022-12-08 22:26] VITALS: BP 140/50
[2022-12-08 22:51] LABS: GLUCOMETER DEV NAME(LOC) 3E.C; GLUCOSE,POINT OF CARE 177 MG/DL (70-110)
[2022-12-09 06:42] VITALS: BP 135/67
[2022-12-09] MEDS: IBUPROFEN 400 MG TABLET PO PRN (06:45)
[2022-12-09] MEDS: QUEtiapine FUMARATE 100 MG TABLET PO PRN ×3 (06:46→16:26)
[2022-12-09] MEDS: LEVOTHYROXINE SODIUM 100 MCG TABLET PO SCH (06:51)
[2022-12-09] MEDS: MetFORMIN HCL 500 MG TABLET PO SCH ×2 (06:51→17:09)
[2022-12-09] MEDS: FERROUS SULFATE 325 MG EC TABLET PO SCH (06:51)
[2022-12-09] MEDS: INSULIN LISPRO 100 UNITS/ML SQ PRN ×4 (06:54→21:37)
[2022-12-09 07:55] LABS: GLUCOMETER DEV NAME(LOC) 3E.C; GLUCOSE,POINT OF CARE 150 MG/DL (70-110)
[2022-12-09] MEDS: BuPROPion HCL XL 150 MG ER TABLET PO SCH (08:03)
[2022-12-09] MEDS: PROPRANOLOL HCL 20 MG TABLET PO SCH (08:04)
[2022-12-09] MEDS: DIVALPROEX SODIUM 250 MG ER TABLET PO SCH ×2 (08:04→20:52)
[2022-12-09] MEDS: BusPIRone HCL 10 MG TABLET PO SCH ×3 (08:05→20:52)
[2022-12-09] MEDS: AmLODIPine BESYLATE 5 MG TABLET PO SCH (08:09)
[2022-12-09] MEDS: BENZTROPINE MESYLATE 1 MG TABLET PO SCH ×2 (08:09→20:54)
[2022-12-09] MEDS: MULTIVITAMINS WITH MINERALS, THERAPEUTIC TABLET PO SCH (08:09)
[2022-12-09] MEDS: PANTOPRAZOLE SODIUM 40 MG DR TABLET PO SCH (08:10)
[2022-12-09] MEDS: DOCUSATE SODIUM 250 MG CAPSULE PO SCH (08:10)
[2022-12-09] MEDS: LACOSAMIDE 50 MG TABLET PO SCH ×2 (08:11→16:17)
[2022-12-09] MEDS: LevETIRAcetam 500 MG TABLET PO SCH ×2 (08:12→16:17)
[2022-12-09] MEDS: OLANZapine 10 MG TABLET PO SCH ×3 (08:13→20:49)
[2022-12-09 09:47] VITALS: BP 139/90
[2022-12-09] MEDS: CHOLECALCIFEROL (VIT D3) 1,000 UNITS [25 MCG] TABLET PO SCH (10:41)
[2022-12-09] MEDS: LORazepam 2 MG TABLET PO PRN (10:41)
[2022-12-09] MEDS: NYSTATIN 30 GM CREAM TP SCH ×2 (10:41→17:09)
[2022-12-09 11:56] LABS: GLUCOMETER DEV NAME(LOC) 3E.C; GLUCOSE,POINT OF CARE 154 MG/DL (70-110)
[2022-12-09 16:15] VITALS: BP 136/87
[2022-12-09 16:31] LABS: GLUCOMETER DEV NAME(LOC) 3E.C; GLUCOSE,POINT OF CARE 160 MG/DL (70-110)
[2022-12-09 20:09] VITALS: BP 128/82
[2022-12-09 20:26] LABS: GLUCOMETER DEV NAME(LOC) 3E.C; GLUCOSE,POINT OF CARE 160 MG/DL (70-110)
[2022-12-09] MEDS: MELATONIN 3 MG TABLET PO SCH (20:52)
[2022-12-09] MEDS: CloZAPine 100 MG TABLET PO SCH (20:53)
[2022-12-09] MEDS: ZOLPIDEM TARTRATE 10 MG TABLET PO PRN (21:50)
[2022-12-10 06:11] LABS: GLUCOMETER DEV NAME(LOC) 3E.C; GLUCOSE,POINT OF CARE 123 MG/DL (70-110)
[2022-12-10] MEDS: LEVOTHYROXINE SODIUM 100 MCG TABLET PO SCH (06:17)
[2022-12-10] MEDS: MetFORMIN HCL 500 MG TABLET PO SCH ×2 (06:35→17:36)
[2022-12-10] MEDS: FERROUS SULFATE 325 MG EC TABLET PO SCH (06:35)
[2022-12-10] MEDS: AmLODIPine BESYLATE 5 MG TABLET PO SCH (09:00)
[2022-12-10] MEDS: PANTOPRAZOLE SODIUM 40 MG DR TABLET PO SCH (09:03)
[2022-12-10] MEDS: CHOLECALCIFEROL (VIT D3) 1,000 UNITS [25 MCG] TABLET PO SCH (09:04)
[2022-12-10] MEDS: DOCUSATE SODIUM 250 MG CAPSULE PO SCH (09:04)
[2022-12-10] MEDS: BusPIRone HCL 10 MG TABLET PO SCH ×3 (09:04→20:44)
[2022-12-10] MEDS: BuPROPion HCL XL 150 MG ER TABLET PO SCH (09:04)
[2022-12-10] MEDS: OLANZapine 10 MG TABLET PO SCH ×3 (09:04→20:45)
[2022-12-10] MEDS: PROPRANOLOL HCL 20 MG TABLET PO SCH (09:04)
[2022-12-10] MEDS: LACOSAMIDE 50 MG TABLET PO SCH ×2 (09:04→17:30)
[2022-12-10] MEDS: LevETIRAcetam 500 MG TABLET PO SCH ×2 (09:05→17:10)
[2022-12-10] MEDS: BENZTROPINE MESYLATE 1 MG TABLET PO SCH ×2 (09:05→20:44)
[2022-12-10] MEDS: MULTIVITAMINS WITH MINERALS, THERAPEUTIC TABLET PO SCH (09:05)
[2022-12-10] MEDS: DIVALPROEX SODIUM 250 MG ER TABLET PO SCH ×2 (09:05→20:44)
[2022-12-10 09:15] VITALS: BP 108/76
[2022-12-10] MEDS: NYSTATIN 30 GM CREAM TP SCH ×2 (09:19→17:19)
[2022-12-10] MEDS: LORazepam 2 MG TABLET PO PRN (10:14)
[2022-12-10 11:46] LABS: GLUCOMETER DEV NAME(LOC) 3E.C; GLUCOSE,POINT OF CARE 228 MG/DL (70-110)
[2022-12-10] MEDS: INSULIN LISPRO 100 UNITS/ML SQ PRN ×3 (11:53→21:21)
[2022-12-10 16:49] VITALS: BP 137/85
[2022-12-10 17:16] LABS: GLUCOMETER DEV NAME(LOC) 3E.I 2; GLUCOSE,POINT OF CARE 160 MG/DL (70-110)
[2022-12-10 20:16] LABS: GLUCOMETER DEV NAME(LOC) 3E.C; GLUCOSE,POINT OF CARE 210 MG/DL (70-110)
[2022-12-10 20:32] VITALS: BP 154/97
[2022-12-10] MEDS: CloZAPine 100 MG TABLET PO SCH (20:44)
[2022-12-10] MEDS: MELATONIN 3 MG TABLET PO SCH (20:44)
[2022-12-10] MEDS: ZOLPIDEM TARTRATE 10 MG TABLET PO PRN (21:30)
[2022-12-11 05:41] LABS: GLUCOMETER DEV NAME(LOC) 3E.C; GLUCOSE,POINT OF CARE 126 MG/DL (70-110)
[2022-12-11] MEDS: LEVOTHYROXINE SODIUM 100 MCG TABLET PO SCH (06:07)
[2022-12-11] MEDS: MetFORMIN HCL 500 MG TABLET PO SCH ×2 (06:59→17:37)
[2022-12-11] MEDS: FERROUS SULFATE 325 MG EC TABLET PO SCH (06:59)
[2022-12-11] MEDS: DOCUSATE SODIUM 250 MG CAPSULE PO SCH (08:48)
[2022-12-11] MEDS: MULTIVITAMINS WITH MINERALS, THERAPEUTIC TABLET PO SCH (08:48)
[2022-12-11] MEDS: OLANZapine 10 MG TABLET PO SCH ×3 (08:48→21:02)
[2022-12-11] MEDS: AmLODIPine BESYLATE 5 MG TABLET PO SCH (08:49)
[2022-12-11] MEDS: LevETIRAcetam 500 MG TABLET PO SCH ×2 (08:49→17:02)
[2022-12-11] MEDS: BENZTROPINE MESYLATE 1 MG TABLET PO SCH ×2 (08:49→21:02)
[2022-12-11] MEDS: CHOLECALCIFEROL (VIT D3) 1,000 UNITS [25 MCG] TABLET PO SCH (08:50)
[2022-12-11] MEDS: BusPIRone HCL 10 MG TABLET PO SCH ×3 (08:50→21:03)
[2022-12-11] MEDS: PROPRANOLOL HCL 20 MG TABLET PO SCH (08:51)
[2022-12-11] MEDS: BuPROPion HCL XL 150 MG ER TABLET PO SCH (08:51)
[2022-12-11] MEDS: DIVALPROEX SODIUM 250 MG ER TABLET PO SCH ×2 (08:52→21:02)
[2022-12-11] MEDS: NYSTATIN 30 GM CREAM TP SCH ×2 (08:53→17:02)
[2022-12-11] MEDS: PANTOPRAZOLE SODIUM 40 MG DR TABLET PO SCH (08:57)
[2022-12-11 09:00] VITALS: BP 107/87
[2022-12-11] MEDS: LACOSAMIDE 50 MG TABLET PO SCH ×2 (09:19→17:02)
[2022-12-11] MEDS: INSULIN LISPRO 100 UNITS/ML SQ PRN ×3 (11:54→20:32)
[2022-12-11 12:16] LABS: GLUCOMETER DEV NAME(LOC) 3E.I 2; GLUCOSE,POINT OF CARE 208 MG/DL (70-110)
[2022-12-11 16:00] VITALS: BP 152/81
[2022-12-11] MEDS: MUPIROCIN CALCIUM 2% 22 GM OINTMENT NASAL SCH (17:02)
[2022-12-11 18:06] LABS: GLUCOMETER DEV NAME(LOC) 3E.I 2; GLUCOSE,POINT OF CARE 215 MG/DL (70-110)
[2022-12-11 20:31] LABS: GLUCOMETER DEV NAME(LOC) 3E.C; GLUCOSE,POINT OF CARE 145 MG/DL (70-110)
[2022-12-11 20:42] VITALS: BP 161/103
[2022-12-11] MEDS: MELATONIN 3 MG TABLET PO SCH (21:02)
[2022-12-11] MEDS: CloZAPine 100 MG TABLET PO SCH (21:02)
[2022-12-12] MEDS: IBUPROFEN 400 MG TABLET PO PRN (04:16)
[2022-12-12 04:17] VITALS: BP 156/111
[2022-12-12 05:31] LABS: GLUCOMETER DEV NAME(LOC) 3E.C; GLUCOSE,POINT OF CARE 144 MG/DL (70-110)
[2022-12-12] MEDS: LORazepam 2 MG TABLET PO PRN ×2 (06:04→20:35)
[2022-12-12] MEDS: MetFORMIN HCL 500 MG TABLET PO SCH ×2 (07:05→16:48)
[2022-12-12] MEDS: LEVOTHYROXINE SODIUM 100 MCG TABLET PO SCH (07:05)
[2022-12-12] MEDS: FERROUS SULFATE 325 MG EC TABLET PO SCH (07:06)
[2022-12-12] MEDS: INSULIN LISPRO 100 UNITS/ML SQ PRN ×4 (07:07→21:02)
[2022-12-12] MEDS: CHOLECALCIFEROL (VIT D3) 1,000 UNITS [25 MCG] TABLET PO SCH (08:43)
[2022-12-12] MEDS: BENZTROPINE MESYLATE 1 MG TABLET PO SCH ×2 (08:44→20:33)
[2022-12-12] MEDS: OLANZapine 10 MG TABLET PO SCH ×3 (08:44→20:32)
[2022-12-12] MEDS: PANTOPRAZOLE SODIUM 40 MG DR TABLET PO SCH (08:44)
[2022-12-12] MEDS: MULTIVITAMINS WITH MINERALS, THERAPEUTIC TABLET PO SCH (08:44)
[2022-12-12] MEDS: LevETIRAcetam 500 MG TABLET PO SCH ×2 (08:44→16:48)
[2022-12-12] MEDS: DOCUSATE SODIUM 250 MG CAPSULE PO SCH (08:45)
[2022-12-12] MEDS: BuPROPion HCL XL 150 MG ER TABLET PO SCH (08:45)
[2022-12-12] MEDS: AmLODIPine BESYLATE 5 MG TABLET PO SCH (08:45)
[2022-12-12] MEDS: DIVALPROEX SODIUM 250 MG ER TABLET PO SCH ×2 (08:46→20:33)
[2022-12-12] MEDS: MUPIROCIN CALCIUM 2% 22 GM OINTMENT NASAL SCH ×2 (08:47→16:49)
[2022-12-12] MEDS: BusPIRone HCL 10 MG TABLET PO SCH ×3 (08:47→20:32)
[2022-12-12] MEDS: NYSTATIN 30 GM CREAM TP SCH ×2 (08:48→16:49)
[2022-12-12] MEDS: PROPRANOLOL HCL 20 MG TABLET PO SCH (08:48)
[2022-12-12 09:00] VITALS: BP 141/91
[2022-12-12] MEDS: LACOSAMIDE 50 MG TABLET PO SCH ×2 (11:56→16:48)
[2022-12-12 12:16] LABS: GLUCOMETER DEV NAME(LOC) 3E.I 2; GLUCOSE,POINT OF CARE 234 MG/DL (70-110)
[2022-12-12 16:36] LABS: GLUCOMETER DEV NAME(LOC) 3E.C; GLUCOSE,POINT OF CARE 144 MG/DL (70-110)
[2022-12-12 16:58] VITALS: BP 139/81
[2022-12-12 20:16] VITALS: BP 132/83
[2022-12-12 20:21] LABS: GLUCOMETER DEV NAME(LOC) 3E.C; GLUCOSE,POINT OF CARE 216 MG/DL (70-110)
[2022-12-12] MEDS: MELATONIN 3 MG TABLET PO SCH (20:32)
[2022-12-12] MEDS: CloZAPine 100 MG TABLET PO SCH (20:33)
[2022-12-13 05:56] LABS: GLUCOMETER DEV NAME(LOC) 3E.C; GLUCOSE,POINT OF CARE 121 MG/DL (70-110)
[2022-12-13 06:02] VITALS: BP 152/84
[2022-12-13] MEDS: LORazepam 2 MG TABLET PO PRN (06:03)
[2022-12-13] MEDS: LEVOTHYROXINE SODIUM 100 MCG TABLET PO SCH (06:32)
[2022-12-13] MEDS: MetFORMIN HCL 500 MG TABLET PO SCH ×2 (06:32→17:22)
[2022-12-13] MEDS: FERROUS SULFATE 325 MG EC TABLET PO SCH (06:33)
[2022-12-13] MEDS: QUEtiapine FUMARATE 100 MG TABLET PO PRN ×2 (06:33→12:18)
[2022-12-13] MEDS: DIVALPROEX SODIUM 250 MG ER TABLET PO SCH ×2 (08:20→20:26)
[2022-12-13] MEDS: MUPIROCIN CALCIUM 2% 22 GM OINTMENT NASAL SCH ×2 (08:20→16:29)
[2022-12-13] MEDS: BuPROPion HCL XL 150 MG ER TABLET PO SCH (08:20)
[2022-12-13] MEDS: BusPIRone HCL 10 MG TABLET PO SCH ×3 (08:20→20:26)
[2022-12-13] MEDS: PROPRANOLOL HCL 20 MG TABLET PO SCH (08:20)
[2022-12-13] MEDS: AmLODIPine BESYLATE 5 MG TABLET PO SCH (08:24)
[2022-12-13] MEDS: DOCUSATE SODIUM 250 MG CAPSULE PO SCH (08:25)
[2022-12-13] MEDS: CHOLECALCIFEROL (VIT D3) 1,000 UNITS [25 MCG] TABLET PO SCH (08:25)
[2022-12-13] MEDS: OLANZapine 10 MG TABLET PO SCH ×3 (08:25→20:27)
[2022-12-13] MEDS: LevETIRAcetam 500 MG TABLET PO SCH ×2 (08:26→16:31)
[2022-12-13] MEDS: MULTIVITAMINS WITH MINERALS, THERAPEUTIC TABLET PO SCH (08:26)
[2022-12-13] MEDS: PANTOPRAZOLE SODIUM 40 MG DR TABLET PO SCH (08:26)
[2022-12-13] MEDS: BENZTROPINE MESYLATE 1 MG TABLET PO SCH ×2 (08:29→20:27)
[2022-12-13] MEDS: NYSTATIN 30 GM CREAM TP SCH ×2 (08:37→16:39)
[2022-12-13 08:55] VITALS: BP 142/85
[2022-12-13] MEDS: LACOSAMIDE 50 MG TABLET PO SCH ×2 (09:01→16:31)
[2022-12-13] MEDS: INSULIN LISPRO 100 UNITS/ML SQ PRN ×3 (11:12→21:41)
[2022-12-13 11:21] LABS: GLUCOMETER DEV NAME(LOC) 3E.I 2; GLUCOSE,POINT OF CARE 238 MG/DL (70-110)
[2022-12-13 16:13] VITALS: BP 128/89
[2022-12-13 16:51] LABS: GLUCOMETER DEV NAME(LOC) 3E.I 2; GLUCOSE,POINT OF CARE 197 MG/DL (70-110)
[2022-12-13 20:21] LABS: GLUCOMETER DEV NAME(LOC) 3E.C; GLUCOSE,POINT OF CARE 186 MG/DL (70-110)
[2022-12-13] MEDS: MELATONIN 3 MG TABLET PO SCH (20:27)
[2022-12-13] MEDS: CloZAPine 100 MG TABLET PO SCH (20:27)
[2022-12-13 20:38] VITALS: BP 136/80
[2022-12-13] MEDS: ZOLPIDEM TARTRATE 10 MG TABLET PO PRN (21:37)
[2022-12-14 05:36] LABS: GLUCOMETER DEV NAME(LOC) 3E.C; GLUCOSE,POINT OF CARE 111 MG/DL (70-110)
[2022-12-14] MEDS: LEVOTHYROXINE SODIUM 100 MCG TABLET PO SCH (06:08)
[2022-12-14] MEDS: FERROUS SULFATE 325 MG EC TABLET PO SCH (06:39)
[2022-12-14] MEDS: MetFORMIN HCL 500 MG TABLET PO SCH ×2 (06:39→17:52)
[2022-12-14] MEDS: MUPIROCIN CALCIUM 2% 22 GM OINTMENT NASAL SCH ×2 (08:13→16:09)
[2022-12-14] MEDS: PROPRANOLOL HCL 20 MG TABLET PO SCH (08:13)
[2022-12-14] MEDS: DIVALPROEX SODIUM 250 MG ER TABLET PO SCH ×2 (08:13→20:59)
[2022-12-14] MEDS: NYSTATIN 30 GM CREAM TP SCH ×2 (08:13→16:09)
[2022-12-14] MEDS: BuPROPion HCL XL 150 MG ER TABLET PO SCH (08:14)
[2022-12-14] MEDS: BusPIRone HCL 10 MG TABLET PO SCH ×3 (08:14→21:02)
[2022-12-14] MEDS: AmLODIPine BESYLATE 5 MG TABLET PO SCH (08:17)
[2022-12-14] MEDS: MULTIVITAMINS WITH MINERALS, THERAPEUTIC TABLET PO SCH (08:17)
[2022-12-14] MEDS: OLANZapine 10 MG TABLET PO SCH ×3 (08:17→20:58)
[2022-12-14] MEDS: PANTOPRAZOLE SODIUM 40 MG DR TABLET PO SCH (08:17)
[2022-12-14] MEDS: LACOSAMIDE 50 MG TABLET PO SCH ×2 (08:17→16:08)
[2022-12-14] MEDS: BENZTROPINE MESYLATE 1 MG TABLET PO SCH ×2 (08:17→20:58)
[2022-12-14] MEDS: LevETIRAcetam 500 MG TABLET PO SCH ×2 (08:17→16:08)
[2022-12-14] MEDS: CHOLECALCIFEROL (VIT D3) 1,000 UNITS [25 MCG] TABLET PO SCH (08:17)
[2022-12-14] MEDS: DOCUSATE SODIUM 250 MG CAPSULE PO SCH (08:21)
[2022-12-14 08:51] VITALS: BP 149/101
[2022-12-14] MEDS: QUEtiapine FUMARATE 100 MG TABLET PO PRN (11:06)
[2022-12-14] MEDS: INSULIN LISPRO 100 UNITS/ML SQ PRN ×2 (11:19→16:49)
[2022-12-14 11:27] LABS: GLUCOMETER DEV NAME(LOC) 3E.I 2; GLUCOSE,POINT OF CARE 150 MG/DL (70-110)
[2022-12-14 16:21] LABS: GLUCOMETER DEV NAME(LOC) 3E.I 2; GLUCOSE,POINT OF CARE 165 MG/DL (70-110)
[2022-12-14 16:35] VITALS: BP 168/100
[2022-12-14 17:54] VITALS: BP 147/84
[2022-12-14] MEDS: IBUPROFEN 400 MG TABLET PO PRN (17:57)
[2022-12-14 20:26] LABS: GLUCOMETER DEV NAME(LOC) 3E.C; GLUCOSE,POINT OF CARE 133 MG/DL (70-110)
[2022-12-14] MEDS: MELATONIN 3 MG TABLET PO SCH (20:58)
[2022-12-14] MEDS: CloZAPine 100 MG TABLET PO SCH (20:59)
[2022-12-14 21:00] VITALS: BP 145/75
[2022-12-14] MEDS: ZOLPIDEM TARTRATE 10 MG TABLET PO PRN (21:54)
[2022-12-15] MEDS: CloNIDine HCL 0.1 MG TABLET PO PRN (03:56)
[2022-12-15 03:59] VITALS: BP 174/106
[2022-12-15 05:08] VITALS: BP 145/74
[2022-12-15 05:26] LABS: GLUCOMETER DEV NAME(LOC) 3E.C; GLUCOSE,POINT OF CARE 146 MG/DL (70-110)
[2022-12-15 06:13] LABS: COVID AG,FIA SOURCE NASAL SWAB
[2022-12-15] MEDS: INSULIN LISPRO 100 UNITS/ML SQ PRN ×4 (06:15→21:26)
[2022-12-15] MEDS: LEVOTHYROXINE SODIUM 100 MCG TABLET PO SCH (06:44)
[2022-12-15] MEDS: FERROUS SULFATE 325 MG EC TABLET PO SCH (06:44)
[2022-12-15] MEDS: MetFORMIN HCL 500 MG TABLET PO SCH ×2 (06:44→16:44)
[2022-12-15] MEDS: MUPIROCIN CALCIUM 2% 22 GM OINTMENT NASAL SCH ×2 (08:35→17:56)
[2022-12-15] MEDS: NYSTATIN 30 GM CREAM TP SCH ×2 (08:35→17:55)
[2022-12-15] MEDS: BENZTROPINE MESYLATE 1 MG TABLET PO SCH ×2 (08:35→21:29)
[2022-12-15] MEDS: CHOLECALCIFEROL (VIT D3) 1,000 UNITS [25 MCG] TABLET PO SCH (08:35)
[2022-12-15] MEDS: LevETIRAcetam 500 MG TABLET PO SCH ×2 (08:36→16:44)
[2022-12-15] MEDS: AmLODIPine BESYLATE 5 MG TABLET PO SCH (08:36)
[2022-12-15] MEDS: MULTIVITAMINS WITH MINERALS, THERAPEUTIC TABLET PO SCH (08:36)
[2022-12-15] MEDS: LACOSAMIDE 50 MG TABLET PO SCH ×2 (08:36→16:44)
[2022-12-15] MEDS: DOCUSATE SODIUM 250 MG CAPSULE PO SCH (08:36)
[2022-12-15] MEDS: QUEtiapine FUMARATE 100 MG TABLET PO PRN ×3 (08:36→17:56)
[2022-12-15] MEDS: OLANZapine 10 MG TABLET PO SCH ×3 (08:37→21:29)
[2022-12-15] MEDS: PANTOPRAZOLE SODIUM 40 MG DR TABLET PO SCH (08:37)
[2022-12-15] MEDS: BuPROPion HCL XL 150 MG ER TABLET PO SCH (08:37)
[2022-12-15] MEDS: BusPIRone HCL 10 MG TABLET PO SCH ×3 (08:38→21:30)
[2022-12-15] MEDS: DIVALPROEX SODIUM 250 MG ER TABLET PO SCH ×2 (08:40→21:30)
[2022-12-15] MEDS: PROPRANOLOL HCL 20 MG TABLET PO SCH (08:40)
[2022-12-15 08:43] VITALS: BP 140/84
[2022-12-15] MEDS: IBUPROFEN 400 MG TABLET PO PRN (11:24)
[2022-12-15 12:07] LABS: GLUCOMETER DEV NAME(LOC) 3E.I 2; GLUCOSE,POINT OF CARE 179 MG/DL (70-110)
[2022-12-15] MEDS: ONDANSETRON HCL 4 MG TABLET PO PRN (13:22)
[2022-12-15 16:09] VITALS: BP 122/72
[2022-12-15 16:46] LABS: GLUCOMETER DEV NAME(LOC) 3E.I 2; GLUCOSE,POINT OF CARE 165 MG/DL (70-110)
[2022-12-15 20:46] LABS: GLUCOMETER DEV NAME(LOC) 3E.C; GLUCOSE,POINT OF CARE 156 MG/DL (70-110)
[2022-12-15] MEDS: CloZAPine 100 MG TABLET PO SCH (21:30)
[2022-12-15] MEDS: MELATONIN 3 MG TABLET PO SCH (21:30)
[2022-12-15 21:43] VITALS: BP 150/91
[2022-12-16] MEDS: LEVOTHYROXINE SODIUM 100 MCG TABLET PO SCH (06:44)
[2022-12-16] MEDS: INSULIN LISPRO 100 UNITS/ML SQ PRN ×4 (06:44→20:40)
[2022-12-16] MEDS: MetFORMIN HCL 500 MG TABLET PO SCH ×2 (06:44→17:27)
[2022-12-16] MEDS: FERROUS SULFATE 325 MG EC TABLET PO SCH (06:45)
[2022-12-16 07:06] LABS: GLUCOMETER DEV NAME(LOC) 3E.C; GLUCOSE,POINT OF CARE 159 MG/DL (70-110)
[2022-12-16] MEDS: LORazepam 2 MG TABLET PO PRN ×2 (07:11→21:47)
[2022-12-16] MEDS: NYSTATIN 30 GM CREAM TP SCH ×2 (07:58→17:26)
[2022-12-16] MEDS: PROPRANOLOL HCL 20 MG TABLET PO SCH (07:59)
[2022-12-16] MEDS: BusPIRone HCL 10 MG TABLET PO SCH ×3 (07:59→20:43)
[2022-12-16] MEDS: DIVALPROEX SODIUM 250 MG ER TABLET PO SCH ×2 (07:59→20:42)
[2022-12-16] MEDS: MUPIROCIN CALCIUM 2% 22 GM OINTMENT NASAL SCH ×2 (07:59→17:26)
[2022-12-16] MEDS: BuPROPion HCL XL 150 MG ER TABLET PO SCH (08:00)
[2022-12-16] MEDS: DOCUSATE SODIUM 250 MG CAPSULE PO SCH (08:04)
[2022-12-16] MEDS: IBUPROFEN 400 MG TABLET PO PRN (08:05)
[2022-12-16] MEDS: CHOLECALCIFEROL (VIT D3) 1,000 UNITS [25 MCG] TABLET PO SCH (08:05)
[2022-12-16] MEDS: QUEtiapine FUMARATE 100 MG TABLET PO PRN ×3 (08:05→17:27)
[2022-12-16] MEDS: OLANZapine 10 MG TABLET PO SCH ×3 (08:05→20:42)
[2022-12-16] MEDS: AmLODIPine BESYLATE 5 MG TABLET PO SCH (08:05)
[2022-12-16] MEDS: LevETIRAcetam 500 MG TABLET PO SCH ×2 (08:05→17:27)
[2022-12-16] MEDS: LACOSAMIDE 50 MG TABLET PO SCH ×2 (08:06→17:27)
[2022-12-16] MEDS: PANTOPRAZOLE SODIUM 40 MG DR TABLET PO SCH (08:06)
[2022-12-16] MEDS: BENZTROPINE MESYLATE 1 MG TABLET PO SCH ×2 (08:06→20:44)
[2022-12-16] MEDS: MULTIVITAMINS WITH MINERALS, THERAPEUTIC TABLET PO SCH (08:07)
[2022-12-16 09:33] VITALS: BP 145/81
[2022-12-16 11:57] LABS: GLUCOMETER DEV NAME(LOC) 3E.C; GLUCOSE,POINT OF CARE 227 MG/DL (70-110)
[2022-12-16] MEDS ORDERED: ChlorproMAZINE HCL 50 MG/2 ML AMP ONE (12:55)
[2022-12-16] MEDS ORDERED: DiphenhydrAMINE HCL 50 MG/ML VIAL ONE (12:55)
[2022-12-16] MEDS ORDERED: ChlorproMAZINE HCL 50 MG/2 ML AMP IM ONE (13:00)
[2022-12-16] MEDS ORDERED: DiphenhydrAMINE HCL 50 MG/ML VIAL IM ONE (13:00)
[2022-12-16 16:30] VITALS: BP 16/80
[2022-12-16 16:46] LABS: GLUCOMETER DEV NAME(LOC) 3E.C; GLUCOSE,POINT OF CARE 120 MG/DL (70-110)
[2022-12-16 20:34] VITALS: BP 124/82
[2022-12-16] MEDS: ZOLPIDEM TARTRATE 10 MG TABLET PO PRN (20:41)
[2022-12-16] MEDS: CloZAPine 100 MG TABLET PO SCH (20:42)
[2022-12-16] MEDS: MELATONIN 3 MG TABLET PO SCH (20:44)
[2022-12-16 21:36] LABS: GLUCOMETER DEV NAME(LOC) 3E.C; GLUCOSE,POINT OF CARE 222 MG/DL (70-110)
[2022-12-17] MEDS: MetFORMIN HCL 500 MG TABLET PO SCH ×2 (06:41→16:19)
[2022-12-17] MEDS: QUEtiapine FUMARATE 100 MG TABLET PO PRN ×3 (06:42→16:19)
[2022-12-17] MEDS: LEVOTHYROXINE SODIUM 100 MCG TABLET PO SCH (06:42)
[2022-12-17] MEDS: FERROUS SULFATE 325 MG EC TABLET PO SCH (06:42)
[2022-12-17] MEDS: INSULIN LISPRO 100 UNITS/ML SQ PRN ×4 (06:44→21:17)
[2022-12-17 07:21] LABS: GLUCOMETER DEV NAME(LOC) 3E.C; GLUCOSE,POINT OF CARE 119 MG/DL (70-110)
[2022-12-17 08:31] VITALS: BP 133/88
[2022-12-17] MEDS: NYSTATIN 30 GM CREAM TP SCH ×2 (08:46→16:19)
[2022-12-17] MEDS: PROPRANOLOL HCL 20 MG TABLET PO SCH (08:47)
[2022-12-17] MEDS: BuPROPion HCL XL 150 MG ER TABLET PO SCH (08:47)
[2022-12-17] MEDS: BusPIRone HCL 10 MG TABLET PO SCH ×3 (08:47→20:41)
[2022-12-17] MEDS: MULTIVITAMINS WITH MINERALS, THERAPEUTIC TABLET PO SCH (08:50)
[2022-12-17] MEDS: OLANZapine 10 MG TABLET PO SCH ×3 (08:50→20:41)
[2022-12-17] MEDS: DIVALPROEX SODIUM 500 MG DR TABLET PO SCH ×2 (08:51→20:41)
[2022-12-17] MEDS: BENZTROPINE MESYLATE 1 MG TABLET PO SCH ×2 (08:51→20:41)
[2022-12-17] MEDS: PANTOPRAZOLE SODIUM 40 MG DR TABLET PO SCH (08:51)
[2022-12-17] MEDS: CHOLECALCIFEROL (VIT D3) 1,000 UNITS [25 MCG] TABLET PO SCH (08:51)
[2022-12-17] MEDS: AmLODIPine BESYLATE 5 MG TABLET PO SCH (08:51)
[2022-12-17] MEDS: DOCUSATE SODIUM 250 MG CAPSULE PO SCH (08:51)
[2022-12-17] MEDS: LACOSAMIDE 50 MG TABLET PO SCH ×2 (08:52→16:19)
[2022-12-17] MEDS: LevETIRAcetam 500 MG TABLET PO SCH ×2 (08:52→16:19)
[2022-12-17] MEDS: ONDANSETRON HCL 4 MG TABLET PO PRN (14:28)
[2022-12-17] MEDS: IBUPROFEN 400 MG TABLET PO PRN (14:28)
[2022-12-17 16:13] VITALS: BP 132/92
[2022-12-17 16:35] LABS: GLUCOMETER DEV NAME(LOC) 3E.C; GLUCOSE,POINT OF CARE 207 MG/DL (70-110)
[2022-12-17 20:25] LABS: GLUCOMETER DEV NAME(LOC) 3E.C; GLUCOSE,POINT OF CARE 148 MG/DL (70-110)
[2022-12-17] MEDS: CloZAPine 100 MG TABLET PO SCH (20:42)
[2022-12-17] MEDS: MELATONIN 3 MG TABLET PO SCH (20:44)
[2022-12-18 06:01] LABS: GLUCOMETER DEV NAME(LOC) 3E.C; GLUCOSE,POINT OF CARE 125 MG/DL (70-110)
[2022-12-18] MEDS: MetFORMIN HCL 500 MG TABLET PO SCH ×2 (06:41→16:07)
[2022-12-18] MEDS: LEVOTHYROXINE SODIUM 100 MCG TABLET PO SCH (06:41)
[2022-12-18] MEDS: FERROUS SULFATE 325 MG EC TABLET PO SCH (06:41)
[2022-12-18] MEDS: INSULIN LISPRO 100 UNITS/ML SQ PRN ×4 (06:43→20:58)
[2022-12-18] MEDS: LevETIRAcetam 500 MG TABLET PO SCH ×2 (08:09→16:07)
[2022-12-18] MEDS: BuPROPion HCL XL 150 MG ER TABLET PO SCH (08:09)
[2022-12-18] MEDS: DIVALPROEX SODIUM 500 MG DR TABLET PO SCH ×2 (08:09→20:45)
[2022-12-18] MEDS: MULTIVITAMINS WITH MINERALS, THERAPEUTIC TABLET PO SCH (08:09)
[2022-12-18] MEDS: BENZTROPINE MESYLATE 1 MG TABLET PO SCH ×2 (08:09→20:45)
[2022-12-18] MEDS: CHOLECALCIFEROL (VIT D3) 1,000 UNITS [25 MCG] TABLET PO SCH (08:10)
[2022-12-18] MEDS: BusPIRone HCL 10 MG TABLET PO SCH ×3 (08:10→20:45)
[2022-12-18] MEDS: PANTOPRAZOLE SODIUM 40 MG DR TABLET PO SCH (08:10)
[2022-12-18] MEDS: OLANZapine 10 MG TABLET PO SCH ×3 (08:10→20:45)
[2022-12-18] MEDS: AmLODIPine BESYLATE 5 MG TABLET PO SCH (08:10)
[2022-12-18] MEDS: PROPRANOLOL HCL 20 MG TABLET PO SCH (08:10)
[2022-12-18] MEDS: LACOSAMIDE 50 MG TABLET PO SCH ×2 (08:10→16:07)
[2022-12-18] MEDS: NYSTATIN 30 GM CREAM TP SCH ×2 (08:11→16:08)
[2022-12-18] MEDS: DOCUSATE SODIUM 250 MG CAPSULE PO SCH (08:12)
[2022-12-18 08:55] VITALS: BP 138/79
[2022-12-18 11:26] LABS: HEMATOCRIT 34.3 % (36-46); HEMOGLOBIN 11.3 g/dL (12.0-16.0); MEAN CORPUSCULAR HEMOGLOBIN 30.4 pg (26.0-34.0); MEAN CORPUSCULAR VOLUME 92 fL (80-100); PLATELET COUNT (AUTO) 224 K/uL (150-450); RED BLOOD CELL COUNT(AUTO) 3.72 MIL/uL (4.00-5.20); RED CELL DISTRIBUTION WIDTH 13.2 % (11.5-14.5)
[2022-12-18] MEDS: LORazepam 2 MG TABLET PO PRN (11:26)
[2022-12-18 12:07] LABS: GLUCOMETER DEV NAME(LOC) 3E.C; GLUCOSE,POINT OF CARE 171 MG/DL (70-110)
[2022-12-18 12:22] LABS: BAND NEUTROPHILS % (MANUAL) 1 % (0-5); EOSINOPHILS % (MANUAL) 1 % (1-6); LYMPHOCYTES % (MANUAL) 44 % (22-44); MONOCYTES % (MANUAL) 1 % (2-9); SEGMENTED NEUTROPHILS % 53 % (40-70)
[2022-12-18] MEDS: CloZAPine 25 MG TABLET PO SCH (12:45)
[2022-12-18 16:10] VITALS: BP 150/94
[2022-12-18 17:26] LABS: GLUCOMETER DEV NAME(LOC) 3E.C; GLUCOSE,POINT OF CARE 191 MG/DL (70-110)
[2022-12-18] MEDS: QUEtiapine FUMARATE 100 MG TABLET PO PRN (18:00)
[2022-12-18 20:46] LABS: GLUCOMETER DEV NAME(LOC) 3E.C; GLUCOSE,POINT OF CARE 180 MG/DL (70-110)
[2022-12-18] MEDS: MELATONIN 3 MG TABLET PO SCH (20:46)
[2022-12-18] MEDS: CloZAPine 100 MG TABLET PO SCH (20:46)
[2022-12-18 21:17] VITALS: BP 148/82
[2022-12-19 06:27] LABS: GLUCOMETER DEV NAME(LOC) 3E.C; GLUCOSE,POINT OF CARE 126 MG/DL (70-110)
[2022-12-19] MEDS: INSULIN LISPRO 100 UNITS/ML SQ PRN ×3 (06:52→21:37)
[2022-12-19] MEDS: FERROUS SULFATE 325 MG EC TABLET PO SCH (06:52)
[2022-12-19] MEDS: MetFORMIN HCL 500 MG TABLET PO SCH ×2 (06:52→16:21)
[2022-12-19] MEDS: LEVOTHYROXINE SODIUM 100 MCG TABLET PO SCH (06:52)
[2022-12-19 08:00] VITALS: BP 140/99
[2022-12-19] MEDS: MULTIVITAMINS WITH MINERALS, THERAPEUTIC TABLET PO SCH (08:23)
[2022-12-19] MEDS: CHOLECALCIFEROL (VIT D3) 1,000 UNITS [25 MCG] TABLET PO SCH (08:23)
[2022-12-19] MEDS: DIVALPROEX SODIUM 500 MG DR TABLET PO SCH ×2 (08:23→21:21)
[2022-12-19] MEDS: PANTOPRAZOLE SODIUM 40 MG DR TABLET PO SCH (08:23)
[2022-12-19] MEDS: LevETIRAcetam 500 MG TABLET PO SCH ×2 (08:23→16:21)
[2022-12-19] MEDS: AmLODIPine BESYLATE 5 MG TABLET PO SCH (08:23)
[2022-12-19] MEDS: BENZTROPINE MESYLATE 1 MG TABLET PO SCH ×2 (08:23→21:22)
[2022-12-19] MEDS: OLANZapine 10 MG TABLET PO SCH ×3 (08:24→21:21)
[2022-12-19] MEDS: LACOSAMIDE 50 MG TABLET PO SCH ×2 (08:24→16:25)
[2022-12-19] MEDS: BuPROPion HCL XL 150 MG ER TABLET PO SCH (08:24)
[2022-12-19] MEDS: PROPRANOLOL HCL 20 MG TABLET PO SCH (08:24)
[2022-12-19] MEDS: CloZAPine 25 MG TABLET PO SCH (08:24)
[2022-12-19] MEDS: NYSTATIN 30 GM CREAM TP SCH ×2 (08:25→16:22)
[2022-12-19] MEDS: DOCUSATE SODIUM 250 MG CAPSULE PO SCH (08:25)
[2022-12-19] MEDS: BusPIRone HCL 10 MG TABLET PO SCH ×3 (08:25→21:22)
[2022-12-19 08:29] VITALS: BP 140/99
[2022-12-19] MEDS: LORazepam 2 MG TABLET PO PRN ×2 (08:29→16:44)
[2022-12-19] MEDS: IBUPROFEN 400 MG TABLET PO PRN ×2 (08:29→16:45)
[2022-12-19] MEDS: QUEtiapine FUMARATE 100 MG TABLET PO PRN (11:03)
[2022-12-19 11:16] LABS: GLUCOMETER DEV NAME(LOC) 3E.I 2; GLUCOSE,POINT OF CARE 213 MG/DL (70-110)
[2022-12-19 16:26] LABS: GLUCOMETER DEV NAME(LOC) 3E.I 2; GLUCOSE,POINT OF CARE 137 MG/DL (70-110)
[2022-12-19 16:45] VITALS: BP 132/94
[2022-12-19 17:45] VITALS: BP 128/86
[2022-12-19 20:42] LABS: GLUCOMETER DEV NAME(LOC) 3E.C; GLUCOSE,POINT OF CARE 154 MG/DL (70-110)
[2022-12-19] MEDS: CloZAPine 100 MG TABLET PO SCH (21:22)
[2022-12-19] MEDS: MELATONIN 3 MG TABLET PO SCH (21:24)
[2022-12-20] VITALS (13 sets, daily range): BP systolic 132–162; BP diastolic 81–103
[2022-12-20 04:56] LABS: GLUCOMETER DEV NAME(LOC) 3E.C; GLUCOSE,POINT OF CARE 136 MG/DL (70-110)
[2022-12-20] MEDS: MetFORMIN HCL 500 MG TABLET PO SCH ×2 (06:47→17:29)
[2022-12-20] MEDS: LEVOTHYROXINE SODIUM 100 MCG TABLET PO SCH (06:47)
[2022-12-20] MEDS: FERROUS SULFATE 325 MG EC TABLET PO SCH (06:47)
[2022-12-20] MEDS: INSULIN LISPRO 100 UNITS/ML SQ PRN ×4 (06:47→21:22)
[2022-12-20] MEDS: BuPROPion HCL XL 150 MG ER TABLET PO SCH (08:06)
[2022-12-20] MEDS: BusPIRone HCL 10 MG TABLET PO SCH ×3 (08:06→21:00)
[2022-12-20] MEDS: PROPRANOLOL HCL 20 MG TABLET PO SCH (08:07)
[2022-12-20] MEDS: NYSTATIN 30 GM CREAM TP SCH ×2 (08:07→17:29)
[2022-12-20] MEDS: OLANZapine 10 MG TABLET PO SCH ×3 (08:10→21:00)
[2022-12-20] MEDS: CloZAPine 25 MG TABLET PO SCH (08:10)
[2022-12-20] MEDS: DIVALPROEX SODIUM 500 MG DR TABLET PO SCH ×2 (08:11→21:00)
[2022-12-20] MEDS: BENZTROPINE MESYLATE 1 MG TABLET PO SCH ×2 (08:11→21:00)
[2022-12-20] MEDS: LACOSAMIDE 50 MG TABLET PO SCH ×2 (08:11→17:28)
[2022-12-20] MEDS: CHOLECALCIFEROL (VIT D3) 1,000 UNITS [25 MCG] TABLET PO SCH (08:11)
[2022-12-20] MEDS: QUEtiapine FUMARATE 100 MG TABLET PO PRN (08:11)
[2022-12-20] MEDS: MULTIVITAMINS WITH MINERALS, THERAPEUTIC TABLET PO SCH (08:11)
[2022-12-20] MEDS: LORazepam 2 MG TABLET PO PRN (08:11)
[2022-12-20] MEDS: PANTOPRAZOLE SODIUM 40 MG DR TABLET PO SCH (08:11)
[2022-12-20] MEDS: AmLODIPine BESYLATE 5 MG TABLET PO SCH (08:11)
[2022-12-20] MEDS: LevETIRAcetam 500 MG TABLET PO SCH ×2 (08:11→17:28)
[2022-12-20] MEDS: DOCUSATE SODIUM 250 MG CAPSULE PO SCH (08:14)
[2022-12-20 12:07] LABS: GLUCOMETER DEV NAME(LOC) 3E.I 2; GLUCOSE,POINT OF CARE 184 MG/DL (70-110)
[2022-12-20 16:41] LABS: GLUCOMETER DEV NAME(LOC) 3E.I 2; GLUCOSE,POINT OF CARE 162 MG/DL (70-110)
[2022-12-20] MEDS: IBUPROFEN 400 MG TABLET PO PRN (18:51)
[2022-12-20 20:11] LABS: GLUCOMETER DEV NAME(LOC) 3E.C; GLUCOSE,POINT OF CARE 167 MG/DL (70-110)
[2022-12-20] MEDS: MELATONIN 3 MG TABLET PO SCH (21:00)
[2022-12-20] MEDS: CloZAPine 100 MG TABLET PO SCH (21:00)
[2022-12-21 06:26] LABS: GLUCOMETER DEV NAME(LOC) 3E.C; GLUCOSE,POINT OF CARE 104 MG/DL (70-110)
[2022-12-21] MEDS: MetFORMIN HCL 500 MG TABLET PO SCH ×2 (06:42→18:00)
[2022-12-21] MEDS: LEVOTHYROXINE SODIUM 100 MCG TABLET PO SCH (06:42)
[2022-12-21] MEDS: FERROUS SULFATE 325 MG EC TABLET PO SCH (06:42)
[2022-12-21] MEDS: INSULIN LISPRO 100 UNITS/ML SQ PRN ×4 (06:43→21:29)
[2022-12-21] MEDS: LACOSAMIDE 50 MG TABLET PO SCH ×2 (09:22→17:21)
[2022-12-21] MEDS: NYSTATIN 30 GM CREAM TP SCH ×2 (09:22→17:22)
[2022-12-21] MEDS: CHOLECALCIFEROL (VIT D3) 1,000 UNITS [25 MCG] TABLET PO SCH (09:22)
[2022-12-21] MEDS: BusPIRone HCL 10 MG TABLET PO SCH ×3 (09:22→20:49)
[2022-12-21] MEDS: PANTOPRAZOLE SODIUM 40 MG DR TABLET PO SCH (09:22)
[2022-12-21] MEDS: BuPROPion HCL XL 150 MG ER TABLET PO SCH (09:23)
[2022-12-21] MEDS: DIVALPROEX SODIUM 500 MG DR TABLET PO SCH ×2 (09:23→20:50)
[2022-12-21] MEDS: LevETIRAcetam 500 MG TABLET PO SCH ×2 (09:23→17:21)
[2022-12-21] MEDS: DOCUSATE SODIUM 250 MG CAPSULE PO SCH (09:23)
[2022-12-21] MEDS: BENZTROPINE MESYLATE 1 MG TABLET PO SCH ×2 (09:23→20:51)
[2022-12-21] MEDS: MULTIVITAMINS WITH MINERALS, THERAPEUTIC TABLET PO SCH (09:23)
[2022-12-21] MEDS: OLANZapine 10 MG TABLET PO SCH ×3 (09:23→20:51)
[2022-12-21] MEDS: PROPRANOLOL HCL 20 MG TABLET PO SCH (09:24)
[2022-12-21] MEDS: CloZAPine 25 MG TABLET PO SCH (09:24)
[2022-12-21] MEDS: AmLODIPine BESYLATE 5 MG TABLET PO SCH (09:24)
[2022-12-21 10:22] VITALS: BP 150/80
[2022-12-21 11:36] LABS: GLUCOMETER DEV NAME(LOC) 3E.I 2; GLUCOSE,POINT OF CARE 227 MG/DL (70-110)
[2022-12-21 16:41] LABS: GLUCOMETER DEV NAME(LOC) 3E.I 2; GLUCOSE,POINT OF CARE 182 MG/DL (70-110)
[2022-12-21 16:51] VITALS: BP 154/89
[2022-12-21 20:30] VITALS: BP 134/90
[2022-12-21 20:51] LABS: GLUCOMETER DEV NAME(LOC) 3E.C; GLUCOSE,POINT OF CARE 257 MG/DL (70-110)
[2022-12-21] MEDS: MELATONIN 3 MG TABLET PO SCH (20:52)
[2022-12-21] MEDS: CloZAPine 100 MG TABLET PO SCH (20:53)
[2022-12-21 23:48] VITALS: BP 142/86
[2022-12-21] MEDS: IBUPROFEN 400 MG TABLET PO PRN (23:51)
[2022-12-22] MEDS: QUEtiapine FUMARATE 100 MG TABLET PO PRN ×3 (00:20→17:08)
[2022-12-22 06:31] LABS: GLUCOMETER DEV NAME(LOC) 3E.C; GLUCOSE,POINT OF CARE 113 MG/DL (70-110)
[2022-12-22] MEDS: INSULIN LISPRO 100 UNITS/ML SQ PRN ×4 (06:36→21:24)
[2022-12-22] MEDS: MetFORMIN HCL 500 MG TABLET PO SCH ×2 (06:49→17:03)
[2022-12-22] MEDS: LEVOTHYROXINE SODIUM 100 MCG TABLET PO SCH (06:49)
[2022-12-22] MEDS: FERROUS SULFATE 325 MG EC TABLET PO SCH (06:49)
[2022-12-22 07:57] LABS: COVID AG,FIA SOURCE NASAL SWAB
[2022-12-22 08:00] VITALS: BP 146/88
[2022-12-22] MEDS: DIVALPROEX SODIUM 500 MG DR TABLET PO SCH ×2 (09:43→20:16)
[2022-12-22] MEDS: DOCUSATE SODIUM 250 MG CAPSULE PO SCH (09:43)
[2022-12-22] MEDS: OLANZapine 10 MG TABLET PO SCH ×3 (09:44→20:17)
[2022-12-22] MEDS: CloZAPine 25 MG TABLET PO SCH (09:44)
[2022-12-22] MEDS: BuPROPion HCL XL 150 MG ER TABLET PO SCH (09:45)
[2022-12-22] MEDS: MULTIVITAMINS WITH MINERALS, THERAPEUTIC TABLET PO SCH (09:45)
[2022-12-22] MEDS: PANTOPRAZOLE SODIUM 40 MG DR TABLET PO SCH (09:45)
[2022-12-22] MEDS: PROPRANOLOL HCL 20 MG TABLET PO SCH (09:46)
[2022-12-22] MEDS: CHOLECALCIFEROL (VIT D3) 1,000 UNITS [25 MCG] TABLET PO SCH (09:46)
[2022-12-22] MEDS: LACOSAMIDE 50 MG TABLET PO SCH ×2 (09:46→17:04)
[2022-12-22] MEDS: AmLODIPine BESYLATE 5 MG TABLET PO SCH (09:46)
[2022-12-22] MEDS: NYSTATIN 30 GM CREAM TP SCH ×2 (09:47→17:05)
[2022-12-22] MEDS: BusPIRone HCL 10 MG TABLET PO SCH ×3 (09:47→20:17)
[2022-12-22] MEDS: BENZTROPINE MESYLATE 1 MG TABLET PO SCH ×2 (09:48→20:16)
[2022-12-22] MEDS: LevETIRAcetam 500 MG TABLET PO SCH ×2 (09:48→17:08)
[2022-12-22 12:21] LABS: GLUCOMETER DEV NAME(LOC) 3E.C; GLUCOSE,POINT OF CARE 221 MG/DL (70-110)
[2022-12-22 16:00] VITALS: BP 140/80
[2022-12-22 16:56] LABS: GLUCOMETER DEV NAME(LOC) 3E.C; GLUCOSE,POINT OF CARE 177 MG/DL (70-110)
[2022-12-22 20:12] LABS: GLUCOMETER DEV NAME(LOC) 3E.C; GLUCOSE,POINT OF CARE 256 MG/DL (70-110)
[2022-12-22] MEDS: CloZAPine 100 MG TABLET PO SCH (20:16)
[2022-12-22] MEDS: MELATONIN 3 MG TABLET PO SCH (20:17)
[2022-12-23 05:26] LABS: GLUCOMETER DEV NAME(LOC) 3E.C; GLUCOSE,POINT OF CARE 145 MG/DL (70-110)
[2022-12-23] MEDS: LEVOTHYROXINE SODIUM 100 MCG TABLET PO SCH (06:11)
[2022-12-23] MEDS: MetFORMIN HCL 500 MG TABLET PO SCH ×2 (06:54→17:05)
[2022-12-23] MEDS: FERROUS SULFATE 325 MG EC TABLET PO SCH (06:54)
[2022-12-23] MEDS: INSULIN LISPRO 100 UNITS/ML SQ PRN ×4 (06:55→21:34)
[2022-12-23 08:57] VITALS: BP 156/87
[2022-12-23 08:58] VITALS: BP 156/87
[2022-12-23] MEDS: BusPIRone HCL 10 MG TABLET PO SCH ×3 (09:37→20:37)
[2022-12-23] MEDS: BuPROPion HCL XL 150 MG ER TABLET PO SCH (09:37)
[2022-12-23] MEDS: PROPRANOLOL HCL 20 MG TABLET PO SCH (09:38)
[2022-12-23] MEDS: CHOLECALCIFEROL (VIT D3) 1,000 UNITS [25 MCG] TABLET PO SCH (09:41)
[2022-12-23] MEDS: BENZTROPINE MESYLATE 1 MG TABLET PO SCH ×2 (09:41→20:37)
[2022-12-23] MEDS: OLANZapine 10 MG TABLET PO SCH ×3 (09:42→20:37)
[2022-12-23] MEDS: AmLODIPine BESYLATE 5 MG TABLET PO SCH (09:42)
[2022-12-23] MEDS: LevETIRAcetam 500 MG TABLET PO SCH ×2 (09:42→17:05)
[2022-12-23] MEDS: LACOSAMIDE 50 MG TABLET PO SCH ×2 (09:42→17:05)
[2022-12-23] MEDS: DOCUSATE SODIUM 250 MG CAPSULE PO SCH (09:42)
[2022-12-23] MEDS: CloZAPine 25 MG TABLET PO SCH (09:42)
[2022-12-23] MEDS: PANTOPRAZOLE SODIUM 40 MG DR TABLET PO SCH (09:42)
[2022-12-23] MEDS: DIVALPROEX SODIUM 500 MG DR TABLET PO SCH ×2 (09:42→20:36)
[2022-12-23] MEDS: MULTIVITAMINS WITH MINERALS, THERAPEUTIC TABLET PO SCH (09:42)
[2022-12-23] MEDS: NYSTATIN 30 GM CREAM TP SCH ×2 (09:44→17:06)
[2022-12-23 12:16] LABS: GLUCOMETER DEV NAME(LOC) 3E.C; GLUCOSE,POINT OF CARE 202 MG/DL (70-110)
[2022-12-23 16:40] VITALS: BP 119/82
[2022-12-23 16:46] LABS: GLUCOMETER DEV NAME(LOC) 3E.I 2; GLUCOSE,POINT OF CARE 173 MG/DL (70-110)
[2022-12-23 20:26] LABS: GLUCOMETER DEV NAME(LOC) 3E.C; GLUCOSE,POINT OF CARE 210 MG/DL (70-110)
[2022-12-23 20:35] VITALS: BP 142/81
[2022-12-23] MEDS: CloZAPine 100 MG TABLET PO SCH (20:36)
[2022-12-23] MEDS: MELATONIN 3 MG TABLET PO SCH (20:37)
[2022-12-24 05:36] LABS: GLUCOMETER DEV NAME(LOC) 3E.C; GLUCOSE,POINT OF CARE 124 MG/DL (70-110)
[2022-12-24] MEDS: LEVOTHYROXINE SODIUM 100 MCG TABLET PO SCH (06:11)
[2022-12-24] MEDS: FERROUS SULFATE 325 MG EC TABLET PO SCH (06:31)
[2022-12-24] MEDS: MetFORMIN HCL 500 MG TABLET PO SCH ×2 (06:31→16:41)
[2022-12-24 08:05] VITALS: BP 151/88
[2022-12-24] MEDS: BuPROPion HCL XL 150 MG ER TABLET PO SCH (08:33)
[2022-12-24] MEDS: PROPRANOLOL HCL 20 MG TABLET PO SCH (08:34)
[2022-12-24] MEDS: BusPIRone HCL 10 MG TABLET PO SCH ×3 (08:34→21:11)
[2022-12-24] MEDS: CHOLECALCIFEROL (VIT D3) 1,000 UNITS [25 MCG] TABLET PO SCH (08:40)
[2022-12-24] MEDS: PANTOPRAZOLE SODIUM 40 MG DR TABLET PO SCH (08:40)
[2022-12-24] MEDS: CloZAPine 25 MG TABLET PO SCH (08:40)
[2022-12-24] MEDS: MULTIVITAMINS WITH MINERALS, THERAPEUTIC TABLET PO SCH (08:40)
[2022-12-24] MEDS: BENZTROPINE MESYLATE 1 MG TABLET PO SCH ×2 (08:40→21:10)
[2022-12-24] MEDS: LACOSAMIDE 50 MG TABLET PO SCH ×2 (08:40→16:41)
[2022-12-24] MEDS: OLANZapine 10 MG TABLET PO SCH ×3 (08:40→21:11)
[2022-12-24] MEDS: DIVALPROEX SODIUM 500 MG DR TABLET PO SCH ×2 (08:40→21:10)
[2022-12-24] MEDS: LevETIRAcetam 500 MG TABLET PO SCH ×2 (08:40→16:41)
[2022-12-24] MEDS: AmLODIPine BESYLATE 5 MG TABLET PO SCH (08:41)
[2022-12-24] MEDS: DOCUSATE SODIUM 250 MG CAPSULE PO SCH (08:42)
[2022-12-24] MEDS: NYSTATIN 30 GM CREAM TP SCH ×2 (08:44→16:42)
[2022-12-24 11:36] LABS: GLUCOMETER DEV NAME(LOC) 3E.I 2; GLUCOSE,POINT OF CARE 171 MG/DL (70-110)
[2022-12-24] MEDS: ACETAMINOPHEN 325 MG TABLET PO PRN (11:36)
[2022-12-24] MEDS: QUEtiapine FUMARATE 100 MG TABLET PO PRN (11:36)
[2022-12-24 11:38] VITALS: BP 132/72
[2022-12-24] MEDS: INSULIN LISPRO 100 UNITS/ML SQ PRN ×2 (11:52→21:14)
[2022-12-24 15:52] VITALS: BP 136/92
[2022-12-24] MEDS: IBUPROFEN 400 MG TABLET PO PRN (15:59)
[2022-12-24 16:16] LABS: GLUCOMETER DEV NAME(LOC) 3E.I 2; GLUCOSE,POINT OF CARE 128 MG/DL (70-110)
[2022-12-24 20:21] LABS: GLUCOMETER DEV NAME(LOC) 3E.C; GLUCOSE,POINT OF CARE 176 MG/DL (70-110)
[2022-12-24 20:30] VITALS: BP 133/87
[2022-12-24] MEDS: MELATONIN 3 MG TABLET PO SCH (21:10)
[2022-12-24] MEDS: CloZAPine 100 MG TABLET PO SCH (21:15)
[2022-12-25 05:36] LABS: GLUCOMETER DEV NAME(LOC) 3E.C; GLUCOSE,POINT OF CARE 127 MG/DL (70-110)
[2022-12-25] MEDS: MetFORMIN HCL 500 MG TABLET PO SCH ×2 (06:52→16:34)
[2022-12-25] MEDS: LEVOTHYROXINE SODIUM 100 MCG TABLET PO SCH (06:52)
[2022-12-25] MEDS: FERROUS SULFATE 325 MG EC TABLET PO SCH (06:52)
[2022-12-25] MEDS: INSULIN LISPRO 100 UNITS/ML SQ PRN ×4 (06:59→21:10)
[2022-12-25] MEDS: MULTIVITAMINS WITH MINERALS, THERAPEUTIC TABLET PO SCH (08:16)
[2022-12-25] MEDS: DIVALPROEX SODIUM 500 MG DR TABLET PO SCH ×2 (08:16→21:06)
[2022-12-25] MEDS: DOCUSATE SODIUM 250 MG CAPSULE PO SCH (08:16)
[2022-12-25] MEDS: LevETIRAcetam 500 MG TABLET PO SCH ×2 (08:17→16:35)
[2022-12-25] MEDS: CHOLECALCIFEROL (VIT D3) 1,000 UNITS [25 MCG] TABLET PO SCH (08:17)
[2022-12-25] MEDS: PANTOPRAZOLE SODIUM 40 MG DR TABLET PO SCH (08:17)
[2022-12-25] MEDS: BENZTROPINE MESYLATE 1 MG TABLET PO SCH ×2 (08:18→21:06)
[2022-12-25] MEDS: LACOSAMIDE 50 MG TABLET PO SCH ×2 (08:18→16:35)
[2022-12-25] MEDS: OLANZapine 10 MG TABLET PO SCH ×3 (08:18→21:06)
[2022-12-25] MEDS: CloZAPine 25 MG TABLET PO SCH (08:18)
[2022-12-25] MEDS: AmLODIPine BESYLATE 5 MG TABLET PO SCH (08:18)
[2022-12-25] MEDS: BuPROPion HCL XL 150 MG ER TABLET PO SCH (08:19)
[2022-12-25] MEDS: NYSTATIN 30 GM CREAM TP SCH ×2 (08:19→16:35)
[2022-12-25] MEDS: PROPRANOLOL HCL 20 MG TABLET PO SCH (08:19)
[2022-12-25] MEDS: BusPIRone HCL 10 MG TABLET PO SCH ×3 (08:20→21:06)
[2022-12-25 10:21] VITALS: BP 156/96
[2022-12-25 11:37] LABS: BASOPHILS % (AUTO) 0.5 % (0.0-2.0); EOSINOPHILS % (AUTO) 0 % (1.0-6.0); HEMATOCRIT 31.8 % (36-46); HEMOGLOBIN 10.8 g/dL (12.0-16.0); LYMPHOCYTES # (AUTO) 1.8 K/uL (1.0-4.8); LYMPHOCYTES % (AUTO) 33.7 % (22.0-44.0); MEAN CORPUSCULAR HEMOGLOBIN 31.1 pg (26.0-34.0); MEAN CORPUSCULAR HGB CONC 33.9 G/dL (31.0-37.0); MEAN CORPUSCULAR VOLUME 92 fL (80-100); MONOCYTES # (AUTO) 0.5 K/uL (0.1-1.0); MONOCYTES % (AUTO) 9.3 % (2.0-9.0); NEUTROPHILS % (AUTO) 56.5 % (40.0-70.0); PLATELET COUNT (AUTO) 205 K/uL (150-450); RED BLOOD CELL COUNT(AUTO) 3.48 MIL/uL (4.00-5.20); RED CELL DISTRIBUTION WIDTH 13.4 % (11.5-14.5)
[2022-12-25 12:26] LABS: GLUCOMETER DEV NAME(LOC) 3E.I 2; GLUCOSE,POINT OF CARE 197 MG/DL (70-110)
[2022-12-25] MEDS: ACETAMINOPHEN 325 MG TABLET PO PRN (14:07)
[2022-12-25 14:09] VITALS: BP 145/84
[2022-12-25 17:36] LABS: GLUCOMETER DEV NAME(LOC) 3E.I 2; GLUCOSE,POINT OF CARE 156 MG/DL (70-110)
[2022-12-25 20:21] LABS: GLUCOMETER DEV NAME(LOC) 3E.C; GLUCOSE,POINT OF CARE 164 MG/DL (70-110)
[2022-12-25] MEDS: MELATONIN 3 MG TABLET PO SCH (21:07)
[2022-12-25] MEDS: CloZAPine 100 MG TABLET PO SCH (21:07)
[2022-12-25] MEDS: ZOLPIDEM TARTRATE 10 MG TABLET PO PRN (21:45)
[2022-12-26 06:02] LABS: GLUCOMETER DEV NAME(LOC) 3E.C; GLUCOSE,POINT OF CARE 138 MG/DL (70-110)
[2022-12-26] MEDS: FERROUS SULFATE 325 MG EC TABLET PO SCH (06:39)
[2022-12-26] MEDS: LEVOTHYROXINE SODIUM 100 MCG TABLET PO SCH (06:39)
[2022-12-26] MEDS: MetFORMIN HCL 500 MG TABLET PO SCH ×2 (06:39→17:33)
[2022-12-26] MEDS: BusPIRone HCL 10 MG TABLET PO SCH ×3 (08:18→20:39)
[2022-12-26] MEDS: BuPROPion HCL XL 150 MG ER TABLET PO SCH (08:18)
[2022-12-26] MEDS: PROPRANOLOL HCL 20 MG TABLET PO SCH (08:19)
[2022-12-26] MEDS: CHOLECALCIFEROL (VIT D3) 1,000 UNITS [25 MCG] TABLET PO SCH (08:23)
[2022-12-26] MEDS: MULTIVITAMINS WITH MINERALS, THERAPEUTIC TABLET PO SCH (08:23)
[2022-12-26] MEDS: OLANZapine 10 MG TABLET PO SCH ×3 (08:23→20:38)
[2022-12-26] MEDS: AmLODIPine BESYLATE 5 MG TABLET PO SCH (08:23)
[2022-12-26] MEDS: PANTOPRAZOLE SODIUM 40 MG DR TABLET PO SCH (08:23)
[2022-12-26] MEDS: LACOSAMIDE 50 MG TABLET PO SCH ×2 (08:23→16:23)
[2022-12-26] MEDS: CloZAPine 25 MG TABLET PO SCH (08:23)
[2022-12-26] MEDS: DIVALPROEX SODIUM 500 MG DR TABLET PO SCH ×2 (08:23→20:37)
[2022-12-26] MEDS: LevETIRAcetam 500 MG TABLET PO SCH ×2 (08:24→16:24)
[2022-12-26] MEDS: DOCUSATE SODIUM 250 MG CAPSULE PO SCH (08:24)
[2022-12-26] MEDS: BENZTROPINE MESYLATE 1 MG TABLET PO SCH ×2 (08:24→20:38)
[2022-12-26] MEDS: NYSTATIN 30 GM CREAM TP SCH ×2 (09:11→16:23)
[2022-12-26 09:36] VITALS: BP 147/93
[2022-12-26] MEDS: INSULIN LISPRO 100 UNITS/ML SQ PRN ×3 (11:11→21:10)
[2022-12-26 11:21] LABS: GLUCOMETER DEV NAME(LOC) 3E.I 2; GLUCOSE,POINT OF CARE 148 MG/DL (70-110)
[2022-12-26 16:35] LABS: GLUCOMETER DEV NAME(LOC) 3E.I 2; GLUCOSE,POINT OF CARE 141 MG/DL (70-110)
[2022-12-26 17:06] VITALS: BP 149/86
[2022-12-26 20:31] LABS: GLUCOMETER DEV NAME(LOC) 3E.C; GLUCOSE,POINT OF CARE 160 MG/DL (70-110)
[2022-12-26] MEDS: QUEtiapine FUMARATE 100 MG TABLET PO PRN (20:38)
[2022-12-26] MEDS: CloZAPine 100 MG TABLET PO SCH (20:38)
[2022-12-26] MEDS: MELATONIN 3 MG TABLET PO SCH (20:39)
[2022-12-26 21:00] VITALS: BP 135/77
[2022-12-27 06:01] LABS: GLUCOMETER DEV NAME(LOC) 3E.C; GLUCOSE,POINT OF CARE 128 MG/DL (70-110)
[2022-12-27] MEDS: FERROUS SULFATE 325 MG EC TABLET PO SCH (06:39)
[2022-12-27] MEDS: LEVOTHYROXINE SODIUM 100 MCG TABLET PO SCH (06:39)
[2022-12-27] MEDS: MetFORMIN HCL 500 MG TABLET PO SCH ×2 (06:39→17:05)
[2022-12-27] MEDS: PROPRANOLOL HCL 20 MG TABLET PO SCH (08:55)
[2022-12-27] MEDS: NYSTATIN 30 GM CREAM TP SCH ×2 (08:55→16:30)
[2022-12-27] MEDS: BusPIRone HCL 10 MG TABLET PO SCH ×3 (08:55→20:23)
[2022-12-27] MEDS: OLANZapine 10 MG TABLET PO SCH ×3 (08:58→20:23)
[2022-12-27] MEDS: MULTIVITAMINS WITH MINERALS, THERAPEUTIC TABLET PO SCH (08:58)
[2022-12-27] MEDS: DIVALPROEX SODIUM 500 MG DR TABLET PO SCH ×2 (08:59→20:23)
[2022-12-27] MEDS: LevETIRAcetam 500 MG TABLET PO SCH ×2 (08:59→16:29)
[2022-12-27] MEDS: PANTOPRAZOLE SODIUM 40 MG DR TABLET PO SCH (08:59)
[2022-12-27] MEDS: BENZTROPINE MESYLATE 1 MG TABLET PO SCH ×2 (08:59→20:23)
[2022-12-27] MEDS: LACOSAMIDE 50 MG TABLET PO SCH ×2 (08:59→17:05)
[2022-12-27] MEDS: CloZAPine 25 MG TABLET PO SCH (08:59)
[2022-12-27] MEDS: AmLODIPine BESYLATE 5 MG TABLET PO SCH (08:59)
[2022-12-27] MEDS: DOCUSATE SODIUM 250 MG CAPSULE PO SCH (09:00)
[2022-12-27] MEDS: CHOLECALCIFEROL (VIT D3) 1,000 UNITS [25 MCG] TABLET PO SCH (09:01)
[2022-12-27] MEDS: BuPROPion HCL XL 150 MG ER TABLET PO SCH (09:01)
[2022-12-27 09:13] VITALS: BP 149/78
[2022-12-27] MEDS: INSULIN LISPRO 100 UNITS/ML SQ PRN ×3 (11:28→22:00)
[2022-12-27 11:31] LABS: GLUCOMETER DEV NAME(LOC) 3E.I 2; GLUCOSE,POINT OF CARE 208 MG/DL (70-110)
[2022-12-27 16:47] VITALS: BP 142/82
[2022-12-27 16:51] LABS: GLUCOMETER DEV NAME(LOC) 3E.I 2; GLUCOSE,POINT OF CARE 194 MG/DL (70-110)
[2022-12-27 20:16] LABS: GLUCOMETER DEV NAME(LOC) 3E.C; GLUCOSE,POINT OF CARE 150 MG/DL (70-110)
[2022-12-27] MEDS: CloZAPine 100 MG TABLET PO SCH (20:23)
[2022-12-27] MEDS: MELATONIN 3 MG TABLET PO SCH (20:23)
[2022-12-28 05:21] LABS: GLUCOMETER DEV NAME(LOC) 3E.C; GLUCOSE,POINT OF CARE 156 MG/DL (70-110)
[2022-12-28] MEDS: LEVOTHYROXINE SODIUM 100 MCG TABLET PO SCH (06:24)
[2022-12-28] MEDS: MetFORMIN HCL 500 MG TABLET PO SCH ×2 (06:32→16:09)
[2022-12-28] MEDS: FERROUS SULFATE 325 MG EC TABLET PO SCH (06:32)
[2022-12-28] MEDS: INSULIN LISPRO 100 UNITS/ML SQ PRN ×2 (06:46→12:18)
[2022-12-28] MEDS: DOCUSATE SODIUM 250 MG CAPSULE PO SCH (08:29)
[2022-12-28] MEDS: PANTOPRAZOLE SODIUM 40 MG DR TABLET PO SCH (08:29)
[2022-12-28] MEDS: BuPROPion HCL XL 150 MG ER TABLET PO SCH (08:29)
[2022-12-28] MEDS: CHOLECALCIFEROL (VIT D3) 1,000 UNITS [25 MCG] TABLET PO SCH (08:29)
[2022-12-28] MEDS: DIVALPROEX SODIUM 500 MG DR TABLET PO SCH ×2 (08:29→20:34)
[2022-12-28] MEDS: CloZAPine 25 MG TABLET PO SCH (08:29)
[2022-12-28] MEDS: LACOSAMIDE 50 MG TABLET PO SCH ×2 (08:29→16:09)
[2022-12-28] MEDS: MULTIVITAMINS WITH MINERALS, THERAPEUTIC TABLET PO SCH (08:29)
[2022-12-28] MEDS: OLANZapine 10 MG TABLET PO SCH ×3 (08:29→20:35)
[2022-12-28] MEDS: LevETIRAcetam 500 MG TABLET PO SCH ×2 (08:29→16:09)
[2022-12-28] MEDS: BusPIRone HCL 10 MG TABLET PO SCH ×3 (08:30→20:34)
[2022-12-28] MEDS: AmLODIPine BESYLATE 5 MG TABLET PO SCH (08:30)
[2022-12-28] MEDS: PROPRANOLOL HCL 20 MG TABLET PO SCH (08:30)
[2022-12-28] MEDS: NYSTATIN 30 GM CREAM TP SCH ×2 (08:31→16:10)
[2022-12-28] MEDS: BENZTROPINE MESYLATE 1 MG TABLET PO SCH ×2 (08:32→20:34)
[2022-12-28 08:59] VITALS: BP 134/80
[2022-12-28 09:01] VITALS: BP 134/88
[2022-12-28] MEDS: QUEtiapine FUMARATE 100 MG TABLET PO PRN ×2 (10:51→21:24)
[2022-12-28 11:26] LABS: GLUCOMETER DEV NAME(LOC) 3E.C; GLUCOSE,POINT OF CARE 213 MG/DL (70-110)
[2022-12-28 16:06] LABS: GLUCOMETER DEV NAME(LOC) 3E.C; GLUCOSE,POINT OF CARE 117 MG/DL (70-110)
[2022-12-28 16:21] VITALS: BP 144/92
[2022-12-28 20:21] LABS: GLUCOMETER DEV NAME(LOC) 3E.C; GLUCOSE,POINT OF CARE 140 MG/DL (70-110)
[2022-12-28] MEDS: CloZAPine 100 MG TABLET PO SCH (20:34)
[2022-12-28] MEDS: MELATONIN 3 MG TABLET PO SCH (20:35)
[2022-12-28 20:42] VITALS: BP 138/78
[2022-12-29 05:46] LABS: GLUCOMETER DEV NAME(LOC) 3E.C; GLUCOSE,POINT OF CARE 114 MG/DL (70-110)
[2022-12-29] MEDS: MetFORMIN HCL 500 MG TABLET PO SCH ×2 (06:34→16:44)
[2022-12-29] MEDS: FERROUS SULFATE 325 MG EC TABLET PO SCH (06:34)
[2022-12-29] MEDS: LEVOTHYROXINE SODIUM 100 MCG TABLET PO SCH (06:35)
[2022-12-29 06:52] LABS: COVID AG,FIA SOURCE NASAL SWAB
[2022-12-29] MEDS: PROPRANOLOL HCL 20 MG TABLET PO SCH (08:07)
[2022-12-29] MEDS: AmLODIPine BESYLATE 5 MG TABLET PO SCH (08:07)
[2022-12-29] MEDS: BuPROPion HCL XL 150 MG ER TABLET PO SCH (08:07)
[2022-12-29] MEDS: BENZTROPINE MESYLATE 1 MG TABLET PO SCH ×2 (08:07→20:40)
[2022-12-29] MEDS: CloZAPine 25 MG TABLET PO SCH (08:08)
[2022-12-29] MEDS: BusPIRone HCL 10 MG TABLET PO SCH ×3 (08:08→20:40)
[2022-12-29] MEDS: LACOSAMIDE 50 MG TABLET PO SCH ×2 (08:08→16:44)
[2022-12-29] MEDS: LevETIRAcetam 500 MG TABLET PO SCH ×2 (08:09→16:44)
[2022-12-29] MEDS: DIVALPROEX SODIUM 500 MG DR TABLET PO SCH ×2 (08:13→20:40)
[2022-12-29] MEDS: DOCUSATE SODIUM 250 MG CAPSULE PO SCH (08:13)
[2022-12-29] MEDS: OLANZapine 10 MG TABLET PO SCH ×3 (08:18→20:39)
[2022-12-29] MEDS: CHOLECALCIFEROL (VIT D3) 1,000 UNITS [25 MCG] TABLET PO SCH (08:18)
[2022-12-29] MEDS: PANTOPRAZOLE SODIUM 40 MG DR TABLET PO SCH (08:18)
[2022-12-29] MEDS: NYSTATIN 30 GM CREAM TP SCH ×2 (08:24→16:52)
[2022-12-29] MEDS: MULTIVITAMINS WITH MINERALS, THERAPEUTIC TABLET PO SCH (08:24)
[2022-12-29 08:30] VITALS: BP 133/64
[2022-12-29] MEDS: INSULIN LISPRO 100 UNITS/ML SQ PRN ×3 (11:37→20:34)
[2022-12-29 12:06] LABS: GLUCOMETER DEV NAME(LOC) 3E.C; GLUCOSE,POINT OF CARE 161 MG/DL (70-110)
[2022-12-29] MEDS: QUEtiapine FUMARATE 100 MG TABLET PO PRN (12:56)
[2022-12-29 16:36] LABS: GLUCOMETER DEV NAME(LOC) 3E.C; GLUCOSE,POINT OF CARE 159 MG/DL (70-110)
[2022-12-29 20:22] VITALS: BP 157/76
[2022-12-29 20:36] VITALS: BP 148/70
[2022-12-29] MEDS: IBUPROFEN 400 MG TABLET PO PRN (20:39)
[2022-12-29] MEDS: MELATONIN 3 MG TABLET PO SCH (20:40)
[2022-12-29] MEDS: CloZAPine 100 MG TABLET PO SCH (20:40)
[2022-12-29 21:41] LABS: GLUCOMETER DEV NAME(LOC) 3E.C; GLUCOSE,POINT OF CARE 168 MG/DL (70-110)
[2022-12-30] MEDS: LEVOTHYROXINE SODIUM 100 MCG TABLET PO SCH (06:28)
[2022-12-30] MEDS: FERROUS SULFATE 325 MG EC TABLET PO SCH (06:31)
[2022-12-30] MEDS: MetFORMIN HCL 500 MG TABLET PO SCH ×2 (06:31→17:47)
[2022-12-30] MEDS: INSULIN LISPRO 100 UNITS/ML SQ PRN ×3 (06:31→21:02)
[2022-12-30 07:01] LABS: GLUCOMETER DEV NAME(LOC) 3E.C; GLUCOSE,POINT OF CARE 114 MG/DL (70-110)
[2022-12-30] MEDS: DOCUSATE SODIUM 250 MG CAPSULE PO SCH (08:30)
[2022-12-30] MEDS: CHOLECALCIFEROL (VIT D3) 1,000 UNITS [25 MCG] TABLET PO SCH (08:30)
[2022-12-30] MEDS: PANTOPRAZOLE SODIUM 40 MG DR TABLET PO SCH (08:31)
[2022-12-30] MEDS: DIVALPROEX SODIUM 500 MG DR TABLET PO SCH ×2 (08:31→20:14)
[2022-12-30] MEDS: BuPROPion HCL XL 150 MG ER TABLET PO SCH (08:31)
[2022-12-30] MEDS: AmLODIPine BESYLATE 5 MG TABLET PO SCH (08:31)
[2022-12-30] MEDS: PROPRANOLOL HCL 20 MG TABLET PO SCH (08:31)
[2022-12-30] MEDS: BENZTROPINE MESYLATE 1 MG TABLET PO SCH ×2 (08:32→20:14)
[2022-12-30] MEDS: CloZAPine 25 MG TABLET PO SCH (08:32)
[2022-12-30] MEDS: OLANZapine 10 MG TABLET PO SCH ×3 (08:32→20:14)
[2022-12-30] MEDS: MULTIVITAMINS WITH MINERALS, THERAPEUTIC TABLET PO SCH (08:32)
[2022-12-30] MEDS: LevETIRAcetam 500 MG TABLET PO SCH ×2 (08:32→17:03)
[2022-12-30] MEDS: LACOSAMIDE 50 MG TABLET PO SCH ×2 (08:32→17:03)
[2022-12-30] MEDS: BusPIRone HCL 10 MG TABLET PO SCH ×3 (08:33→20:15)
[2022-12-30] MEDS: NYSTATIN 30 GM CREAM TP SCH ×2 (08:36→17:00)
[2022-12-30 11:41] LABS: GLUCOMETER DEV NAME(LOC) 3E.I 2; GLUCOSE,POINT OF CARE 143 MG/DL (70-110)
[2022-12-30] MEDS: QUEtiapine FUMARATE 100 MG TABLET PO PRN ×2 (13:24→21:26)
[2022-12-30 13:25] VITALS: BP 136/72
[2022-12-30] MEDS: IBUPROFEN 400 MG TABLET PO PRN (13:25)
[2022-12-30 14:25] VITALS: BP 142/80
[2022-12-30 16:56] LABS: GLUCOMETER DEV NAME(LOC) 3E.I 2; GLUCOSE,POINT OF CARE 99 MG/DL (70-110)
[2022-12-30 17:39] VITALS: BP 164/80
[2022-12-30] MEDS: MELATONIN 3 MG TABLET PO SCH (20:14)
[2022-12-30] MEDS: CloZAPine 100 MG TABLET PO SCH (20:15)
[2022-12-30 21:16] VITALS: BP 121/73
[2022-12-30 21:21] LABS: GLUCOMETER DEV NAME(LOC) 3E.C; GLUCOSE,POINT OF CARE 157 MG/DL (70-110)
[2022-12-31] MEDS: FERROUS SULFATE 325 MG EC TABLET PO SCH (06:34)
[2022-12-31] MEDS: LEVOTHYROXINE SODIUM 100 MCG TABLET PO SCH (06:34)
[2022-12-31] MEDS: MetFORMIN HCL 500 MG TABLET PO SCH ×2 (06:35→16:50)
[2022-12-31] MEDS: DOCUSATE SODIUM 250 MG CAPSULE PO SCH (08:30)
[2022-12-31] MEDS: LACOSAMIDE 50 MG TABLET PO SCH ×2 (08:32→16:50)
[2022-12-31] MEDS: LevETIRAcetam 500 MG TABLET PO SCH ×2 (08:32→16:53)
[2022-12-31] MEDS: DIVALPROEX SODIUM 500 MG DR TABLET PO SCH ×2 (08:32→20:49)
[2022-12-31] MEDS: MULTIVITAMINS WITH MINERALS, THERAPEUTIC TABLET PO SCH (08:32)
[2022-12-31] MEDS: OLANZapine 10 MG TABLET PO SCH ×3 (08:32→20:49)
[2022-12-31] MEDS: AmLODIPine BESYLATE 5 MG TABLET PO SCH (08:33)
[2022-12-31] MEDS: PROPRANOLOL HCL 20 MG TABLET PO SCH (08:33)
[2022-12-31] MEDS: CloZAPine 25 MG TABLET PO SCH (08:33)
[2022-12-31] MEDS: PANTOPRAZOLE SODIUM 40 MG DR TABLET PO SCH (08:33)
[2022-12-31] MEDS: CHOLECALCIFEROL (VIT D3) 1,000 UNITS [25 MCG] TABLET PO SCH (08:33)
[2022-12-31] MEDS: BusPIRone HCL 10 MG TABLET PO SCH ×3 (08:34→20:49)
[2022-12-31] MEDS: NYSTATIN 30 GM CREAM TP SCH ×2 (08:35→16:52)
[2022-12-31] MEDS: BuPROPion HCL XL 150 MG ER TABLET PO SCH (08:35)
[2022-12-31] MEDS: BENZTROPINE MESYLATE 1 MG TABLET PO SCH ×2 (08:37→20:49)
[2022-12-31 09:31] VITALS: BP 148/85
[2022-12-31 12:01] LABS: GLUCOMETER DEV NAME(LOC) 3E.I 2; GLUCOSE,POINT OF CARE 179 MG/DL (70-110)
[2022-12-31] MEDS: INSULIN LISPRO 100 UNITS/ML SQ PRN ×3 (12:26→20:52)
[2022-12-31] MEDS: QUEtiapine FUMARATE 100 MG TABLET PO PRN (13:43)
[2022-12-31] MEDS: IBUPROFEN 400 MG TABLET PO PRN (13:44)
[2022-12-31 13:46] VITALS: BP 145/100
[2022-12-31 14:42] VITALS: BP 133/79
[2022-12-31 17:26] LABS: GLUCOMETER DEV NAME(LOC) 3E.I 2; GLUCOSE,POINT OF CARE 127 MG/DL (70-110)
[2022-12-31] MEDS: CloZAPine 100 MG TABLET PO SCH (20:49)
[2022-12-31] MEDS: MELATONIN 3 MG TABLET PO SCH (20:50)
[2022-12-31 21:01] VITALS: BP 157/97
[2022-12-31 21:16] LABS: GLUCOMETER DEV NAME(LOC) 3E.C; GLUCOSE,POINT OF CARE 149 MG/DL (70-110)
[2023-01-01] MEDS: MetFORMIN HCL 500 MG TABLET PO SCH ×2 (06:36→16:07)
[2023-01-01] MEDS: LEVOTHYROXINE SODIUM 100 MCG TABLET PO SCH (06:36)
[2023-01-01] MEDS: FERROUS SULFATE 325 MG EC TABLET PO SCH (06:36)
[2023-01-01] MEDS: INSULIN LISPRO 100 UNITS/ML SQ PRN ×4 (06:37→21:42)
[2023-01-01 07:26] LABS: GLUCOMETER DEV NAME(LOC) 3E.C; GLUCOSE,POINT OF CARE 114 MG/DL (70-110)
[2023-01-01] MEDS: PANTOPRAZOLE SODIUM 40 MG DR TABLET PO SCH (08:14)
[2023-01-01] MEDS: BENZTROPINE MESYLATE 1 MG TABLET PO SCH ×2 (08:14→21:28)
[2023-01-01] MEDS: LevETIRAcetam 500 MG TABLET PO SCH ×2 (08:14→16:01)
[2023-01-01] MEDS: DIVALPROEX SODIUM 500 MG DR TABLET PO SCH ×2 (08:14→21:29)
[2023-01-01] MEDS: OLANZapine 10 MG TABLET PO SCH ×3 (08:14→21:29)
[2023-01-01] MEDS: CHOLECALCIFEROL (VIT D3) 1,000 UNITS [25 MCG] TABLET PO SCH (08:14)
[2023-01-01] MEDS: MULTIVITAMINS WITH MINERALS, THERAPEUTIC TABLET PO SCH (08:14)
[2023-01-01] MEDS: CloZAPine 25 MG TABLET PO SCH (08:15)
[2023-01-01] MEDS: LACOSAMIDE 50 MG TABLET PO SCH ×2 (08:15→16:01)
[2023-01-01] MEDS: AmLODIPine BESYLATE 5 MG TABLET PO SCH (08:15)
[2023-01-01] MEDS: DOCUSATE SODIUM 250 MG CAPSULE PO SCH (08:15)
[2023-01-01] MEDS: BuPROPion HCL XL 150 MG ER TABLET PO SCH (08:15)
[2023-01-01] MEDS: PROPRANOLOL HCL 20 MG TABLET PO SCH (08:15)
[2023-01-01] MEDS: BusPIRone HCL 10 MG TABLET PO SCH ×3 (08:16→21:29)
[2023-01-01] MEDS: NYSTATIN 30 GM CREAM TP SCH ×2 (08:17→16:02)
[2023-01-01 10:03] LABS: BASOPHILS % (AUTO) 0.8 % (0.0-2.0); EOSINOPHILS % (AUTO) 0 % (1.0-6.0); HEMATOCRIT 33.8 % (36-46); HEMOGLOBIN 11.3 g/dL (12.0-16.0); LYMPHOCYTES # (AUTO) 1.9 K/uL (1.0-4.8); LYMPHOCYTES % (AUTO) 31.4 % (22.0-44.0); MEAN CORPUSCULAR HGB CONC 33.4 G/dL (31.0-37.0); MEAN CORPUSCULAR VOLUME 93 fL (80-100); MONOCYTES # (AUTO) 0.7 K/uL (0.1-1.0); NEUTROPHILS # (AUTO) 3.4 K/uL (1.8-7.7); NEUTROPHILS % (AUTO) 56.8 % (40.0-70.0); PLATELET COUNT (AUTO) 186 K/uL (150-450); RED BLOOD CELL COUNT(AUTO) 3.65 MIL/uL (4.00-5.20); RED CELL DISTRIBUTION WIDTH 13.6 % (11.5-14.5)
[2023-01-01] MEDS: QUEtiapine FUMARATE 100 MG TABLET PO PRN (10:17)
[2023-01-01 10:23] VITALS: BP 137/79
[2023-01-01 12:16] LABS: GLUCOMETER DEV NAME(LOC) 3E.I 2; GLUCOSE,POINT OF CARE 167 MG/DL (70-110)
[2023-01-01 12:20] VITALS: BP 140/78
[2023-01-01] MEDS: IBUPROFEN 400 MG TABLET PO PRN (12:20)
[2023-01-01 16:24] VITALS: BP 161/102
[2023-01-01 17:11] LABS: GLUCOMETER DEV NAME(LOC) 3E.I 2; GLUCOSE,POINT OF CARE 143 MG/DL (70-110)
[2023-01-01] MEDS: CloNIDine HCL 0.1 MG TABLET PO PRN (21:18)
[2023-01-01 21:20] LABS: GLUCOMETER DEV NAME(LOC) 3E.C; GLUCOSE,POINT OF CARE 173 MG/DL (70-110)
[2023-01-01 21:23] VITALS: BP 170/98
[2023-01-01] MEDS: MELATONIN 3 MG TABLET PO SCH (21:28)
[2023-01-01] MEDS: CloZAPine 100 MG TABLET PO SCH (21:28)
[2023-01-01 23:50] VITALS: BP 143/85
[2023-01-02 06:11] LABS: GLUCOMETER DEV NAME(LOC) 3E.C; GLUCOSE,POINT OF CARE 125 MG/DL (70-110)
[2023-01-02] MEDS: FERROUS SULFATE 325 MG EC TABLET PO SCH (07:00)
[2023-01-02] MEDS: LEVOTHYROXINE SODIUM 100 MCG TABLET PO SCH (07:00)
[2023-01-02] MEDS: MetFORMIN HCL 500 MG TABLET PO SCH ×2 (07:00→17:46)
[2023-01-02] MEDS: DOCUSATE SODIUM 250 MG CAPSULE PO SCH (08:32)
[2023-01-02] MEDS: DIVALPROEX SODIUM 500 MG DR TABLET PO SCH ×2 (08:32→21:14)
[2023-01-02] MEDS: AmLODIPine BESYLATE 5 MG TABLET PO SCH (08:33)
[2023-01-02] MEDS: PROPRANOLOL HCL 20 MG TABLET PO SCH (08:33)
[2023-01-02] MEDS: MULTIVITAMINS WITH MINERALS, THERAPEUTIC TABLET PO SCH (08:33)
[2023-01-02] MEDS: LACOSAMIDE 50 MG TABLET PO SCH ×2 (08:33→17:46)
[2023-01-02] MEDS: BusPIRone HCL 10 MG TABLET PO SCH ×3 (08:33→21:14)
[2023-01-02] MEDS: PANTOPRAZOLE SODIUM 40 MG DR TABLET PO SCH (08:33)
[2023-01-02] MEDS: LevETIRAcetam 500 MG TABLET PO SCH ×2 (08:33→17:46)
[2023-01-02] MEDS: BuPROPion HCL XL 150 MG ER TABLET PO SCH (08:34)
[2023-01-02] MEDS: BENZTROPINE MESYLATE 1 MG TABLET PO SCH ×2 (08:34→21:14)
[2023-01-02] MEDS: OLANZapine 10 MG TABLET PO SCH ×3 (08:34→21:14)
[2023-01-02] MEDS: CloZAPine 25 MG TABLET PO SCH (08:34)
[2023-01-02] MEDS: CHOLECALCIFEROL (VIT D3) 1,000 UNITS [25 MCG] TABLET PO SCH (08:34)
[2023-01-02] MEDS: NYSTATIN 30 GM CREAM TP SCH ×2 (08:41→17:00)
[2023-01-02 09:20] VITALS: BP 158/93
[2023-01-02 11:31] LABS: GLUCOMETER DEV NAME(LOC) 3E.C; GLUCOSE,POINT OF CARE 148 MG/DL (70-110)
[2023-01-02 11:35] VITALS: BP 142/86
[2023-01-02] MEDS: QUEtiapine FUMARATE 100 MG TABLET PO PRN (11:35)
[2023-01-02] MEDS: IBUPROFEN 400 MG TABLET PO PRN (11:35)
[2023-01-02] MEDS: INSULIN LISPRO 100 UNITS/ML SQ PRN ×2 (11:46→18:04)
[2023-01-02 12:22] VITALS: BP 149/89
[2023-01-02 16:06] LABS: GLUCOMETER DEV NAME(LOC) 3E.C; GLUCOSE,POINT OF CARE 172 MG/DL (70-110)
[2023-01-02 16:59] VITALS: BP 164/92
[2023-01-02 20:56] LABS: GLUCOMETER DEV NAME(LOC) 3E.C; GLUCOSE,POINT OF CARE 140 MG/DL (70-110)
[2023-01-02] MEDS: MELATONIN 3 MG TABLET PO SCH (21:14)
[2023-01-02] MEDS: CloZAPine 100 MG TABLET PO SCH (21:15)
[2023-01-02] MEDS: ZOLPIDEM TARTRATE 10 MG TABLET PO PRN (22:30)
[2023-01-02 22:41] VITALS: BP 150/94
[2023-01-03 05:56] LABS: GLUCOMETER DEV NAME(LOC) 3E.C; GLUCOSE,POINT OF CARE 114 MG/DL (70-110)
[2023-01-03] MEDS: LEVOTHYROXINE SODIUM 100 MCG TABLET PO SCH (06:39)
[2023-01-03] MEDS: FERROUS SULFATE 325 MG EC TABLET PO SCH (06:39)
[2023-01-03] MEDS: MetFORMIN HCL 500 MG TABLET PO SCH ×2 (06:40→17:14)
[2023-01-03] MEDS: LevETIRAcetam 500 MG TABLET PO SCH ×2 (08:39→16:22)
[2023-01-03] MEDS: BuPROPion HCL XL 150 MG ER TABLET PO SCH (08:40)
[2023-01-03] MEDS: AmLODIPine BESYLATE 5 MG TABLET PO SCH (08:40)
[2023-01-03] MEDS: BENZTROPINE MESYLATE 1 MG TABLET PO SCH ×2 (08:40→21:08)
[2023-01-03] MEDS: MULTIVITAMINS WITH MINERALS, THERAPEUTIC TABLET PO SCH (08:40)
[2023-01-03] MEDS: OLANZapine 10 MG TABLET PO SCH ×3 (08:40→21:08)
[2023-01-03] MEDS: DOCUSATE SODIUM 250 MG CAPSULE PO SCH (08:40)
[2023-01-03] MEDS: LACOSAMIDE 50 MG TABLET PO SCH ×2 (08:40→16:21)
[2023-01-03] MEDS: DIVALPROEX SODIUM 500 MG DR TABLET PO SCH ×2 (08:40→21:08)
[2023-01-03] MEDS: PANTOPRAZOLE SODIUM 40 MG DR TABLET PO SCH (08:41)
[2023-01-03] MEDS: CloZAPine 25 MG TABLET PO SCH (08:41)
[2023-01-03] MEDS: BusPIRone HCL 10 MG TABLET PO SCH ×3 (08:41→21:09)
[2023-01-03] MEDS: CHOLECALCIFEROL (VIT D3) 1,000 UNITS [25 MCG] TABLET PO SCH (08:41)
[2023-01-03] MEDS: PROPRANOLOL HCL 20 MG TABLET PO SCH (08:41)
[2023-01-03] MEDS: NYSTATIN 30 GM CREAM TP SCH ×2 (08:43→16:22)
[2023-01-03] MEDS: LOPERAMIDE HCL 2 MG CAPSULE PO PRN (10:27)
[2023-01-03 11:21] LABS: GLUCOMETER DEV NAME(LOC) 3E.I 2; GLUCOSE,POINT OF CARE 230 MG/DL (70-110)
[2023-01-03] MEDS: INSULIN LISPRO 100 UNITS/ML SQ PRN ×3 (12:33→21:17)
[2023-01-03 14:05] VITALS: BP 136/78
[2023-01-03] MEDS: IBUPROFEN 400 MG TABLET PO PRN (14:05)
[2023-01-03] MEDS: QUEtiapine FUMARATE 100 MG TABLET PO PRN (14:08)
[2023-01-03 14:49] VITALS: BP 145/87
[2023-01-03 15:05] VITALS: BP 134/82
[2023-01-03 16:01] LABS: GLUCOMETER DEV NAME(LOC) 3E.I 2; GLUCOSE,POINT OF CARE 199 MG/DL (70-110)
[2023-01-03 17:52] VITALS: BP 138/68
[2023-01-03 20:26] LABS: GLUCOMETER DEV NAME(LOC) 3E.C; GLUCOSE,POINT OF CARE 197 MG/DL (70-110)
[2023-01-03] MEDS: MELATONIN 3 MG TABLET PO SCH (21:08)
[2023-01-03] MEDS: CloZAPine 100 MG TABLET PO SCH (21:08)
[2023-01-03 22:31] VITALS: BP 128/67
[2023-01-04] MEDS: QUEtiapine FUMARATE 100 MG TABLET PO PRN ×2 (02:16→13:34)
[2023-01-04 05:36] LABS: GLUCOMETER DEV NAME(LOC) 3E.C; GLUCOSE,POINT OF CARE 123 MG/DL (70-110)
[2023-01-04] MEDS: MetFORMIN HCL 500 MG TABLET PO SCH ×2 (06:51→16:38)
[2023-01-04] MEDS: FERROUS SULFATE 325 MG EC TABLET PO SCH (06:51)
[2023-01-04] MEDS: LEVOTHYROXINE SODIUM 100 MCG TABLET PO SCH (06:51)
[2023-01-04] MEDS: INSULIN LISPRO 100 UNITS/ML SQ PRN ×3 (06:59→21:20)
[2023-01-04 08:00] VITALS: BP 146/80
[2023-01-04] MEDS: BusPIRone HCL 10 MG TABLET PO SCH ×3 (09:04→20:47)
[2023-01-04] MEDS: BuPROPion HCL XL 150 MG ER TABLET PO SCH (09:05)
[2023-01-04] MEDS: PROPRANOLOL HCL 20 MG TABLET PO SCH (09:05)
[2023-01-04] MEDS: OLANZapine 10 MG TABLET PO SCH ×3 (09:08→20:48)
[2023-01-04] MEDS: DIVALPROEX SODIUM 500 MG DR TABLET PO SCH ×2 (09:08→16:39)
[2023-01-04] MEDS: LACOSAMIDE 50 MG TABLET PO SCH ×2 (09:08→16:38)
[2023-01-04] MEDS: MULTIVITAMINS WITH MINERALS, THERAPEUTIC TABLET PO SCH (09:09)
[2023-01-04] MEDS: BENZTROPINE MESYLATE 1 MG TABLET PO SCH ×2 (09:09→20:47)
[2023-01-04] MEDS: CHOLECALCIFEROL (VIT D3) 1,000 UNITS [25 MCG] TABLET PO SCH (09:09)
[2023-01-04] MEDS: LevETIRAcetam 500 MG TABLET PO SCH ×2 (09:09→16:38)
[2023-01-04] MEDS: PANTOPRAZOLE SODIUM 40 MG DR TABLET PO SCH (09:09)
[2023-01-04] MEDS: AmLODIPine BESYLATE 5 MG TABLET PO SCH (09:09)
[2023-01-04] MEDS: DOCUSATE SODIUM 250 MG CAPSULE PO SCH (09:10)
[2023-01-04] MEDS: CloZAPine 25 MG TABLET PO SCH (09:11)
[2023-01-04] MEDS: NYSTATIN 30 GM CREAM TP SCH ×2 (09:11→16:39)
[2023-01-04 12:36] LABS: GLUCOMETER DEV NAME(LOC) 3E.C; GLUCOSE,POINT OF CARE 106 MG/DL (70-110)
[2023-01-04 13:34] VITALS: BP 138/86
[2023-01-04] MEDS: IBUPROFEN 400 MG TABLET PO PRN (13:34)
[2023-01-04 14:34] VITALS: BP 139/82
[2023-01-04 17:11] LABS: GLUCOMETER DEV NAME(LOC) 3E.C; GLUCOSE,POINT OF CARE 227 MG/DL (70-110)
[2023-01-04 17:18] VITALS: BP 136/88
[2023-01-04 20:34] VITALS: BP 124/87
[2023-01-04 20:46] LABS: GLUCOMETER DEV NAME(LOC) 3E.C; GLUCOSE,POINT OF CARE 145 MG/DL (70-110)
[2023-01-04] MEDS: MELATONIN 3 MG TABLET PO SCH (20:47)
[2023-01-04] MEDS: CloZAPine 100 MG TABLET PO SCH (20:47)
[2023-01-04] MEDS: ZOLPIDEM TARTRATE 10 MG TABLET PO PRN (21:45)
[2023-01-05] MEDS: LEVOTHYROXINE SODIUM 100 MCG TABLET PO SCH (06:20)
[2023-01-05 06:31] LABS: GLUCOMETER DEV NAME(LOC) 3E.C; GLUCOSE,POINT OF CARE 104 MG/DL (70-110)
[2023-01-05] MEDS: INSULIN LISPRO 100 UNITS/ML SQ PRN ×3 (06:32→21:10)
[2023-01-05] MEDS: MetFORMIN HCL 500 MG TABLET PO SCH ×2 (06:44→16:50)
[2023-01-05] MEDS: FERROUS SULFATE 325 MG EC TABLET PO SCH (06:44)
[2023-01-05 08:32] LABS: COVID AG,FIA SOURCE NASAL SWAB
[2023-01-05] MEDS: DIVALPROEX SODIUM 500 MG DR TABLET PO SCH ×2 (08:47→20:33)
[2023-01-05] MEDS: OLANZapine 10 MG TABLET PO SCH ×3 (08:54→20:36)
[2023-01-05] MEDS: MULTIVITAMINS WITH MINERALS, THERAPEUTIC TABLET PO SCH (08:55)
[2023-01-05] MEDS: AmLODIPine BESYLATE 5 MG TABLET PO SCH (08:55)
[2023-01-05] MEDS: DOCUSATE SODIUM 250 MG CAPSULE PO SCH (08:55)
[2023-01-05] MEDS: LACOSAMIDE 50 MG TABLET PO SCH ×2 (08:55→16:51)
[2023-01-05] MEDS: BENZTROPINE MESYLATE 1 MG TABLET PO SCH ×2 (08:55→20:31)
[2023-01-05] MEDS: LevETIRAcetam 500 MG TABLET PO SCH ×2 (08:55→16:51)
[2023-01-05] MEDS: CHOLECALCIFEROL (VIT D3) 1,000 UNITS [25 MCG] TABLET PO SCH (08:56)
[2023-01-05] MEDS: PANTOPRAZOLE SODIUM 40 MG DR TABLET PO SCH (08:56)
[2023-01-05] MEDS: CloZAPine 25 MG TABLET PO SCH (08:56)
[2023-01-05] MEDS: BuPROPion HCL XL 150 MG ER TABLET PO SCH (08:58)
[2023-01-05] MEDS: BusPIRone HCL 10 MG TABLET PO SCH ×3 (08:58→20:34)
[2023-01-05] MEDS: NYSTATIN 30 GM CREAM TP SCH ×2 (08:59→16:50)
[2023-01-05] MEDS: PROPRANOLOL HCL 20 MG TABLET PO SCH (08:59)
[2023-01-05] MEDS: QUEtiapine FUMARATE 100 MG TABLET PO PRN ×2 (12:15→20:36)
[2023-01-05 12:16] LABS: GLUCOMETER DEV NAME(LOC) 3E.C; GLUCOSE,POINT OF CARE 174 MG/DL (70-110)
[2023-01-05 16:12] VITALS: BP 116/60
[2023-01-05 16:31] LABS: GLUCOMETER DEV NAME(LOC) 3E.C; GLUCOSE,POINT OF CARE 132 MG/DL (70-110)
[2023-01-05 20:11] VITALS: BP 131/77
[2023-01-05] MEDS: LOPERAMIDE HCL 2 MG CAPSULE PO PRN ×2 (20:13→20:36)
[2023-01-05 20:32] VITALS: BP 131/77
[2023-01-05] MEDS: CloZAPine 100 MG TABLET PO SCH (20:33)
[2023-01-05] MEDS: MELATONIN 3 MG TABLET PO SCH (20:33)
[2023-01-05] MEDS: IBUPROFEN 400 MG TABLET PO PRN (20:35)
[2023-01-05 21:26] LABS: GLUCOMETER DEV NAME(LOC) 3E.C; GLUCOSE,POINT OF CARE 212 MG/DL (70-110)
[2023-01-06 06:36] LABS: GLUCOMETER DEV NAME(LOC) 3E.C; GLUCOSE,POINT OF CARE 120 MG/DL (70-110)
[2023-01-06] MEDS: MetFORMIN HCL 500 MG TABLET PO SCH (06:36)
[2023-01-06] MEDS: FERROUS SULFATE 325 MG EC TABLET PO SCH (06:36)
[2023-01-06] MEDS: INSULIN LISPRO 100 UNITS/ML SQ PRN ×2 (06:36→11:33)
[2023-01-06] MEDS: LEVOTHYROXINE SODIUM 100 MCG TABLET PO SCH (06:36)
[2023-01-06] MEDS: NYSTATIN 30 GM CREAM TP SCH (08:15)
[2023-01-06] MEDS: BuPROPion HCL XL 150 MG ER TABLET PO SCH (08:15)
[2023-01-06] MEDS: BusPIRone HCL 10 MG TABLET PO SCH (08:15)
[2023-01-06] MEDS: PROPRANOLOL HCL 20 MG TABLET PO SCH (08:16)
[2023-01-06] MEDS: BENZTROPINE MESYLATE 1 MG TABLET PO SCH (08:20)
[2023-01-06] MEDS: LACOSAMIDE 50 MG TABLET PO SCH (08:20)
[2023-01-06] MEDS: AmLODIPine BESYLATE 5 MG TABLET PO SCH (08:20)
[2023-01-06] MEDS: DOCUSATE SODIUM 250 MG CAPSULE PO SCH (08:20)
[2023-01-06] MEDS: LevETIRAcetam 500 MG TABLET PO SCH (08:20)
[2023-01-06] MEDS: PANTOPRAZOLE SODIUM 40 MG DR TABLET PO SCH (08:20)
[2023-01-06] MEDS: DIVALPROEX SODIUM 500 MG DR TABLET PO SCH (08:20)
[2023-01-06] MEDS: MULTIVITAMINS WITH MINERALS, THERAPEUTIC TABLET PO SCH (08:20)
[2023-01-06] MEDS: CloZAPine 25 MG TABLET PO SCH (08:20)
[2023-01-06] MEDS: CHOLECALCIFEROL (VIT D3) 1,000 UNITS [25 MCG] TABLET PO SCH (08:21)
[2023-01-06] MEDS: OLANZapine 10 MG TABLET PO SCH (08:21)
[2023-01-06 11:31] LABS: GLUCOMETER DEV NAME(LOC) 3E.I 2; GLUCOSE,POINT OF CARE 164 MG/DL (70-110)
[2023-01-06] MEDS ORDERED: CLOZ25TA55 PO (12:26)
[2023-01-06] MEDS ORDERED: LACO100 PO (12:28)
[2023-01-06] MEDS ORDERED: METF-1211 PO (12:31)
[2023-01-06] MEDS ORDERED: MELA1TAB28 PO (12:31)
== END 2023-01-06 12:45 | DRG 885 ==
LOC: EMS 19:01 → 3EC 12-02 02:18 → 3EX 12-02 17:59
PROVIDERS: ADMIT Psychiatry & Neurology Psychiatry; ATTEND Psychiatry & Neurology Psychiatry
DX: F25.0 Schizoaffective disorder, bipolar type (principal); N18.9 Chronic kidney disease, unspecified; E87.1 Hypo-osmolality and hyponatremia; R45.851 Suicidal ideations; K51.90 Ulcerative colitis, unspecified, without complications; E11.22 Type 2 diabetes mellitus with diabetic chronic kidney disease; I12.9 Hypertensive chronic kidney disease with stage 1 through stage 4 chronic kidney disease, or unspecified chronic kidney disease; G40.909 Epilepsy, unspecified, not intractable, without status epilepticus; E03.9 Hypothyroidism, unspecified; F17.210 Nicotine dependence, cigarettes, uncomplicated; Z20.822 Contact with and (suspected) exposure to COVID-19; F25.1 Schizoaffective disorder, depressive type; F41.9 Anxiety disorder, unspecified; K21.9 Gastro-esophageal reflux disease without esophagitis; D50.9 Iron deficiency anemia, unspecified; E78.5 Hyperlipidemia, unspecified; G89.29 Other chronic pain; R45.850 Homicidal ideations; J44.9 Chronic obstructive pulmonary disease, unspecified; Z88.5 Allergy status to narcotic agent; Z91.011 Allergy to milk products; Z79.84 Long term (current) use of oral hypoglycemic drugs; Z93.3 Colostomy status; Z79.899 Other long term (current) drug therapy
CPT/HCPCS: 80053; 80164; 82962; 83036; 84295; 84484; 85007; 85025; 85027; 87081; 99285; G0378; J1200; J3230; Q0162; Q9967

== ENCOUNTER 2023-04-28 11:01 | Inpatient (IN) | payer MEDICARE, MEDICAID ==
[~2023-04-28] VITALS: Ht 165.1 cm; Wt 89.4 kg
[~2023-04-28 11:01] MED LIST changes: -AMLO-257 PO; +BENZ1TAB84 PO; -BENZ2TAB76 PO; +BUPR-317 PO; +BUSP10TA23 PO; -BUSP15 PO; +CLOZ100T11 PO; +CLOZ25TA52 PO; +DIVA-85 PO; -DOCU-350 PO; -FLUO-177 PO; -GABA-1201 PO; -LACO100 PO; -LEVO100 PO; +LEVO150T11 PO; +MELA1TAB28 PO; -MULT-1239 PO; -NYST30CR9 TP; +OLAN10 PO; -OLAN7.5T22 PO; -PANT-31 PO; -PROP20TA18 PO
[2023-04-28 12:29] LABS: BASOPHILS % (AUTO) 0.8 % (0.0-2.0); EOSINOPHILS % (AUTO) 0.1 % (1.0-6.0); HEMATOCRIT 35.8 % (36-46); HEMOGLOBIN 12.3 g/dL (12.0-16.0); LYMPHOCYTES # (AUTO) 1.7 K/uL (1.0-4.8); LYMPHOCYTES % (AUTO) 25.4 % (22.0-44.0); MEAN CORPUSCULAR HEMOGLOBIN 31.2 pg (26.0-34.0); MEAN CORPUSCULAR HGB CONC 34.3 G/dL (31.0-37.0); MEAN CORPUSCULAR VOLUME 91 fL (80-100); MONOCYTES # (AUTO) 0.5 K/uL (0.1-1.0); MONOCYTES % (AUTO) 7.2 % (2.0-9.0); NEUTROPHILS # (AUTO) 4.6 K/uL (1.8-7.7); NEUTROPHILS % (AUTO) 66.5 % (40.0-70.0); PLATELET COUNT (AUTO) 254 K/uL (150-450); RED BLOOD CELL COUNT(AUTO) 3.94 MIL/uL (4.00-5.20); RED CELL DISTRIBUTION WIDTH 12.5 % (11.5-14.5); WHITE BLOOD COUNT (AUTO) 6.9 K/uL (4.5-11.0)
[2023-04-28 12:35] LABS: COVID AG,FIA SOURCE NASOPHARYNGEAL
[2023-04-28 12:37] LABS: ANION GAP 12 mmol/L (8-16); CALCIUM, TOTAL 9.5 mg/dL (8.8-10.5); CARBON DIOXIDE 24 mmol/L (22-29); CHLORIDE 95 mmol/L (98-107); GLOMERULAR FILTR. RATE CALC > 60 mL/min (>60); GLUCOSE,RANDOM 149 mg/dL (70-110); POTASSIUM 3.9 mmol/L (3.5-5.1); SODIUM SERUM 131 mmol/L (136-145); UREA NITROGEN, BLOOD 9 mg/dL (7-18)
[2023-04-28 12:42] LABS: ALCOHOL, BLOOD (SERUM) < 3 mg/dL (0-10)
[2023-04-28 12:51] LABS: APPEARANCE,URINE CLEAR (CLEAR); BILIRUBIN,URINE NEGATIVE (NEGATIVE); COLOR,URINE LIGHT YELLOW (YELLOW); GLUCOSE, URINE (UA) NEGATIVE (NEGATIVE); KETONES,URINE NEGATIVE (NEGATIVE); LEUKOCYTE ESTERASE ,URINE LARGE (NEGATIVE); NITRATE,URINE NEGATIVE (NEGATIVE); OCCULT BLOOD,URINE NEGATIVE (NEGATIVE); PROTEIN,URINE TRACE mg/dL (NEGATIVE); SPECIFIC GRAVITIY, URINE 1.006 (1.003-1.030); UROBILINOGEN,URINE <=1.0 mg/dL (<=1.0)
[2023-04-28 12:53] LABS: ALANINE AMINOTRANSFERASE 12 U/L (12-78); ALBUMIN 3.5 g/dL (3.4-5.0); ALKALINE PHOSPHATASE 66 U/L (46-116); ASPARTATE AMINOTRANSFERASE 15 U/L (15-37); BILIRUBIN,TOTAL 0.3 mg/dL (0.1-1.0); THYROID STIMULATING HORMONE 1.57 uIU/mL (0.36-3.74); TOTAL PROTEIN, SERUM 7.7 g/dL (6.4-8.2); VALPROIC ACID 44 mcg/mL (50-100)
[2023-04-28 12:56] LABS: AMPHET/METH SCREEN,URINE NEGATIVE (NEGATIVE); BARBITURATE SCREEN, URINE NEGATIVE (NEGATIVE); BENZODIAZEPINES SCREEN,URINE NEGATIVE (NEGATIVE); CANNABINOID SCREEN,URINE NEGATIVE (NEGATIVE); COCAINE SCREEN,URINE NEGATIVE (NEGATIVE); METHADONE SCREEN, URINE NEGATIVE (NEGATIVE); OPIATE SCREEN,URINE NEGATIVE (NEGATIVE); PHENCYCLIDINE SCREEN,URINE NEGATIVE (NEGATIVE)
[2023-04-28 12:57] LABS: ALCOHOL, URINE DRUG SCREEN NEGATIVE (NEGATIVE); BACTERIA,URINE Moderate /HPF (None Seen); RBC,URINE None Seen /HPF (0-2); SQUAMOUS EPITHELIAL CELL,UR Few /LPF (None Seen)
[2023-04-28 13:04] LABS: SARS-COV2 (COVID) ANTIGEN,FIA Negative (Negative)
[2023-04-28] MEDS ORDERED: ACETAMINOPHEN 325 MG TABLET PO ONE (14:15)
[2023-04-28] MEDS ORDERED: LORazepam 1 MG TABLET PO ONE (14:15)
[2023-04-28] MEDS ORDERED: CEPHALEXIN MONOHYDRATE 500 MG CAPSULE PO ONE (14:15)
[2023-04-28 14:16] LABS: GLUCOMETER DEV NAME(LOC) ER.6; GLUCOSE,POINT OF CARE 153 MG/DL (70-110)
[2023-04-28] MEDS: LORazepam 1 MG TABLET PO PRN (19:06)
[2023-04-28] MEDS ORDERED: IBUPROFEN 600 MG TABLET PO ONE (20:00)
[2023-04-28] MEDS: ZOLPIDEM TARTRATE 5 MG TABLET PO PRN (22:40)
[2023-04-28] MEDS ORDERED: IBUPROFEN 400 MG TABLET PO PRN (23:30)
[2023-04-28] MEDS ORDERED: ACETAMINOPHEN 325 MG TABLET PO PRN (23:30)
[2023-04-28] MEDS ORDERED: GuaiFENesin/D-METHORPHAN [SUGAR-FREE] 200-20MG/10 ML SYRUP UDCUP PO PRN (23:30)
[2023-04-28] MEDS ORDERED: DOCUSATE SODIUM 100 MG CAPSULE PO PRN (23:30)
[2023-04-28] MEDS ORDERED: MAG HYDROX/AL HYDROX/SIMETH ES 30 ML SUSPENSION UDCUP PO PRN (23:30)
[2023-04-28] MEDS ORDERED: CloNIDine HCL 0.1 MG TABLET PO PRN (23:30)
[2023-04-28] MEDS ORDERED: NICOTINE 14 MG/24 HOUR PATCH TD PRN (23:30)
[2023-04-28] MEDS ORDERED: PETROLATUM,WHITE 28 GM JELLY TP PRN (23:30)
[2023-04-28] MEDS ORDERED: MAGNESIUM HYDROXIDE SUSPENSION 30 ML UDCUP PO PRN (23:30)
[2023-04-28] MEDS ORDERED: ALBUTEROL SULFATE HFA 90 MCG/PUFF 8 GM INHALER IH PRN (23:30)
[2023-04-28 23:31] VITALS: BP 142/95; PULSE 85; RESP 19; TEMP 98; O2SAT 99
[2023-04-29] MEDS ORDERED: CloNIDine HCL 0.1 MG TABLET PO PRN (06:45)
[2023-04-29] MEDS ORDERED: MAGNESIUM HYDROXIDE SUSPENSION 30 ML UDCUP PO PRN (06:45)
[2023-04-29] MEDS ORDERED: GuaiFENesin/D-METHORPHAN [SUGAR-FREE] 200-20MG/10 ML SYRUP UDCUP PO PRN (06:45)
[2023-04-29] MEDS ORDERED: PETROLATUM,WHITE 28 GM JELLY TP PRN (06:45)
[2023-04-29] MEDS ORDERED: MAG HYDROX/AL HYDROX/SIMETH ES 30 ML SUSPENSION UDCUP PO PRN (06:45)
[2023-04-29] MEDS ORDERED: NICOTINE 14 MG/24 HOUR PATCH TD PRN (06:45)
[2023-04-29] MEDS ORDERED: DOCUSATE SODIUM 100 MG CAPSULE PO PRN (06:45)
[2023-04-29] MEDS ORDERED: LOPERAMIDE HCL 2 MG CAPSULE PO PRN (06:45)
[2023-04-29] MEDS ORDERED: ONDANSETRON HCL 4 MG TABLET PO PRN (06:45)
[2023-04-29] MEDS ORDERED: ACETAMINOPHEN 325 MG TABLET PO PRN (06:45)
[2023-04-29] MEDS ORDERED: ALBUTEROL SULFATE HFA 90 MCG/PUFF 8 GM INHALER IH PRN (06:45)
[2023-04-29] MEDS: FERROUS SULFATE 325 MG EC TABLET PO SCH (06:53)
[2023-04-29] MEDS: MetFORMIN HCL 500 MG TABLET PO SCH ×2 (06:53→17:28)
[2023-04-29] MEDS ORDERED: LEVOTHYROXINE SODIUM 150 MCG TABLET PO SCH (07:00)
[2023-04-29] MEDS ORDERED: LEVOTHYROXINE SODIUM 100 MCG TABLET PO SCH (07:09)
[2023-04-29] MEDS ORDERED: DEXTROSE 50%-WATER 25 GM/50 ML SYRINGE IVP PRN ×2 (07:15→07:30)
[2023-04-29] MEDS ORDERED: INSULIN LISPRO 100 UNITS/ML SQ PRN (07:15)
[2023-04-29] MEDS: LEVOTHYROXINE SODIUM 100 MCG TABLET PO SCH (07:17)
[2023-04-29] MEDS: CHOLECALCIFEROL (VIT D3) 1,000 UNITS [25 MCG] TABLET PO SCH (08:25)
[2023-04-29] MEDS: LevETIRAcetam 500 MG TABLET PO SCH ×2 (08:25→17:28)
[2023-04-29] MEDS: CEPHALEXIN MONOHYDRATE 500 MG CAPSULE PO SCH (08:25)
[2023-04-29] MEDS: LORazepam 1 MG TABLET PO PRN ×2 (09:48→16:07)
[2023-04-29] MEDS: IBUPROFEN 400 MG TABLET PO PRN (09:48)
[2023-04-29] MEDS: QUEtiapine FUMARATE 100 MG TABLET PO PRN ×2 (09:49→16:08)
[2023-04-29 10:24] VITALS: BP 148/98; PULSE 84; RESP 18; TEMP 97.8; O2SAT 99
[2023-04-29 11:36] LABS: GLUCOMETER DEV NAME(LOC) 3E.I 2; GLUCOSE,POINT OF CARE 229 MG/DL (70-110)
[2023-04-29] MEDS: INSULIN LISPRO 100 UNITS/ML SQ PRN ×3 (12:06→21:44)
[2023-04-29] MEDS: TraMADol HCL 50 MG TABLET PO PRN (13:11)
[2023-04-29 16:21] LABS: GLUCOMETER DEV NAME(LOC) 3E.I 2; GLUCOSE,POINT OF CARE 158 MG/DL (70-110)
[2023-04-29] MEDS ORDERED: DIVA500T53 PO (18:05)
[2023-04-29] MEDS ORDERED: LEVO100 PO (18:05)
[2023-04-29] MEDS ORDERED: OLAN10TA74 PO (18:05)
[2023-04-29 20:31] LABS: GLUCOMETER DEV NAME(LOC) 3E.C; GLUCOSE,POINT OF CARE 180 MG/DL (70-110)
[2023-04-29] MEDS: MELATONIN 3 MG TABLET PO SCH (21:08)
[2023-04-29] MEDS: BENZTROPINE MESYLATE 1 MG TABLET PO SCH (21:09)
[2023-04-29] MEDS: CloZAPine 100 MG TABLET PO SCH (21:09)
[2023-04-29] MEDS: BusPIRone HCL 10 MG TABLET PO SCH (21:09)
[2023-04-29] MEDS: DIVALPROEX SODIUM 500 MG ER TABLET PO SCH (21:09)
[2023-04-29 22:06] LABS: BASOPHILS % (AUTO) 0.9 % (0.0-2.0); EOSINOPHILS % (AUTO) 0 % (1.0-6.0); HEMATOCRIT 30.5 % (36-46); HEMOGLOBIN 10.1 g/dL (12.0-16.0); LYMPHOCYTES # (AUTO) 2.5 K/uL (1.0-4.8); MEAN CORPUSCULAR HEMOGLOBIN 30.6 pg (26.0-34.0); MEAN CORPUSCULAR HGB CONC 33.1 G/dL (31.0-37.0); MEAN CORPUSCULAR VOLUME 93 fL (80-100); MONOCYTES # (AUTO) 0.8 K/uL (0.1-1.0); MONOCYTES % (AUTO) 11.3 % (2.0-9.0); NEUTROPHILS # (AUTO) 3.6 K/uL (1.8-7.7); NEUTROPHILS % (AUTO) 51.8 % (40.0-70.0); PLATELET COUNT (AUTO) 238 K/uL (150-450); RED BLOOD CELL COUNT(AUTO) 3.29 MIL/uL (4.00-5.20); RED CELL DISTRIBUTION WIDTH 12.8 % (11.5-14.5); WHITE BLOOD COUNT (AUTO) 6.9 K/uL (4.5-11.0)
[2023-04-29 22:49] VITALS: BP 137/70; PULSE 96; RESP 18; TEMP 96.5; O2SAT 97
[2023-04-30] VITALS (8 sets, daily range): BP systolic 111–139; BP diastolic 72–95; PULSE 66–92; RESP 18–19; TEMP 96.4–98.8; O2SAT 99–100
[2023-04-30] MEDS: ZOLPIDEM TARTRATE 5 MG TABLET PO PRN ×2 (01:19→21:49)
[2023-04-30] MEDS: TraMADol HCL 50 MG TABLET PO PRN ×2 (01:19→13:30)
[2023-04-30 06:26] LABS: GLUCOMETER DEV NAME(LOC) 3E.C; GLUCOSE,POINT OF CARE 118 MG/DL (70-110)
[2023-04-30] MEDS: INSULIN LISPRO 100 UNITS/ML SQ PRN ×4 (06:42→21:09)
[2023-04-30] MEDS: MetFORMIN HCL 500 MG TABLET PO SCH ×2 (06:53→16:31)
[2023-04-30] MEDS: FERROUS SULFATE 325 MG EC TABLET PO SCH (06:53)
[2023-04-30] MEDS: LEVOTHYROXINE SODIUM 100 MCG TABLET PO SCH (06:53)
[2023-04-30] MEDS: CloZAPine 25 MG TABLET PO SCH (08:19)
[2023-04-30] MEDS: BusPIRone HCL 10 MG TABLET PO SCH ×3 (08:19→20:21)
[2023-04-30] MEDS: CEPHALEXIN MONOHYDRATE 500 MG CAPSULE PO SCH (08:20)
[2023-04-30] MEDS: BENZTROPINE MESYLATE 1 MG TABLET PO SCH ×2 (08:20→20:21)
[2023-04-30] MEDS: CHOLECALCIFEROL (VIT D3) 1,000 UNITS [25 MCG] TABLET PO SCH (08:20)
[2023-04-30] MEDS: DIVALPROEX SODIUM 500 MG ER TABLET PO SCH ×2 (08:20→20:21)
[2023-04-30] MEDS: LevETIRAcetam 500 MG TABLET PO SCH ×2 (08:20→16:31)
[2023-04-30] MEDS: BuPROPion HCL XL 150 MG ER TABLET PO SCH (08:21)
[2023-04-30] MEDS: OLANZapine 10 MG TABLET PO SCH ×2 (08:21→16:31)
[2023-04-30] MEDS: LORazepam 1 MG TABLET PO PRN ×3 (08:28→19:42)
[2023-04-30] MEDS: QUEtiapine FUMARATE 100 MG TABLET PO PRN ×2 (08:28→14:01)
[2023-04-30] MEDS: IBUPROFEN 400 MG TABLET PO PRN (08:29)
[2023-04-30 11:57] LABS: GLUCOMETER DEV NAME(LOC) 3E.I 2; GLUCOSE,POINT OF CARE 177 MG/DL (70-110)
[2023-04-30 17:11] LABS: GLUCOMETER DEV NAME(LOC) 3E.I 2; GLUCOSE,POINT OF CARE 195 MG/DL (70-110)
[2023-04-30] MEDS: CloZAPine 100 MG TABLET PO SCH (20:21)
[2023-04-30] MEDS: MELATONIN 3 MG TABLET PO SCH (20:21)
[2023-04-30 21:01] LABS: GLUCOMETER DEV NAME(LOC) 3E.C; GLUCOSE,POINT OF CARE 154 MG/DL (70-110)
[2023-05-01] VITALS (9 sets, daily range): BP systolic 120–137; BP diastolic 78–85; PULSE 89–99; RESP 18–19; TEMP 84–99
[2023-05-01 05:11] LABS: GLUCOMETER DEV NAME(LOC) 3E.C; GLUCOSE,POINT OF CARE 149 MG/DL (70-110)
[2023-05-01] MEDS: LEVOTHYROXINE SODIUM 100 MCG TABLET PO SCH (06:46)
[2023-05-01] MEDS: MetFORMIN HCL 500 MG TABLET PO SCH ×2 (06:46→17:13)
[2023-05-01] MEDS: INSULIN LISPRO 100 UNITS/ML SQ PRN ×4 (06:46→21:05)
[2023-05-01] MEDS: FERROUS SULFATE 325 MG EC TABLET PO SCH (06:46)
[2023-05-01] MEDS: CEPHALEXIN MONOHYDRATE 500 MG CAPSULE PO SCH (07:58)
[2023-05-01] MEDS: BuPROPion HCL XL 150 MG ER TABLET PO SCH (07:58)
[2023-05-01] MEDS: BusPIRone HCL 10 MG TABLET PO SCH ×3 (07:58→20:50)
[2023-05-01] MEDS: OLANZapine 10 MG TABLET PO SCH ×3 (08:00→20:50)
[2023-05-01] MEDS: CHOLECALCIFEROL (VIT D3) 1,000 UNITS [25 MCG] TABLET PO SCH (08:00)
[2023-05-01] MEDS: LevETIRAcetam 500 MG TABLET PO SCH ×2 (08:00→16:40)
[2023-05-01] MEDS: BENZTROPINE MESYLATE 1 MG TABLET PO SCH ×2 (08:01→20:50)
[2023-05-01] MEDS: DIVALPROEX SODIUM 500 MG ER TABLET PO SCH ×2 (08:01→20:49)
[2023-05-01] MEDS: CloZAPine 25 MG TABLET PO SCH (08:01)
[2023-05-01] MEDS: QUEtiapine FUMARATE 100 MG TABLET PO PRN (09:10)
[2023-05-01 11:36] LABS: GLUCOMETER DEV NAME(LOC) 3E.I 2; GLUCOSE,POINT OF CARE 171 MG/DL (70-110)
[2023-05-01] MEDS: TraMADol HCL 50 MG TABLET PO PRN (12:33)
[2023-05-01] MEDS: LORazepam 1 MG TABLET PO PRN ×2 (14:34→19:30)
[2023-05-01 16:56] LABS: GLUCOMETER DEV NAME(LOC) 3E.I 2; GLUCOSE,POINT OF CARE 184 MG/DL (70-110)
[2023-05-01] MEDS: MELATONIN 3 MG TABLET PO SCH (20:11)
[2023-05-01] MEDS: CloZAPine 100 MG TABLET PO SCH (20:50)
[2023-05-01] MEDS: ZOLPIDEM TARTRATE 5 MG TABLET PO PRN (20:51)
[2023-05-01 20:56] LABS: GLUCOMETER DEV NAME(LOC) 3E.C; GLUCOSE,POINT OF CARE 224 MG/DL (70-110)
[2023-05-02 04:55] VITALS: BP 156/86; PULSE 96; RESP 18
[2023-05-02 05:00] VITALS: BP 156/96; PULSE 86; RESP 18
[2023-05-02] MEDS: TraMADol HCL 50 MG TABLET PO PRN ×2 (05:01→13:51)
[2023-05-02 05:41] LABS: GLUCOMETER DEV NAME(LOC) 3E.C; GLUCOSE,POINT OF CARE 131 MG/DL (70-110)
[2023-05-02 06:01] VITALS: TEMP 97.5
[2023-05-02] MEDS: LEVOTHYROXINE SODIUM 100 MCG TABLET PO SCH (06:37)
[2023-05-02] MEDS: MetFORMIN HCL 500 MG TABLET PO SCH ×2 (06:38→17:31)
[2023-05-02] MEDS: FERROUS SULFATE 325 MG EC TABLET PO SCH (06:38)
[2023-05-02 08:54] LABS: BASOPHILS % (AUTO) 0.6 % (0.0-2.0); EOSINOPHILS % (AUTO) 0 % (1.0-6.0); HEMATOCRIT 32.4 % (36-46); HEMOGLOBIN 10.9 g/dL (12.0-16.0); LYMPHOCYTES # (AUTO) 2.2 K/uL (1.0-4.8); MEAN CORPUSCULAR HEMOGLOBIN 31.2 pg (26.0-34.0); MEAN CORPUSCULAR HGB CONC 33.7 G/dL (31.0-37.0); MEAN CORPUSCULAR VOLUME 93 fL (80-100); MONOCYTES # (AUTO) 0.7 K/uL (0.1-1.0); NEUTROPHILS # (AUTO) 6.1 K/uL (1.8-7.7); NEUTROPHILS % (AUTO) 67.4 % (40.0-70.0); PLATELET COUNT (AUTO) 244 K/uL (150-450); RED CELL DISTRIBUTION WIDTH 12.8 % (11.5-14.5); WHITE BLOOD COUNT (AUTO) 9.1 K/uL (4.5-11.0)
[2023-05-02 09:01] LABS: HEMOGLOBIN A1C 6.9 % (3.8-5.6)
[2023-05-02 09:18] LABS: ALANINE AMINOTRANSFERASE 10 U/L (12-78); ALBUMIN 2.7 g/dL (3.4-5.0); ALKALINE PHOSPHATASE 58 U/L (46-116); ANION GAP 7 mmol/L (8-16); ASPARTATE AMINOTRANSFERASE 16 U/L (15-37); BILIRUBIN,TOTAL 0.3 mg/dL (0.1-1.0); CALCIUM, TOTAL 9.2 mg/dL (8.8-10.5); CARBON DIOXIDE 28 mmol/L (22-29); CHLORIDE 98 mmol/L (98-107); CREATININE 0.75 mg/dL (0.60-1.30); GLOMERULAR FILTR. RATE CALC > 60 mL/min (>60); GLUCOSE,RANDOM 92 mg/dL (70-110); SODIUM SERUM 133 mmol/L (136-145); THYROID STIMULATING HORMONE 2.16 uIU/mL (0.36-3.74); TOTAL PROTEIN, SERUM 6.6 g/dL (6.4-8.2); UREA NITROGEN, BLOOD 12 mg/dL (7-18)
[2023-05-02] MEDS: OLANZapine 10 MG TABLET PO SCH ×3 (09:19→20:39)
[2023-05-02] MEDS: BuPROPion HCL XL 150 MG ER TABLET PO SCH (09:19)
[2023-05-02] MEDS: BENZTROPINE MESYLATE 1 MG TABLET PO SCH ×2 (09:19→20:39)
[2023-05-02] MEDS: CloZAPine 25 MG TABLET PO SCH (09:19)
[2023-05-02] MEDS: BusPIRone HCL 10 MG TABLET PO SCH ×3 (09:19→20:39)
[2023-05-02] MEDS: CEPHALEXIN MONOHYDRATE 500 MG CAPSULE PO SCH (09:19)
[2023-05-02] MEDS: CHOLECALCIFEROL (VIT D3) 1,000 UNITS [25 MCG] TABLET PO SCH (09:20)
[2023-05-02] MEDS: LevETIRAcetam 500 MG TABLET PO SCH ×2 (09:20→16:01)
[2023-05-02] MEDS: DIVALPROEX SODIUM 500 MG ER TABLET PO SCH ×2 (09:20→20:40)
[2023-05-02] MEDS: QUEtiapine FUMARATE 100 MG TABLET PO PRN (11:08)
[2023-05-02] MEDS: INSULIN LISPRO 100 UNITS/ML SQ PRN ×3 (11:22→21:37)
[2023-05-02 11:26] LABS: GLUCOMETER DEV NAME(LOC) 3E.I 2; GLUCOSE,POINT OF CARE 171 MG/DL (70-110)
[2023-05-02 13:48] VITALS: BP 157/93; PULSE 97; RESP 18
[2023-05-02 16:46] LABS: GLUCOMETER DEV NAME(LOC) 3E.I 2; GLUCOSE,POINT OF CARE 252 MG/DL (70-110)
[2023-05-02 20:21] LABS: GLUCOMETER DEV NAME(LOC) 3E.C; GLUCOSE,POINT OF CARE 226 MG/DL (70-110)
[2023-05-02] MEDS: CloZAPine 100 MG TABLET PO SCH (20:39)
[2023-05-02] MEDS: MELATONIN 3 MG TABLET PO SCH (20:40)
[2023-05-02 20:50] VITALS: BP 128/74; PULSE 78; PULSE 97; RESP 18; RESP 20; TEMP 98.2; O2SAT 97
[2023-05-03] MEDS: LORazepam 1 MG TABLET PO PRN ×2 (00:12→21:51)
[2023-05-03] MEDS: ZOLPIDEM TARTRATE 5 MG TABLET PO PRN ×2 (00:12→22:45)
[2023-05-03 05:21] LABS: GLUCOMETER DEV NAME(LOC) 3E.C; GLUCOSE,POINT OF CARE 115 MG/DL (70-110)
[2023-05-03] MEDS: MetFORMIN HCL 500 MG TABLET PO SCH ×2 (06:35→17:11)
[2023-05-03] MEDS: LEVOTHYROXINE SODIUM 100 MCG TABLET PO SCH (06:35)
[2023-05-03] MEDS: FERROUS SULFATE 325 MG EC TABLET PO SCH (06:35)
[2023-05-03] MEDS: BusPIRone HCL 10 MG TABLET PO SCH ×3 (08:10→20:05)
[2023-05-03] MEDS: BuPROPion HCL XL 150 MG ER TABLET PO SCH (08:10)
[2023-05-03] MEDS: CEPHALEXIN MONOHYDRATE 500 MG CAPSULE PO SCH (08:12)
[2023-05-03] MEDS: LevETIRAcetam 500 MG TABLET PO SCH ×2 (08:13→17:10)
[2023-05-03] MEDS: CHOLECALCIFEROL (VIT D3) 1,000 UNITS [25 MCG] TABLET PO SCH (08:13)
[2023-05-03] MEDS: CloZAPine 25 MG TABLET PO SCH (08:13)
[2023-05-03] MEDS: BENZTROPINE MESYLATE 1 MG TABLET PO SCH ×2 (08:13→20:05)
[2023-05-03] MEDS: DIVALPROEX SODIUM 500 MG ER TABLET PO SCH ×2 (08:13→20:05)
[2023-05-03] MEDS: OLANZapine 10 MG TABLET PO SCH ×3 (08:13→20:05)
[2023-05-03 08:30] LABS: CHOL/HDL RATIO 2.4 (3.9-5.7)
[2023-05-03] MEDS: QUEtiapine FUMARATE 100 MG TABLET PO PRN (09:45)
[2023-05-03] MEDS: ONDANSETRON HCL 4 MG TABLET PO PRN (11:16)
[2023-05-03] MEDS: INSULIN LISPRO 100 UNITS/ML SQ PRN ×3 (11:18→21:10)
[2023-05-03 11:23] VITALS: BP 153/82; PULSE 82; RESP 18; TEMP 97.2; O2SAT 98
[2023-05-03 11:25] LABS: GLUCOMETER DEV NAME(LOC) 3E.I 2; GLUCOSE,POINT OF CARE 152 MG/DL (70-110)
[2023-05-03] MEDS: TraMADol HCL 50 MG TABLET PO PRN (12:33)
[2023-05-03 12:34] VITALS: BP 145/78; PULSE 89; RESP 18; O2SAT 97
[2023-05-03 16:16] LABS: GLUCOMETER DEV NAME(LOC) 3E.I 2; GLUCOSE,POINT OF CARE 192 MG/DL (70-110)
[2023-05-03] MEDS: MELATONIN 3 MG TABLET PO SCH (20:05)
[2023-05-03] MEDS: CloZAPine 100 MG TABLET PO SCH (20:05)
[2023-05-03 21:11] VITALS: RESP 19
[2023-05-03 21:11] LABS: GLUCOMETER DEV NAME(LOC) 3E.C; GLUCOSE,POINT OF CARE 175 MG/DL (70-110)
[2023-05-04] MEDS: QUEtiapine FUMARATE 100 MG TABLET PO PRN (01:15)
[2023-05-04 06:11] LABS: GLUCOMETER DEV NAME(LOC) 3E.C; GLUCOSE,POINT OF CARE 150 MG/DL (70-110)
[2023-05-04] MEDS: LEVOTHYROXINE SODIUM 100 MCG TABLET PO SCH (06:44)
[2023-05-04] MEDS: FERROUS SULFATE 325 MG EC TABLET PO SCH (06:44)
[2023-05-04] MEDS: INSULIN LISPRO 100 UNITS/ML SQ PRN ×4 (06:45→21:39)
[2023-05-04] MEDS: MetFORMIN HCL 500 MG TABLET PO SCH ×2 (06:45→16:07)
[2023-05-04] MEDS: BuPROPion HCL XL 150 MG ER TABLET PO SCH (08:30)
[2023-05-04] MEDS: BusPIRone HCL 10 MG TABLET PO SCH ×3 (08:30→21:22)
[2023-05-04] MEDS: OLANZapine 10 MG TABLET PO SCH ×3 (08:33→21:22)
[2023-05-04] MEDS: DIVALPROEX SODIUM 500 MG ER TABLET PO SCH ×2 (08:34→21:22)
[2023-05-04] MEDS: LevETIRAcetam 500 MG TABLET PO SCH ×2 (08:34→16:08)
[2023-05-04] MEDS: BENZTROPINE MESYLATE 1 MG TABLET PO SCH ×2 (08:34→21:22)
[2023-05-04] MEDS: CloZAPine 25 MG TABLET PO SCH (08:34)
[2023-05-04] MEDS: CHOLECALCIFEROL (VIT D3) 1,000 UNITS [25 MCG] TABLET PO SCH (08:34)
[2023-05-04] MEDS: LORazepam 1 MG TABLET PO PRN ×2 (09:23→17:53)
[2023-05-04 09:48] VITALS: BP 142/88; PULSE 105; RESP 18; TEMP 97.7
[2023-05-04] MEDS: TraMADol HCL 50 MG TABLET PO PRN ×2 (09:48→17:53)
[2023-05-04 10:48] VITALS: BP 142/81; PULSE 18; RESP 18; TEMP 97.6; O2SAT 98
[2023-05-04 11:56] LABS: GLUCOMETER DEV NAME(LOC) 3E.I 2; GLUCOSE,POINT OF CARE 183 MG/DL (70-110)
[2023-05-04 17:35] LABS: GLUCOMETER DEV NAME(LOC) 3E.I 2; GLUCOSE,POINT OF CARE 205 MG/DL (70-110)
[2023-05-04 17:53] VITALS: BP 142/79; PULSE 81; RESP 18; TEMP 98
[2023-05-04 18:53] VITALS: BP 136/79; PULSE 86; RESP 18; TEMP 98
[2023-05-04 21:15] VITALS: BP 116/85; PULSE 102; RESP 18; TEMP 98
[2023-05-04] MEDS: MELATONIN 3 MG TABLET PO SCH (21:22)
[2023-05-04] MEDS: CloZAPine 100 MG TABLET PO SCH (21:22)
[2023-05-04 21:55] LABS: GLUCOMETER DEV NAME(LOC) 3E.C; GLUCOSE,POINT OF CARE 217 MG/DL (70-110)
[2023-05-05] MEDS: MetFORMIN HCL 500 MG TABLET PO SCH ×2 (06:31→17:25)
[2023-05-05] MEDS: FERROUS SULFATE 325 MG EC TABLET PO SCH (06:31)
[2023-05-05] MEDS: LEVOTHYROXINE SODIUM 100 MCG TABLET PO SCH (06:31)
[2023-05-05] MEDS: INSULIN LISPRO 100 UNITS/ML SQ PRN ×4 (06:46→21:37)
[2023-05-05 07:16] LABS: GLUCOMETER DEV NAME(LOC) 3E.C; GLUCOSE,POINT OF CARE 119 MG/DL (70-110)
[2023-05-05] MEDS: BusPIRone HCL 10 MG TABLET PO SCH ×3 (08:08→21:30)
[2023-05-05] MEDS: BuPROPion HCL XL 150 MG ER TABLET PO SCH (08:09)
[2023-05-05 08:10] VITALS: BP 140/100; PULSE 107; RESP 18; TEMP 97.8; O2SAT 99
[2023-05-05] MEDS: LORazepam 1 MG TABLET PO PRN (08:13)
[2023-05-05] MEDS: TraMADol HCL 50 MG TABLET PO PRN ×2 (08:13→16:20)
[2023-05-05] MEDS: CloZAPine 25 MG TABLET PO SCH (08:13)
[2023-05-05] MEDS: LevETIRAcetam 500 MG TABLET PO SCH ×2 (08:13→16:19)
[2023-05-05] MEDS: DIVALPROEX SODIUM 500 MG ER TABLET PO SCH ×2 (08:13→21:30)
[2023-05-05] MEDS: CHOLECALCIFEROL (VIT D3) 1,000 UNITS [25 MCG] TABLET PO SCH (08:13)
[2023-05-05] MEDS: BENZTROPINE MESYLATE 1 MG TABLET PO SCH ×2 (08:13→21:30)
[2023-05-05] MEDS: OLANZapine 10 MG TABLET PO SCH ×3 (08:14→21:30)
[2023-05-05 09:17] VITALS: BP 140/100; PULSE 107; RESP 20; TEMP 97.8
[2023-05-05 12:36] LABS: GLUCOMETER DEV NAME(LOC) 3E.C; GLUCOSE,POINT OF CARE 120 MG/DL (70-110)
[2023-05-05] MEDS: QUEtiapine FUMARATE 100 MG TABLET PO PRN ×2 (14:13→18:19)
[2023-05-05 16:17] VITALS: BP 147/95; PULSE 107; RESP 20; TEMP 97.6
[2023-05-05 16:46] LABS: GLUCOMETER DEV NAME(LOC) 3E.C; GLUCOSE,POINT OF CARE 165 MG/DL (70-110)
[2023-05-05 20:46] VITALS: BP 133/88; PULSE 86; RESP 18; TEMP 97.4; O2SAT 100
[2023-05-05] MEDS: ZOLPIDEM TARTRATE 5 MG TABLET PO PRN (21:30)
[2023-05-05] MEDS: MELATONIN 3 MG TABLET PO SCH (21:30)
[2023-05-05] MEDS: CloZAPine 100 MG TABLET PO SCH (21:30)
[2023-05-05 22:11] LABS: GLUCOMETER DEV NAME(LOC) 3E.C; GLUCOSE,POINT OF CARE 181 MG/DL (70-110)
[2023-05-06 05:41] LABS: GLUCOMETER DEV NAME(LOC) 3E.C; GLUCOSE,POINT OF CARE 115 MG/DL (70-110)
[2023-05-06] MEDS: LEVOTHYROXINE SODIUM 100 MCG TABLET PO SCH (06:35)
[2023-05-06] MEDS: FERROUS SULFATE 325 MG EC TABLET PO SCH (06:35)
[2023-05-06] MEDS: MetFORMIN HCL 500 MG TABLET PO SCH ×2 (06:35→17:46)
[2023-05-06] MEDS: TraMADol HCL 50 MG TABLET PO PRN ×2 (06:44→15:04)
[2023-05-06 07:44] VITALS: BP 128/76; PULSE 98; RESP 18; TEMP 97.3
[2023-05-06] MEDS: OLANZapine 10 MG TABLET PO SCH ×3 (08:56→21:07)
[2023-05-06] MEDS: LevETIRAcetam 500 MG TABLET PO SCH ×2 (08:56→17:07)
[2023-05-06] MEDS: CloZAPine 25 MG TABLET PO SCH (08:57)
[2023-05-06] MEDS: BENZTROPINE MESYLATE 1 MG TABLET PO SCH ×2 (08:57→21:08)
[2023-05-06] MEDS: DIVALPROEX SODIUM 500 MG ER TABLET PO SCH ×2 (08:57→21:08)
[2023-05-06] MEDS: CHOLECALCIFEROL (VIT D3) 1,000 UNITS [25 MCG] TABLET PO SCH (08:57)
[2023-05-06] MEDS: BuPROPion HCL XL 150 MG ER TABLET PO SCH (08:57)
[2023-05-06] MEDS: BusPIRone HCL 10 MG TABLET PO SCH ×3 (08:58→21:07)
[2023-05-06 10:05] VITALS: BP 130/74; PULSE 105; RESP 18; TEMP 96.9; O2SAT 100
[2023-05-06] MEDS: QUEtiapine FUMARATE 100 MG TABLET PO PRN ×2 (10:22→15:05)
[2023-05-06 11:51] LABS: GLUCOMETER DEV NAME(LOC) 3E.I 2; GLUCOSE,POINT OF CARE 214 MG/DL (70-110)
[2023-05-06] MEDS: INSULIN LISPRO 100 UNITS/ML SQ PRN ×3 (12:16→21:33)
[2023-05-06 15:05] VITALS: BP 132/78; PULSE 92; RESP 19; TEMP 97.3
[2023-05-06 16:05] VITALS: PULSE 86; RESP 18; TEMP 97.5
[2023-05-06 17:26] LABS: GLUCOMETER DEV NAME(LOC) 3E.I 2; GLUCOSE,POINT OF CARE 204 MG/DL (70-110)
[2023-05-06 20:00] VITALS: BP 149/90; PULSE 98; RESP 18; TEMP 97.3; O2SAT 97
[2023-05-06 20:50] LABS: GLUCOMETER DEV NAME(LOC) 3E.C; GLUCOSE,POINT OF CARE 242 MG/DL (70-110)
[2023-05-06] MEDS: MELATONIN 3 MG TABLET PO SCH (21:07)
[2023-05-06] MEDS: CloZAPine 100 MG TABLET PO SCH (21:08)
[2023-05-07 02:26] VITALS: BP 159/89; PULSE 86; RESP 18; TEMP 97.1; O2SAT 97
[2023-05-07] MEDS: TraMADol HCL 50 MG TABLET PO PRN ×3 (02:26→18:39)
[2023-05-07 03:26] VITALS: RESP 18
[2023-05-07 05:52] LABS: GLUCOMETER DEV NAME(LOC) 3E.C; GLUCOSE,POINT OF CARE 139 MG/DL (70-110)
[2023-05-07] MEDS: MetFORMIN HCL 500 MG TABLET PO SCH ×2 (06:51→17:47)
[2023-05-07] MEDS: FERROUS SULFATE 325 MG EC TABLET PO SCH (06:51)
[2023-05-07] MEDS: LEVOTHYROXINE SODIUM 100 MCG TABLET PO SCH (06:51)
[2023-05-07] MEDS: INSULIN LISPRO 100 UNITS/ML SQ PRN ×4 (07:03→21:19)
[2023-05-07] MEDS: CloZAPine 25 MG TABLET PO SCH (08:00)
[2023-05-07] MEDS: BusPIRone HCL 10 MG TABLET PO SCH ×3 (08:00→21:06)
[2023-05-07] MEDS: DIVALPROEX SODIUM 500 MG ER TABLET PO SCH ×2 (08:00→21:06)
[2023-05-07] MEDS: BuPROPion HCL XL 150 MG ER TABLET PO SCH (08:00)
[2023-05-07] MEDS: CHOLECALCIFEROL (VIT D3) 1,000 UNITS [25 MCG] TABLET PO SCH (08:00)
[2023-05-07] MEDS: OLANZapine 10 MG TABLET PO SCH ×3 (08:00→21:07)
[2023-05-07] MEDS: LevETIRAcetam 500 MG TABLET PO SCH ×2 (08:00→17:47)
[2023-05-07] MEDS: BENZTROPINE MESYLATE 1 MG TABLET PO SCH ×2 (08:01→21:07)
[2023-05-07] MEDS: ONDANSETRON HCL 4 MG TABLET PO PRN (08:02)
[2023-05-07 10:31] VITALS: BP 152/89; PULSE 95; RESP 17; TEMP 97.1; O2SAT 100
[2023-05-07 10:33] VITALS: BP 152/89; PULSE 95; RESP 17; TEMP 97.1; O2SAT 100
[2023-05-07] MEDS: QUEtiapine FUMARATE 100 MG TABLET PO PRN ×3 (10:37→18:44)
[2023-05-07 10:47] LABS: BASOPHILS % (AUTO) 0.5 % (0.0-2.0); EOSINOPHILS % (AUTO) 0 % (1.0-6.0); HEMATOCRIT 33.8 % (36-46); HEMOGLOBIN 11.3 g/dL (12.0-16.0); LYMPHOCYTES # (AUTO) 1.5 K/uL (1.0-4.8); LYMPHOCYTES % (AUTO) 19.3 % (22.0-44.0); MEAN CORPUSCULAR HEMOGLOBIN 31.1 pg (26.0-34.0); MEAN CORPUSCULAR HGB CONC 33.3 G/dL (31.0-37.0); MEAN CORPUSCULAR VOLUME 94 fL (80-100); MONOCYTES # (AUTO) 0.6 K/uL (0.1-1.0); MONOCYTES % (AUTO) 7.5 % (2.0-9.0); NEUTROPHILS # (AUTO) 5.6 K/uL (1.8-7.7); NEUTROPHILS % (AUTO) 72.7 % (40.0-70.0); PLATELET COUNT (AUTO) 277 K/uL (150-450); RED BLOOD CELL COUNT(AUTO) 3.62 MIL/uL (4.00-5.20); RED CELL DISTRIBUTION WIDTH 13.1 % (11.5-14.5); WHITE BLOOD COUNT (AUTO) 7.7 K/uL (4.5-11.0)
[2023-05-07 11:47] LABS: GLUCOMETER DEV NAME(LOC) 3E.C; GLUCOSE,POINT OF CARE 175 MG/DL (70-110)
[2023-05-07 16:47] LABS: GLUCOMETER DEV NAME(LOC) 3E.C; GLUCOSE,POINT OF CARE 182 MG/DL (70-110)
[2023-05-07 18:36] VITALS: BP 140/80; PULSE 70; RESP 20; TEMP 97
[2023-05-07 20:51] LABS: GLUCOMETER DEV NAME(LOC) 3E.C; GLUCOSE,POINT OF CARE 157 MG/DL (70-110)
[2023-05-07] MEDS: CloZAPine 100 MG TABLET PO SCH (21:07)
[2023-05-07] MEDS: MELATONIN 3 MG TABLET PO SCH (21:07)
[2023-05-07 22:40] VITALS: BP 133/78; PULSE 91; RESP 18; TEMP 97.4; O2SAT 98
[2023-05-08 01:50] VITALS: BP 166/90; PULSE 83; RESP 19; TEMP 97.4; O2SAT 98
[2023-05-08] MEDS: IBUPROFEN 400 MG TABLET PO PRN (01:51)
[2023-05-08] MEDS: ZOLPIDEM TARTRATE 5 MG TABLET PO PRN ×2 (01:51→21:24)
[2023-05-08 02:50] VITALS: RESP 18
[2023-05-08 05:46] LABS: GLUCOMETER DEV NAME(LOC) 3E.C; GLUCOSE,POINT OF CARE 124 MG/DL (70-110)
[2023-05-08] MEDS: LEVOTHYROXINE SODIUM 100 MCG TABLET PO SCH (06:59)
[2023-05-08] MEDS: MetFORMIN HCL 500 MG TABLET PO SCH ×2 (06:59→16:37)
[2023-05-08] MEDS: FERROUS SULFATE 325 MG EC TABLET PO SCH (06:59)
[2023-05-08] MEDS: INSULIN LISPRO 100 UNITS/ML SQ PRN ×4 (07:09→21:10)
[2023-05-08 08:00] VITALS: BP 143/76; PULSE 74; RESP 18; TEMP 96.9
[2023-05-08] MEDS: BENZTROPINE MESYLATE 1 MG TABLET PO SCH ×2 (08:42→20:15)
[2023-05-08] MEDS: BuPROPion HCL XL 150 MG ER TABLET PO SCH (08:42)
[2023-05-08] MEDS: BusPIRone HCL 10 MG TABLET PO SCH ×3 (08:42→20:15)
[2023-05-08] MEDS: CHOLECALCIFEROL (VIT D3) 1,000 UNITS [25 MCG] TABLET PO SCH (08:42)
[2023-05-08] MEDS: DIVALPROEX SODIUM 500 MG ER TABLET PO SCH ×2 (08:42→20:15)
[2023-05-08] MEDS: LevETIRAcetam 500 MG TABLET PO SCH ×2 (08:43→16:37)
[2023-05-08] MEDS: CloZAPine 25 MG TABLET PO SCH (08:44)
[2023-05-08] MEDS: OLANZapine 10 MG TABLET PO SCH ×3 (08:45→20:15)
[2023-05-08 10:49] VITALS: BP 138/81; PULSE 76; RESP 17; TEMP 97.3
[2023-05-08] MEDS: TraMADol HCL 50 MG TABLET PO PRN (10:49)
[2023-05-08] MEDS: LOPERAMIDE HCL 2 MG CAPSULE PO PRN ×2 (10:49→21:23)
[2023-05-08 11:16] LABS: GLUCOMETER DEV NAME(LOC) 3E.I 2; GLUCOSE,POINT OF CARE 193 MG/DL (70-110)
[2023-05-08 11:49] VITALS: BP 148/79; PULSE 78; RESP 18; TEMP 98
[2023-05-08 17:46] LABS: GLUCOMETER DEV NAME(LOC) 3E.I 2; GLUCOSE,POINT OF CARE 171 MG/DL (70-110)
[2023-05-08] MEDS: MELATONIN 3 MG TABLET PO SCH (20:15)
[2023-05-08] MEDS: CloZAPine 100 MG TABLET PO SCH (20:15)
[2023-05-08 21:21] LABS: GLUCOMETER DEV NAME(LOC) 3E.C; GLUCOSE,POINT OF CARE 200 MG/DL (70-110)
[2023-05-08] MEDS: QUEtiapine FUMARATE 100 MG TABLET PO PRN (21:24)
[2023-05-08 21:27] VITALS: BP 124/68; PULSE 93; RESP 18; TEMP 97; O2SAT 96
[2023-05-09 01:58] VITALS: BP 154/79; PULSE 97; RESP 18; TEMP 97.2; O2SAT 99
[2023-05-09] MEDS: TraMADol HCL 50 MG TABLET PO PRN ×2 (02:04→11:22)
[2023-05-09 03:04] VITALS: TEMP 97.4
[2023-05-09 06:02] LABS: GLUCOMETER DEV NAME(LOC) 3E.C; GLUCOSE,POINT OF CARE 127 MG/DL (70-110)
[2023-05-09] MEDS: LEVOTHYROXINE SODIUM 100 MCG TABLET PO SCH (06:44)
[2023-05-09] MEDS: FERROUS SULFATE 325 MG EC TABLET PO SCH (06:44)
[2023-05-09] MEDS: MetFORMIN HCL 500 MG TABLET PO SCH ×2 (06:44→16:46)
[2023-05-09] MEDS: BuPROPion HCL XL 150 MG ER TABLET PO SCH (08:17)
[2023-05-09] MEDS: BusPIRone HCL 10 MG TABLET PO SCH ×3 (08:17→21:09)
[2023-05-09] MEDS: ONDANSETRON HCL 4 MG TABLET PO PRN (08:21)
[2023-05-09] MEDS: CloZAPine 25 MG TABLET PO SCH (08:21)
[2023-05-09] MEDS: OLANZapine 10 MG TABLET PO SCH ×3 (08:22→21:10)
[2023-05-09] MEDS: BENZTROPINE MESYLATE 1 MG TABLET PO SCH ×2 (08:22→21:09)
[2023-05-09] MEDS: CHOLECALCIFEROL (VIT D3) 1,000 UNITS [25 MCG] TABLET PO SCH (08:22)
[2023-05-09] MEDS: DIVALPROEX SODIUM 500 MG ER TABLET PO SCH ×2 (08:22→21:10)
[2023-05-09] MEDS: LevETIRAcetam 500 MG TABLET PO SCH ×2 (08:22→16:47)
[2023-05-09] MEDS: QUEtiapine FUMARATE 100 MG TABLET PO PRN ×3 (08:22→16:48)
[2023-05-09 11:56] LABS: GLUCOMETER DEV NAME(LOC) 3E.I 2; GLUCOSE,POINT OF CARE 125 MG/DL (70-110)
[2023-05-09] MEDS: INSULIN LISPRO 100 UNITS/ML SQ PRN ×3 (12:58→21:21)
[2023-05-09 16:42] LABS: GLUCOMETER DEV NAME(LOC) 3E.I 2; GLUCOSE,POINT OF CARE 263 MG/DL (70-110)
[2023-05-09] MEDS: LOPERAMIDE HCL 2 MG CAPSULE PO PRN (16:46)
[2023-05-09 18:54] VITALS: BP 132/86; PULSE 81; RESP 18; TEMP 97.8; O2SAT 97
[2023-05-09 20:21] LABS: GLUCOMETER DEV NAME(LOC) 3E.C; GLUCOSE,POINT OF CARE 208 MG/DL (70-110)
[2023-05-09] MEDS: CloZAPine 100 MG TABLET PO SCH (21:09)
[2023-05-09] MEDS: MELATONIN 3 MG TABLET PO SCH (21:10)
[2023-05-09 21:12] VITALS: BP 125/91; PULSE 84; RESP 18; TEMP 97.6; O2SAT 97
[2023-05-10] MEDS: QUEtiapine FUMARATE 100 MG TABLET PO PRN ×2 (03:36→13:54)
[2023-05-10 03:55] VITALS: BP 137/80; PULSE 80; RESP 18; TEMP 97.4; O2SAT 97
[2023-05-10] MEDS: TraMADol HCL 50 MG TABLET PO PRN (04:21)
[2023-05-10 04:55] VITALS: RESP 18
[2023-05-10 05:47] LABS: GLUCOMETER DEV NAME(LOC) 3E.C; GLUCOSE,POINT OF CARE 154 MG/DL (70-110)
[2023-05-10] MEDS: FERROUS SULFATE 325 MG EC TABLET PO SCH (06:55)
[2023-05-10] MEDS: LEVOTHYROXINE SODIUM 100 MCG TABLET PO SCH (06:55)
[2023-05-10] MEDS: MetFORMIN HCL 500 MG TABLET PO SCH ×2 (06:55→16:44)
[2023-05-10] MEDS: INSULIN LISPRO 100 UNITS/ML SQ PRN ×2 (07:05→11:38)
[2023-05-10] MEDS: BusPIRone HCL 10 MG TABLET PO SCH ×3 (08:40→20:10)
[2023-05-10] MEDS: CHOLECALCIFEROL (VIT D3) 1,000 UNITS [25 MCG] TABLET PO SCH (08:41)
[2023-05-10] MEDS: DIVALPROEX SODIUM 500 MG ER TABLET PO SCH ×2 (08:41→20:10)
[2023-05-10] MEDS: CloZAPine 25 MG TABLET PO SCH (08:41)
[2023-05-10] MEDS: BuPROPion HCL XL 150 MG ER TABLET PO SCH (08:41)
[2023-05-10] MEDS: OLANZapine 10 MG TABLET PO SCH ×3 (08:41→20:10)
[2023-05-10 09:48] VITALS: BP 123/76; PULSE 98; RESP 19; TEMP 97.4; O2SAT 100
[2023-05-10] MEDS: LevETIRAcetam 500 MG TABLET PO SCH ×2 (11:13→16:14)
[2023-05-10] MEDS: BENZTROPINE MESYLATE 1 MG TABLET PO SCH ×2 (11:13→20:10)
[2023-05-10 12:11] LABS: GLUCOMETER DEV NAME(LOC) 3E.I 2; GLUCOSE,POINT OF CARE 173 MG/DL (70-110)
[2023-05-10] MEDS: IBUPROFEN 400 MG TABLET PO PRN (13:51)
[2023-05-10 17:57] LABS: GLUCOMETER DEV NAME(LOC) 3E.I 2; GLUCOSE,POINT OF CARE 132 MG/DL (70-110)
[2023-05-10] MEDS: CloZAPine 100 MG TABLET PO SCH (20:10)
[2023-05-10] MEDS: MELATONIN 3 MG TABLET PO SCH (20:10)
[2023-05-10] MEDS: ZOLPIDEM TARTRATE 5 MG TABLET PO PRN (20:30)
[2023-05-10 20:51] LABS: GLUCOMETER DEV NAME(LOC) 3E.C; GLUCOSE,POINT OF CARE 131 MG/DL (70-110)
[2023-05-10 22:25] VITALS: BP 141/76; PULSE 83; RESP 18; TEMP 96.4; O2SAT 100
[2023-05-11 01:40] VITALS: BP 131/66; PULSE 88; RESP 18; TEMP 97.7; O2SAT 97
[2023-05-11] MEDS: QUEtiapine FUMARATE 100 MG TABLET PO PRN ×2 (01:42→12:48)
[2023-05-11] MEDS: TraMADol HCL 50 MG TABLET PO PRN ×2 (01:42→21:52)
[2023-05-11 02:42] VITALS: TEMP 97.6
[2023-05-11 05:46] LABS: GLUCOMETER DEV NAME(LOC) 3E.C; GLUCOSE,POINT OF CARE 144 MG/DL (70-110)
[2023-05-11] MEDS: FERROUS SULFATE 325 MG EC TABLET PO SCH (06:41)
[2023-05-11] MEDS: MetFORMIN HCL 500 MG TABLET PO SCH ×2 (06:42→17:18)
[2023-05-11] MEDS: LEVOTHYROXINE SODIUM 100 MCG TABLET PO SCH (06:42)
[2023-05-11] MEDS: BuPROPion HCL XL 150 MG ER TABLET PO SCH (08:36)
[2023-05-11] MEDS: BusPIRone HCL 10 MG TABLET PO SCH ×3 (08:37→21:50)
[2023-05-11] MEDS: DIVALPROEX SODIUM 500 MG ER TABLET PO SCH ×2 (08:37→21:50)
[2023-05-11] MEDS: CloZAPine 25 MG TABLET PO SCH (08:37)
[2023-05-11] MEDS: LevETIRAcetam 500 MG TABLET PO SCH ×2 (08:37→16:39)
[2023-05-11] MEDS: CHOLECALCIFEROL (VIT D3) 1,000 UNITS [25 MCG] TABLET PO SCH (08:37)
[2023-05-11] MEDS: OLANZapine 10 MG TABLET PO SCH ×3 (08:37→21:50)
[2023-05-11] MEDS: BENZTROPINE MESYLATE 1 MG TABLET PO SCH ×2 (08:37→21:51)
[2023-05-11 10:37] VITALS: BP 124/96; PULSE 93; RESP 19; TEMP 97.6; O2SAT 97
[2023-05-11] MEDS: INSULIN LISPRO 100 UNITS/ML SQ PRN ×3 (11:19→21:54)
[2023-05-11 11:26] LABS: GLUCOMETER DEV NAME(LOC) 3E.I 2; GLUCOSE,POINT OF CARE 141 MG/DL (70-110)
[2023-05-11 16:11] LABS: GLUCOMETER DEV NAME(LOC) 3E.I 2; GLUCOSE,POINT OF CARE 235 MG/DL (70-110)
[2023-05-11] MEDS: IBUPROFEN 400 MG TABLET PO PRN (18:05)
[2023-05-11 20:52] VITALS: BP 157/98; PULSE 92; RESP 18; TEMP 97.9; O2SAT 97
[2023-05-11 21:49] VITALS: BP 142/65; PULSE 90; RESP 18; TEMP 97.7; O2SAT 97
[2023-05-11] MEDS: CloZAPine 100 MG TABLET PO SCH (21:50)
[2023-05-11] MEDS: MELATONIN 3 MG TABLET PO SCH (21:51)
[2023-05-11] MEDS: ZOLPIDEM TARTRATE 5 MG TABLET PO PRN (21:51)
[2023-05-11 22:41] LABS: GLUCOMETER DEV NAME(LOC) 3E.C; GLUCOSE,POINT OF CARE 168 MG/DL (70-110)
[2023-05-11 22:52] VITALS: RESP 18
[2023-05-12 04:52] VITALS: BP 166/95; PULSE 78; RESP 19; TEMP 97.5; O2SAT 98
[2023-05-12] MEDS: QUEtiapine FUMARATE 100 MG TABLET PO PRN (04:53)
[2023-05-12] MEDS: IBUPROFEN 400 MG TABLET PO PRN (04:54)
[2023-05-12 05:54] VITALS: RESP 18
[2023-05-12] MEDS: MetFORMIN HCL 500 MG TABLET PO SCH (06:44)
[2023-05-12] MEDS: FERROUS SULFATE 325 MG EC TABLET PO SCH (06:44)
[2023-05-12] MEDS: LEVOTHYROXINE SODIUM 100 MCG TABLET PO SCH (06:45)
[2023-05-12] MEDS: INSULIN LISPRO 100 UNITS/ML SQ PRN ×2 (06:50→12:11)
[2023-05-12 07:20] LABS: GLUCOMETER DEV NAME(LOC) 3E.C; GLUCOSE,POINT OF CARE 211 MG/DL (70-110)
[2023-05-12] MEDS: DIVALPROEX SODIUM 500 MG ER TABLET PO SCH (08:22)
[2023-05-12] MEDS: CHOLECALCIFEROL (VIT D3) 1,000 UNITS [25 MCG] TABLET PO SCH (08:22)
[2023-05-12] MEDS: OLANZapine 10 MG TABLET PO SCH (08:22)
[2023-05-12] MEDS: CloZAPine 25 MG TABLET PO SCH (08:23)
[2023-05-12] MEDS: BusPIRone HCL 10 MG TABLET PO SCH (08:23)
[2023-05-12] MEDS: LevETIRAcetam 500 MG TABLET PO SCH (08:23)
[2023-05-12] MEDS: BuPROPion HCL XL 150 MG ER TABLET PO SCH (08:23)
[2023-05-12] MEDS: BENZTROPINE MESYLATE 1 MG TABLET PO SCH (08:24)
[2023-05-12 08:27] VITALS: BP 144/78; PULSE 82; RESP 19; TEMP 97.6; O2SAT 98
[2023-05-12] MEDS: TraMADol HCL 50 MG TABLET PO PRN (08:27)
[2023-05-12 09:27] VITALS: RESP 18; TEMP 97.4
[2023-05-12 11:01] VITALS: BP 149/96; PULSE 95; RESP 18; TEMP 97.8; O2SAT 96
[2023-05-12 12:01] LABS: GLUCOMETER DEV NAME(LOC) 3E.I 2; GLUCOSE,POINT OF CARE 173 MG/DL (70-110)
== END 2023-05-12 16:53 | DRG 885 ==
LOC: EMS 11:16 → 3EX 18:35
PROVIDERS: ADMIT Psychiatry & Neurology Psychiatry; ATTEND Psychiatry & Neurology Psychiatry
DX: F25.1 Schizoaffective disorder, depressive type (principal); N18.9 Chronic kidney disease, unspecified; E87.1 Hypo-osmolality and hyponatremia; K51.90 Ulcerative colitis, unspecified, without complications; R45.851 Suicidal ideations; N39.0 Urinary tract infection, site not specified; G89.29 Other chronic pain; M54.9 Dorsalgia, unspecified; F17.210 Nicotine dependence, cigarettes, uncomplicated; I12.9 Hypertensive chronic kidney disease with stage 1 through stage 4 chronic kidney disease, or unspecified chronic kidney disease; E11.22 Type 2 diabetes mellitus with diabetic chronic kidney disease; E03.9 Hypothyroidism, unspecified; M25.521 Pain in right elbow; Z20.822 Contact with and (suspected) exposure to COVID-19; W18.39XA Other fall on same level, initial encounter; Y93.89 Activity, other specified; Y92.238 Other place in hospital as the place of occurrence of the external cause; Y99.8 Other external cause status; G40.909 Epilepsy, unspecified, not intractable, without status epilepticus; J44.9 Chronic obstructive pulmonary disease, unspecified; K21.9 Gastro-esophageal reflux disease without esophagitis; D50.9 Iron deficiency anemia, unspecified; Z88.5 Allergy status to narcotic agent; Z79.899 Other long term (current) drug therapy; Z90.49 Acquired absence of other specified parts of digestive tract
CPT/HCPCS: 73200; 80053; 80061; 80164; 80307; 81001; 82962; 83036; 84443; 85025; 87081; 87086; 87186; 99285; G0378; G0480; Q0162

== ENCOUNTER 2023-05-16 23:04 | Inpatient (IN) | payer MEDICARE, MEDICAID ==
[~2023-05-16] VITALS: Ht 165.1 cm; Wt 86.2 kg
[~2023-05-16 23:04] MED LIST changes: -DIVA-85 PO; +DIVA500T53 PO; +LEVO100 PO; -LEVO150T11 PO; -OLAN10 PO; +OLAN10TA74 PO
[2023-05-17 00:03] LABS: BASOPHILS % (AUTO) 0.4 % (0.0-2.0); EOSINOPHILS % (AUTO) 0 % (1.0-6.0); HEMATOCRIT 31.9 % (36-46); HEMOGLOBIN 10.6 g/dL (12.0-16.0); LYMPHOCYTES # (AUTO) 2.3 K/uL (1.0-4.8); LYMPHOCYTES % (AUTO) 30.9 % (22.0-44.0); MEAN CORPUSCULAR HEMOGLOBIN 31.6 pg (26.0-34.0); MEAN CORPUSCULAR HGB CONC 33.4 G/dL (31.0-37.0); MEAN CORPUSCULAR VOLUME 95 fL (80-100); MONOCYTES # (AUTO) 0.6 K/uL (0.1-1.0); MONOCYTES % (AUTO) 8.6 % (2.0-9.0); NEUTROPHILS # (AUTO) 4.5 K/uL (1.8-7.7); NEUTROPHILS % (AUTO) 60.1 % (40.0-70.0); PLATELET COUNT (AUTO) 174 K/uL (150-450); RED BLOOD CELL COUNT(AUTO) 3.37 MIL/uL (4.00-5.20); RED CELL DISTRIBUTION WIDTH 12.9 % (11.5-14.5); WHITE BLOOD COUNT (AUTO) 7.4 K/uL (4.5-11.0)
[2023-05-17 00:12] LABS: ANION GAP 12 mmol/L (8-16); CALCIUM, TOTAL 9.1 mg/dL (8.8-10.5); CARBON DIOXIDE 22 mmol/L (22-29); CHLORIDE 97 mmol/L (98-107); CREATININE 1.03 mg/dL (0.60-1.30); GLOMERULAR FILTR. RATE CALC 55 mL/min (>60); GLUCOSE,RANDOM 211 mg/dL (70-110); POTASSIUM 3.3 mmol/L (3.5-5.1); SODIUM SERUM 131 mmol/L (136-145); UREA NITROGEN, BLOOD 7 mg/dL (7-18)
[2023-05-17 00:18] LABS: ALANINE AMINOTRANSFERASE 9 U/L (12-78); ALBUMIN 2.9 g/dL (3.4-5.0); ALKALINE PHOSPHATASE 73 U/L (46-116); ASPARTATE AMINOTRANSFERASE 15 U/L (15-37); BILIRUBIN,TOTAL 0.2 mg/dL (0.1-1.0); TOTAL PROTEIN, SERUM 6.8 g/dL (6.4-8.2)
[2023-05-17 00:19] LABS: ALCOHOL, BLOOD (SERUM) < 3 mg/dL (0-10)
[2023-05-17] MEDS ORDERED: OLANZapine 5 MG TABLET PO ONE (01:45)
[2023-05-17] MEDS ORDERED: LORazepam 2 MG TABLET PO ONE (01:45)
[2023-05-17 01:52] LABS: TROPONIN I-HIGH SENSITIVITY 5 ng/L (<51)
[2023-05-17] MEDS ORDERED: POTASSIUM CHLORIDE 20 MEQ ER TABLET PO ONE (02:15)
[2023-05-17 02:23] LABS: COVID AG,FIA SOURCE NASAL SWAB
[2023-05-17 03:23] LABS: SARS-COV2 (COVID) ANTIGEN,FIA Negative (Negative)
[2023-05-17] MEDS ORDERED: VALB40CA2 PO (08:17)
[2023-05-17] MEDS ORDERED: TRAM-559 PO (08:17)
[2023-05-17 08:41] LABS: GLUCOMETER DEV NAME(LOC) ERT.5; GLUCOSE,POINT OF CARE 229 MG/DL (70-110)
[2023-05-17] MEDS ORDERED: DIVALPROEX SODIUM 500 MG ER TABLET PO SCH (09:15)
[2023-05-17] MEDS ORDERED: LEVOTHYROXINE SODIUM 100 MCG TABLET PO SCH (09:15)
[2023-05-17] MEDS ORDERED: LevETIRAcetam 500 MG TABLET PO SCH (09:15)
[2023-05-17] MEDS ORDERED: MetFORMIN HCL 500 MG TABLET PO SCH (09:15)
[2023-05-17] MEDS ORDERED: TraMADol HCL 50 MG TABLET PO SCH (09:15)
[2023-05-17] MEDS ORDERED: BusPIRone HCL 10 MG TABLET PO PRN (18:15)
[2023-05-17] MEDS ORDERED: TraMADol HCL 50 MG TABLET PO PRN (18:15)
[2023-05-17] MEDS ORDERED: TraMADol HCL 50 MG TABLET PO ONE (18:15)
[2023-05-17] MEDS ORDERED: BuPROPion HCL XL 150 MG ER TABLET PO ONE (18:15)
[2023-05-17] MEDS ORDERED: LORazepam 2 MG/ML VIAL IM ONE (18:15)
[2023-05-17] MEDS ORDERED: LevETIRAcetam 500 MG TABLET PO ONE ×2 (18:15→21:00)
[2023-05-17] MEDS: HALOPERIDOL 5 MG TABLET PO PRN (18:28)
[2023-05-17] MEDS ORDERED: LACO50TA6 PO (18:29)
[2023-05-17] MEDS ORDERED: MetFORMIN HCL 500 MG TABLET PO ONE (18:30)
[2023-05-17] MEDS: LORazepam 2 MG TABLET PO PRN (20:30)
[2023-05-17] MEDS ORDERED: DIVALPROEX SODIUM 500 MG ER TABLET PO ONE (21:00)
[2023-05-17] MEDS ORDERED: BENZTROPINE MESYLATE 1 MG TABLET PO ONE (21:00)
[2023-05-17] MEDS ORDERED: LACOSAMIDE 50 MG TABLET PO ONE (21:00)
[2023-05-17] MEDS ORDERED: OLANZapine 10 MG TABLET PO ONE (21:00)
[2023-05-17] MEDS ORDERED: CloZAPine 100 MG TABLET PO ONE (21:00)
[2023-05-18] MEDS: LORazepam 2 MG TABLET PO PRN ×3 (04:35→20:45)
[2023-05-18] MEDS: HALOPERIDOL 5 MG TABLET PO PRN ×2 (04:35→08:40)
[2023-05-18] MEDS ORDERED: BuPROPion HCL XL 150 MG ER TABLET PO ONE ×2 (09:00→17:00)
[2023-05-18] MEDS ORDERED: CloZAPine 25 MG TABLET PO ONE (09:00)
[2023-05-18 12:01] LABS: ALCOHOL, URINE DRUG SCREEN NEGATIVE (NEGATIVE); AMPHET/METH SCREEN,URINE NEGATIVE (NEGATIVE); BARBITURATE SCREEN, URINE NEGATIVE (NEGATIVE); BENZODIAZEPINES SCREEN,URINE NEGATIVE (NEGATIVE); CANNABINOID SCREEN,URINE NEGATIVE (NEGATIVE); COCAINE SCREEN,URINE NEGATIVE (NEGATIVE); METHADONE SCREEN, URINE NEGATIVE (NEGATIVE); OPIATE SCREEN,URINE NEGATIVE (NEGATIVE); PHENCYCLIDINE SCREEN,URINE NEGATIVE (NEGATIVE)
[2023-05-18] MEDS ORDERED: BusPIRone HCL 10 MG TABLET PO PRN (16:45)
[2023-05-18] MEDS ORDERED: LEVOTHYROXINE SODIUM 100 MCG TABLET PO ONE (16:45)
[2023-05-18] MEDS: TraMADol HCL 50 MG TABLET PO PRN (17:03)
[2023-05-18] MEDS ORDERED: MetFORMIN HCL 500 MG TABLET PO ONE (17:30)
[2023-05-18] MEDS: OLANZapine 10 MG TABLET PO SCH (19:10)
[2023-05-18] MEDS: BENZTROPINE MESYLATE 1 MG TABLET PO SCH (19:10)
[2023-05-18] MEDS: LevETIRAcetam 500 MG TABLET PO SCH (19:11)
[2023-05-18] MEDS: DIVALPROEX SODIUM 500 MG ER TABLET PO SCH (19:11)
[2023-05-18] MEDS: ZOLPIDEM TARTRATE 10 MG TABLET PO PRN (20:45)
[2023-05-18] MEDS: LACOSAMIDE 50 MG TABLET PO SCH (20:58)
[2023-05-18] MEDS ORDERED: CloZAPine 100 MG TABLET PO SCH (21:00)
[2023-05-18 21:24] VITALS: BP 154/90; PULSE 100; RESP 18; TEMP 97.8
[2023-05-18] MEDS ORDERED: PNEUMOCOCCAL VACCINE POLYVALENT 0.5 ML SYRINGE [PPSV23] IM. ONE (21:45)
[2023-05-18 21:53] VITALS: BP 154/90; PULSE 100; RESP 18; TEMP 97.8
[2023-05-18 22:00] VITALS: BP 154/90; PULSE 100; RESP 18; TEMP 97.8; O2SAT 100
[2023-05-19] MEDS: HALOPERIDOL 5 MG TABLET PO PRN ×2 (02:39→19:33)
[2023-05-19] MEDS ORDERED: LEVOTHYROXINE SODIUM 100 MCG TABLET PO SCH (06:30)
[2023-05-19] MEDS ORDERED: MetFORMIN HCL 500 MG TABLET PO SCH (07:30)
[2023-05-19 08:00] VITALS: BP 125/93; PULSE 92; RESP 20; TEMP 97.9; O2SAT 97
[2023-05-19] MEDS: LACOSAMIDE 50 MG TABLET PO SCH ×2 (08:54→17:41)
[2023-05-19] MEDS: BENZTROPINE MESYLATE 1 MG TABLET PO SCH ×2 (08:55→17:41)
[2023-05-19] MEDS: DIVALPROEX SODIUM 500 MG ER TABLET PO SCH ×2 (08:55→17:42)
[2023-05-19] MEDS: OLANZapine 10 MG TABLET PO SCH ×3 (08:55→20:36)
[2023-05-19] MEDS: LevETIRAcetam 500 MG TABLET PO SCH ×2 (08:57→17:42)
[2023-05-19] MEDS ORDERED: CloZAPine 25 MG TABLET PO SCH (09:00)
[2023-05-19] MEDS ORDERED: BuPROPion HCL XL 150 MG ER TABLET PO SCH (09:00)
[2023-05-19 12:18] VITALS: BP 129/78; PULSE 76; RESP 18; TEMP 97.3
[2023-05-19] MEDS: TraMADol HCL 50 MG TABLET PO PRN (12:18)
[2023-05-19 12:31] LABS: GLUCOMETER DEV NAME(LOC) 3E.I 2; GLUCOSE,POINT OF CARE 205 MG/DL (70-110)
[2023-05-19 13:18] VITALS: BP 149/89; PULSE 87; RESP 19; TEMP 96.9
[2023-05-19] MEDS ORDERED: GuaiFENesin/D-METHORPHAN [SUGAR-FREE] 200-20MG/10 ML SYRUP UDCUP PO PRN (14:45)
[2023-05-19] MEDS ORDERED: ACETAMINOPHEN 325 MG TABLET PO PRN (14:45)
[2023-05-19] MEDS ORDERED: PETROLATUM,WHITE 28 GM JELLY TP PRN (14:45)
[2023-05-19] MEDS ORDERED: MAG HYDROX/AL HYDROX/SIMETH ES 30 ML SUSPENSION UDCUP PO PRN (14:45)
[2023-05-19] MEDS ORDERED: IBUPROFEN 400 MG TABLET PO PRN (14:45)
[2023-05-19] MEDS ORDERED: DOCUSATE SODIUM 100 MG CAPSULE PO PRN (14:45)
[2023-05-19] MEDS ORDERED: CloNIDine HCL 0.1 MG TABLET PO PRN (14:45)
[2023-05-19] MEDS ORDERED: NICOTINE 14 MG/24 HOUR PATCH TD PRN (14:45)
[2023-05-19] MEDS ORDERED: ALBUTEROL SULFATE HFA 90 MCG/PUFF 8 GM INHALER IH PRN (14:45)
[2023-05-19] MEDS ORDERED: MAGNESIUM HYDROXIDE SUSPENSION 30 ML UDCUP PO PRN (14:45)
[2023-05-19] MEDS ORDERED: DEXTROSE 50%-WATER 25 GM/50 ML SYRINGE IVP PRN (17:00)
[2023-05-19] MEDS: INSULIN LISPRO 100 UNITS/ML SQ PRN ×2 (17:35→21:37)
[2023-05-19 17:51] LABS: GLUCOMETER DEV NAME(LOC) 3E.I 2; GLUCOSE,POINT OF CARE 169 MG/DL (70-110)
[2023-05-19 20:26] LABS: GLUCOMETER DEV NAME(LOC) 3E.C; GLUCOSE,POINT OF CARE 193 MG/DL (70-110)
[2023-05-19] MEDS: ZOLPIDEM TARTRATE 10 MG TABLET PO PRN (20:36)
[2023-05-19 22:20] VITALS: BP 132/90; PULSE 89; RESP 18; TEMP 97.8
[2023-05-20 05:36] LABS: GLUCOMETER DEV NAME(LOC) 3E.C; GLUCOSE,POINT OF CARE 170 MG/DL (70-110)
[2023-05-20] MEDS: FERROUS SULFATE 325 MG EC TABLET PO SCH (06:34)
[2023-05-20] MEDS: INSULIN LISPRO 100 UNITS/ML SQ PRN ×4 (06:39→21:12)
[2023-05-20 08:01] LABS: BASOPHILS % (AUTO) 0.5 % (0.0-2.0); EOSINOPHILS % (AUTO) 0 % (1.0-6.0); HEMATOCRIT 31.5 % (36-46); HEMOGLOBIN 10.7 g/dL (12.0-16.0); LYMPHOCYTES # (AUTO) 2.2 K/uL (1.0-4.8); MEAN CORPUSCULAR HEMOGLOBIN 31.1 pg (26.0-34.0); MEAN CORPUSCULAR VOLUME 92 fL (80-100); MONOCYTES # (AUTO) 0.8 K/uL (0.1-1.0); MONOCYTES % (AUTO) 11.4 % (2.0-9.0); NEUTROPHILS # (AUTO) 3.8 K/uL (1.8-7.7); NEUTROPHILS % (AUTO) 56.1 % (40.0-70.0); PLATELET COUNT (AUTO) 256 K/uL (150-450); RED BLOOD CELL COUNT(AUTO) 3.44 MIL/uL (4.00-5.20); WHITE BLOOD COUNT (AUTO) 6.8 K/uL (4.5-11.0)
[2023-05-20 08:10] LABS: HEMOGLOBIN A1C 7.3 % (3.8-5.6)
[2023-05-20 08:26] LABS: ALANINE AMINOTRANSFERASE 31 U/L (12-78); ALKALINE PHOSPHATASE 73 U/L (46-116); ANION GAP 10 mmol/L (8-16); ASPARTATE AMINOTRANSFERASE 26 U/L (15-37); BILIRUBIN,TOTAL 0.2 mg/dL (0.1-1.0); CALCIUM, TOTAL 9.2 mg/dL (8.8-10.5); CARBON DIOXIDE 25 mmol/L (22-29); CHLORIDE 98 mmol/L (98-107); CHOL/HDL RATIO 2.7 (3.9-5.7); CHOLESTEROL 133 mg/dL (131-200); CREATININE 0.83 mg/dL (0.60-1.30); GLOMERULAR FILTR. RATE CALC > 60 mL/min (>60); GLUCOSE,RANDOM 133 mg/dL (70-110); HDL CHOLESTEROL 49 mg/dL (40-60); LDL CHOL (CALC.) 59 mg/dL (0-130); POTASSIUM 3.9 mmol/L (3.5-5.1); SODIUM SERUM 133 mmol/L (136-145); THYROID STIMULATING HORMONE 2.81 uIU/mL (0.36-3.74); TOTAL PROTEIN, SERUM 6.9 g/dL (6.4-8.2); TRIGLYCERIDES 124 mg/dL (15-150); UREA NITROGEN, BLOOD 13 mg/dL (7-18)
[2023-05-20] MEDS: CHOLECALCIFEROL (VIT D3) 1,000 UNITS [25 MCG] TABLET PO SCH (09:55)
[2023-05-20] MEDS: OLANZapine 10 MG TABLET PO SCH ×3 (09:56→20:07)
[2023-05-20 09:57] VITALS: BP 143/72; PULSE 100; RESP 18; TEMP 96.9; O2SAT 98
[2023-05-20 11:56] LABS: GLUCOMETER DEV NAME(LOC) 3E.I 2; GLUCOSE,POINT OF CARE 159 MG/DL (70-110)
[2023-05-20 17:00] LABS: GLUCOMETER DEV NAME(LOC) 3E.I 2; GLUCOSE,POINT OF CARE 127 MG/DL (70-110)
[2023-05-20] MEDS: ZOLPIDEM TARTRATE 10 MG TABLET PO PRN (20:07)
[2023-05-20] MEDS: HALOPERIDOL 5 MG TABLET PO PRN (20:07)
[2023-05-20 21:26] LABS: GLUCOMETER DEV NAME(LOC) 3E.C; GLUCOSE,POINT OF CARE 187 MG/DL (70-110)
[2023-05-20 21:54] VITALS: BP 150/87; PULSE 86; RESP 19; TEMP 98; O2SAT 98
[2023-05-21 05:41] LABS: GLUCOMETER DEV NAME(LOC) 3E.C; GLUCOSE,POINT OF CARE 146 MG/DL (70-110)
[2023-05-21] MEDS: INSULIN LISPRO 100 UNITS/ML SQ PRN ×3 (06:45→17:55)
[2023-05-21] MEDS: FERROUS SULFATE 325 MG EC TABLET PO SCH (06:51)
[2023-05-21] MEDS: CHOLECALCIFEROL (VIT D3) 1,000 UNITS [25 MCG] TABLET PO SCH (08:42)
[2023-05-21] MEDS: OLANZapine 10 MG TABLET PO SCH ×3 (08:42→21:12)
[2023-05-21 11:51] LABS: GLUCOMETER DEV NAME(LOC) 3E.I 2; GLUCOSE,POINT OF CARE 165 MG/DL (70-110)
[2023-05-21] MEDS: MUPIROCIN CALCIUM 2% 22 GM OINTMENT NASAL SCH ×2 (13:14→17:08)
[2023-05-21] MEDS: HALOPERIDOL 5 MG TABLET PO PRN ×2 (13:21→21:12)
[2023-05-21 16:21] LABS: GLUCOMETER DEV NAME(LOC) 3E.I 2; GLUCOSE,POINT OF CARE 143 MG/DL (70-110)
[2023-05-21 17:01] VITALS: BP 135/82; PULSE 70; RESP 20; TEMP 98; O2SAT 96
[2023-05-21] MEDS: TraMADol HCL 50 MG TABLET PO PRN (17:06)
[2023-05-21] MEDS: MetFORMIN HCL 500 MG TABLET PO SCH (17:06)
[2023-05-21] MEDS: LevETIRAcetam 500 MG TABLET PO SCH (17:06)
[2023-05-21 21:11] LABS: GLUCOMETER DEV NAME(LOC) 3E.C; GLUCOSE,POINT OF CARE 112 MG/DL (70-110)
[2023-05-21] MEDS: DIVALPROEX SODIUM 500 MG ER TABLET PO SCH (21:11)
[2023-05-21] MEDS: MELATONIN 3 MG TABLET PO SCH (21:11)
[2023-05-21] MEDS: BENZTROPINE MESYLATE 1 MG TABLET PO SCH (21:11)
[2023-05-21] MEDS: ZOLPIDEM TARTRATE 10 MG TABLET PO PRN (21:12)
[2023-05-21] MEDS: BusPIRone HCL 10 MG TABLET PO SCH (21:12)
[2023-05-21] MEDS: CloZAPine 100 MG TABLET PO SCH (21:12)
[2023-05-21 21:39] VITALS: BP 134/76; PULSE 104; RESP 18; TEMP 97.1; O2SAT 97
[2023-05-22] MEDS: LEVOTHYROXINE SODIUM 100 MCG TABLET PO SCH (06:16)
[2023-05-22] MEDS: FERROUS SULFATE 325 MG EC TABLET PO SCH (06:43)
[2023-05-22] MEDS: MetFORMIN HCL 500 MG TABLET PO SCH ×2 (06:44→17:07)
[2023-05-22 07:20] LABS: GLUCOMETER DEV NAME(LOC) 3E.C; GLUCOSE,POINT OF CARE 131 MG/DL (70-110)
[2023-05-22] MEDS: MUPIROCIN CALCIUM 2% 22 GM OINTMENT NASAL SCH ×2 (09:14→17:08)
[2023-05-22] MEDS: DIVALPROEX SODIUM 500 MG ER TABLET PO SCH ×2 (09:15→20:58)
[2023-05-22] MEDS: BENZTROPINE MESYLATE 1 MG TABLET PO SCH ×2 (09:15→20:58)
[2023-05-22] MEDS: CloZAPine 25 MG TABLET PO SCH (09:16)
[2023-05-22] MEDS: OLANZapine 10 MG TABLET PO SCH ×3 (09:16→20:58)
[2023-05-22] MEDS: LevETIRAcetam 500 MG TABLET PO SCH ×2 (09:16→17:07)
[2023-05-22] MEDS: BusPIRone HCL 10 MG TABLET PO SCH ×3 (09:17→20:58)
[2023-05-22] MEDS: BuPROPion HCL XL 150 MG ER TABLET PO SCH (09:17)
[2023-05-22] MEDS: CHOLECALCIFEROL (VIT D3) 1,000 UNITS [25 MCG] TABLET PO SCH (09:17)
[2023-05-22] MEDS: INSULIN LISPRO 100 UNITS/ML SQ PRN ×3 (12:39→21:09)
[2023-05-22 12:53] VITALS: BP 129/78; PULSE 95; RESP 20; TEMP 98; O2SAT 98
[2023-05-22] MEDS: HALOPERIDOL 5 MG TABLET PO PRN ×2 (13:04→20:58)
[2023-05-22] MEDS: TraMADol HCL 50 MG TABLET PO PRN (13:04)
[2023-05-22 13:11] LABS: GLUCOMETER DEV NAME(LOC) 3E.I 2; GLUCOSE,POINT OF CARE 145 MG/DL (70-110)
[2023-05-22 17:01] LABS: GLUCOMETER DEV NAME(LOC) 3E.I 2; GLUCOSE,POINT OF CARE 208 MG/DL (70-110)
[2023-05-22] MEDS: MELATONIN 3 MG TABLET PO SCH (20:58)
[2023-05-22] MEDS: CloZAPine 100 MG TABLET PO SCH (20:58)
[2023-05-22 21:06] LABS: GLUCOMETER DEV NAME(LOC) 3E.C; GLUCOSE,POINT OF CARE 184 MG/DL (70-110)
[2023-05-22 21:14] VITALS: BP 116/76; PULSE 83; RESP 18; TEMP 97.6; O2SAT 97
[2023-05-22] MEDS: ZOLPIDEM TARTRATE 10 MG TABLET PO PRN (21:39)
[2023-05-23] MEDS: LEVOTHYROXINE SODIUM 100 MCG TABLET PO SCH (06:02)
[2023-05-23] MEDS: FERROUS SULFATE 325 MG EC TABLET PO SCH (06:35)
[2023-05-23] MEDS: MetFORMIN HCL 500 MG TABLET PO SCH ×2 (06:35→16:30)
[2023-05-23 07:01] LABS: GLUCOMETER DEV NAME(LOC) 3E.C; GLUCOSE,POINT OF CARE 136 MG/DL (70-110)
[2023-05-23] MEDS: OLANZapine 10 MG TABLET PO SCH ×3 (08:57→20:32)
[2023-05-23] MEDS: DIVALPROEX SODIUM 500 MG ER TABLET PO SCH ×2 (08:57→20:32)
[2023-05-23] MEDS: BuPROPion HCL XL 150 MG ER TABLET PO SCH (08:57)
[2023-05-23] MEDS: CHOLECALCIFEROL (VIT D3) 1,000 UNITS [25 MCG] TABLET PO SCH (08:57)
[2023-05-23] MEDS: LevETIRAcetam 500 MG TABLET PO SCH ×2 (08:57→16:30)
[2023-05-23] MEDS: BENZTROPINE MESYLATE 1 MG TABLET PO SCH ×2 (08:57→20:32)
[2023-05-23] MEDS: CloZAPine 25 MG TABLET PO SCH (08:57)
[2023-05-23] MEDS: BusPIRone HCL 10 MG TABLET PO SCH ×3 (08:58→20:32)
[2023-05-23] MEDS: MUPIROCIN CALCIUM 2% 22 GM OINTMENT NASAL SCH ×2 (08:58→16:35)
[2023-05-23 09:55] VITALS: BP 123/70; PULSE 70; RESP 20; TEMP 98; O2SAT 98
[2023-05-23] MEDS: ONDANSETRON HCL 4 MG TABLET PO PRN (09:59)
[2023-05-23] MEDS: HALOPERIDOL 5 MG TABLET PO PRN ×3 (09:59→21:31)
[2023-05-23] MEDS: TraMADol HCL 50 MG TABLET PO PRN (09:59)
[2023-05-23] MEDS: LOPERAMIDE HCL 2 MG CAPSULE PO PRN ×2 (09:59→16:38)
[2023-05-23 10:21] VITALS: BP 98/77; PULSE 64; RESP 19; TEMP 96.5; O2SAT 100
[2023-05-23 11:46] LABS: GLUCOMETER DEV NAME(LOC) 3E.I 2; GLUCOSE,POINT OF CARE 150 MG/DL (70-110)
[2023-05-23] MEDS: INSULIN LISPRO 100 UNITS/ML SQ PRN ×2 (12:08→17:39)
[2023-05-23 16:41] LABS: GLUCOMETER DEV NAME(LOC) 3E.I 2; GLUCOSE,POINT OF CARE 174 MG/DL (70-110)
[2023-05-23] MEDS: CloZAPine 100 MG TABLET PO SCH (20:32)
[2023-05-23] MEDS: MELATONIN 3 MG TABLET PO SCH (20:32)
[2023-05-23 20:47] VITALS: BP 131/81; PULSE 99; RESP 17; TEMP 97.9; O2SAT 97
[2023-05-23 21:00] LABS: GLUCOMETER DEV NAME(LOC) 3E.C; GLUCOSE,POINT OF CARE 184 MG/DL (70-110)
[2023-05-23] MEDS: ZOLPIDEM TARTRATE 10 MG TABLET PO PRN (21:31)
[2023-05-24 05:50] VITALS: BP 133/89; PULSE 89; RESP 18; TEMP 97.6; O2SAT 98
[2023-05-24 05:51] LABS: GLUCOMETER DEV NAME(LOC) 3E.C; GLUCOSE,POINT OF CARE 124 MG/DL (70-110)
[2023-05-24] MEDS: TraMADol HCL 50 MG TABLET PO PRN ×2 (05:53→14:40)
[2023-05-24] MEDS: INSULIN LISPRO 100 UNITS/ML SQ PRN ×4 (06:49→21:39)
[2023-05-24] MEDS: LEVOTHYROXINE SODIUM 100 MCG TABLET PO SCH (06:51)
[2023-05-24] MEDS: FERROUS SULFATE 325 MG EC TABLET PO SCH (07:06)
[2023-05-24] MEDS: MetFORMIN HCL 500 MG TABLET PO SCH ×2 (07:06→17:14)
[2023-05-24] MEDS: BusPIRone HCL 10 MG TABLET PO SCH ×3 (08:14→21:24)
[2023-05-24] MEDS: BuPROPion HCL XL 150 MG ER TABLET PO SCH (08:14)
[2023-05-24] MEDS: BENZTROPINE MESYLATE 1 MG TABLET PO SCH ×2 (08:17→21:24)
[2023-05-24] MEDS: CHOLECALCIFEROL (VIT D3) 1,000 UNITS [25 MCG] TABLET PO SCH (08:17)
[2023-05-24] MEDS: LevETIRAcetam 500 MG TABLET PO SCH ×2 (08:17→16:31)
[2023-05-24] MEDS: DIVALPROEX SODIUM 500 MG ER TABLET PO SCH ×2 (08:17→21:25)
[2023-05-24] MEDS: CloZAPine 25 MG TABLET PO SCH (08:17)
[2023-05-24] MEDS: MUPIROCIN CALCIUM 2% 22 GM OINTMENT NASAL SCH ×2 (08:23→16:31)
[2023-05-24] MEDS: OLANZapine 10 MG TABLET PO SCH ×3 (09:15→21:24)
[2023-05-24 10:04] VITALS: BP 137/90; PULSE 81; RESP 17; TEMP 98.6; O2SAT 97
[2023-05-24 11:36] LABS: GLUCOMETER DEV NAME(LOC) 3E.I 2; GLUCOSE,POINT OF CARE 169 MG/DL (70-110)
[2023-05-24 16:41] LABS: GLUCOMETER DEV NAME(LOC) 3E.I 2; GLUCOSE,POINT OF CARE 193 MG/DL (70-110)
[2023-05-24] MEDS: HALOPERIDOL 5 MG TABLET PO PRN (17:49)
[2023-05-24 20:44] VITALS: BP 140/81; PULSE 81; RESP 18; TEMP 98; O2SAT 98
[2023-05-24 20:51] LABS: GLUCOMETER DEV NAME(LOC) 3E.C; GLUCOSE,POINT OF CARE 167 MG/DL (70-110)
[2023-05-24] MEDS: MELATONIN 3 MG TABLET PO SCH (21:23)
[2023-05-24] MEDS: CloZAPine 100 MG TABLET PO SCH (21:24)
[2023-05-25 05:51] LABS: GLUCOMETER DEV NAME(LOC) 3E.C; GLUCOSE,POINT OF CARE 110 MG/DL (70-110)
[2023-05-25] MEDS: LEVOTHYROXINE SODIUM 100 MCG TABLET PO SCH (07:02)
[2023-05-25] MEDS: MetFORMIN HCL 500 MG TABLET PO SCH ×2 (07:02→16:50)
[2023-05-25] MEDS: FERROUS SULFATE 325 MG EC TABLET PO SCH (07:02)
[2023-05-25] MEDS: INSULIN LISPRO 100 UNITS/ML SQ PRN ×4 (07:15→21:13)
[2023-05-25 08:31] VITALS: BP 153/85; PULSE 68; RESP 16; TEMP 97.2; O2SAT 95
[2023-05-25] MEDS: MUPIROCIN CALCIUM 2% 22 GM OINTMENT NASAL SCH ×2 (09:07→17:56)
[2023-05-25] MEDS: OLANZapine 10 MG TABLET PO SCH ×3 (09:08→21:01)
[2023-05-25] MEDS: CHOLECALCIFEROL (VIT D3) 1,000 UNITS [25 MCG] TABLET PO SCH (09:08)
[2023-05-25] MEDS: BusPIRone HCL 10 MG TABLET PO SCH ×3 (09:08→21:02)
[2023-05-25] MEDS: BuPROPion HCL XL 150 MG ER TABLET PO SCH (09:08)
[2023-05-25] MEDS: DIVALPROEX SODIUM 500 MG ER TABLET PO SCH ×2 (09:09→21:01)
[2023-05-25] MEDS: BENZTROPINE MESYLATE 1 MG TABLET PO SCH ×2 (09:09→21:02)
[2023-05-25] MEDS: CloZAPine 25 MG TABLET PO SCH (09:09)
[2023-05-25] MEDS: LevETIRAcetam 500 MG TABLET PO SCH ×2 (09:09→16:50)
[2023-05-25 11:21] LABS: GLUCOMETER DEV NAME(LOC) 3E.I 2; GLUCOSE,POINT OF CARE 191 MG/DL (70-110)
[2023-05-25 13:20] VITALS: RESP 20
[2023-05-25] MEDS: TraMADol HCL 50 MG TABLET PO PRN ×2 (13:21→22:50)
[2023-05-25] MEDS: ONDANSETRON HCL 4 MG TABLET PO PRN (13:21)
[2023-05-25] MEDS: HALOPERIDOL 5 MG TABLET PO PRN ×2 (13:22→21:02)
[2023-05-25 17:01] LABS: GLUCOMETER DEV NAME(LOC) 3E.C; GLUCOSE,POINT OF CARE 214 MG/DL (70-110)
[2023-05-25 20:27] VITALS: BP 129/76; PULSE 95; RESP 18; TEMP 97.8; O2SAT 97
[2023-05-25] MEDS: ZOLPIDEM TARTRATE 10 MG TABLET PO PRN (21:02)
[2023-05-25] MEDS: MELATONIN 3 MG TABLET PO SCH (21:02)
[2023-05-25] MEDS: CloZAPine 100 MG TABLET PO SCH (21:02)
[2023-05-25 21:41] LABS: GLUCOMETER DEV NAME(LOC) 3E.C; GLUCOSE,POINT OF CARE 196 MG/DL (70-110)
[2023-05-25 22:47] VITALS: BP 138/64; PULSE 75; RESP 18; TEMP 97; O2SAT 97
[2023-05-25 23:50] VITALS: RESP 18
[2023-05-26] MEDS: FERROUS SULFATE 325 MG EC TABLET PO SCH (06:44)
[2023-05-26] MEDS: LEVOTHYROXINE SODIUM 100 MCG TABLET PO SCH (06:44)
[2023-05-26] MEDS: MetFORMIN HCL 500 MG TABLET PO SCH ×2 (06:44→16:48)
[2023-05-26] MEDS: INSULIN LISPRO 100 UNITS/ML SQ PRN ×4 (06:49→21:14)
[2023-05-26 07:16] LABS: GLUCOMETER DEV NAME(LOC) 3E.C; GLUCOSE,POINT OF CARE 173 MG/DL (70-110)
[2023-05-26] MEDS: BuPROPion HCL XL 150 MG ER TABLET PO SCH (08:14)
[2023-05-26] MEDS: CHOLECALCIFEROL (VIT D3) 1,000 UNITS [25 MCG] TABLET PO SCH (08:15)
[2023-05-26] MEDS: CloZAPine 25 MG TABLET PO SCH (08:15)
[2023-05-26] MEDS: OLANZapine 10 MG TABLET PO SCH ×3 (08:15→20:55)
[2023-05-26] MEDS: BENZTROPINE MESYLATE 1 MG TABLET PO SCH ×2 (08:15→20:55)
[2023-05-26] MEDS: DIVALPROEX SODIUM 500 MG ER TABLET PO SCH ×2 (08:15→20:55)
[2023-05-26] MEDS: LevETIRAcetam 500 MG TABLET PO SCH ×2 (08:15→16:48)
[2023-05-26] MEDS: BusPIRone HCL 10 MG TABLET PO SCH ×3 (08:16→20:55)
[2023-05-26] MEDS: MUPIROCIN CALCIUM 2% 22 GM OINTMENT NASAL SCH (08:19)
[2023-05-26] MEDS: TraMADol HCL 50 MG TABLET PO PRN ×2 (08:57→17:03)
[2023-05-26 11:36] LABS: GLUCOMETER DEV NAME(LOC) 3E.C; GLUCOSE,POINT OF CARE 170 MG/DL (70-110)
[2023-05-26 16:46] LABS: GLUCOMETER DEV NAME(LOC) 3E.C; GLUCOSE,POINT OF CARE 162 MG/DL (70-110)
[2023-05-26] MEDS: ZOLPIDEM TARTRATE 10 MG TABLET PO PRN (20:54)
[2023-05-26] MEDS: MELATONIN 3 MG TABLET PO SCH (20:55)
[2023-05-26] MEDS: CloZAPine 100 MG TABLET PO SCH (20:55)
[2023-05-26 21:16] LABS: GLUCOMETER DEV NAME(LOC) 3E.C; GLUCOSE,POINT OF CARE 167 MG/DL (70-110)
[2023-05-26 21:28] VITALS: RESP 18; TEMP 97.1
[2023-05-27 06:54] VITALS: BP 134/92; PULSE 85; RESP 19; TEMP 97.3; O2SAT 99
[2023-05-27] MEDS: TraMADol HCL 50 MG TABLET PO PRN ×2 (06:57→15:52)
[2023-05-27] MEDS: MetFORMIN HCL 500 MG TABLET PO SCH ×2 (06:58→16:21)
[2023-05-27] MEDS: LEVOTHYROXINE SODIUM 100 MCG TABLET PO SCH (06:58)
[2023-05-27] MEDS: FERROUS SULFATE 325 MG EC TABLET PO SCH (06:58)
[2023-05-27] MEDS: INSULIN LISPRO 100 UNITS/ML SQ PRN ×3 (06:59→21:10)
[2023-05-27 07:16] LABS: GLUCOMETER DEV NAME(LOC) 3E.C; GLUCOSE,POINT OF CARE 107 MG/DL (70-110)
[2023-05-27] MEDS: OLANZapine 10 MG TABLET PO SCH ×3 (08:19→21:05)
[2023-05-27] MEDS: CHOLECALCIFEROL (VIT D3) 1,000 UNITS [25 MCG] TABLET PO SCH (08:19)
[2023-05-27] MEDS: CloZAPine 25 MG TABLET PO SCH (08:19)
[2023-05-27] MEDS: BENZTROPINE MESYLATE 1 MG TABLET PO SCH ×2 (08:19→21:05)
[2023-05-27] MEDS: DIVALPROEX SODIUM 500 MG ER TABLET PO SCH ×2 (08:19→21:05)
[2023-05-27] MEDS: LevETIRAcetam 500 MG TABLET PO SCH ×2 (08:19→16:21)
[2023-05-27] MEDS: BusPIRone HCL 10 MG TABLET PO SCH ×3 (08:19→21:04)
[2023-05-27] MEDS: BuPROPion HCL XL 150 MG ER TABLET PO SCH (08:20)
[2023-05-27 08:35] LABS: BASOPHILS % (AUTO) 0.6 % (0.0-2.0); EOSINOPHILS % (AUTO) 0 % (1.0-6.0); HEMATOCRIT 35.8 % (36-46); LYMPHOCYTES # (AUTO) 2.2 K/uL (1.0-4.8); LYMPHOCYTES % (AUTO) 28.7 % (22.0-44.0); MEAN CORPUSCULAR HEMOGLOBIN 30.9 pg (26.0-34.0); MEAN CORPUSCULAR HGB CONC 33.6 G/dL (31.0-37.0); MEAN CORPUSCULAR VOLUME 92 fL (80-100); MONOCYTES # (AUTO) 0.6 K/uL (0.1-1.0); MONOCYTES % (AUTO) 7.6 % (2.0-9.0); NEUTROPHILS # (AUTO) 4.9 K/uL (1.8-7.7); NEUTROPHILS % (AUTO) 63.1 % (40.0-70.0); PLATELET COUNT (AUTO) 247 K/uL (150-450); RED BLOOD CELL COUNT(AUTO) 3.89 MIL/uL (4.00-5.20); WHITE BLOOD COUNT (AUTO) 7.8 K/uL (4.5-11.0)
[2023-05-27 10:42] VITALS: BP 105/69; PULSE 107; RESP 20; TEMP 97.8; O2SAT 99
[2023-05-27 12:16] LABS: GLUCOMETER DEV NAME(LOC) 3E.C; GLUCOSE,POINT OF CARE 133 MG/DL (70-110)
[2023-05-27] MEDS: HALOPERIDOL 5 MG TABLET PO PRN (14:33)
[2023-05-27 15:50] VITALS: BP 112/72; PULSE 98; RESP 18
[2023-05-27 16:52] VITALS: RESP 18
[2023-05-27 16:56] LABS: GLUCOMETER DEV NAME(LOC) 3E.C; GLUCOSE,POINT OF CARE 280 MG/DL (70-110)
[2023-05-27 20:46] VITALS: BP 157/83; PULSE 91; RESP 19; TEMP 97.7
[2023-05-27 21:01] LABS: GLUCOMETER DEV NAME(LOC) 3E.C; GLUCOSE,POINT OF CARE 172 MG/DL (70-110)
[2023-05-27] MEDS: CloZAPine 100 MG TABLET PO SCH (21:05)
[2023-05-27] MEDS: MELATONIN 3 MG TABLET PO SCH (21:05)
[2023-05-28] MEDS: MetFORMIN HCL 500 MG TABLET PO SCH ×2 (06:39→16:22)
[2023-05-28] MEDS: FERROUS SULFATE 325 MG EC TABLET PO SCH (06:39)
[2023-05-28] MEDS: LEVOTHYROXINE SODIUM 100 MCG TABLET PO SCH (06:39)
[2023-05-28] MEDS: INSULIN LISPRO 100 UNITS/ML SQ PRN ×4 (06:40→21:03)
[2023-05-28 07:11] VITALS: BP 138/86; PULSE 88; RESP 18; TEMP 97.6
[2023-05-28 07:11] LABS: GLUCOMETER DEV NAME(LOC) 3E.C; GLUCOSE,POINT OF CARE 113 MG/DL (70-110)
[2023-05-28] MEDS: TraMADol HCL 50 MG TABLET PO PRN ×2 (07:14→15:52)
[2023-05-28 08:14] VITALS: RESP 17
[2023-05-28] MEDS: DIVALPROEX SODIUM 500 MG ER TABLET PO SCH ×2 (09:18→20:01)
[2023-05-28] MEDS: BuPROPion HCL XL 150 MG ER TABLET PO SCH (09:18)
[2023-05-28] MEDS: CloZAPine 25 MG TABLET PO SCH (09:18)
[2023-05-28] MEDS: LevETIRAcetam 500 MG TABLET PO SCH ×2 (09:18→16:22)
[2023-05-28] MEDS: OLANZapine 10 MG TABLET PO SCH ×3 (09:18→20:01)
[2023-05-28] MEDS: CHOLECALCIFEROL (VIT D3) 1,000 UNITS [25 MCG] TABLET PO SCH (09:18)
[2023-05-28] MEDS: BENZTROPINE MESYLATE 1 MG TABLET PO SCH ×2 (09:18→20:01)
[2023-05-28] MEDS: BusPIRone HCL 10 MG TABLET PO SCH ×3 (09:19→20:01)
[2023-05-28 11:41] LABS: GLUCOMETER DEV NAME(LOC) 3E.C; GLUCOSE,POINT OF CARE 158 MG/DL (70-110)
[2023-05-28 15:46] VITALS: BP 147/91; PULSE 106; RESP 16; TEMP 97.3; O2SAT 95
[2023-05-28 16:52] VITALS: RESP 18
[2023-05-28 17:36] LABS: GLUCOMETER DEV NAME(LOC) 3E.C; GLUCOSE,POINT OF CARE 190 MG/DL (70-110)
[2023-05-28] MEDS: CloZAPine 100 MG TABLET PO SCH (20:01)
[2023-05-28] MEDS: HALOPERIDOL 5 MG TABLET PO PRN (20:01)
[2023-05-28] MEDS: MELATONIN 3 MG TABLET PO SCH (20:01)
[2023-05-28 20:35] LABS: GLUCOMETER DEV NAME(LOC) 3E.C; GLUCOSE,POINT OF CARE 236 MG/DL (70-110)
[2023-05-28 20:58] VITALS: BP 138/82; PULSE 103; RESP 18; TEMP 98.1; O2SAT 98
[2023-05-28] MEDS: ZOLPIDEM TARTRATE 10 MG TABLET PO PRN (21:09)
[2023-05-29] MEDS: FERROUS SULFATE 325 MG EC TABLET PO SCH (06:41)
[2023-05-29] MEDS: LEVOTHYROXINE SODIUM 100 MCG TABLET PO SCH (06:41)
[2023-05-29] MEDS: MetFORMIN HCL 500 MG TABLET PO SCH (06:41)
[2023-05-29 07:06] LABS: GLUCOMETER DEV NAME(LOC) 3E.C; GLUCOSE,POINT OF CARE 107 MG/DL (70-110)
[2023-05-29] MEDS: BuPROPion HCL XL 150 MG ER TABLET PO SCH (08:20)
[2023-05-29] MEDS: BusPIRone HCL 10 MG TABLET PO SCH (08:21)
[2023-05-29] MEDS: LevETIRAcetam 500 MG TABLET PO SCH (08:28)
[2023-05-29] MEDS: CloZAPine 25 MG TABLET PO SCH (08:28)
[2023-05-29] MEDS: OLANZapine 10 MG TABLET PO SCH (08:28)
[2023-05-29] MEDS: BENZTROPINE MESYLATE 1 MG TABLET PO SCH (08:28)
[2023-05-29] MEDS: DIVALPROEX SODIUM 500 MG ER TABLET PO SCH (08:28)
[2023-05-29] MEDS: CHOLECALCIFEROL (VIT D3) 1,000 UNITS [25 MCG] TABLET PO SCH (08:29)
[2023-05-29 08:37] VITALS: BP 148/94; PULSE 90; RESP 18; TEMP 97.2
[2023-05-29] MEDS: TraMADol HCL 50 MG TABLET PO PRN (08:37)
[2023-05-29 09:00] VITALS: BP 148/94; PULSE 90; RESP 18; TEMP 97.2; O2SAT 98
[2023-05-29 09:37] VITALS: BP 137/82; PULSE 82; RESP 17; TEMP 97.7
[2023-05-29 12:02] LABS: GLUCOMETER DEV NAME(LOC) 3E.C; GLUCOSE,POINT OF CARE 226 MG/DL (70-110)
[2023-05-29] MEDS: INSULIN LISPRO 100 UNITS/ML SQ PRN (13:05)
== END 2023-05-29 15:30 | DRG 885 ==
LOC: EMS 23:05 → 3EX 05-18 18:32
PROVIDERS: ADMIT Psychiatry & Neurology Psychiatry; ATTEND Psychiatry & Neurology Psychiatry
DX: F25.0 Schizoaffective disorder, bipolar type (principal); N18.9 Chronic kidney disease, unspecified; Z93.3 Colostomy status; E11.65 Type 2 diabetes mellitus with hyperglycemia; R45.851 Suicidal ideations; E87.6 Hypokalemia; G40.909 Epilepsy, unspecified, not intractable, without status epilepticus; I12.9 Hypertensive chronic kidney disease with stage 1 through stage 4 chronic kidney disease, or unspecified chronic kidney disease; E03.9 Hypothyroidism, unspecified; E78.5 Hyperlipidemia, unspecified; D50.9 Iron deficiency anemia, unspecified; K21.9 Gastro-esophageal reflux disease without esophagitis; J44.9 Chronic obstructive pulmonary disease, unspecified; Z20.822 Contact with and (suspected) exposure to COVID-19; D64.9 Anemia, unspecified; E11.319 Type 2 diabetes mellitus with unspecified diabetic retinopathy without macular edema; F41.9 Anxiety disorder, unspecified; G47.00 Insomnia, unspecified; Z79.84 Long term (current) use of oral hypoglycemic drugs; Z88.6 Allergy status to analgesic agent; Z88.8 Allergy status to other drugs, medicaments and biological substances; Z79.899 Other long term (current) drug therapy; Z91.51 Personal history of suicidal behavior
CPT/HCPCS: 80053; 80061; 80307; 82962; 83036; 84443; 84484; 85025; 87081; 99285; G0378; G0480; J2060; Q0162; Q9967

== ENCOUNTER 2023-06-22 14:43 | Emergency (ER) | payer MEDICARE, OTHER ==
[~2023-06-22] VITALS: Ht 160 cm; Wt 72.7 kg
[2023-06-22 15:27] VITALS: PULSE 94; TEMP 97.6
[2023-06-22 15:41] LABS: GLUCOMETER DEV NAME(LOC) ERT.5; GLUCOSE,POINT OF CARE 167 MG/DL (70-110)
[2023-06-22] MEDS ORDERED: LORazepam 2 MG TABLET PO PRN (16:00)
[2023-06-22] MEDS ORDERED: OLANZapine 5 MG RAPDIS TABLET PO PRN (16:00)
[2023-06-22] MEDS ORDERED: DIVALPROEX SODIUM 250 MG DR TABLET PO ONE (16:15)
[2023-06-22] MEDS ORDERED: LORazepam 2 MG TABLET PO ONE (16:15)
[2023-06-22] MEDS ORDERED: CloZAPine 100 MG TABLET PO ONE (16:15)
[2023-06-22 16:59] VITALS: BP 167/114; RESP 18
== END 2023-06-22 17:51 | disposition home or self-care (01) ==
LOC: EMS 14:43
DX: F25.9 Schizoaffective disorder, unspecified (principal); R45.851 Suicidal ideations; F31.9 Bipolar disorder, unspecified; J44.9 Chronic obstructive pulmonary disease, unspecified; E11.9 Type 2 diabetes mellitus without complications; Z93.3 Colostomy status; Z88.6 Allergy status to analgesic agent
CPT/HCPCS: 82962; 99284

== ENCOUNTER 2024-01-08 01:15 | Emergency (ER) | payer MEDICARE, OTHER ==
[~2024-01-08] VITALS: Ht 160 cm; Wt 70.0 kg
[~2024-01-08 01:15] MED LIST changes: -BUPR-317 PO; -BUSP10TA23 PO; -CHOL25TA4 PO; -CLOZ25TA52 PO; -DIVA500T53 PO; -FERR325T27 PO; -MELA1TAB28 PO; -METF-1211 PO; +METF-445 PO; -OLAN10TA74 PO
[2024-01-08 07:45] VITALS: BP 149/97; PULSE 80; RESP 16; TEMP 98.2
[2024-01-08] MEDS: KETOROLAC TROMETHAMINE 30 MG/ML VIAL IM ONE (08:09)
[2024-01-08] MEDS: LORazepam 1 MG TABLET PO ONE (08:09)
== END 2024-01-08 09:10 | disposition home or self-care (01) ==
LOC: EMS 01:15
DX: S16.1XXA Strain of muscle, fascia and tendon at neck level, initial encounter (principal); F31.9 Bipolar disorder, unspecified; J44.9 Chronic obstructive pulmonary disease, unspecified; E11.9 Type 2 diabetes mellitus without complications; F20.9 Schizophrenia, unspecified; F41.9 Anxiety disorder, unspecified; Z88.6 Allergy status to analgesic agent; Z90.49 Acquired absence of other specified parts of digestive tract; X58.XXXA Exposure to other specified factors, initial encounter; Y93.89 Activity, other specified; Y92.89 Other specified places as the place of occurrence of the external cause; Y99.8 Other external cause status
CPT/HCPCS: 99283; 82962; 96372; J1885